=== PATIENT | female | born 1965 | race Caucasian/White ===

== ENCOUNTER 2024-11-07 09:20 | Inpatient (IN) | payer MEDICAID, SELFPAY ==
[2024-11-07] VITALS (16 sets, daily range): BP systolic 135–165; BP diastolic 64–71; PULSE 88–110; RESP 18–93; TEMP 36.6–39; O2SAT 88–99; BMI 17.6
--- NOTE | 2024-11-07 09:41 | XR_ITS ---
Examination: PA lateral chest 2 views Technique: Upright PA lateral chest 2 views Exam time: November 07, 2024 0955 hrs. Comparison February 09, 2024 Indications: Chest pain coughing today Findings: COPD with prominent hyperexpansion Opacity right base consistent with pneumonia Probable pleural scarring right base Impression: COPD Right base pneumonia
--- NOTE | 2024-11-07 09:42 | PD.EDRME ---
Rapid Medical Screening Exam E Arrival date/time: 11/07/24 09:20 59-year-old female with a history of COPD, hyperlipidemia, type 2 diabetes, hypertension presents to the emergency room with a chief complaint of shortness of breath, coughing, fevers x 3 days. I have greeted and performed a focused initial assessment of this patient. A comprehensive ED assessment and evaluation of the patient, analysis of all test results, and completion of the medical decision making process will be conducted by additional ED providers. Chief Complaint: Shortness of Breath/Dyspnea Vital signs: Vital Signs Temperature 102.2 F H 11/07/24 09:39 Pulse Rate 110 H 11/07/24 09:39 Respiratory Rate 22 H 11/07/24 09:39 Blood Pressure 154/71 H 11/07/24 09:39 Pulse Oximetry (%) 90 L 11/07/24 09:39 Oxygen Delivery Method Room Air 11/07/24 09:39 Vital signs reviewed by provider: Yes
[2024-11-07] MEDS: ACETAMINOPHEN 500 MG TABLET 1000 MG PO (09:48)
[2024-11-07] MEDS: ALBUTEROL/IPRATROPIUM (Duoneb) RT SOL 3 ML NEBU INH (10:14)
[2024-11-07 10:42] LABS: Lactate (Lactic Acid) 1.1 mMol/L (0.4-2.0)
[2024-11-07 10:44] LABS: Basophils # (Auto) 0.1 Thou/mm3 (0.0-0.2); Basophils % (Auto) 0 % (0-2.5); Eosinophils # (Auto) 0.1 Thou/mm3 (0.0-0.5); Eosinophils % (Auto) 1 % (0-10); Hematocrit 34.4 % (36.0-46.0); Hemoglobin 11.1 g/dL (12.0-16.0); Immature Granulocytes % (Auto) 0 % (0-0); Immature Granulocytes Auto 0.03 Thou/mm3 (0.00-0.00); Lymphocytes # (Auto) 0.6 Thou/mm3 (1.0-4.8); Lymphocytes % (Auto) 6 % (10-50); Mean Corpuscular HGB Conc 32.3 g/dl (31.0-37.0); Mean Corpuscular Hemoglobin 23.4 pg (25.0-35.0); Mean Corpuscular Volume 73 fL (80-100); Monocytes # (Auto) 0.7 Thou/mm3 (0.0-0.8); Monocytes % (Auto) 6 % (0-12); Neutrophils # (Auto) 9.9 Thou/mm3 (1.8-7.7); Neutrophils % (Auto) 87 % (37-80); Nucleated Red Blood Cell % 0 /100 WBC (0); Platelet Count 552 Thou/mm3 (140-440); RDW Standard Deviation 52.3 fL (36.4-46.3); Red Blood Count 4.74 Miln/mm3 (4.00-5.20); White Blood Count 11.4 Thou/mm3 (3.6-11.0)
[2024-11-07 11:13] LABS: Alanine Aminotransferase 11 U/L (10-49); Albumin, Serum 4.3 gm/dL (3.5-5.0); Alkaline Phosphatase 112 U/L (46-116); Anion Gap 10 (7-16); Aspartate Amino Transferase 15 U/L (0-34); BUN/Creatinine Ratio 12 Ratio (12-20); Bilirubin,Total 0.2 mg/dL (0.3-1.2); Blood Urea Nitrogen 11 mg/dL (9-23); Calcium 9.3 mg/dL (8.3-10.6); Calcium (Corrected) 9.3 mg/dL (8.5-10.1); Carbon Dioxide 23.8 mMol/L (20.0-31.0); Chloride 98 mMol/L (98-107); Creatinine (Component) 0.9 mg/dL (0.6-1.3); Globulin 2.1 gm/dL (2.3-3.5); Glucose 215 mg/dL (74-106); Osmolality,Calculated 269 (275-295); Potassium 4.8 mMol/L (3.4-5.1); Procalcitonin 0.13 ng/ml (0.0-0.49); Sodium 132 mMol/L (136-145); Total Protein 6.4 gm/dL (5.7-8.2); eGFR > 60 See Note
--- NOTE | 2024-11-07 11:39 | PD.EDADULT ---
ED General RME/HPI General Chief complaint: Shortness of Breath/Dyspnea Stated complaint: CAN'T HARDLY BREATH W/COUGH X 4 DAYS Time Seen by Provider: 11/07/24 10:02 Arrival date/time: 11/07/24 09:20 RME / HPI RME / HPI narrative: 11/07/24 09:20 59-year-old female with a history of COPD, hyperlipidemia, type 2 diabetes, hypertension presents to the emergency room with a chief complaint of shortness of breath, coughing, fevers x 3 days. I have greeted and performed a focused initial assessment of this patient. A comprehensive ED assessment and evaluation of the patient, analysis of all test results, and completion of the medical decision making process will be conducted by additional ED providers. Related Data Home Medications ?Medication ?Instructions ?Recorded ?Confirmed amitriptyline 100 mg tablet 100 mg PO QPM 07/28/19 02/10/24 atorvastatin 40 mg tablet 40 mg PO QPM 07/28/19 02/10/24 metformin 1,000 mg tablet 1,000 mg PO BIDWM 09/19/21 02/10/24 gabapentin 100 mg capsule 100 mg PO HS 10/28/23 02/10/24 albuterol sulfate 90 mcg/actuation 2 puff inhalation Q4H PRN Cough 02/10/24 02/10/24 aerosol inhaler cyclobenzaprine 10 mg tablet 10 mg PO TID PRN muscle spasms 02/10/24 02/10/24 erythromycin 500 mg tablet 500 mg PO TID 02/10/24 02/10/24 lamotrigine 25 mg tablet 25 mg PO QHSPRN 02/10/24 02/10/24 lisinopril 20 mg tablet 40 mg PO QDAY 02/10/24 02/10/24 metoclopramide HCl 10 mg tablet 10 mg PO Q6H PRN upset stomach 02/10/24 02/10/24 mirtazapine 15 mg tablet 15 mg PO HS 02/10/24 02/10/24 mupirocin 2 % topical ointment 1 applic topical BID 02/10/24 02/10/24 pantoprazole 40 mg tablet,delayed 40 mg PO QDAY 02/10/24 02/10/24 release Previous Rx's ?Medication ?Instructions ?Recorded blood-glucose sensor (FreeStyle #1 ea 02/11/24 Osmani 3 Sensor device) clopidogrel 75 mg tablet 75 mg PO QDAY 30 days #30 tabs 02/11/24 insulin glargine 100 unit/mL 20 unit (0.2 mL) SCi QDAY 30 days 02/11/24 subcutaneous solution (Lantus #6 mL U-100 Insulin) insulin lispro 100 unit/mL 14 unit (0.14 mL) subcut TID 30 02/11/24 subcutaneous solution (Admelog days #12.6 mL U-100 Insulin lispro) insulin syr/ndl U100 half windy 0.3 #100 ea 02/11/24 mL 29 gauge x 1/2 Allergies Allergy/AdvReac Type Severity Reaction Status Date / Time aspirin Allergy Severe RASH Verified 11/07/24 09:21 cephalexin Allergy Severe Rash Verified 11/07/24 09:21 codeine Allergy Severe RASH Verified 11/07/24 09:21 diphenhydramine Allergy Severe Rash Verified 11/07/24 09:21 Penicillins Allergy Severe RASH Verified 11/07/24 09:21 ED Exam Narrative Physical exam: Physical Exam: General: The vital signs were reviewed. Patient is found to have a fever on presentation with a heart rate of 110 patient coughs frequently otherwise the patient is non-toxic, in no apparent distress and appears healthy with a patent airway, no respiratory distress and has no apparent circulatory problems. Head & Scalp: Normocephalic, atraumatic. Face: Appears normal and is without lesions, deformity. Ears: Left external pinna appears normal. Right external pinna appears normal. Eyes: The sclera is anicteric. No obvious photophobia. The Left and Right Orbit/Lid/Conjunctiva appears normal without swelling, discoloration or injection. Nose: The nose is without deformity, discharge or tenderness; Throat: Appears normal. The mucous membranes are pink and moist without exudates, redness or mass seen. The tongue appears normal. Neck: The neck is supple and no apparent mass or adenopathy. Chest: The chest wall is normal in size and symmetry and has no chest wall tenderness or crepitus. The patient displays normal ventilator effort w has wheezing in all lung abraham and has lots of coughing when she tries to take a deep breath. Cardiovascular: Regular rate and rhythm; No murmurs, rubs, or gallops; Gastrointestinal: The abdomen appears normal. No obvious hernias or mass. The abdomen is soft and benign, non-distended, with no pain, no guarding and no rebound tenderness. Bowel sounds are present and normal sounding. No CVA tenderness. Genitourinary: Back/Spine: Normal [place] and Extremities/Musculoskeletal/lymphatic: The bilateral upper and lower extremities are warm. There is no evidence of arterial insufficiency. There is no evidence of venous insufficiency/edema. The patient spontaneously moves bilateral upper and lower extremities with no pain and no limitation of movement. There is no apparent, injury or trauma. Skin: The skin is warm, dry and intact. No rashes. No petechia. No purpura. No abnormal bruising. The color is appropriate with no cyanosis. Mental status/Psychiatric: Mental status is appropriate for age. The patient has no apparent delusions, visual hallucinations, no apparent audible hallucinations. The patient has no apparent suicidal thoughts/ideation and no apparent homicidal thoughts/ideation. Neurological: The patient is awake, alert, interactive, cordial, cooperative and is oriented to name and situation. The patient follows commands and answers historical question with no impairment. There is no visual disturbance apparent. The pupils are equal and reactive bilaterally with normal eye movements and no diplopia The bilateral upper and lower extremities have normal strength, normal range of motion and normal functioning. The gait, station and balance appear to be baseline with no acute change Course Orders Category Date Time Status Bedside COVID-19 Antigen Test NOW Care 11/07/24 09:41 Active Bedside Influenza A&B Antigen Test NOW Care 11/07/24 09:41 Completed Insert IV NOW Care 11/07/24 09:44 Active Miscellaneous Nursing Order X1 Care 11/07/24 11:41 Active XR chest 2V Stat Exams 11/07/24 09:41 Completed Blood Culture (Lab) Stat Lab 11/07/24 11:00 Received CBC Stat Lab 11/07/24 10:33 Completed CMP [Comprehensive Metabolic Panel] Stat Lab 11/07/24 10:33 Completed Lactate (Lactic Acid) Stat Lab 11/07/24 10:33 Completed Procalcitonin Stat Lab 11/07/24 10:33 Completed UA [Urinalysis] Stat Lab 11/07/24 11:42 Completed Urine Culture Stat Lab 11/07/24 11:42 Received Acetaminophen Tab [Tylenol ES Tab] Med 11/07/24 09:41 Discontinued 1,000 mg PO X1 ONE Albuterol/Ipratr Rt Antonella [Duoneb Rt Antonella] Med 11/07/24 09:41 Discontinued 3 ml INH X1 ONE Azithromycin Inj [Zithromax Inj] 500 mg Med 11/07/24 09:44 Discontinued Sodium Chloride 0.9% 250 ml [Ns] 250 ml IV X1 Dexamethasone Inj [Decadron Inj] Med 11/07/24 09:41 Discontinued 10 mg PO X1 ONE Meropenem Inj [Merrem Inj] 1,000 mg Med 11/07/24 11:41 Discontinued SODIUM CHLORIDE 0.9% (Popper) [NS 0.9% (Popper)] 50 ml IV X1 MethylPREDNISolone.* [SoluMEDROL Inj] Med 11/07/24 09:44 Discontinued 125 mg IVP X1 ONE Sodium Chloride 0.9% 1000 ml [Ns] 1,000 ml Med 11/07/24 09:45 Discontinued IV 999 mls/hr Vital Signs Vital signs: Vital Signs Temperature 102.2 F H 11/07/24 09:39 Pulse Rate 110 H 11/07/24 09:39 Respiratory Rate 22 H 11/07/24 09:39 Blood Pressure 154/71 H 11/07/24 09:39 Pulse Oximetry (%) 90 L 11/07/24 09:39 Oxygen Delivery Method Room Air 11/07/24 09:39 MDM Medications Medication administrations:: Medication Administration History Discontinued Medications Acetaminophen (Acetaminophen 500 Mg Tablet) 1,000 mg PO X1 ONE Stop: 11/07/24 09:42 Last Admin: 11/07/24 09:48 Dose: 1,000 mg Documented By: OA Albuterol/Ipratropium (Albuterol/Ipratropium (Duoneb) Rt Antonella 3 Ml Nebu) 3 ml INH X1 ONE Stop: 11/07/24 09:42 Last Admin: 11/07/24 10:14 Dose: 3 ml Documented By: AA Dexamethasone Sodium Phosphate (Dexamethasone Sod Phos Inj 10 Mg/Ml Vial) 10 mg PO X1 ONE Stop: 11/07/24 09:42 Last Admin: 11/07/24 11:54 Dose: Not Given Documented By: GM Non-Admin Reason: Discontinued Azithromycin 500 mg/ Sodium (Chloride) 250 mls @ 250 mls/hr IV X1 ONE Stop: 11/07/24 10:43 Last Admin: 11/07/24 11:54 Dose: 250 mls/hr Documented By: LINDSEY Sodium Chloride (Ns) 1,000 mls @ 999 mls/hr IV .Q1H1M ONE Stop: 11/07/24 10:45 Last Admin: 11/07/24 11:52 Dose: 999 mls/hr Documented By: LINDSEY Meropenem 1,000 mg/ Sodium (Chloride) 50 mls @ 100 mls/hr IV X1 ONE Stop: 11/07/24 11:42 Methylprednisolone Sodium Succinate (Methylprednisolone Sod Succ 62.5 Mg/Ml 2ml Vial) 125 mg IVP X1 ONE Stop: 11/07/24 09:45 Last Admin: 11/07/24 11:51 Dose: 125 mg Documented By: LINDSEY Medical Decision Making MDM Narrative MDM Narrative: Patient is a 59-year-old who has a known history of tobacco use with COPD and inhaler usage comes in with 5 days of increasing cough some shortness of breath was found to have a fever on arrival to our facility and a strep septic alert was called. Chest x-ray reveals a right pleural effusion and right lower lobe infiltrate with flattened diaphragms and COPD appearing lungs otherwise. Cardiac silhouette appears to be within normal limits Laboratory studies reveal a white count 11.4 hemoglobin 11.1 sodium 132 potassium 4.8 chloride 98 CO2 23.8. BUN 11 creatinine 0.9 lactic acid is 1.1. Glucose 215. Dip urine has 3+ protein 4+ glucose and 1+ ketones and there is 4 white cells and 6 red cells per Because of fever and tachycardia she met SIRS criteria and we went ahead and called a septic alert. She got 1 dose azithromycin previously ordered prior to my evaluation and I added meropenem for broader spectrum. Will reevaluate after breathing treatments. Lab Data 11/07/24 10:33 11/07/24 10:33 Labs: Lab Results 11/07/24 11/07/24 Range/Units 10:33 11:42 WBC 11.4 H (3.6-11.0) Thou/mm3 RBC 4.74 (4.00-5.20) Miln/mm3 Hgb 11.1 L (12.0-16.0) g/dL Hct 34.4 L (36.0-46.0) % MCV 73 L (80-100) fL MCH 23.4 L (25.0-35.0) pg MCHC 32.3 (31.0-37.0) g/dl RDW Std Deviation 52.3 H (36.4-46.3) fL Plt Count 552 H (140-440) Thou/mm3 Neut % (Auto) 87 H (37-80) % Lymph % (Auto) 6 L (10-50) % [place] % (Auto) 6 (0-12) % Eos % (Auto) 1 (0-10) % Baso % (Auto) 0 (0-2.5) % Neut # (Auto) 9.9 H (1.8-7.7) Thou/mm3 Lymph # (Auto) 0.6 L (1.0-4.8) Thou/mm3 [place] # (Auto) 0.7 (0.0-0.8) Thou/mm3 Eos # (Auto) 0.1 (0.0-0.5) Thou/mm3 Baso # (Auto) 0.1 (0.0-0.2) Thou/mm3 Immature Gran # (Auto) 0.03 H (0.00-0.00) Thou/mm3 Absolute Nucleated RBC 0.00 (0.00-0.00) Thou/mm3 Immature Gran % 0 (0-0) % Nucleated RBC % 0 (0) /100 WBC Sodium 132 L (136-145) mMol/L Potassium 4.8 (3.4-5.1) mMol/L Chloride 98 (98-107) mMol/L Carbon Dioxide 23.8 (20.0-31.0) mMol/L Anion Gap 10 (7-16) BUN 11 (9-23) mg/dL Creatinine 0.9 (0.6-1.3) mg/dL Estim Creat Clear Calc Not Performed. eGFR > 60 (60 - ) See Note BUN/Creatinine Ratio 12 (12-20) Ratio Glucose 215 H (74-106) mg/dL Calculated Osmolality 269 L (275-295) Lactic Acid 1.1 (0.4-2.0) mMol/L Calcium 9.3 (8.3-10.6) mg/dL Corrected Calcium 9.3 (8.5-10.1) mg/dL Total Bilirubin 0.2 L (0.3-1.2) mg/dL AST 15 (0-34) U/L ALT 11 (10-49) U/L Alkaline Phosphatase 112 (46-116) U/L Total Protein 6.4 (5.7-8.2) gm/dL Albumin 4.3 (3.5-5.0) gm/dL Globulin 2.1 L (2.3-3.5) gm/dL Albumin/Globulin Ratio 2.0 (1.2-2.2) Procalcitonin 0.13 (0.0-0.49) ng/ml Ur Collection Type Clean Catch Urine Color Lt-Yellow (Lt Yel-Yel) Urine Clarity Clear (Clear/Hazy) Urine pH 6.5 (5.0-7.0) Ur Specific [place] 1.027 (1.001-1.035) Urine Protein 3+ A (Neg - Trace) Urine Glucose (UA) 4+ A (Negative) Urine Ketones 1+ A (Negative) Urine Blood Trace (Negative) Urine Nitrite Negative (Negative) Urine Bilirubin Negative (Negative) Urine Urobilinogen (Auto) Negative (0.0-1.0) mg/dL Ur Leukocyte Esterase Negative (Negative) Urine RBC 6 H (0-3) /hpf Urine WBC 4 (0-5) /hpf Ur Squamous Epith Cells 4 (0-5) /hpf Urine Bacteria None (None) Hyaline Casts < 1 (0-1) /hpf Discharge Plan Prescriptions/Referrals Prescriptions/Med Rec: No Action atorvastatin 40 mg Tablet 40 mg PO QPM amitriptyline 100 mg Tablet 100 mg PO QPM metformin 1,000 mg Tablet 1,000 mg PO BIDWM gabapentin 100 mg capsule 100 mg PO HS cyclobenzaprine 10 mg Tablet 10 mg PO TID PRN (Reason: muscle spasms ) lamotrigine 25 mg tablet 25 mg PO QHSPRN mirtazapine 15 mg tablet 15 mg PO HS metoclopramide HCl 10 mg Tablet 10 mg PO Q6H PRN (Reason: upset stomach) erythromycin 500 mg Tablet 500 mg PO TID lisinopril 20 mg tablet 40 mg PO QDAY Patient Comments: TAKE TWO TABLETS BY MOUTH EVERY DAY HIGH BLOOD PRESSURE pantoprazole 40 mg Tablet,Delayed Release (Dr/Ec) 40 mg PO QDAY mupirocin 2 % Ointment 1 applic TOPICAL BID albuterol sulfate 90 mcg/actuation HFA aerosol inhaler 2 puff INHALATION Q4H PRN (Reason: Cough) clopidogrel 75 mg Tablet 75 mg PO QDAY 30 Days Qty: 30 4RF insulin glargine [Lantus U-100 Insulin] 100 unit/mL Solution 20 unit SCi QDAY 30 Days Qty: 6 2RF insulin lispro [Admelog U-100 Insulin lispro] 100 unit/mL solution 14 unit subcut TID 30 Days Qty: 12.6 6RF (DME) FreeStyle Osmani 3 Sensor Device See Rx Instructions .Route Qty: 1 6RF Rx Instructions: As directed (DME) insulin syr/ndl U100 half windy 0.3 mL 29 gauge x 1/2 syringe See Rx Instructions .Route Qty: 100 0RF Rx Instructions: As directed Referrals: Aaron Mclean MD [Primary Care Provider] - In 1 week Patient/Caregiver Discharge Instructions Print Language: Estonian
[2024-11-07 11:49] LABS: Collection Type, Urine Clean Catch
[2024-11-07] MEDS: MethylPREDNISolone SOD SUCC 62.5 MG/ML 2ML VIAL 125 MG IVP (11:51)
[2024-11-07] MEDS: SODIUM CHLORIDE 0.9% 1000 ML 1,000 ML 999 ML IV (11:52)
[2024-11-07] MEDS: AZITHROMYCIN INJ 500 MG in SODIUM CHLORIDE 0.9% 250 ML 250 ML 250 MG IV (11:54)
[2024-11-07 12:05] LABS: Bilirubin,Urine Negative (Negative); Blood,Urine Trace (Negative); Clarity,Urine Clear (Clear/Hazy); Color,Urine Lt-Yellow (Lt Yel-Yel); Glucose, Urine 4+ (Negative); Hyaline Casts,Urine < 1 /hpf (0-1); Ketones,Urine 1+ (Negative); Leukocyte Esterase,Urine Negative (Negative); Nitrite,Urine Negative (Negative); PH,Urine 6.5 (5.0-7.0); Protein,Urine 3+ (Neg - Trace); RBC,Urine 6 /hpf (0-3); Specific Gravity,Urine 1.027 (1.001-1.035); Squamous Epithelial Cell,Urine 4 /hpf (0-5); Urobilinogen,Urine Negative mg/dL (0.0-1.0); WBC,Urine 4 /hpf (0-5)
--- NOTE | 2024-11-07 12:18 | PD.EDSOB ---
ED SOB =RME/HPI General Chief Complaint: Shortness of Breath/Dyspnea Stated Complaint: CAN'T HARDLY BREATH W/COUGH X 4 DAYS Time Seen by Provider: 11/07/24 10:02 Arrival date/time: 11/07/24 09:20 RME / HPI RME / HPI Narrative: 11/07/24 09:20 59-year-old female with a history of COPD, hyperlipidemia, type 2 diabetes, hypertension presents to the emergency room with a chief complaint of shortness of breath, coughing, fevers x 3 days. I have greeted and performed a focused initial assessment of this patient. A comprehensive ED assessment and evaluation of the patient, analysis of all test results, and completion of the medical decision making process will be conducted by additional ED providers. DR. VELASQUEZ MAIN ED EVALUATION: 59 year old female with history of CAD s/p PCI, hypertension, COPD, hypothyroidism, diabetes, previous admission for DKA, hyperlipidemia presents to the ED BIBA from home for evaluation of cough and shortness of breath today. States at baseline she has a cough and shortness of breath however symptoms are worse in the last 3 days. Accompanied by fevers, chills, body aches. Denies any sick contacts with similar symptoms. Denies abdominal pain, vomiting, diarrhea, or urinary symptoms. No known modifying factors reported. Related Data Home Medications ?Medication ?Instructions ?Recorded ?Confirmed amitriptyline 100 mg tablet 100 mg PO QPM 07/28/19 02/10/24 atorvastatin 40 mg tablet 40 mg PO QPM 07/28/19 02/10/24 metformin 1,000 mg tablet 1,000 mg PO BIDWM 09/19/21 02/10/24 gabapentin 100 mg capsule 100 mg PO HS 10/28/23 02/10/24 albuterol sulfate 90 mcg/actuation 2 puff inhalation Q4H PRN Cough 02/10/24 02/10/24 aerosol inhaler cyclobenzaprine 10 mg tablet 10 mg PO TID PRN muscle spasms 02/10/24 02/10/24 erythromycin 500 mg tablet 500 mg PO TID 02/10/24 02/10/24 lamotrigine 25 mg tablet 25 mg PO QHSPRN 02/10/24 02/10/24 lisinopril 20 mg tablet 40 mg PO QDAY 02/10/24 02/10/24 metoclopramide HCl 10 mg tablet 10 mg PO Q6H PRN upset stomach 02/10/24 02/10/24 mirtazapine 15 mg tablet 15 mg PO HS 02/10/24 02/10/24 mupirocin 2 % topical ointment 1 applic topical BID 02/10/24 02/10/24 pantoprazole 40 mg tablet,delayed 40 mg PO QDAY 02/10/24 02/10/24 release Previous Rx's ?Medication ?Instructions ?Recorded blood-glucose sensor (FreeStyle #1 ea 02/11/24 Osmani 3 Sensor device) clopidogrel 75 mg tablet 75 mg PO QDAY 30 days #30 tabs 02/11/24 insulin glargine 100 unit/mL 20 unit (0.2 mL) SCi QDAY 30 days 02/11/24 subcutaneous solution (Lantus #6 mL U-100 Insulin) insulin lispro 100 unit/mL 14 unit (0.14 mL) subcut TID 30 02/11/24 subcutaneous solution (Admelog days #12.6 mL U-100 Insulin lispro) insulin syr/ndl U100 half windy 0.3 #100 ea 02/11/24 mL 29 gauge x 1/2 Allergies Allergy/AdvReac Type Severity Reaction Status Date / Time aspirin Allergy Severe RASH Verified 11/07/24 09:21 cephalexin Allergy Severe Rash Verified 11/07/24 09:21 codeine Allergy Severe RASH Verified 11/07/24 09:21 diphenhydramine Allergy Severe Rash Verified 11/07/24 09:21 Penicillins Allergy Severe RASH Verified 11/07/24 09:21 Review of Systems Review of Systems Narrative Review of Systems: Constitutional: SEE HPI +fevers Eyes: DENIES; Loss of vision Head/Ear/Nose: DENIES; Loss of hearing Throat: DENIES; Dysphagia Cardiovascular: DENIES; Chest pain, dyspnea or syncope Respiratory: SEE HPI + Shortness of breath and cough Gastrointestinal: DENIES; Rectal bleeding or melena. Genitourinary: DENIES; Dysuria (painful or difficult urination) Musculoskeletal: DENIES; Arthralgia (pain in a joint),; Skin: DENIES; Rash Neurological: DENIES; Loss of function or movement Psychiatric: DENIES; recent major life stressor, emotional problem, illicit drug use or abuse Endocrinology: DENIES; Weight change Hematologic/Lymphatic: DENIES; Abnormal bruising Allergic/Immunologic: DENIES; Urticaria (hives) Past Medical History Past Medical History NEUROLOGIC: Positive Neurological Disorders, Migraine and Head Trauma CARDIAC: Positive Myocardial Infarction, Coronary Artery Disease, Atherosclerotic Heart Disease, Hypercholesterolemia, Edema and Hypertension RESPIRATORY: Positive Chronic Obstructive Pulmonary Disease (COPD), Asthma, Bronchitis, Pneumonia, Cough, Wheezing, Smoking, Smoking Cessation Counseling and Tobacco Use GASTROINTESTINAL: Positive Gastrointestinal Disorders and Gastroesophageal Reflux Disease GENITOURINARY: Positive Genitourinary Disorders REPRODUCTIVE: Positive Previous Pregnancies MUSCULOSKELETAL: Positive Musculoskeletal Disorders, Arthritis and Fractures (wrist and ribs) ENT: Positive Ear Infection and Head Trauma ENDOCRINE: Positive Diabetes Mellitus Type 2 and Hypothyroidism PSYCHO/SOCIAL: Positive Recreational Drug Use, Depression and Anxiety OTHER HISTORY: Positive Hospitalization, Falls, Chicken Pox, Measles and Mumps Family History FAMILY HISTORY: Positive Family Respiratory Disorders, Family Cardiac Disorders, Family Gastrointestinal Problems and Family Surgery Surgical History SURGICAL: Positive Cardiac Surgery, Coronary Stent, Cardiac Catheterization and Tubal Ligation Social History SMOKING STATUS: Light (< 1 pack/day) SECOND HAND EXPOSURE: Yes SUBSTANCE USE: former substance user, marijuana and amphetamines ED Exam Narrative Physical exam: Physical Exam: General: The vital signs were reviewed. Patient is found to have a fever on presentation with a heart rate of 110 patient coughs frequently otherwise the patient is non-toxic, in no apparent distress and appears healthy with a patent airway, no respiratory distress and has no apparent circulatory problems. Head & Scalp: Normocephalic, atraumatic. Face: Appears normal and is without lesions, deformity. Ears: Left external pinna appears normal. Right external pinna appears normal. Eyes: The sclera is anicteric. No obvious photophobia. The Left and Right Orbit/Lid/Conjunctiva appears normal without swelling, discoloration or injection. Nose: The nose is without deformity, discharge or tenderness; Throat: Appears normal. The mucous membranes are pink and moist without exudates, redness or mass seen. The tongue appears normal. Neck: The neck is supple and no apparent mass or adenopathy. Chest: The chest wall is normal in size and symmetry and has no chest wall tenderness or crepitus. The patient displays normal ventilator effort w has wheezing in all lung abraham and has lots of coughing when she tries to take a deep breath. Cardiovascular: Regular rate and rhythm; No murmurs, rubs, or gallops; Gastrointestinal: The abdomen appears normal. No obvious hernias or mass. The abdomen is soft and benign, non-distended, with no pain, no guarding and no rebound tenderness. Bowel sounds are present and normal sounding. No CVA tenderness. Genitourinary: Back/Spine: Normal Spektor and Extremities/Musculoskeletal/lymphatic: The bilateral upper and lower extremities are warm. There is no evidence of arterial insufficiency. There is no evidence of venous insufficiency/edema. The patient spontaneously moves bilateral upper and lower extremities with no pain and no limitation of movement. There is no apparent, injury or trauma. Skin: The skin is warm, dry and intact. No rashes. No petechia. No purpura. No abnormal bruising. The color is appropriate with no cyanosis. Mental status/Psychiatric: Mental status is appropriate for age. The patient has no apparent delusions, visual hallucinations, no apparent audible hallucinations. The patient has no apparent suicidal thoughts/ideation and no apparent homicidal thoughts/ideation. Neurological: The patient is awake, alert, interactive, cordial, cooperative and is oriented to name and situation. The patient follows commands and answers historical question with no impairment. There is no visual disturbance apparent. The pupils are equal and reactive bilaterally with normal eye movements and no diplopia The bilateral upper and lower extremities have normal strength, normal range of motion and normal functioning. The gait, station and balance appear to be baseline with no acute change Course Quality Measures Current suspected stage: sepsis Possible source: pulmonary Blood cultures ordered: completed in ED Antibiotic ordered: Yes Pertinent labs: 11/07/24 10:33 Lactic Acid 1.1 mMol/L (0.4-2.0) Procalcitonin 0.13 ng/ml (0.0-0.49) sepsis Orders Category Date Time Status Patient Condition Routine Admission 11/07/24 17:26 Ordered Activity as Tolerated Routine Care 11/07/24 17:28 Ordered Bedside COVID-19 Antigen Test NOW Care 11/07/24 09:41 Active Bedside Influenza A&B Antigen Test NOW Care 11/07/24 09:41 Completed Insert IV NOW Care 11/07/24 09:44 Active Intake and Output QSHIFT Care 11/07/24 17:30 Ordered Miscellaneous Nursing Order X1 Care 11/07/24 11:41 Active Notify provider NEEDED Care 11/07/24 17:26 Active Obtain weight daily Care 11/07/24 17:27 Active Vital Signs, Non-Routine Q4H Care 11/07/24 17:30 Ordered Vital Signs, Non-Routine Q4H Care 11/07/24 21:30 Ordered XR chest 2V Stat Exams 11/07/24 09:41 Completed Blood Culture (Lab) Stat Lab 11/07/24 11:00 Received CBC AM DRAW Lab 11/08/24 05:00 Ordered CBC AM DRAW Lab 11/09/24 05:00 Ordered CBC AM DRAW Lab 11/10/24 05:00 Ordered CBC Stat Lab 11/07/24 10:33 Completed CMP [Comprehensive Metabolic Panel] Stat Lab 11/07/24 10:33 Completed Comprehensive Metabolic Panel AM DRAW Lab 11/08/24 05:00 Ordered Lactate (Lactic Acid) Stat Lab 11/07/24 10:33 Completed Magnesium AM DRAW Lab 11/08/24 05:00 Ordered Magnesium AM DRAW Lab 11/09/24 05:00 Ordered Magnesium AM DRAW Lab 11/10/24 05:00 Ordered Procalcitonin Stat Lab 11/07/24 10:33 Completed UA [Urinalysis] Stat Lab 11/07/24 11:42 Completed Urine Culture Stat Lab 11/07/24 11:42 Received ALBUTEROL RT 0.5ml [Proventil Rt 0.5ml] Med 11/07/24 12:21 Discontinued 10 mg INH X1 ONE Acetaminophen Tab [Tylenol ES Tab] Med 11/07/24 09:41 Discontinued 1,000 mg PO X1 ONE Acetaminophen Tab [Tylenol Tab] Med 11/07/24 17:26 Active 650 mg PO Q6H PRN Acetaminophen Tab [Tylenol Tab] Med 11/07/24 17:26 Active 650 mg PO Q6H PRN Albuterol* Inhaler [Proventil Inhaler] Med 11/07/24 17:36 Active 2 puff INH Q2HR PRN Albuterol/Ipratr Rt Antonella [Duoneb Rt Antonella] Med 11/07/24 17:26 Active 3 ml INH Q4HRRT PRN Albuterol/Ipratr Rt Antonella [Duoneb Rt Antonella] Med 11/07/24 09:41 Discontinued 3 ml INH X1 ONE Azithromycin Inj [Zithromax Inj] 500 mg Med 11/07/24 17:34 Pending Sodium Chloride 0.9% 250 ml [Ns] 250 ml IV QDAY Azithromycin Inj [Zithromax Inj] 500 mg Med 11/07/24 09:44 Discontinued Sodium Chloride 0.9% 250 ml [Ns] 250 ml IV X1 Dexamethasone Inj [Decadron Inj] Med 11/07/24 09:41 Discontinued 10 mg PO X1 ONE Docusate Sod [Colace] Med 11/08/24 09:00 Active 100 mg PO QDAY Enoxaparin [Lovenox] Med 11/08/24 09:00 Active 40 mg SC QDAY Meropenem Inj [Merrem Inj] 1,000 mg Med 11/07/24 11:41 Discontinued SODIUM CHLORIDE 0.9% (Popper) [NS 0.9% (Popper)] 50 ml IV X1 MethylPREDNISolone.* [SoluMEDROL Inj] Med 11/07/24 09:44 Discontinued 125 mg IVP X1 ONE MethylPREDNISolone.* [SoluMEDROL Inj] Med 11/07/24 12:21 Discontinued 125 mg IVP X1 ONE Ondansetron Inj [Zofran Inj] Med 11/07/24 17:26 Active 4 mg IV Q6H PRN Sodium Chloride 0.9% 1000 ml [Ns] 1,000 ml Med 11/07/24 09:45 Discontinued IV 999 mls/hr Sodium Chloride Rt Antonella 0.9% [NS Rt Antonella 0.9%] Med 11/07/24 12:21 Active 3 ml INH PRN PRN cefTRIAXone [Rocephin] 1,000 mg Med 11/08/24 09:00 Active SODIUM CHLORIDE 0.9% (Popper) [NS 0.9% (Popper)] 50 ml IV QDAY predniSONE Med 11/08/24 09:00 Active 40 mg PO DAILY Code Status Routine Oth 11/07/24 17:26 Ordered Oxygen Delivery PRN RT 11/07/24 17:26 Active Vital Signs Vital signs: Vital Signs Temperature 102.2 F H 11/07/24 09:39 Pulse Rate 110 H 11/07/24 09:39 Respiratory Rate 22 H 11/07/24 09:39 Blood Pressure 154/71 H 11/07/24 09:39 Pulse Oximetry (%) 90 L 11/07/24 09:39 Oxygen Delivery Method Room Air 11/07/24 09:39 Pulse ox is 90% on room air which is hypoxic. Shortness of Breath / Dyspnea MDM Narrative MDM Narrative:: I, Ashley Ross, am scribing for and in the presence of Dr. Velasquez. Patient is a 59-year-old who comes in with increasing cough for 5 days was found to have a fever on arrival. Septic alert was called. Chest x-ray was done which reveals a right basilar pneumonia. O2 sats are averaging 88 to 90% on room air she is tolerating oxygen but she was also wheezing and got a continuous neb and her air movement was much improved the wheezing decreased we observed her for couple hours from that time but her O2 sats are still 9091%. We ambulated in the halls to get a little winded O2 sats dropped to 88%. Note she is not on home oxygen. She does have nebulizer machines. She is a smoker. White count is 11.4 hemoglobin is 11.1 electrolytes 132 sodium potassium 4.8 anion gap is 10 BUN/creatinine are normal limits. Urinalysis came back with 6 red cells and 4 white cells nonclean-catch specimen. Because of the fever tachycardia and shortness of breath a septic alert was called she got meropenem and azithromycin. Because she remains hypoxic we will admit her for pneumonia. There is no other obvious source of infection besides a pneumonia and a COPD exacerbation seems to be much improved after the continuous neb treatment. Hospitalist was called and they will admit. After the hospitalist came down the patient was crying and scared to be admitted to the hospital and went back in the room and talk to the patient along with the resident and the patient did finally agree. Noted O2 sats were 90% on the room air when I was in the room while she stated she wanted to go. She stated she was hungry so we gave her some food and it appears she is going to stay and not leave AMA. Patient data External records reviewed:: [facility] previous records (I review admission from 02/09/2024 through 02/11/2024) Clinical information provided by:: patient Social determinants that could affect healthcare access:: other (specify) (Active tobacco smoker ) Patient has the following chronic illnesses:: CAD s/p PCI, hypertension, COPD, hypothyroidism, diabetes, previous admission for DKA, hyperlipidemia How is presenting disease/condition affected by chronic disease/condition?: exacerbated by Evaluation data The following diagnostics were reviewed and interpreted by me:: lab results and radiology exam(s) Lab and/or radiology exams considered but not ordered:: None Interpretation Summary: Ordering Physician: Juan José Pelletier Date of Service: 11/07/24 Procedure(s): XR chest 2V Accession Number(s): [id number] cc: Juan José Pelletier; Javad Owusu MD~ Examination: PA lateral chest 2 views Technique: Upright PA lateral chest 2 views Exam time: November 07, 2024 0955 hrs. Comparison February 09, 2024 Indications: Chest pain coughing today Findings: COPD with prominent hyperexpansion Opacity right base consistent with pneumonia Probable pleural scarring right base Impression: COPD Right base pneumonia Dictated By: Javad Owusu MD Signed By: <Electronically signed by Javad Owusu MD in OV> 11/07/24 1042 Medications / Prescriptions Medications or Prescriptions considered but not ordered:: None Medication administrations:: Medication Administration History Acetaminophen (Acetaminophen 325 Mg Tablet) 650 mg PO Q6H PRN PRN Reason: Fever >101.5 Stop: 12/07/24 17:25 Acetaminophen (Acetaminophen 325 Mg Tablet) 650 mg PO Q6H PRN PRN Reason: PAIN SCALE 1-3 (mild Stop: 12/07/24 17:25 Albuterol (Albuterol Inh 8 Gm) 2 puff INH Q2HR PRN PRN Reason: SHORTNESS OF BREATH Stop: 12/07/24 17:59 Albuterol/Ipratropium (Albuterol/Ipratropium (Duoneb) Rt Antonella 3 Ml Nebu) 3 ml INH Q4HRRT PRN PRN Reason: sob Stop: 12/07/24 18:59 Dextrose (Dextrose 50%-Water Inj 50 Ml Syringe) 25 ml IV Q15MIN PRN PRN Reason: BG 50-70 responsive npo pt Stop: 12/07/24 18:26 Dextrose (Dextrose 50%-Water Inj 50 Ml Syringe) 50 ml IV Q15MIN PRN PRN Reason: BG <50 OR BG <70 & pt unresponsive Stop: 12/07/24 18:26 Docusate Sodium (Docusate Sod 100 Mg Capsule) 100 mg PO QDAY BIRDIE; Protocol Stop: 12/08/24 08:59 Enoxaparin Sodium (Enoxaparin Sod Inj 40 Mg/0.4 Ml Syringe) 40 mg SC QDAY [facility] Stop: 11/22/24 08:59 Glucagon (Glucagon Inj 1 Mg Vial) 1 mg IM Q15MIN PRN PRN Reason: BG <70, and no IV access Azithromycin 500 mg/ Sodium (Chloride) 250 mls @ 250 mls/hr IV QDAY BIRDIE Stop: 11/14/24 17:33 Last Admin: 11/07/24 17:43 Dose: Not Given Documented By: GM Non-Admin Reason: Contraindicated Comments: VERIFIED WITH PHARMACY Ceftriaxone Sodium 1,000 mg/ (Sodium Chloride) 50 mls @ 100 mls/hr IV QDAY [facility] Stop: 11/15/24 08:59 Insulin Glargine (Insulin Glargine (Lantus) 5 Unit/0.05 Ml (Per 5 Units)) 10 unit SC BID [facility] Stop: 12/07/24 20:59 Insulin Human Lispro (Insulin Lispro (Admelog) 1 Unit/0.01 Ml Unit) 0 unit SC AC [facility]; Protocol Stop: 12/08/24 07:29 Insulin Human Lispro (Insulin Lispro (Admelog) 1 Unit/0.01 Ml Unit) 7 unit SC TIDWM [facility] Stop: 12/08/24 07:59 Labetalol HCl (Labetalol Inj 5 Mg/Ml Vial 20 Ml) 10 mg IVP Q4HR PRN PRN Reason: SBP > 180 Stop: 12/07/24 17:46 Lisinopril (Lisinopril 20 Mg Tablet) 40 mg PO DAILY BIRDIE Stop: 12/08/24 08:59 Ondansetron HCl (Ondansetron Inj 2 Mg/Ml Inj 2 Ml) 4 mg IV Q6H PRN; Protocol PRN Reason: NAUSEA OR VOMITING Stop: 12/07/24 17:25 Prednisone (Prednisone 20 Mg Tablet) 40 mg PO DAILY [facility] Stop: 11/12/24 08:59 Sodium Chloride (Sodium Chloride Rt Antonella 0.9% 3 Ml Nebu) 3 ml INH PRN PRN PRN Reason: SOLN Stop: 12/07/24 12:20 Last Admin: 11/07/24 12:56 Dose: 3 ml Documented By: AA Discontinued Medications Acetaminophen (Acetaminophen 500 Mg Tablet) 1,000 mg PO X1 ONE Stop: 11/07/24 09:42 Last Admin: 11/07/24 09:48 Dose: 1,000 mg Documented By: OA Albuterol (Albuterol Rt 2.5 Mg/0.5 Ml Nebu) 10 mg INH X1 ONE Stop: 11/07/24 12:22 Last Admin: 11/07/24 12:56 Dose: 10 mg Documented By: AA Albuterol/Ipratropium (Albuterol/Ipratropium (Duoneb) Rt Antonella 3 Ml Nebu) 3 ml INH X1 ONE Stop: 11/07/24 09:42 Last Admin: 11/07/24 10:14 Dose: 3 ml Documented By: AA Dexamethasone Sodium Phosphate (Dexamethasone Sod Phos Inj 10 Mg/Ml Vial) 10 mg PO X1 ONE Stop: 11/07/24 09:42 Last Admin: 11/07/24 11:54 Dose: Not Given Documented By: GM Non-Admin Reason: Discontinued Azithromycin 500 mg/ Sodium (Chloride) 250 mls @ 250 mls/hr IV X1 ONE Stop: 11/07/24 10:43 Last Infusion: 11/07/24 13:08 Dose: Infused Documented By: Admin: 11/07/24 11:54 Dose: 250 mls/hr Documented By: GM Sodium Chloride (Ns) 1,000 mls @ 999 mls/hr IV .Q1H1M ONE Stop: 11/07/24 10:45 Last Infusion: 11/07/24 13:05 Dose: Infused Documented By: Admin: 11/07/24 11:52 Dose: 999 mls/hr Documented By: GM Meropenem 1,000 mg/ Sodium (Chloride) 50 mls @ 100 mls/hr IV X1 ONE Stop: 11/07/24 11:42 Last Infusion: 11/07/24 13:52 Dose: Infused Documented By: Admin: 11/07/24 13:08 Dose: 100 mls/hr Documented By: GM Insulin Glargine (Insulin Glargine (Lantus) 5 Unit/0.05 Ml (Per 5 Units)) 15 unit SC HS BIRDIE Stop: 12/07/24 20:59 Insulin Human Lispro (Insulin Lispro (Admelog) 1 Unit/0.01 Ml Unit) 10 unit SC X1 ONE Stop: 11/07/24 18:26 Last Admin: 11/07/24 18:42 Dose: 10 unit Documented By: LINDSEY Co-signed By: DENISSE(2) Insulin Human Lispro (Insulin Lispro (Admelog) 1 Unit/0.01 Ml Unit) 7 unit SC ACHS BIRDIE Stop: 12/07/24 20:59 Methylprednisolone Sodium Succinate (Methylprednisolone Sod Succ 62.5 Mg/Ml 2ml Vial) 125 mg IVP X1 ONE Stop: 11/07/24 09:45 Last Admin: 11/07/24 11:51 Dose: 125 mg Documented By: LINDSEY Methylprednisolone Sodium Succinate (Methylprednisolone Sod Succ 62.5 Mg/Ml 2ml Vial) 125 mg IVP X1 ONE Stop: 11/07/24 12:22 Last Admin: 11/07/24 13:05 Dose: Not Given Documented By: LINDSEY Non-Admin Reason: Cancelled by Provider See above Consultations Consultation(s) initiated? (list below): Yes Consultation #1 (Physician, Specialty, Details): I spoke with resident Dr. Velásquez working with Dr. Waggoner. Discussed patients PMHx, HPI, ED course, exam findings, labs, and radiology results. The hospitalist agree to accept the patient for admission. Diagnosis Shortness of Breath Differential Diagnosis: acute exacerbation of chronic obstructive airways disease, congestive heart failure, community acquired pneumonia and asthma with exacerbation Most likely diagnosis given after review of the tests above:: Pneumonia Hypoxemia COPD exacerbation Admission Indicated Admission indicated?: indicated Admission Request Was there a request for admission?: Yes Admission Attestation Admission request attestation: Discussed case with [] from Hospitalist service regarding admission. Discussed patients ED course, exam findings, labs, and radiology results. The Hospitalist [agrees,declines] to accept the patient for admission. Disposition Plan Disposition Plan: Admit Critical Care Time Critical Care Time Critical Care Time: Yes Total Critical Care Time (min.): 45 Attestation: The high probability of sudden, clinically significant deterioration in the patient's condition required the highest level of my preparedness to intervene urgently. The services I provided to this patient were to treat and/or prevent clinically significant deterioration. Services included the following: chart data review, reviewing nursing notes and/or old charts, documentation time, baby registry sales consultant collaboration regarding findings and treatment options, medication orders and management, direct patient care, vital sign assessments and ordering, interpreting and reviewing diagnostic studies and lab tests. Aggregate critical care time includes only time during which I was engaged in work directly related to the patient's care, as described above, whether at bedside or elsewhere in the Emergency Department. It did not include time spent performing other reported procedures or the services of residents, students, nurses or physician assistants. Discharge Plan Plan Patient Disposition: Admit Acute Care w/in Hospital Disposition Comment: Hospitalist to admit Problem List Clinical Impression: Pneumonia, Hypoxemia, COPD exacerbation
[2024-11-07] MEDS: SODIUM CHLORIDE RT SOL 0.9% 3 ML NEBU INH (12:56)
[2024-11-07] MEDS: ALBUTEROL RT 2.5 MG/0.5 ML NEBU 10 MG INH (12:56)
[2024-11-07] MEDS: MEROPENEM INJ 1,000 MG in SODIUM CHLORIDE 0.9% (Popper) 50 ML 100 MG IV (13:08)
--- NOTE | 2024-11-07 18:19 | PC.NURSE ---
PT COMING BACK FROM CT; PER CT STAFF, PT HAD AN EMESIS EPISODE AT CT. UPON ARRIVAL, PT;S LOWER LIP COVERED WITH BLACK/BROWN COLORED EMESIS. PT GIVEN EMESIS BAG. PT ALSO HAD LOOSE/LIQUID BM MOVEMENT LARGE IN NATURE COLOR BROWN/GREEN. PT GIVEN PERINEAL CARE WITH WARM BATH CLOTHS; PT PLACED IN NEW GOWN AND LINEN CHANGE PERFORMED. OLD WOUND NOTED IN PT'S SACRUM WITH DISCOLORATION. NO DRAINAGE. ALLEVYN FOAM DRESSING PLACED AT THIS TIME FOR PROTECTION.
--- NOTE | 2024-11-07 18:37 | PC.CC ---
Patient is a 59 year-old female who -presents to the hospital for PNA COPD. Char JAVIER made [id number] contact with patient. ASW introduced self, role, and reason for visit. Patient appeared alert and oriented to self, location, and situation. Patient was pleasant and engaged in initial assessment. Patient confirmed information on demographics and reports to living with her daughter, Ruthy Muse. Patient stated that should something happen and she is unable to make her own medical decisions her daughter Ruthy Muse would be her medical decision maker. At home the patient ambulates independently but when needed she does have a walker. Patient is able to complete her own ADLs and does not use any oxygen. Patient receives primary care at [facility] and uses [facility] for prescription medications. Upon discharge the patient plans to return back home. shipping services sales representative to follow up with any discharge needs.
[2024-11-07] MEDS: INSULIN LISPRO (AdmeLOG) 1 UNIT/0.01 ML UNIT 10 UNIT SC (18:42)
--- NOTE | 2024-11-07 19:39 | PC.NURSE ---
pt taken to rm 368 on monitor by URMILA GILMORE. Report was given by Day shift RN
--- NOTE | 2024-11-07 20:42 | ESHP_ITS ---
<Statement entered by Ashutosh Velásquez MD - 11/08/24 10:36> Senior Resident Attestation: I supervised/discussed management plan with accounting intern physician Dr. Mann, and was involved in the care of this patient. I personally saw and examined the patient and discussed the assessment and plan with the entire medicine team, including my attending. I agree with the assessment and plan as documented. 59 years old female with PMH of COPD not on oxygen, HLD, HTN, IDDM, hypothyroidism presented due to SOB and wheezing. CXR showed possible pneumonia and COPD pattern. She met SIRS criteria, sepsis alert was called and she was admitted for further management of pneumonia and COPD exacerbation. Patient's care was discussed with attending physician, Dr. Waggoner. Ashutosh Velásquez MD PGY-2. Documentation for date of: 11/07/24 HPI History of Present Illness History of present illness: Venecia is a 59-year-old female with a past medical history of essential hypertension, hypothyroidism, insulin-dependent type 2 diabetes mellitus (diagnosed in 2007), depression, hyperlipidemia, CAD s/p RICK stent placement (15 years ago), COPD who comes in for an evaluation of dry cough that has been going on for 5 days with associated worsening and persistent shortness of breath and fever. Patient reports that she has been experiencing a dry cough for some time and says that her grandson who she has seen is sick. She denies any nausea, however says that she has been dry heaving. She denies using oxygen at home, however says that she uses her inhalers including Advair and albuterol and a nebulizer. She denies any recent travel. She says she quit smoking yesterday. She denies having a headache, chest pain, numbness tingling. She has no other complaints at this time. ED course: Came to the ED with a blood pressure of 159/71, respiratory 22, heart rate of 110, with a fever of 102, saturating 90% on room air. She was worked up and was found to have a sodium of 132, potassium 4.8, BUN/creatinine of 11 and 0.9 respectively, glucose of 215, white count of 11.4, hemoglobin 11.1, lactate 1.1. She was given Tylenol 1000, DuoNeb x 1, Solu-Medrol 125, normal saline x 1, azithromycin 500, albuterol x 1, meropenem x 1. Medicine was consulted and patient was admitted to floors. Past medical history: As above Surgical history: Stent placement Allergies: Aspirin, Keflex, codeine, Benadryl, penicillins Meds: Robitussin, Reglan 10, Protonix 40, gabapentin 100, Synjardy, Plavix, lisinopril 20, lamotrigine 25, Remeron 15, Flexeril 10, amitriptyline 100 Family history: No family history of medical problems per patient Social history: In [place], lives in [place]. Lives with her daughter, has 16 grandchildren, 3 kids of her own. Is from her . Used to drink 1 in the morning and 1 when she would go to sleep before she had kids. 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 Walks for her exercise, tries to eat her meals at home which she cooks herself. Review of Systems Review of Systems Narrative Review of Systems: Constitutional: + fever, chills, fatigue, weakness, weight loss HEENT: No eye pain, vision loss, ear pain, hearing loss, dysphagia, Cardiovascular: No chest pain, palpitations, edema, pain with walking Respiratory: +cough, + shortness of breath, wheezing GI: No NVD, abdominal pain, constipation, blood in stool, loss of appetite, heartburn Extremities: No presence of pitting edema MSK: No back pain, joint pain, joint swelling Neuro: No dizziness, numbness, weakness, headaches, seizures, tremors Psych: No anxiety, depression Exam Vital Signs Temp Pulse Resp BP Pulse Ox O2 Del Method O2 Flow Rate 98.6 F 98 20 157/69 H 95 Room Air 2 11/07/24 18:16 11/07/24 18:16 11/07/24 18:16 11/07/24 18:16 11/07/24 18:16 11/07/24 18:16 11/07/24 14:27 Narrative Exam General: AAOx3, appears to be in mild distress, emotional, crying, appears to look much older than she is HEENT: Moist mucous membranes, conjunctiva clear, EOMI, PERRLA, no teeth Cardiovascular: Possible murmur heard in PILI , radial pulses +2 bilat, RRR Pulmonary: +wheezing diffusely, no crackles GI: No tenderness to light or deep palpitation, no guarding, rigidity, rebound tenderness or distension Extremities: No presence of trace or pitting edema in lower extremities bilaterally, dorsalis pedis pulses +2 bilaterally Neuro: AAOx3, no focal motor or sensory deficits in the UE or LE bilat Psych: Cooperative Results: Labs 11/08/24 05:29 11/08/24 10:20 Labs: Short CBC 11/07/24 Range/Units 10:33 WBC 11.4 H (3.6-11.0) Thou/mm3 Hgb 11.1 L (12.0-16.0) g/dL Hct 34.4 L (36.0-46.0) % Plt Count 552 H (140-440) Thou/mm3 BMP 11/07/24 10:33 Sodium 132 L Potassium 4.8 Chloride 98 Carbon Dioxide 23.8 BUN 11 Creatinine 0.9 Glucose 215 H Calcium 9.3 Liver Function 11/07/24 Range/Units 10:33 Total Bilirubin 0.2 L (0.3-1.2) mg/dL AST 15 (0-34) U/L ALT 11 (10-49) U/L Alkaline Phosphatase 112 (46-116) U/L Albumin 4.3 (3.5-5.0) gm/dL Urine 11/07/24 Range/Units 11:42 Urine Color Lt-Yellow (Lt Yel-Yel) Urine Clarity Clear (Clear/Hazy) Urine pH 6.5 (5.0-7.0) Ur Specific [place] 1.027 (1.001-1.035) Urine Protein 3+ A (Neg - Trace) Urine Glucose (UA) 4+ A (Negative) Quality Measures Quality Measures sepsis Current suspected stage: sepsis Possible source: pulmonary Blood cultures ordered: completed in ED Antibiotic ordered: Yes Medications Home Medications and Allergies Home Medications ?Medication ?Instructions ?Recorded ?Confirmed ?Type amitriptyline 100 mg tablet 100 mg PO HS 07/28/1910/13 History atorvastatin 40 mg tablet 40 mg PO HS 07/28/19 5 History metformin 1,000 mg tablet 1,000 mg PO BIDWM 09/19/21 0 11/07/24 History gabapentin 100 mg capsule 100 mg PO HS 10/28/23 History albuterol sulfate 90 mcg/actuation 2 puff inhalation T ID PRN Cough 02/10/24 11/07/24 History aerosol inhaler cyclobenzaprine 10 mg tablet 10 mg PO TID PRN muscle s pasms 02/10/24 11/07/24 History lamotrigine 25 mg tablet 25 mg PO HS 02/10/24 5 History lisinopril 20 mg tablet 20 mg PO QDAY 02/10/2411/07 History metoclopramide HCl 10 mg tablet 10 mg PO Q6H PRN upset stomach 02/10/24 11/07/24 History mirtazapine 15 mg tablet 15 mg PO HS 02/10/24 5 History mupirocin 2 % topical ointment 1 applic topical BID 02/10/24 History pantoprazole 40 mg tablet,delayed 40 mg PO QDAY 11/07/24 History release dextromethorphan-guaifenesin 10 5 ml PO Q6H 11/07/24 0 11/07/24 History mg-100 mg/5 mL oral syrup (Chest Congestion Relief DM) empagliflozin 5 mg-metformin 1,000 1 tab PO .Bid with meals 11/07/24 11/07/24 History mg tablet (Synjardy) fluticasone 250 mcg-salmeterol 50 1 inh inhalation BID 11/07/24 11/07/24 History mcg/dose blistr powdr for inhalation (Advair Diskus) insulin glargine 100 unit/mL 15 unit subcut BID 11/07/24 History subcutaneous solution (Lantus U-100 Insulin) triamcinolone acetonide 0.1 % 1 applic topical BID 11/07/24 History topical cream Allergies Allergy/AdvReac Type Severity Reaction Status Date / Time aspirin Allergy Severe RASH Verified 11/07/24 09:21 cephalexin Allergy Severe Rash Verified 11/07/24 09:21 codeine Allergy Severe RASH Verified 11/07/24 09:21 diphenhydramine Allergy Severe Rash Verified 11/07/24 09:21 Penicillins Allergy Severe RASH Verified 11/07/24 09:21 Visit Medications Acetaminophen (Acetaminophen 325 Mg Tablet) 650 mg PO Q6H PRN PRN Reason: Fever >101.5 Stop: 12/07/24 17:25 Acetaminophen (Acetaminophen 325 Mg Tablet) 650 mg PO Q6H PRN PRN Reason: PAIN SCALE 1-3 (mild Stop: 12/07/24 17:25 Albuterol (Albuterol Inh 8 Gm) 2 puff INH Q2HR PRN PRN Reason: SHORTNESS OF BREATH Stop: 12/07/24 17:59 Albuterol/Ipratropium (Albuterol/Ipratropium (Duoneb) Rt Antonella 3 Ml Nebu) 3 ml INH Q4HRRT PRN PRN Reason: sob Stop: 12/07/24 18:59 Dextrose (Dextrose 50%-Water Inj 50 Ml Syringe) 25 ml IV Q15MIN PRN PRN Reason: BG 50-70 responsive npo pt Stop: 12/07/24 18:26 Dextrose (Dextrose 50%-Water Inj 50 Ml Syringe) 50 ml IV Q15MIN PRN PRN Reason: BG <50 OR BG <70 & pt unresponsive Stop: 12/07/24 18:26 Docusate Sodium (Docusate Sod 100 Mg Capsule) 100 mg PO QDAY [facility]; Protocol Stop: 12/08/24 08:59 Enoxaparin Sodium (Enoxaparin Sod Inj 40 Mg/0.4 Ml Syringe) 40 mg SC QDAY [facility] Stop: 11/22/24 08:59 Glucagon (Glucagon Inj 1 Mg Vial) 1 mg IM Q15MIN PRN PRN Reason: BG <70, and no IV access Azithromycin 500 mg/ Sodium (Chloride) 250 mls @ 250 mls/hr IV QDAY [facility] Stop: 11/14/24 17:33 Last Admin: 11/07/24 17:43 Dose: Not Given Ceftriaxone Sodium 1,000 mg/ (Sodium Chloride) 50 mls @ 100 mls/hr IV QDAY [facility] Stop: 11/15/24 08:59 Insulin Glargine (Insulin Glargine (Lantus) 5 Unit/0.05 Ml (Per 5 Units)) 10 unit SC BID [facility]IE Stop: 12/07/24 20:59 Insulin Human Lispro (Insulin Lispro (Admelog) 1 Unit/0.01 Ml Unit) 0 unit SC AC [facility]; Protocol Stop: 12/08/24 07:29 Insulin Human Lispro (Insulin Lispro (Admelog) 1 Unit/0.01 Ml Unit) 7 unit SC TIDWM [facility] Stop: 12/08/24 07:59 Labetalol HCl (Labetalol Inj 5 Mg/Ml Vial 20 Ml) 10 mg IVP Q4HR PRN PRN Reason: SBP > 180 Stop: 12/07/24 17:46 Lisinopril (Lisinopril 20 Mg Tablet) 40 mg PO DAILY [facility] Stop: 12/08/24 08:59 Ondansetron HCl (Ondansetron Inj 2 Mg/Ml Inj 2 Ml) 4 mg IV Q6H PRN; Protocol PRN Reason: NAUSEA OR VOMITING Stop: 12/07/24 17:25 Prednisone (Prednisone 20 Mg Tablet) 40 mg PO DAILY [facility] Stop: 11/12/24 08:59 Sodium Chloride (Sodium Chloride Rt Antonella 0.9% 3 Ml Nebu) 3 ml INH PRN PRN PRN Reason: SOLN Stop: 12/07/24 12:20 Last Admin: 11/07/24 12:56 Dose: 3 ml Discontinued Medications Acetaminophen (Acetaminophen 500 Mg Tablet) 1,000 mg PO X1 ONE Stop: 11/07/24 09:42 Last Admin: 11/07/24 09:48 Dose: 1,000 mg Albuterol (Albuterol Rt 2.5 Mg/0.5 Ml Nebu) 10 mg INH X1 ONE Stop: 11/07/24 12:22 Last Admin: 11/07/24 12:56 Dose: 10 mg Albuterol/Ipratropium (Albuterol/Ipratropium (Duoneb) Rt Antonella 3 Ml Nebu) 3 ml INH X1 ONE Stop: 11/07/24 09:42 Last Admin: 11/07/24 10:14 Dose: 3 ml Dexamethasone Sodium Phosphate (Dexamethasone Sod Phos Inj 10 Mg/Ml Vial) 10 mg PO X1 ONE Stop: 11/07/24 09:42 Last Admin: 11/07/24 11:54 Dose: Not Given Azithromycin 500 mg/ Sodium (Chloride) 250 mls @ 250 mls/hr IV X1 ONE Stop: 11/07/24 10:43 Last Infusion: 11/07/24 13:08 Dose: Infused Sodium Chloride (Ns) 1,000 mls @ 999 mls/hr IV .Q1H1M ONE Stop: 11/07/24 10:45 Last Infusion: 11/07/24 13:05 Dose: Infused Meropenem 1,000 mg/ Sodium (Chloride) 50 mls @ 100 mls/hr IV X1 ONE Stop: 11/07/24 11:42 Last Infusion: 11/07/24 13:52 Dose: Infused Insulin Glargine (Insulin Glargine (Lantus) 5 Unit/0.05 Ml (Per 5 Units)) 15 unit SC HS BIRDIE Stop: 12/07/24 20:59 Insulin Human Lispro (Insulin Lispro (Admelog) 1 Unit/0.01 Ml Unit) 10 unit SC X1 ONE Stop: 11/07/24 18:26 Last Admin: 11/07/24 18:42 Dose: 10 unit Insulin Human Lispro (Insulin Lispro (Admelog) 1 Unit/0.01 Ml Unit) 7 unit SC ACHS BIRDIE Stop: 12/07/24 20:59 Methylprednisolone Sodium Succinate (Methylprednisolone Sod Succ 62.5 Mg/Ml 2ml Vial) 125 mg IVP X1 ONE Stop: 11/07/24 09:45 Last Admin: 11/07/24 11:51 Dose: 125 mg Methylprednisolone Sodium Succinate (Methylprednisolone Sod Succ 62.5 Mg/Ml 2ml Vial) 125 mg IVP X1 ONE Stop: 11/07/24 12:22 Last Admin: 11/07/24 13:05 Dose: Not Given Assessment & Plan Plan Assessment Venecia is a 59-year-old female with a past medical history of essential hypertension, hypothyroidism, insulin-dependent type 2 diabetes mellitus (diagnosed in 2007), depression, hyperlipidemia, CAD s/p RICK stent placement (15 years ago), COPD who was admitted for an evaluation of acute hypoxic respiratory failure and sepsis secondary to community-acquired pneumonia. #Acute hypoxic respiratory failure #Sepsis secondary to #Community-acquired pneumonia #COPD exacerbation Patient met 4 out of 4 SIRS criteria Source: lung qSOFA: 1 point Patient does not use oxygen at home, came in saturating 9% room air Chest x-ray shows right base pneumonia Flu and COVID-negative Patient is allergic to cephalexin, however will still give Rocephin and patient has steroids on board to minimize rash Plan: ? Rocephin 1 g and azithromycin 500 mg (11/07-) ? Prednisone 40 mg daily ? Maintain oxygen saturations 88 to 92%, wean down oxygen as tolerated ? Resumed home Advair ? DuoNebs as needed ? MRSA screen ? Robitussin as needed #History of CAD status post RICK Does not take aspirin as she is allergic Plan: ? Resumed home Plavix 75 mg #History of hypertension #History of hyperlipidemia Plan: ? Resume home lisinopril 20 mg #History of hypothyroidism Seen on previous chart history Patient does not take any Synthroid Plan: ? Follow-up TSH a.m. #History of insulin-dependent type 2 diabetes Uses short acting in addition to basal 15 units twice daily Fingerstick when she came in 361 Plan: ? Give 10 units short acting now ? Lantus 10 units twice daily ? Lispro 7 units AC ? Sliding scale insulin ? Hypoglycemic protocol in place ? Blood sugar checks with meals #History of unspecified psych disorder Patient may have bipolar, depression or anxiety, patient did not comment on any of these Plan: ? Resumed home lamotrigine 25 mg at bedtime ? Resumed Remeron 15 mg at bedtime ? Resumed amitriptyline 100 mg at bedtime ? Resume gabapentin 100 mg at daily #History of smoking #History of substance abuse Patient has been clean of meth 8 years Plan: ? Consider nicotine patch ? Smoking cessation counseling ? business services tech referral #Health Maintenance Disposition: MedSurg DVT prophylaxis: Lovenox GI prophylaxis: Protonix Diet: Carb consistent low CODE STATUS: Full Patient seen and care discussed with my senior resident, Dr. Velásquez, and my attending physician, Dr. Edilson Mann, PGY-1 Attending Provider Attestation/Addendum I have discussed and was present for the essential components of the history, physical examination, diagnosis, and treatment plan with the resident. I agree with the patient's care as documented by the resident and amended herein by me. Raghavendra Waggoner DO. Although this document has been carefully reviewed, there may still be some phonetic and other typographical errors. These errors are purely grammatical due to imperfections in the software program and should not be construed in any way to compromise the substance of the patient's medical care during this visit.
[2024-11-07 21:10] LABS: Respiratory Syncytial Virus Ag Negative (Negative)
[2024-11-07] MEDS: INSULIN GLARGINE (Lantus) 5 UNIT/0.05 ML (PER 5 UNITS) 10 UNIT SC (21:31)
[2024-11-07] MEDS: INSULIN LISPRO (AdmeLOG) 1 UNIT/0.01 ML UNIT SC (21:32)
[2024-11-08] VITALS (13 sets, daily range): BP systolic 140–159; BP diastolic 65–100; PULSE 61–103; RESP 16–93; TEMP 36.1–36.8; O2SAT 92–96; BMI 18.1
[2024-11-08] MEDS: guaiFENesin SYRUP 200 MG/10 ML UDC 100 MG PO (03:25)
[2024-11-08 06:59] LABS: Basophils % (Auto) 0 % (0-2.5); Eosinophils % (Auto) 0 % (0-10); Hematocrit 32.9 % (36.0-46.0); Hemoglobin 10.4 g/dL (12.0-16.0); Immature Granulocytes % (Auto) 1 % (0-0); Immature Granulocytes Auto 0.06 Thou/mm3 (0.00-0.00); Lymphocytes # (Auto) 0.9 Thou/mm3 (1.0-4.8); Lymphocytes % (Auto) 8 % (10-50); Mean Corpuscular HGB Conc 31.6 g/dl (31.0-37.0); Mean Corpuscular Hemoglobin 23.6 pg (25.0-35.0); Mean Corpuscular Volume 75 fL (80-100); Monocytes % (Auto) 9 % (0-12); Neutrophils # (Auto) 9.3 Thou/mm3 (1.8-7.7); Neutrophils % (Auto) 83 % (37-80); Nucleated Red Blood Cell % 0 /100 WBC (0); Platelet Count 625 Thou/mm3 (140-440); RDW Standard Deviation 53.7 fL (36.4-46.3); Red Blood Count 4.41 Miln/mm3 (4.00-5.20); White Blood Count 11.2 Thou/mm3 (3.6-11.0)
[2024-11-08 07:28] LABS: Alanine Aminotransferase 11 U/L (10-49); Albumin, Serum 3.9 gm/dL (3.5-5.0); Alkaline Phosphatase 106 U/L (46-116); Anion Gap 13 (7-16); Aspartate Amino Transferase 15 U/L (0-34); BUN/Creatinine Ratio 28 Ratio (12-20); Bilirubin,Total < 0.2 mg/dL (0.3-1.2); Blood Urea Nitrogen 22 mg/dL (9-23); Calcium 9.3 mg/dL (8.3-10.6); Calcium (Corrected) 9.4 mg/dL (8.5-10.1); Carbon Dioxide 20.7 mMol/L (20.0-31.0); Cardiac Risk Estimate 1.9 RATIO (3.7-5.6); Chloride 101 mMol/L (98-107); Cholesterol 115 mg/dL (132-200); Creatinine (Component) 0.8 mg/dL (0.6-1.3); Estimated Creatinine Clearance 53.4 mL/min (>60); Glucose 309 mg/dL (74-106); HDL Cholesterol 59 mg/dL (40-60); LDL Cholesterol,Calculated 38 mg/dL (0-130); Osmolality,Calculated 285 (275-295); Potassium 5.5 mMol/L (3.4-5.1); Sodium 135 mMol/L (136-145); Thyroid Stimulating Hormone 0.87 uIU/mL (0.55-4.78); Total Protein 5.9 gm/dL (5.7-8.2); Triglycerides 92 mg/dL (30-150); eGFR > 60 See Note
[2024-11-08 07:47] LABS: Glucose Estimated Average 240 mg/dL (80-131)
[2024-11-08] MEDS: METOCLOPRAMIDE 5 MG TABLET 10 MG PO (07:55)
[2024-11-08] MEDS: INSULIN LISPRO (AdmeLOG) 1 UNIT/0.01 ML UNIT 10 UNIT SC (07:55)
[2024-11-08] MEDS: INSULIN LISPRO (AdmeLOG) 1 UNIT/0.01 ML UNIT SC ×3 (07:57→16:58)
[2024-11-08] MEDS: predniSONE 20 MG TABLET 40 MG PO (08:12)
[2024-11-08] MEDS: LOSARTAN POTASSIUM 25 MG TABLET 50 MG PO (08:12)
[2024-11-08] MEDS: MIRTAZAPINE 15 MG TABLET PO (08:12)
[2024-11-08] MEDS: GABAPENTIN 100 MG CAPSULE PO (08:12)
[2024-11-08] MEDS: ENOXAPARIN SOD INJ 40 MG/0.4 ML SYRINGE SC (08:13)
[2024-11-08] MEDS: CLOPIDOGREL BISULFATE 75 MG TABLET PO (08:13)
[2024-11-08] MEDS: PANTOPRAZOLE 40 MG TABLET PO (08:13)
[2024-11-08] MEDS: cefTRIAXone 1,000 MG in SODIUM CHLORIDE 0.9% (Popper) 50 ML 100 MG IV (08:13)
[2024-11-08] MEDS: CYCLObenzaPRINE 5 MG TABLET 10 MG PO (08:13)
[2024-11-08] MEDS: INSULIN GLARGINE (Lantus) 5 UNIT/0.05 ML (PER 5 UNITS) 15 UNIT SC (08:14)
[2024-11-08] MEDS: INSULIN GLARGINE (Lantus) 5 UNIT/0.05 ML (PER 5 UNITS) 3 UNIT SC (08:30)
[2024-11-08] MEDS: NICOTINE PATCH 21 MG/24 HR PATCH.TD24 TOP (08:31)
[2024-11-08] MEDS: AZITHROMYCIN INJ 500 MG in SODIUM CHLORIDE 0.9% 250 ML 250 ML 250 MG IV (08:32)
[2024-11-08] MEDS: guaiFENesin/DM TABLET 1 EACH PO ×2 (08:38→20:16)
--- NOTE | 2024-11-08 09:45 | ESPR_ITS ---
Documentation for date of: 11/08/24 Subjective Subjective Interval history: Patient was seen and examined at bedside. No acute overnight events. Patient is having some wheezing and breathing therapy was ordered. Otherwise she is doing fine has no other complaints. Her glucose remains elevated and her insulins were adjusted. Potassium was 5.5, anticipating improvement with insulin. Will continue current management and monitor patient, pending cultures. Exam Vital Signs Temp Pulse Resp BP Pulse Ox O2 Del Method O2 Flow Rate 96.9 F 92 19 159/78 H 95 Room Air 2 11/08/24 07:41 11/08/24 08:12 11/08/24 07:41 11/08/24 08:12 11/08/24 07:41 11/08/24 07:41 11/08/24 00:00 Narrative Exam Gen: Well-developed and well-nourished, appears older then her age. HEENT: NCAT, PERRLA, EOMI, MMM, anicteric conjunctivae. CVS: normal S1 and S2. RRR. No M/R/G. Resp: mild wheezing B/L. No rhonchi, rales, crackles. Abd: soft, non-tender, non-distended. BS+ in all 4 quadrants. MSK: Good ROM in BUE & BLE. No edema or rash. Neuro: CN II-XII grossly intact. Strength 5/5 in BUE & BLE. Alert and oriented x3. Psych: appropriate mood and affect. Objective Labs 11/08/24 05:29 11/08/24 10:20 Labs: Laboratory Results - last 24 hr 11/07/24 11/07/24 11/07/24 10:33 11:42 19:50 WBC 11.4 H RBC 4.74 Hgb 11.1 L Hct 34.4 L MCV 73 L MCH 23.4 L MCHC 32.3 RDW Std Deviation 52.3 H Plt Count 552 H Neut % (Auto) 87 H Lymph % (Auto) 6 L [place] % (Auto) 6 Eos % (Auto) 1 Baso % (Auto) 0 Neut # (Auto) 9.9 H Lymph # (Auto) 0.6 L [place] # (Auto) 0.7 Eos # (Auto) 0.1 Baso # (Auto) 0.1 Immature Gran # (Auto) 0.03 H Absolute Nucleated RBC 0.00 Immature Gran % 0 Nucleated RBC % 0 Sodium 132 L Potassium 4.8 Chloride 98 Carbon Dioxide 23.8 Anion Gap 10 BUN 11 Creatinine 0.9 Estim Creat Clear Calc Not Performed. eGFR > 60 BUN/Creatinine Ratio [address] Glu mg/dL Hemoglobin A1c Calculated Osmolality 269 L Lactic Acid 1.1 Calcium 9.3 Corrected Calcium 9.3 Magnesium Total Bilirubin 0.2 L AST 15 ALT 11 Alkaline Phosphatase 112 Total Protein 6.4 Albumin 4.3 Globulin 2.1 L Albumin/Globulin Ratio 2.0 Triglycerides Cholesterol LDL Cholesterol, Calc HDL Cholesterol Cholesterol/HDL Ratio Procalcitonin 0.13 TSH Ur Collection Type Clean Catch Urine Color Lt-Yellow Urine Clarity Clear Urine pH 6.5 Ur Specific Ozan 1.027 Urine Protein 3+ A Urine Glucose (UA) 4+ A Urine Ketones 1+ A Urine Blood Trace Urine Nitrite Negative Urine Bilirubin Negative Urine Urobilinogen (Auto) Negative Ur Leukocyte Esterase Negative Urine RBC 6 H Urine WBC 4 Ur Squamous Epith Cells 4 Urine Bacteria None Hyaline Casts < 1 RSV Rapid Negative 11/08/24 05:29 WBC 11.2 H RBC 4.41 Hgb 10.4 L Hct 32.9 L MCV 75 L MCH 23.6 L MCHC 31.6 RDW Std Deviation 53.7 H Plt Count 625 H D Neut % (Auto) 83 H Lymph % (Auto) 8 L [place] % (Auto) 9 Eos % (Auto) 0 Baso % (Auto) 0 Neut # (Auto) 9.3 H Lymph # (Auto) 0.9 L [place] # (Auto) 1.0 H Eos # (Auto) 0.0 Baso # (Auto) 0.0 Immature Gran # (Auto) 0.06 H Absolute Nucleated RBC 0.00 Immature Gran % 1 H Nucleated RBC % 0 Sodium 135 L Potassium 5.5 H D Chloride 101 Carbon Dioxide 20.7 Anion Gap 13 BUN 22 Creatinine 0.8 Estim Creat Clear Calc 53.4 L eGFR > 60 BUN/Creatinine Ratio 28 H Glucose [address] Glu mg/dL 240 H Hemoglobin A1c 10.0 H Calculated Osmolality 285 Lactic Acid Calcium 9.3 Corrected Calcium 9.4 Magnesium 2.0 Total Bilirubin < 0.2 L AST 15 ALT 11 Alkaline Phosphatase 106 Total Protein 5.9 Albumin 3.9 Globulin 2.0 L Albumin/Globulin Ratio 2.0 Triglycerides 92 Cholesterol 115 L LDL Cholesterol, Calc 38 HDL Cholesterol 59 Cholesterol/HDL Ratio 1.9 L Procalcitonin TSH 0.87 Ur Collection Type Urine Color Urine Clarity Urine pH Ur Specific [place] Urine Protein Urine Glucose (UA) Urine Ketones Urine Blood Urine Nitrite Urine Bilirubin Urine Urobilinogen (Auto) Ur Leukocyte Esterase Urine RBC Urine WBC Ur Squamous Epith Cells Urine Bacteria Hyaline Casts RSV Rapid Quality Measures Quality Measures sepsis Current suspected stage: sepsis Possible source: pulmonary Blood cultures ordered: completed in ED Antibiotic ordered: Yes Assessment & Plan Assessment Current Active Medications: Generic Name Dose Route Start Last Admin Trade Name Freq PRN Reason Stop Dose Admin Acetaminophen 650 mg 11/07/24 17:26 Acetaminophen 325 Mg Tablet PO 12/07/24 17:25 Q6H PRN PAIN SCALE 1-3 (mild Acetaminophen 650 mg 11/08/24 07:57 Acetaminophen 325 Mg Tablet PO 12/07/24 17:25 Q6H PRN Fever >100 Albuterol/Ipratropium 3 ml 11/07/24 17:26 Albuterol/Ipratropium (Duoneb) Rt Antonella 3 Ml Nebu INH 12/07/24 18:59 Q4HRRT PRN sob Amitriptyline HCl 100 mg 11/08/24 21:00 Amitriptyline Hcl 25 Mg Tablet PO 12/08/24 20:59 HS BIRDIE Clopidogrel Bisulfate 75 mg 11/08/24 09:00 11/08/24 08:13 Clopidogrel Bisulfate 75 Mg Tablet PO 12/08/24 08:59 75 mg QDAY BIRDIE Administration Cyclobenzaprine HCl 10 mg 11/08/24 09:00 11/08/24 08:13 Cyclobenzaprine 5 Mg Tablet PO 12/08/24 08:59 10 mg QDAY BIRDIE Administration Dextrose 50 ml 11/07/24 18:27 Dextrose 50%-Water Inj 50 Ml Syringe IV 12/07/24 18:26 Q15MIN PRN BG <50 OR BG <70 & pt unresponsive Docusate Sodium 100 mg 11/08/24 09:00 11/08/24 08:22 Docusate Sod 100 Mg Capsule PO 12/08/24 08:59 Not Given QDAY [facility] Protocol Enoxaparin Sodium 40 mg 11/08/24 09:00 11/08/24 08:13 Enoxaparin Sod Inj 40 Mg/0.4 Ml Syringe SC 11/22/24 08:59 40 mg QDAY [facility]IDE Administration Gabapentin 100 mg 11/08/24 09:00 11/08/24 08:12 Gabapentin 100 Mg Capsule PO 12/08/24 08:59 100 mg QDAY BIRDIE Administration Glucagon 1 mg 11/07/24 18:27 Glucagon Inj 1 Mg Vial IM Q15MIN PRN BG <70, and no IV access Guaifenesin/Dextromethorphan 1 each 11/08/24 09:00 11/08/24 08:38 Guaifenesin/Dm Tablet PO 12/08/24 08:59 1 each BID BIRDIE Administration Azithromycin 500 mg/ Sodium 250 mls @ 250 mls/hr 11/07/24 17:34 11/08/24 08:32 Chloride IV 11/14/24 17:33 250 mls/hr QDAY BIRDIE Administration Ceftriaxone Sodium 1,000 mg/ 50 mls @ 100 mls/hr 11/08/24 09:00 11/08/24 08:13 Sodium Chloride IV 11/15/24 08:59 100 mls/hr QDAY BIRDIE Administration Insulin Glargine 18 unit 11/08/24 21:00 Insulin Glargine (Lantus) 5 Unit/0.05 Ml (Per 5 Units) SC 12/08/24 20:59 BID [facility] Insulin Human Lispro 0 unit 11/08/24 07:55 11/08/24 07:57 Insulin Lispro (Admelog) 1 Unit/0.01 Ml Unit SC 12/08/24 07:54 6 unit AC [facility] Administration Protocol Insulin Human Lispro 12 unit 11/08/24 12:00 Insulin Lispro (Admelog) 1 Unit/0.01 Ml Unit SC 12/08/24 11:59 TIDWM [facility] Labetalol HCl 10 mg 11/07/24 17:47 Labetalol Inj 5 Mg/Ml Vial 20 Ml IVP 12/07/24 17:46 Q4HR PRN SBP > 180 Lamotrigine 25 mg 11/08/24 21:00 Lamotrigine 25 Mg Chew PO 12/08/24 20:59 HS [facility] Losartan Potassium 50 mg 11/08/24 09:00 11/08/24 08:12 Losartan Potassium 25 Mg Tablet PO 12/08/24 08:59 50 mg QDAY BIRDIE Administration Mirtazapine 15 mg 11/08/24 09:00 11/08/24 08:12 Mirtazapine 15 Mg Tablet PO 12/08/24 08:59 15 mg QDAY BIRDIE Administration Nicotine 21 mg 11/09/24 09:00 Nicotine Patch 21 Mg/24 Hr Patch.Td24 TOP 12/09/24 08:59 QDAY BIRDIE Ondansetron HCl 4 mg 11/07/24 17:26 Ondansetron Inj 2 Mg/Ml Inj 2 Ml IV 12/07/24 17:25 Q6H PRN NAUSEA OR VOMITING Protocol Pantoprazole Sodium 40 mg 11/08/24 09:00 11/08/24 08:13 Pantoprazole 40 Mg Tablet PO 12/08/24 08:59 40 mg QDAY BIRDIE Administration Prednisone 40 mg 11/08/24 09:00 11/08/24 08:12 Prednisone 20 Mg Tablet PO 11/12/24 08:59 40 mg DAILY BIRDIE Administration Fluticasone/Salmeterol 1 puff 11/07/24 21:00 11/07/24 23:31 Fluticasone/Salmeterol 250/50 14 Dose Inh INH 12/07/24 20:59 Not Given BIDRT BIRDIE Sodium Chloride 3 ml 11/07/24 12:21 11/07/24 12:56 Sodium Chloride Rt Antonella 0.9% 3 Ml Nebu INH 12/07/24 12:20 3 ml PRN PRN Administration SOLN Triamcinolone Acetonide 0 gm 11/07/24 21:03 Triamcinolone Acet Cr 0.025% 80 Gm Tube TOP 12/07/24 21:02 QID PRN Rash on arms Plan Venecia is a 59-year-old female with a past medical history of essential hypertension, hypothyroidism, insulin-dependent type 2 diabetes mellitus (diagnosed in 2007), depression, hyperlipidemia, CAD s/p RICK stent placement (15 years ago), COPD who was admitted for an evaluation of acute hypoxic respiratory failure and sepsis secondary to community-acquired pneumonia. #Acute hypoxic respiratory failure #Sepsis secondary to #Community-acquired pneumonia #COPD exacerbation Patient met 4 out of 4 SIRS criteria Source: lung qSOFA: 1 point Patient does not use oxygen at home, came in saturating 9% room air Chest x-ray shows right base pneumonia Flu and COVID-negative Patient is allergic to cephalexin, however will still give Rocephin and patient has steroids on board to minimize rash Plan: ? Rocephin 1 g and azithromycin 500 mg (11/07-) ? Prednisone 40 mg daily ? Maintain oxygen saturations 88 to 92%, wean down oxygen as tolerated ? Resumed home Advair ? DuoNebs as needed ? MRSA screen ? Robitussin as needed #History of CAD status post RICK Does not take aspirin as she is allergic Plan: ? Resumed home Plavix 75 mg #History of hypertension #History of hyperlipidemia Plan: ? Resume home lisinopril 20 mg #History of hypothyroidism Seen on previous chart history Patient does not take any Synthroid Plan: ? Follow-up TSH a.m. #History of insulin-dependent type 2 diabetes Uses short acting in addition to basal 15 units twice daily Fingerstick when she came in 361 Plan: ? Give 10 units short acting now ? Lantus 10 units twice daily increased to 18 units BID. ? Lispro 7 units AC increased to 12 units TID. ? Sliding scale insulin ? Hypoglycemic protocol in place ? Blood sugar checks with meals #History of unspecified psych disorder Patient may have bipolar, depression or anxiety, patient did not comment on any of these Plan: ? Resumed home lamotrigine 25 mg at bedtime ? Resumed Remeron 15 mg at bedtime ? Resumed amitriptyline 100 mg at bedtime ? Resume gabapentin 100 mg at daily #History of smoking #History of substance abuse Patient has been clean of meth 8 years Plan: ? Consider nicotine patch ? Smoking cessation counseling ? billing services manager referral #Health Maintenance Disposition: MedSurg DVT prophylaxis: Lovenox GI prophylaxis: Protonix Diet: Carb consistent low CODE STATUS: Full Plan of care discussed with attending Dr. Waggoner. Ashutosh Velásquez MD, PGY 2. Disclaimer: This note was dictated by speech recognition. Minor errors in consumer safety officer may be present due to voice recognition software. Attending Provider Attestation/Addendum I have discussed and was present for the essential components of the history, physical examination, diagnosis, and treatment plan with the resident. I agree with the patient's care as documented by the resident and amended herein by me. Raghavendra Waggoner DO. Patient seen and evaluated this AM. No acute events overnight, vital signs stable, patient afebrile, patient presently on 2 L NC, SpO2 98% at time of bedside visit. Blood glucose is elevated 309, will adjust insulin as appropriate, presently on SSI, Lantus 18 units twice daily and lispro 12 units 3 times 3 times daily AC. Will also continue ceftriaxone and azithromycin for now, patient did have a Keflex allergy which is rash however has been doing fine on Rocephin for right lower lobe pneumonia. Patient also on prednisone 40 mg daily for potential COPD exacerbation. I did student counselor the patient extensively about smoking cessation which she stated she quit yesterday however due to probable COPD, it is essential she quit permanently which she states she understands. If patient continues to improve, can likely be discharged tomorrow home. Although this document has been carefully reviewed, there may still be some phonetic and other typographical errors. These errors are purely grammatical due to imperfections in the software program and should not be construed in any way to compromise the substance of the patient's medical care during this visit.
[2024-11-08] MEDS: FLUTICASONE/SALMETEROL 250/50 14 DOSE INH 1 PUFF INH ×2 (10:53→20:10)
[2024-11-08 11:03] LABS: Albumin, Serum 3.8 gm/dL (3.5-5.0); Anion Gap 9 (7-16); BUN/Creatinine Ratio 33 Ratio (12-20); Blood Urea Nitrogen 26 mg/dL (9-23); Calcium 9.2 mg/dL (8.3-10.6); Calcium (Corrected) 9.4 mg/dL (8.5-10.1); Carbon Dioxide 21.6 mMol/L (20.0-31.0); Chloride 104 mMol/L (98-107); Creatinine (Component) 0.8 mg/dL (0.6-1.3); Estimated Creatinine Clearance 53.4 mL/min (>60); Glucose 275 mg/dL (74-106); Osmolality,Calculated 284 (275-295); Phosphorous 3.1 mg/dL (2.4-5.1); Sodium 135 mMol/L (136-145); eGFR > 60 See Note
[2024-11-08] MEDS: ACETAMINOPHEN 325 MG TABLET 650 MG PO (11:43)
[2024-11-08] MEDS: INSULIN LISPRO (AdmeLOG) 1 UNIT/0.01 ML UNIT 12 UNIT SC ×2 (11:49→16:57)
[2024-11-08] MEDS: AMITRIPTYLINE HCL 25 MG TABLET 100 MG PO (20:16)
[2024-11-08] MEDS: INSULIN GLARGINE (Lantus) 5 UNIT/0.05 ML (PER 5 UNITS) 18 UNIT SC (20:16)
[2024-11-08] MEDS: lamoTRIgine 25 MG CHEW PO (20:16)
[2024-11-09] VITALS (8 sets, daily range): BP systolic 150–168; BP diastolic 78–88; PULSE 76–94; RESP 19–96; TEMP 36.2–36.9; O2SAT 94–96
[2024-11-09 06:03] LABS: Basophils # (Auto) 0.1 Thou/mm3 (0.0-0.2); Basophils % (Auto) 0 % (0-2.5); Eosinophils % (Auto) 0 % (0-10); Hematocrit 35.9 % (36.0-46.0); Hemoglobin 11.2 g/dL (12.0-16.0); Immature Granulocytes % (Auto) 0 % (0-0); Immature Granulocytes Auto 0.04 Thou/mm3 (0.00-0.00); Lymphocytes # (Auto) 1.4 Thou/mm3 (1.0-4.8); Lymphocytes % (Auto) 12 % (10-50); Mean Corpuscular HGB Conc 31.2 g/dl (31.0-37.0); Mean Corpuscular Hemoglobin 22.5 pg (25.0-35.0); Mean Corpuscular Volume 72 fL (80-100); Monocytes # (Auto) 0.9 Thou/mm3 (0.0-0.8); Monocytes % (Auto) 7 % (0-12); Neutrophils # (Auto) 9.6 Thou/mm3 (1.8-7.7); Neutrophils % (Auto) 80 % (37-80); Nucleated Red Blood Cell % 0 /100 WBC (0); Platelet Count 627 Thou/mm3 (140-440); Red Blood Count 4.97 Miln/mm3 (4.00-5.20)
[2024-11-09 06:14] LABS: Anion Gap 7 (7-16); BUN/Creatinine Ratio 24 Ratio (12-20); Blood Urea Nitrogen 26 mg/dL (9-23); Calcium 9.4 mg/dL (8.3-10.6); Carbon Dioxide 27.4 mMol/L (20.0-31.0); Chloride 105 mMol/L (98-107); Creatinine (Component) 1.1 mg/dL (0.6-1.3); Estimated Creatinine Clearance 38.8 mL/min (>60); Glucose 336 mg/dL (74-106); Magnesium 1.9 mg/dL (1.6-2.6); Osmolality,Calculated 295 (275-295); Potassium 4.9 mMol/L (3.4-5.1); Sodium 139 mMol/L (136-145); eGFR 58 See Note
[2024-11-09] MEDS: FLUTICASONE/SALMETEROL 250/50 14 DOSE INH 1 PUFF INH (06:32)
[2024-11-09] MEDS: INSULIN LISPRO (AdmeLOG) 1 UNIT/0.01 ML UNIT 12 UNIT SC (07:53)
[2024-11-09] MEDS: INSULIN LISPRO (AdmeLOG) 1 UNIT/0.01 ML UNIT SC (07:55)
[2024-11-09] MEDS: cefTRIAXone 1,000 MG in SODIUM CHLORIDE 0.9% (Popper) 50 ML 100 MG IV (08:23)
[2024-11-09] MEDS: predniSONE 20 MG TABLET 40 MG PO (08:24)
[2024-11-09] MEDS: GABAPENTIN 100 MG CAPSULE PO (08:24)
[2024-11-09] MEDS: guaiFENesin/DM TABLET 1 EACH PO (08:24)
[2024-11-09] MEDS: MIRTAZAPINE 15 MG TABLET PO (08:24)
[2024-11-09] MEDS: CYCLObenzaPRINE 5 MG TABLET 10 MG PO (08:24)
[2024-11-09] MEDS: LOSARTAN POTASSIUM 25 MG TABLET 50 MG PO (08:24)
[2024-11-09] MEDS: PANTOPRAZOLE 40 MG TABLET PO (08:25)
[2024-11-09] MEDS: ENOXAPARIN SOD INJ 40 MG/0.4 ML SYRINGE SC (08:26)
[2024-11-09] MEDS: CLOPIDOGREL BISULFATE 75 MG TABLET PO (08:26)
[2024-11-09] MEDS: INSULIN GLARGINE (Lantus) 5 UNIT/0.05 ML (PER 5 UNITS) 22 UNIT SC (08:26)
[2024-11-09] MEDS: AZITHROMYCIN INJ 500 MG in SODIUM CHLORIDE 0.9% 250 ML 250 ML 250 MG IV (08:27)
[2024-11-09] MEDS: NICOTINE PATCH 21 MG/24 HR PATCH.TD24 TOP (08:28)
--- NOTE | 2024-11-09 10:50 | PC.NURSE ---
Pt. mentioned about her own BG sensor send a notification of 69 BG and feeling weak and shaky. Upon checking the BG the BG is 81. Pt. has a Hx of high BG this morning BG was 363. AT this moment provided pt. with peanut butter and craker along with non fat milk. will continue monitor pt.
--- NOTE | 2024-11-09 13:28 | PD.RESDS ---
Planned Discharge Date 11/09/24 DS: Providers Provider Date of admission: 11/07/24 17:46 Primary care physician: Aaron Mclean MD Admitting Provider: Ant Waggoner DO Attending Provider on Admission: nAt Waggoner DO Consults: 11/07/24 20:13 Referral Smoking Cessation Counseling Routine Comment: Smoking Cessation Education Needed Health [facility]ity Referral - Transportation Routine Comment: Positive screening for transportation needs. 11/08/24 07:55 Referral Registered Dietitian Routine Comment: Attending Provider on DC: Mateo Macedo MD Discharging Provider: Ramón Bergman MD DS: Diagnosis Problem List Completed Was Problem List Reviewed/Reconciled?: Yes Hospital Course Hospital Course Hospital course: 59 years old female with PMH of COPD not on oxygen, HLD, HTN, IDDM, hypothyroidism presented due to SOB and wheezing. CXR showed possible pneumonia and COPD pattern. She met SIRS criteria, sepsis alert was called and she was admitted for further management of pneumonia and COPD exacerbation. Patient was treated appropriately with IV antibiotic, given supportive O2. Patient also treated with prednisone for COPD exacerbation. Patient showed significant clinical improvement the following day. Patient medically clear and stable for discharge. Discharge plan: Patient is safe and stable for discharge all questions were answered recommendation were given to come at the ED at any time if she is not feeling well. Follow-up with PCP in 5 to 7 days after discharge Patient will be discharged with: ? Azithromycin 500 mg p.o. daily for 3 more days ? Prednisone 40 mg p.o. daily for 3 more days ? Continue home medications Diagnoses: #Acute hypoxic respiratory failure, resolved #Sepsis, resolved #Community-acquired pneumonia #COPD exacerbation, resolved #History of CAD status post RICK #History of hypertension #History of hyperlipidemia #History of hypothyroidism #History of insulin-dependent type 2 diabetes #History of unspecified psych disorder #History of smoking #History of substance abuse Time Spent with Patient Time attestation: Total time spent providing and/or coordinating discharge services: Exam Vital Signs Temp Pulse Resp BP Pulse Ox O2 Del Method O2 Flow Rate 97.2 F 94 24 H 168/88 H 95 Room Air 2 11/09/24 12:00 11/09/24 13:01 11/09/24 12:00 11/09/24 12:00 11/09/24 12:00 11/09/24 12:00 11/08/24 00:00 Narrative Exam PE: Gen: Well-developed and well-nourished. HEENT: NCAT, PERRLA, EOMI, MMM, anicteric conjunctivae. CVS: normal S1 and S2. RRR. No M/R/G. Resp: CTA B/L. No rhonchi, rales, crackles or wheezing. Abd: soft, non-tender, non-distended. MSK: Good ROM in BUE & BLE. No edema or rash. Neuro: CN II-XII grossly intact. Strength 5/5 in BUE & BLE. Alert and oriented x3. Psych: appropriate mood and affect. Discharge Plan Plan Patient Disposition: HOME (Self Care) Disposition Comment: Hospitalist to admit Patient condition on transfer: Stable Care Plan Goals: Patient is safe and stable for discharge all questions were answered recommendation were given to come at the ED at any time if she is not feeling well. Follow-up with PCP in 5 to 7 days after discharge Patient will be discharged with: ? Azithromycin 500 mg p.o. daily for 3 more days ? Prednisone 40 mg p.o. daily for 3 more days ? Continue home medications Prescriptions/Referrals Prescriptions/Med Rec: New nicotine 21 mg/24 hr Patch 24 Hour 21 mg top QDAY 30 Days Qty: 7 0RF azithromycin 500 mg tablet 500 mg PO QDAY 3 Days Qty: 3 0RF prednisone 20 mg tablet 40 mg PO QDAY 3 Days Qty: 6 0RF lisinopril 40 mg tablet 40 mg PO QDAY Qty: 30 0RF Continued atorvastatin 40 mg Tablet 40 mg PO HS amitriptyline 100 mg Tablet 100 mg PO HS gabapentin 100 mg capsule 100 mg PO HS cyclobenzaprine 10 mg Tablet 10 mg PO TID PRN (Reason: muscle spasms ) lamotrigine 25 mg tablet 25 mg PO HS mirtazapine 15 mg tablet 15 mg PO HS metoclopramide HCl 10 mg Tablet 10 mg PO Q6H PRN (Reason: upset stomach) pantoprazole 40 mg Tablet,Delayed Release (Dr/Ec) 40 mg PO QDAY mupirocin 2 % Ointment 1 applic TOPICAL BID albuterol sulfate 90 mcg/actuation HFA aerosol inhaler 2 puff INHALATION TID PRN (Reason: Cough) clopidogrel 75 mg Tablet 75 mg PO QDAY 30 Days Qty: 30 4RF (DME) FreeStyle Osmani 3 Sensor Device See Rx Instructions .Route Qty: 1 6RF Rx Instructions: As directed (DME) insulin syr/ndl U100 half windy 0.3 mL 29 gauge x 1/2 syringe See Rx Instructions .Route Qty: 100 0RF Rx Instructions: As directed Synjardy 5-1,000 mg tablet 1 tab PO .Bid with meals triamcinolone acetonide 0.1 % cream 1 applic TOPICAL BID Rx Instructions: Apply to wrist, back of neck, forehead, bilateral thumbs X 7 days fluticasone propion-salmeterol [Advair Diskus] 250-50 mcg/dose blister with device 1 inh INHALATION BID insulin glargine [Lantus U-100 Insulin] 100 unit/mL Solution 15 unit subcut BID Changed insulin lispro [Admelog U-100 Insulin lispro] 100 unit/mL solution 12 unit subcut TID 30 Days Qty: 12.6 6RF Discontinued metformin 1,000 mg Tablet 1,000 mg PO BIDWM lisinopril 20 mg tablet 20 mg PO QDAY Patient Comments: TAKE TWO TABLETS BY MOUTH EVERY DAY HIGH BLOOD PRESSURE dextromethorphan-guaifenesin [Chest Congestion Relief DM] 10-100 mg/5 mL syrup 5 ml PO Q6H Referrals: Aaron Mclean MD [Primary Care Provider] - Patient/Caregiver Discharge Instructions Meds to Beds: No Discharge Activity: activity as tolerated Education Materials: COPD: Chronic Coughing, COPD Diabetes, Type 2 Diabetes Print Language: Malagasy Stand Alone Forms: Lela Award Info., Patient Portal Info Letter Discharge Order Discharge Orders: Discharge (Routine); Ordered 11/09/24 Ordered By: Bhumika Gregg Quality Discharge Quality Measures VTE prophylaxis Attestestation Attestation I discussed with and supervised the resident physician who took care of this patient. I agree with the assessment and discharge plan as above. Patient should contact her PCP or return to the emergency room for recurrent symptoms
--- NOTE | 2024-11-09 14:05 | PC.NURSE ---
ASKED PT. FOR PNEUMONIA VACCINE BUT REFUSED AT THIS MOMENT AND MENTION THAT SHE WILL GET AT HER DOCTORS OFFICE
== END 2024-11-09 14:01 | disposition home or self-care (01) | DRG 720 ==
LOC: SERX 16:39 → SERHOLD 18:04 → S3SX 19:50
PROVIDERS: Nurse Practitioner Family; Student in an Organized Health Care Education/Training Program; Admitting Provider Student in an Organized Health Care Education/Training Program; Emergency Provider Emergency Medicine; PCP Family Medicine; Visit Provider Student in an Organized Health Care Education/Training Program
DX: A41.9 Sepsis, unspecified organism (principal); J96.01 Acute respiratory failure with hypoxia; E78.5 Hyperlipidemia, unspecified; E11.9 Type 2 diabetes mellitus without complications; I10 Essential (primary) hypertension; J18.9 Pneumonia, unspecified organism; J44.0 Chronic obstructive pulmonary disease with (acute) lower respiratory infection; E03.9 Hypothyroidism, unspecified; J44.1 Chronic obstructive pulmonary disease with (acute) exacerbation; I25.10 Atherosclerotic heart disease of native coronary artery without angina pectoris; F17.210 Nicotine dependence, cigarettes, uncomplicated; Z79.4 Long term (current) use of insulin; Z95.5 Presence of coronary angioplasty implant and graft; Z79.84 Long term (current) use of oral hypoglycemic drugs; Z79.899 Other long term (current) drug therapy; Z88.1 Allergy status to other antibiotic agents; Z63.5 Disruption of family by separation and divorce
CPT/HCPCS: 36415; 71046; 80048; 80053; 80061; 80069; 81001; 83036; 83605; 83735; 84145; 84443; 85025; 87040; 87081; 87086; 87400; 87634; 87811; 93225; 94640; 94644; 96365; 96375; 99291; A9270; J0456; J0696; J1650; J1815; J2185; J2919; J7030; J7050; J7512

== ENCOUNTER 2025-04-05 11:07 | Emergency (ER) | payer MEDICAID, SELFPAY ==
[2025-04-05 11:13] VITALS: BP 147/84; RESP 14; TEMP 36.9; O2SAT 96
--- NOTE | 2025-04-05 11:13 | XR_ITS ---
Examination: AP chest single view Technique one AP portable upright chest single view Date and time: April 05, 2025, 1206 hrs., Comparison November 07, 2024 Indications: Onset chest pain today Findings: Normal heart size. Blunting of the right lateral costophrenic angle. Accentuation basilar bronchovascular markings. Prominent osteopenia. Impression: Basilar bronchitis pattern
--- NOTE | 2025-04-05 11:14 | EKG_ITS ---
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
--- NOTE | 2025-04-05 11:14 | PD.EDCHEST ---
ED Chest Pain RME/HPI General Chief Complaint: Chest Pain Stated Complaint: CHEST PAIN Time Seen by Provider: 04/05/25 11:19 Arrival date/time: 04/05/25 11:07 RME / HPI RME / HPI narrative: 59-year-old female patient with significant history of hypertension diabetes mellitus, COPD, chronic smoker, was brought in by EMS for evaluation regarding chest pain. Patient has left sided chest pain, has been ongoing for the last 5 days, getting worse over the last 2 days, described as pleuritic in nature, worse with coughing and deep breathing. Patient denies any fever. But been coughing nonproductive according to her due to smoking for several years. No medications taken prior to arrival. Patient denies any fever. Patient has been smoking since 11 years old. Consuming half pack a day. Denies any trauma to the chest. Patient denies any vomiting denies any other complaints. Related Data Home Medications ?Medication ?Instructions ?Recorded ?Confirmed amitriptyline 100 mg tablet 100 mg PO HS 07/28/19 11/07/24 atorvastatin 40 mg tablet 40 mg PO HS 07/28/19 11/07/24 gabapentin 100 mg capsule 100 mg PO HS 10/28/23 11/07/24 albuterol sulfate 90 mcg/actuation 2 puff inhalation TID PRN Cough 02/10/24 11/07/24 aerosol inhaler cyclobenzaprine 10 mg tablet 10 mg PO TID PRN muscle spasms 02/10/24 11/07/24 lamotrigine 25 mg tablet 25 mg PO HS 02/10/24 11/07/24 metoclopramide HCl 10 mg tablet 10 mg PO Q6H PRN upset stomach 02/10/24 11/07/24 mirtazapine 15 mg tablet 15 mg PO HS 02/10/24 11/07/24 mupirocin 2 % topical ointment 1 applic topical BID 02/10/24 02/10/24 pantoprazole 40 mg tablet,delayed 40 mg PO QDAY 02/10/24 11/07/24 release empagliflozin 5 mg-metformin 1,000 1 tab PO .Bid with meals 11/07/24 11/07/24 mg tablet (Synjardy) fluticasone 250 mcg-salmeterol 50 1 inh inhalation BID 02/27/25 02/27/25 mcg/dose blistr powdr for inhalation (Advair Diskus) insulin glargine 100 unit/mL 15 unit subcut BID 11/07/24 11/07/24 subcutaneous solution (Lantus U-100 Insulin) triamcinolone acetonide 0.1 % 1 applic topical BID 11/07/24 11/07/24 topical cream Previous Rx's ?Medication ?Instructions ?Recorded blood-glucose sensor (FreeStyle #1 ea 02/11/24 Osmani 3 Sensor device) clopidogrel 75 mg tablet 75 mg PO QDAY 30 days #30 tabs 02/11/24 insulin syr/ndl U100 half windy 0.3 #100 ea 02/11/24 mL 29 gauge x 1/2 insulin lispro 100 unit/mL 12 unit (0.12 mL) subcut TID 30 11/09/24 subcutaneous solution (Admelog days #12.6 mL U-100 Insulin lispro) lisinopril 40 mg tablet 40 mg PO QDAY #30 tabs 11/09/24 albuterol sulfate 2.5 mg/3 mL 2.5 mg (3 mL) inhalation QID PRN 04/05/25 (0.083 %) solution for nebulization shortness of breath or wheezing #90 mL albuterol sulfate 90 mcg/actuation 2 inh inhalation Q8H PRN shortness 04/05/25 aerosol inhaler of breath or wheezing #8.5 grams pantoprazole 40 mg tablet,delayed 40 mg PO QDAY #14 tabs 04/05/25 release (Protonix) prednisone 50 mg tablet 50 mg PO QDAY #7 tabs 04/05/25 Allergies Allergy/AdvReac Type Severity Reaction Status Date / Time aspirin Allergy Severe RASH Verified 04/05/25 11:22 cephalexin Allergy Severe Rash Verified 04/05/25 11:22 codeine Allergy Severe RASH Verified 04/05/25 11:22 diphenhydramine Allergy Severe Rash Verified 04/05/25 11:22 Penicillins Allergy Severe RASH Verified 04/05/25 11:22 Review of Systems Review of Systems Narrative Review of Systems: Review of system reviewed and within normal limits except mentioned in HPI ED Exam Narrative Physical exam: VITAL SIGNS: Reviewed. GENERAL APPEARANCE: Alert and interactive, follows commands, no acute distress, HEAD AND FACE: Non-traumatic. ENT: PERRL, pink conjunctivitis, eyelid no trauma, Mucous membrane moist. NECK: Supple, nontender, no nuchal rigidity. CHEST: No tenderness, no crepitus, no paradoxical movement, no retractions. LUNGS: Clear, well ventilated, symmetric, no rales, no wheezing, no ronchi, no stridor, good breath sounds bilaterally. HEART: Regular rate, regular rhythm, no murmur, no gallops. ABDOMEN: Soft, positive bowel sounds, nondistended, no guarding, nontender, no rebound, no masses, RECTAL: Deferred. GENITAL: Deferred. NEUROLOGICAL: Gross motor function intact sensory function intact, Appropriate for age. MUSCULOSKELETAL: low back nontender, full range of motion. EXTREMITIES: Nontender, full range of motion. SKIN: Color pink, dry, no rash, no lacerations, no abrasions, no contusions. LYMPHATICS: Deferred. Course Quality Measures none Orders Category Date Time Status Bedside COVID-19 Antigen Test NOW Care 04/05/25 13:41 Active Bedside Influenza A&B Antigen Test NOW Care 04/05/25 13:42 Completed EKG (ED ONLY) *Do not use* NOW Care 04/05/25 11:14 Completed In and Out Catheter X1 Care 04/05/25 11:35 Completed EKG (ED Only) Stat Exams 04/05/25 11:14 Draft XR chest 1V Stat Exams 04/05/25 11:13 Completed B-Type Natriuretic Peptide Stat Lab 04/05/25 11:52 Completed CBC Stat Lab 04/05/25 11:52 Completed Comprehensive Metabolic Panel Stat Lab 04/05/25 11:52 Completed D-Dimer Stat Lab 04/05/25 11:52 Completed Partial Thromboplastin Time Stat Lab 04/05/25 11:52 Completed Prothrombin Time with INR Stat Lab 04/05/25 11:52 Completed Troponin I Stat Lab 04/05/25 11:52 Completed Troponin I Stat Lab 04/05/25 14:01 Completed Urinalysis, C/S if Indicated Stat Lab 04/05/25 12:03 Completed Dexamethasone Inj [Decadron Inj] Med 04/05/25 12:05 Discontinued 10 mg PO X1 ONE HYDROcodone/APAP 10/325 [[place] 10/325] Med 04/05/25 12:04 Discontinued 1 tab PO X1 ONE Vital Signs Vital signs: Vital Signs Temperature 98.4 F 04/05/25 11:13 Respiratory Rate 14 04/05/25 11:13 Blood Pressure 147/84 H 04/05/25 11:13 Pulse Oximetry (%) 96 04/05/25 11:13 Chest Pain [facility] Narrative [facility] Narrative:: 59-year-old female patient with significant history of hypertension diabetes mellitus, COPD, chronic smoker, was brought in by EMS for evaluation regarding chest pain. Patient has left sided chest pain, has been ongoing for the last 5 days, getting worse over the last 2 days, described as pleuritic in nature, worse with coughing and deep breathing. Patient denies any fever. But been coughing nonproductive according to her due to smoking for several years. No medications taken prior to arrival. Patient denies any fever. Patient has been smoking since 11 years old. Consuming half pack a day. Denies any trauma to the chest. Patient denies any vomiting denies any other complaints. EKG showed normal sinus rhythm, ventricular rate of 59 bpm, no ST segment elevation depression noted. Patient's workup today all came back unremarkable including troponin x 2 they are all normal. CBC unremarkable CMP unremarkable except for slightly elevated AST 65, ALT of 65 alkaline phos of 170. Urinalysis negative for UTI. Chest x-ray showed bronchitis pattern otherwise no pneumonia noted. Results discussed with the patient. Patient was given Decadron and [place] with complete resolution of discomfort. Currently satting 99% on room air see results Patient data External records reviewed:: None Clinical information provided by:: patient and EMS Social determinants that could affect healthcare access:: none Patient has the following chronic illnesses:: Hypertension diabetes mellitus, COPD How is presenting disease/condition affected by chronic disease/condition?: exacerbated by Evaluation data The following diagnostics were reviewed and interpreted by me:: lab results, radiology exam(s) and EKG tracing(s) Lab and/or radiology exams considered but not ordered:: None Interpretation Summary: See results MDM Medications / Prescriptions Medications or Prescriptions considered but not ordered:: None Medication administrations:: Medication Administration History Discontinued Medications Hydrocodone Bitart/Acetaminophen (Hydrocodone/Apap 10/325 Tab) 1 tab PO X1 ONE Stop: 04/05/25 12:05 Last Admin: 04/05/25 12:15 Dose: 1 tab Documented By: GM Dexamethasone Sodium Phosphate (Dexamethasone Sod Phos Inj 10 Mg/Ml Vial) 10 mg PO X1 ONE Stop: 04/05/25 12:06 Last Admin: 04/05/25 12:14 Dose: 10 mg Documented By: LINDSEY Comments: PER LIZETH FILER FINISH, OK TO GIVE PO. Decadron and [place] Consultations Consultation(s) initiated? (list below): No Diagnosis Chest Pain Differential Diagnosis: pneumothorax Most likely diagnosis given after review of the tests above:: COPD exacerbation, current smoker Admission Indicated Admission indicated?: not indicated Admission Request Was there a request for admission?: No Disposition Plan Disposition Plan: Discharge Discharge Attestation Discharge Attestation: The patient was given an opportunity to ask questions and understood the discharge instructions. Discharge instructions specifically effects, indications for sooner follow up or return to the emergency department, and the expected course of current diagnosis. Patient condition: Stable Discharge Plan Plan Patient Disposition: HOME (Self Care) Discharge Disposition comment: Stable Prescriptions/Referrals Prescriptions/Med Rec: New pantoprazole [Protonix] 40 mg tablet,delayed release (DR/EC) 40 mg PO QDAY Qty: 14 0RF prednisone 50 mg tablet 50 mg PO QDAY Qty: 7 0RF albuterol sulfate 90 mcg/actuation HFA aerosol inhaler 2 inh inhalation Q8H PRN (Reason: shortness of breath or wheezing) Qty: 8.5 0RF albuterol sulfate 2.5 mg /3 mL (0.083 %) solution for nebulization 2.5 mg inhalation QID PRN (Reason: shortness of breath or wheezing) Qty: 90 0RF No Action atorvastatin 40 mg Tablet 40 mg PO HS amitriptyline 100 mg Tablet 100 mg PO HS gabapentin 100 mg capsule 100 mg PO HS cyclobenzaprine 10 mg Tablet 10 mg PO TID PRN (Reason: muscle spasms ) lamotrigine 25 mg tablet 25 mg PO HS mirtazapine 15 mg tablet 15 mg PO HS metoclopramide HCl 10 mg Tablet 10 mg PO Q6H PRN (Reason: upset stomach) pantoprazole 40 mg Tablet,Delayed Release (Dr/Ec) 40 mg PO QDAY mupirocin 2 % Ointment 1 applic TOPICAL BID albuterol sulfate 90 mcg/actuation HFA aerosol inhaler 2 puff INHALATION TID PRN (Reason: Cough) clopidogrel 75 mg Tablet 75 mg PO QDAY 30 Days Qty: 30 4RF (DME) Prosetta Osmani 3 Sensor Device See Rx Instructions .Route Qty: 1 6RF Rx Instructions: As directed (DME) insulin syr/ndl U100 half windy 0.3 mL 29 gauge x 1/2 syringe See Rx Instructions .Route Qty: 100 0RF Rx Instructions: As directed Synjardy 5-1,000 mg tablet 1 tab PO .Bid with meals triamcinolone acetonide 0.1 % cream 1 applic TOPICAL BID Rx Instructions: Apply to wrist, back of neck, forehead, bilateral thumbs X 7 days fluticasone propion-salmeterol [Advair Diskus] 250-50 mcg/dose blister with device 1 inh INHALATION BID insulin glargine [Lantus U-100 Insulin] 100 unit/mL Solution 15 unit subcut BID insulin lispro [Admelog U-100 Insulin lispro] 100 unit/mL solution 12 unit subcut TID 30 Days Qty: 12.6 6RF lisinopril 40 mg tablet 40 mg PO QDAY Qty: 30 0RF Referrals: Aaron Mclean MD [Primary Care Provider] - In 1 week Problem List Clinical Impression: Chronic obstructive pulmonary disease, Current smoker Patient/Caregiver Discharge Instructions Discharge Activity: activity as tolerated Education Materials: COPD: Using Inhalers Additional Instructions: Thank you for the opportunity for serving you today. You are stable for discharged . You are advised to: Follow-up with your PCP in 1 to 2 days Return to ED for worsening of symptoms Increase oral fluids Take medication as prescribed Try to stop smoking please Print Language: Amharic Stand Alone Forms: Lela Award Info., Patient Portal Info Letter SAJI/MINESH Supervising Physician SAJI/MINESH Supervising Physician: MD Kylee
[2025-04-05 11:16] VITALS: PULSE 91; RESP 18; O2SAT 97; BMI 17.9
--- NOTE | 2025-04-05 11:35 | PC.NURSE ---
@1135- THIS RN ATTEMPTED TO PLACE AN IV ON PT X4, UNSUCCESSFUL. HEAD COUNSELOR ALEX MADE AWARE. @1200 - ALEX HEAD COUNSELOR ATTEMPTED TO PLACE IV ON PT X3; UNSUCCESSFUL. Geneva STANLEY NP MADE AWARE.
[2025-04-05 12:12] LABS: Collection Type, Urine Clean Catch; Squamous Epithelial Cell,Urine 0 /hpf (0-5)
[2025-04-05 12:14] LABS: Basophils # (Auto) 0.1 Thou/mm3 (0.0-0.2); Basophils % (Auto) 1 % (0-2.5); Eosinophils # (Auto) 0.4 Thou/mm3 (0.0-0.5); Eosinophils % (Auto) 4 % (0-10); Hematocrit 47.4 % (36.0-46.0); Hemoglobin 14.7 g/dL (12.0-16.0); Immature Granulocytes Auto 0.03 Thou/mm3 (0.00-0.00); Lymphocytes # (Auto) 2.9 Thou/mm3 (1.0-4.8); Lymphocytes % (Auto) 33 % (10-50); Mean Corpuscular HGB Conc 31.0 g/dl (31.0-37.0); Mean Corpuscular Hemoglobin 24.6 pg (25.0-35.0); Mean Corpuscular Volume 79 fL (80-100); Monocytes # (Auto) 0.6 Thou/mm3 (0.0-0.8); Monocytes % (Auto) 7 % (0-12); Neutrophils # (Auto) 4.7 Thou/mm3 (1.8-7.7); Neutrophils % (Auto) 55 % (37-80); Nucleated Red Blood Cell # 0.00 Thou/mm3 (0.00-0.00); Nucleated Red Blood Cell % 0 /100 WBC (0); Platelet Count 239 Thou/mm3 (140-440); RDW Standard Deviation 54.0 fL (36.4-46.3); Red Blood Count 5.98 Miln/mm3 (4.00-5.20); White Blood Count 8.7 Thou/mm3 (3.6-11.0)
[2025-04-05] MEDS: DEXAMETHASONE SOD PHOS INJ 10 MG/ML VIAL PO (12:14)
[2025-04-05 12:27] LABS: Alanine Aminotransferase 65 U/L (10-49); Albumin, Serum 4.7 gm/dL (3.5-5.0); Albumin/Globulin Ratio 2.0 (1.2-2.2); Alkaline Phosphatase 170 U/L (46-116); Anion Gap 10 (7-16); Aspartate Amino Transferase 65 U/L (0-34); BUN/Creatinine Ratio 15 Ratio (12-20); Bilirubin,Total 0.3 mg/dL (0.3-1.2); Blood Urea Nitrogen 12 mg/dL (9-23); Calcium 9.9 mg/dL (8.3-10.6); Calcium (Corrected) 9.9 mg/dL (8.5-10.1); Carbon Dioxide 24.4 mMol/L (20.0-31.0); Chloride 107 mMol/L (98-107); Creatinine (Component) 0.8 mg/dL (0.6-1.3); Estimated Creatinine Clearance 51.3 mL/min (>60); Globulin 2.3 gm/dL (2.3-3.5); Glucose 92 mg/dL (74-106); Osmolality,Calculated 280 (275-295); Potassium 4.4 mMol/L (3.4-5.1); Sodium 141 mMol/L (136-145); Total Protein 7.0 gm/dL (5.7-8.2); Troponin I < 0.020 ng/mL (0.0-0.045); eGFR > 60 See Note
[2025-04-05 12:37] LABS: B-Type Natriuretic Peptide 110 pg/mL (0-100)
[2025-04-05 12:41] LABS: Bilirubin,Urine Negative (Negative); Blood,Urine Trace (Negative); Clarity,Urine Clear (Clear/Hazy); Color,Urine Lt-Yellow (Lt Yel-Yel); Culture Indicated,Urine Not Indicated; Glucose, Urine 4+ (Negative); Ketones,Urine Negative (Negative); Leukocyte Esterase,Urine Negative (Negative); Nitrite,Urine Negative (Negative); PH,Urine 6.0 (5.0-7.0); Protein,Urine 2+ (Neg - Trace); RBC,Urine 3 /hpf (0-3); Specific Gravity,Urine 1.013 (1.001-1.035); Urobilinogen,Urine Negative mg/dL (0.0-1.0); WBC,Urine < 1 /hpf (0-5)
[2025-04-05 12:41] LABS: D-Dimer < 250 ng/mL (<600)
[2025-04-05 12:49] LABS: INR 0.9 (0.9-1.3); Partial Thromboplastin Time 20.8 Seconds (22.0-36.0); Prothrombin Time 10.0 Seconds (9.0-12.2)
[2025-04-05 13:49] VITALS: BP 151/69; PULSE 58; RESP 17; TEMP 36.4; O2SAT 97
[2025-04-05 14:23] LABS: Troponin I < 0.020 ng/mL (0.0-0.045)
[2025-04-05 14:26] VITALS: BP 152/76; PULSE 62; RESP 18; TEMP 36.3; O2SAT 99
[2025-04-05 15:30] VITALS: BP 153/81; PULSE 66; RESP 13; TEMP 36.6; O2SAT 98
== END 2025-04-05 15:43 | disposition home or self-care (01) ==
PROVIDERS: Nurse Practitioner Family; Emergency Provider Emergency Medicine; PCP Family Medicine
DX: J44.9 Chronic obstructive pulmonary disease, unspecified (principal); F17.210 Nicotine dependence, cigarettes, uncomplicated; I10 Essential (primary) hypertension
CPT/HCPCS: 51701; 36415; 71045; 80053; 81001; 83880; 84484; 85025; 85379; 85610; 85730; 87400; 87811; 93005; 99283; J1100; A9270

== ENCOUNTER 2025-04-28 16:56 | Inpatient (IN) | payer MEDICAID, SELFPAY ==
[2025-04-28 17:23] VITALS: BP 169/80; PULSE 93; RESP 18; TEMP 36.6; O2SAT 95
--- NOTE | 2025-04-28 17:39 | XR_ITS ---
Examination: Foot, right, 3 views Technique: AP, oblique, lateral views foot, 3 views Date and time of exam: April 28, 2025 1745 hours INDICATIONS: Pain and swelling discharge 10 days involving the foot FINDINGS: 21 mm needle fragment projecting in the soft tissue plantar to the base of the second metatarsal No fracture No [place] cortical bone destruction IMPRESSION: Positive for opaque foreign body
--- NOTE | 2025-04-28 17:39 | PD.EDRME ---
Rapid Medical Screening Exam [facility] Arrival date/time: 04/28/25 16:56 59-year-old female with a history of type 2 diabetes, hyperlipidemia, hypertension, COPD presents to the emergency room with a chief complaint of right foot swelling and tenderness. Patient has a puncture wound to the sole of her foot. Patient states she might of stepped on something a week ago. I have greeted and performed a focused initial assessment of this patient. A comprehensive ED assessment and evaluation of the patient, analysis of all test results, and completion of the medical decision making process will be conducted by additional ED providers. Chief Complaint: Ankle/Foot Injury Vital signs: Vital Signs Temperature 98 F 04/28/25 17:23 Pulse Rate 93 04/28/25 17:23 Respiratory Rate 18 04/28/25 17:23 Blood Pressure 169/80 H 04/28/25 17:23 Pulse Oximetry (%) 95 04/28/25 17:23 Oxygen Delivery Method Room Air 04/28/25 17:23 Vital signs reviewed by provider: Yes
[2025-04-28 18:53] LABS: Basophils # (Auto) 0.1 Thou/mm3 (0.0-0.2); Basophils % (Auto) 1 % (0-2.5); Eosinophils # (Auto) 0.3 Thou/mm3 (0.0-0.5); Eosinophils % (Auto) 2 % (0-10); Hematocrit 38.7 % (36.0-46.0); Hemoglobin 12.5 g/dL (12.0-16.0); Immature Granulocytes Auto 0.04 Thou/mm3 (0.00-0.00); Lymphocytes # (Auto) 1.9 Thou/mm3 (1.0-4.8); Lymphocytes % (Auto) 16 % (10-50); Mean Corpuscular HGB Conc 32.3 g/dl (31.0-37.0); Mean Corpuscular Hemoglobin 26.2 pg (25.0-35.0); Mean Corpuscular Volume 81 fL (80-100); Monocytes # (Auto) 0.8 Thou/mm3 (0.0-0.8); Monocytes % (Auto) 6 % (0-12); Neutrophils # (Auto) 9.1 Thou/mm3 (1.8-7.7); Neutrophils % (Auto) 75 % (37-80); Nucleated Red Blood Cell # 0.00 Thou/mm3 (0.00-0.00); Nucleated Red Blood Cell % 0 /100 WBC (0); Platelet Count 385 Thou/mm3 (140-440); RDW Standard Deviation 58.0 fL (36.4-46.3); Red Blood Count 4.78 Miln/mm3 (4.00-5.20); White Blood Count 12.1 Thou/mm3 (3.6-11.0)
[2025-04-28 19:10] LABS: Alanine Aminotransferase 19 U/L (10-49); Albumin, Serum 4.1 gm/dL (3.5-5.0); Albumin/Globulin Ratio 2.4 (1.2-2.2); Alkaline Phosphatase 130 U/L (46-116); Anion Gap 4 (7-16); Aspartate Amino Transferase 23 U/L (0-34); BUN/Creatinine Ratio 10 Ratio (12-20); Bilirubin,Total 0.3 mg/dL (0.3-1.2); Blood Urea Nitrogen 10 mg/dL (9-23); Calcium 9.1 mg/dL (8.3-10.6); Calcium (Corrected) 9.1 mg/dL (8.5-10.1); Carbon Dioxide 26.1 mMol/L (20.0-31.0); Chloride 104 mMol/L (98-107); Creatinine (Component) 1.0 mg/dL (0.6-1.3); Globulin 1.7 gm/dL (2.3-3.5); Osmolality,Calculated 286 (275-295); Potassium 5.9 mMol/L (3.4-5.1); Sodium 134 mMol/L (136-145); Total Protein 5.8 gm/dL (5.7-8.2); eGFR > 60 See Note
[2025-04-28 19:11] LABS: Glucose 439 mg/dL (74-106)
[2025-04-28 20:19] VITALS: BP 179/76; PULSE 90; RESP 16; O2SAT 98
--- NOTE | 2025-04-28 20:48 | PD.EDANKLE ---
Lower Extremity Injury RME/HPI General Chief Complaint: Ankle/Foot Injury Stated Complaint: R) FOOT INJURY Time Seen by Provider: 04/28/25 18:18 Arrival date/time: 04/28/25 16:56 RME / HPI RME / HPI Narrative: 04/28/25 16:56 59-year-old female with a history of type 2 diabetes, hyperlipidemia, hypertension, COPD presents to the emergency room with a chief complaint of right foot swelling and tenderness. Patient has a puncture wound to the sole of her foot. Patient states she might of stepped on something a week ago. I have greeted and performed a focused initial assessment of this patient. A comprehensive ED assessment and evaluation of the patient, analysis of all test results, and completion of the medical decision making process will be conducted by additional ED providers. See MDM for HPI documentation. Related Data Home Medications ?Medication ?Instructions ?Recorded ?Confirmed amitriptyline 100 mg tablet 100 mg PO HS 07/28/19 11/07/24 atorvastatin 40 mg tablet 40 mg PO HS 07/28/19 11/07/24 gabapentin 100 mg capsule 100 mg PO HS 10/28/23 11/07/24 albuterol sulfate 90 mcg/actuation 2 puff inhalation TID PRN Cough 02/10/24 11/07/24 aerosol inhaler cyclobenzaprine 10 mg tablet 10 mg PO TID PRN muscle spasms 02/10/24 11/07/24 lamotrigine 25 mg tablet 25 mg PO HS 02/10/24 11/07/24 metoclopramide HCl 10 mg tablet 10 mg PO Q6H PRN upset stomach 02/10/24 11/07/24 mirtazapine 15 mg tablet 15 mg PO HS 02/10/24 11/07/24 mupirocin 2 % topical ointment 1 applic topical BID 02/10/24 02/10/24 pantoprazole 40 mg tablet,delayed 40 mg PO QDAY 02/10/24 11/07/24 release empagliflozin 5 mg-metformin 1,000 1 tab PO .Bid with meals 11/07/24 11/07/24 mg tablet (Synjardy) fluticasone 250 mcg-salmeterol 50 1 inh inhalation BID 11/07/24 11/07/24 mcg/dose blistr powdr for inhalation (Advair Diskus) insulin glargine 100 unit/mL 15 unit subcut BID 11/07/24 11/07/24 subcutaneous solution (Lantus U-100 Insulin) triamcinolone acetonide 0.1 % 1 applic topical BID 11/07/24 11/07/24 topical cream Previous Rx's ?Medication ?Instructions ?Recorded blood-glucose sensor (FreeStyle #1 ea 02/11/24 Osmani 3 Sensor device) clopidogrel 75 mg tablet 75 mg PO QDAY 30 days #30 tabs 02/11/24 insulin syr/ndl U100 half windy 0.3 #100 ea 02/11/24 mL 29 gauge x 1/2 insulin lispro 100 unit/mL 12 unit (0.12 mL) subcut TID 30 11/09/24 subcutaneous solution (Admelog days #12.6 mL U-100 Insulin lispro) lisinopril 40 mg tablet 40 mg PO QDAY #30 tabs 11/09/24 albuterol sulfate 2.5 mg/3 mL 2.5 mg (3 mL) inhalation QID PRN 04/05/25 (0.083 %) solution for nebulization shortness of breath or wheezing #90 mL albuterol sulfate 90 mcg/actuation 2 inh inhalation Q8H PRN shortness 04/05/25 aerosol inhaler of breath or wheezing #8.5 grams pantoprazole 40 mg tablet,delayed 40 mg PO QDAY #14 tabs 04/05/25 release (Protonix) prednisone 50 mg tablet 50 mg PO QDAY #7 tabs 04/05/25 Allergies Allergy/AdvReac Type Severity Reaction Status Date / Time aspirin Allergy Severe RASH Verified 04/28/25 17:00 cephalexin Allergy Severe Rash Verified 04/28/25 17:00 codeine Allergy Severe RASH Verified 04/28/25 17:00 diphenhydramine Allergy Severe Rash Verified 04/28/25 17:00 Penicillins Allergy Severe RASH Verified 04/28/25 17:00 Review of Systems Review of Systems Systems Reviewed: All systems reviewed, normal except as documented ED Exam Narrative Physical exam: See MDM for physical exam documentation. Course Quality Measures none Orders Category Date Time Status NPO NOW Care 04/29/25 00:32 Active Saline [Insert IV] NOW Care 04/29/25 00:32 Active Consult to General Surgery Stat Cons 04/29/25 00:44 Ordered Diet NPO (NOW) Diet 04/29/25 00:32 Active XR foot comp RT min 3V Stat Exams 04/28/25 17:39 Completed ABG [Arterial Blood Gas] Stat Lab 04/29/25 01:28 Completed Alcohol, Blood Medical Stat Lab 04/29/25 00:42 Ordered Beta Hydroxybutyrate Stat Lab 04/29/25 00:42 Ordered Blood Culture (Lab) Stat Lab 04/29/25 00:43 Ordered CBC Stat Lab 04/28/25 18:34 Completed CMP [Comprehensive Metabolic Panel] Stat Lab 04/28/25 18:34 Completed CRP [C-Reactive Protein] Stat Lab 04/29/25 00:42 Ordered Drug Screen,Urine Stat Lab 04/29/25 01:03 Completed ESR [Sed Rate (ESR)] Stat Lab 04/29/25 00:43 Ordered Lactate (Lactic Acid) Stat Lab 04/29/25 00:43 Ordered Magnesium Stat Lab 04/29/25 00:42 Ordered PT [Prothrombin Time with INR] Stat Lab 04/29/25 00:43 Ordered PTT [Partial Thromboplastin Time] Stat Lab 04/29/25 00:43 Ordered Potassium Stat Lab 04/28/25 21:52 Completed Procalcitonin Stat Lab 04/29/25 00:42 Ordered UA, C/S IF [Urinalysis, C/S if Indicated] Stat Lab 04/29/25 01:03 Completed ACETAMINOPHEN w/COD 300-30 [Tylenol w/Cod #3] Med 04/28/25 20:55 Discontinued 2 tab PO X1 ONE Amoxicillin/Pot Clav 875 [Augmentin 875] Med 04/28/25 20:55 Discontinued 1 tab PO X1 ONE Clindamycin/Ns 300Mg Ivpb [Cleocin/Ns Ivpb] Med 04/29/25 00:34 Discontinued 300 mg in 50 ml IV X1 Ibuprofen Tab [Motrin Tab] Med 04/28/25 20:55 Discontinued 400 mg PO X1 ONE Insulin Regular Med 04/28/25 20:55 Discontinued 10 unit SC X1 ONE Ketorolac Inj [Toradol Inj] Med 04/29/25 00:33 Discontinued 15 mg IVP X1 ONE Levofloxacin [Levaquin] Med 04/28/25 20:56 Discontinued 500 mg PO X1 ONE Lidocaine 1% 20 ml [Xylocaine 1% 20 ML] Med 04/29/25 00:00 Discontinued 20 ml INFL X1 ONE Morphine Inj Med 04/29/25 00:33 Discontinued 4 mg IVP X1 ONE Ondansetron Inj [Zofran Inj] Med 04/29/25 00:33 Discontinued 4 mg IVP X1 ONE Sodium Chloride 0.9% 1000 ml [Ns] 1,000 ml Med 04/29/25 00:33 Discontinued IV 999 mls/hr Vital Signs Vital signs: Vital Signs Temperature 98 F 04/28/25 17:23 Pulse Rate 93 04/28/25 17:23 Respiratory Rate 18 04/28/25 17:23 Blood Pressure 169/80 H 04/28/25 17:23 Pulse Oximetry (%) 95 04/28/25 17:23 Oxygen Delivery Method Room Air 04/28/25 17:23 Extremity Injury, Lower MDM Narrative MDM Narrative:: This section includes all my notes and documentations, including HPI, PE, and ED course. Zhao Comer MD HPI: 59yo female here with right foot worsening pain and swelling for a couple of weeks. Patient stepped on something when she was walking barefoot outside about 2 weeks ago. Concerned about foreign body. No fever or chills or bodyaches or malaise. No other complaints. ROS: All negative except as documented in HPI. Physical Exam: General: Alert and oriented. Appears to be in pain. Eyes: Conjunctivae and lids clear. ENT: No nasal congestion. Neck: Supple. Heart: RRR. Lungs: No respiratory distress. Good air movement. No rhonchi, wheezing, rales. Skin: Warm and dry. Neuro: Alert and oriented X 3. Right Foot: Remarkable for significant edema/erythema/calor/tenderness. Equivocal FB in plantar surface. I reviewed all diagnostic test results. My interpretation of the right foot x-ray is: 21 mm needle fragment projecting in the soft tissue plantar to the base of the second metatarsal. Blood tests remarkable for WBC 12.1, K 5.9 (repeat 4.6), Glucose 439. At this point, diagnoses include Cellulitis of right foot with foreign body. Treatment here included Levaquin, Augmentin, Insulin, Ibuprofen, Tylenol with Codeine, Morphine, Toradol, Clindamycin, IV fluid. I discussed the case with our general surgeon and hospitalist. About the presentation and exam and diagnostics and treatments here. And need of further care in the hospital. Will accept the patient. Zhao Comer MD Patient data External records reviewed:: [facility] previous records (Per chart review, patient was seen here on 03/26/25 for chronic obstructive pulmonary disease.) Clinical information provided by:: patient Social determinants that could affect healthcare access:: none Patient has the following chronic illnesses:: COPD, HLD, HTN, IDDM, hypothyroidism How is presenting disease/condition affected by chronic disease/condition?: uneffected by Evaluation data The following diagnostics were reviewed and interpreted by me:: lab results and radiology exam(s) Lab and/or radiology exams considered but not ordered:: none Interpretation Summary: I reviewed all diagnostic test results. My interpretation of the right foot x-ray is: 21 mm needle fragment projecting in the soft tissue plantar to the base of the second metatarsal. Blood tests remarkable for WBC 12.1, K 5.9 (repeat 4.6), Glucose 439. Medications / Prescriptions Medications or Prescriptions considered but not ordered:: none Medication administrations:: Medication Administration History Dextrose (Dextrose 50%-Water Inj 50 Ml Syringe) 25 ml IV Q15MIN PRN PRN Reason: BG 50-70 responsive npo pt Stop: 05/29/25 01:28 Dextrose (Dextrose 50%-Water Inj 50 Ml Syringe) 50 ml IV Q15MIN PRN PRN Reason: BG <50 OR BG <70 & pt unresponsive Stop: 05/29/25 01:28 Enoxaparin Sodium (Enoxaparin Sod Inj 40 Mg/0.4 Ml Syringe) 40 mg SC QDAY [facility] Stop: 05/13/25 08:59 Glucagon (Glucagon Inj 1 Mg Vial) 1 mg IM Q15MIN PRN PRN Reason: BG <70, and no IV access Cefepime HCl 2 gm/ Sodium (Chloride) 50 mls @ 100 mls/hr IV Q8HR [facility] Stop: 05/06/25 01:30 Clindamycin/Sodium Chloride (Cleocin/Ns Ivpb) 600 mg in 50 mls @ 100 mls/hr IV Q8HR [facility] Stop: 05/06/25 07:59 Insulin Human Lispro (Insulin Lispro (Admelog) 1 Unit/0.01 Ml Unit) 0 unit SC AC BIRDIE; Protocol Stop: 05/29/25 07:29 Morphine Sulfate (Morphine Sulf Inj 10 Mg/Ml Vial) 2 mg IVP Q1H PRN PRN Reason: PAIN SCALE 4-10(Mod-Sev Ondansetron HCl (Ondansetron Inj 2 Mg/Ml Inj 2 Ml) 4 mg IVP Q6H PRN; Protocol PRN Reason: NAUSEA OR VOMITING Stop: 05/29/25 01:23 Last Admin: 04/29/25 02:36 Dose: 4 mg Documented By: ALEJANDRA Pantoprazole Sodium (Pantoprazole Inj 40 Mg Vial) 40 mg IVP QDAY B[facility] Stop: 05/29/25 08:59 Discontinued Medications Acetaminophen/Codeine Phosphate (Acetaminophen W/Cod 300-30 Tablet) 2 tab PO X1 ONE Stop: 04/28/25 20:56 Last Admin: 04/28/25 21:10 Dose: 2 tab Documented By: JON Amoxicillin/Clavulanate Potassium (Amoxicillin/Pot Clav 875 Tablet) 1 tab PO X1 ONE Stop: 04/28/25 20:56 Last Admin: 04/28/25 21:10 Dose: 1 tab Documented By: JON Diphtheria/Tetanus/Acell Pertussis (Diphth,Pertuss(Acell),Tet Vac 0.5 Ml Syr- Adult) 0.5 ml IMi .ONCE ONE Stop: 04/29/25 01:30 Last Admin: 04/29/25 02:31 Dose: 0.5 ml Documented By: ALEJANDRA Sodium Chloride (Ns) 1,000 mls @ 999 mls/hr IV .Q1H1M ONE Stop: 04/29/25 01:33 Last Infusion: 04/29/25 02:09 Dose: Infused Documented By: Admin: 04/29/25 01:06 Dose: 999 mls/hr Documented By: ALEJANDRA Clindamycin/Sodium Chloride (Cleocin/Ns Ivpb) 300 mg in 50 mls @ 100 mls/hr IV X1 ONE Stop: 04/29/25 01:03 Last Infusion: 04/29/25 01:38 Dose: Infused Documented By: Admin: 04/29/25 01:07 Dose: 100 mls/hr Documented By: ALEJANDRA Clindamycin/Sodium Chloride (Cleocin/Ns Ivpb) 600 mg in 50 mls @ 100 mls/hr IV Q8HR BIRDIE Stop: 05/06/25 01:30 Last Admin: 04/29/25 02:09 Dose: Not Given Documented By: CB Non-Admin Reason: Cancelled by Provider Ibuprofen (Ibuprofen Tab 400 Mg Tablet) 400 mg PO X1 ONE Stop: 04/28/25 20:56 Last Admin: 04/28/25 21:10 Dose: 400 mg Documented By: EF Insulin Human Regular (Insulin Hum Regular 1 Unit/0.01 Ml (Per Unit)) 10 unit SC X1 ONE Stop: 04/28/25 20:56 Last Admin: 04/28/25 21:06 Dose: Not Given Documented By: EF Non-Admin Reason: pt administered 8 units herself Ketorolac Tromethamine (Ketorolac Inj 30 Mg/Ml Vial) 15 mg IVP X1 ONE Stop: 04/29/25 00:34 Last Admin: 04/29/25 02:44 Dose: Not Given Documented By: CB Non-Admin Reason: Cancelled by Provider Labetalol HCl (Labetalol Inj 5 Mg/Ml Vial 20 Ml) 10 mg IVP X1 ONE Stop: 04/29/25 02:45 Levofloxacin (Levofloxacin 250 Mg Tablet) 500 mg PO X1 ONE Stop: 04/28/25 20:57 Last Admin: 04/28/25 21:10 Dose: 500 mg Documented By: EF Lidocaine HCl (Lidocaine Hcl 1% 20 Ml Vial) 20 ml INFL X1 ONE Stop: 04/29/25 00:01 Last Admin: 04/29/25 01:14 Dose: Not Given Documented By: EF Non-Admin Reason: Cancelled by Provider Morphine Sulfate (Morphine Sulf Inj 10 Mg/Ml Vial) 4 mg IVP X1 ONE Stop: 04/29/25 00:34 Last Admin: 04/29/25 01:06 Dose: 4 mg Documented By: CB Ondansetron HCl (Ondansetron Inj 2 Mg/Ml Inj 2 Ml) 4 mg IVP X1 ONE; Protocol Stop: 04/29/25 00:34 Last Admin: 04/29/25 01:07 Dose: 4 mg Documented By: CB Levaquin, Augmentin, Insulin, Ibuprofen, Tylenol with Codeine, Morphine, Toradol, Clindamycin, IV fluid Consultations Consultation(s) initiated? (list below): Yes Consultation #1 (Physician, Specialty, Details): I discussed the case with our general surgeon and hospitalist. About the presentation and exam and diagnostics and treatments here. And need of further care in the hospital. Will accept the patient. Diagnosis Extremity Injury, Lower Differential Diagnosis: puncture wound of foot and other (Cellulitis, foreign body, sepsis) Most likely diagnosis given after review of the tests above:: Cellulitis of right foot, Foreign body in right foot Admission Indicated Admission indicated?: indicated Explain why admission is indicated or not indicated:: Cellulitis of right foot, Foreign body in right foot Admission Request Was there a request for admission?: Yes Admission Attestation Admission request attestation: Discussed case with Hospitalist service regarding admission. Discussed patients ED course, exam findings, labs, and radiology results. The Hospitalist [agrees] to accept the patient for admission. Disposition Plan Disposition Plan: Admit Discharge Plan Plan Patient Disposition: Admit Acute Care w/in Hospital Problem List Clinical Impression: Cellulitis of right foot, Foreign body in right foot
[2025-04-28] MEDS: IBUPROFEN TAB 400 MG TABLET PO (21:10)
[2025-04-28] MEDS: ACETAMINOPHEN w/COD 300-30 TABLET 2 TAB PO (21:10)
[2025-04-28] MEDS: AMOXICILLIN/POT CLAV 875 TABLET 1 TAB PO (21:10)
[2025-04-28] MEDS: LEVOFLOXACIN 250 MG TABLET 500 MG PO (21:10)
[2025-04-28 22:18] VITALS: BP 159/78; PULSE 88; RESP 17; TEMP 36.7; O2SAT 98
[2025-04-28 22:32] LABS: Potassium 4.6 mMol/L (3.4-5.1)
[2025-04-29] VITALS (18 sets, daily range): BP systolic 153–191; BP diastolic 69–104; PULSE 73–97; RESP 15–95; TEMP 36–37.2; O2SAT 91–100; BMI 19.3
[2025-04-29] MEDS: SODIUM CHLORIDE 0.9% 1000 ML 1,000 ML 999 ML IV (01:06)
[2025-04-29] MEDS: MORPHINE SULF INJ 10 MG/ML VIAL 4 MG IVP (01:06)
[2025-04-29] MEDS: CLINDAMYCIN/NS 300MG IVPB 300 MG/50 ML BAG 100 MG IV (01:07)
[2025-04-29] MEDS: ONDANSETRON INJ 2 MG/ML INJ 2 ML 4 MG IVP ×5 (01:07→23:17)
[2025-04-29 01:32] LABS: Collection Type, Urine Clean Catch; WBC,Urine 0 /hpf (0-5)
[2025-04-29 01:35] LABS: Base Excess 1 (-3-3); HCO3 26 mEq/L (20-26); Inspired Oxygen, FIO2 21 %; O2 Saturation 89 % (91-98); PCO2 42 mmHg (32.0-48.0); pH, Arterial 7.40 (7.35-7.45)
[2025-04-29 01:36] LABS: Allen Test Performed/OK; PO2 54 mmHg (83-108); Puncture Site Right Radial
[2025-04-29 01:44] LABS: Bacteria,Urine Rare; Bilirubin,Urine Negative (Negative); Blood,Urine Negative (Negative); Clarity,Urine Clear (Clear/Hazy); Color,Urine Lt-Yellow (Lt Yel-Yel); Culture Indicated,Urine Not Indicated; Glucose, Urine 4+ (Negative); Ketones,Urine 1+ (Negative); Leukocyte Esterase,Urine Negative (Negative); Nitrite,Urine Negative (Negative); PH,Urine 6.5 (5.0-7.0); Protein,Urine 2+ (Neg - Trace); RBC,Urine 4 /hpf (0-3); Specific Gravity,Urine 1.018 (1.001-1.035); Squamous Epithelial Cell,Urine 2 /hpf (0-5); Urobilinogen,Urine Negative mg/dL (0.0-1.0)
[2025-04-29 02:14] LABS: Amphetamine/Methamp Scrn,U Negative (Negative); Barbiturate Screen,Urine Negative (Negative); Benzodiazepines Screen,Urine Negative (Negative); Benzoylecgonine Screen, Ur Negative (Negative); Fentanyl Screen,Urine Negative (Negative); Opiate Screen,Urine Negative (Negative); THC Screen,Urine Positive (Negative)
[2025-04-29] MEDS: DIPHTH,PERTUSS(ACELL),TET VAC 0.5 ML SYR- ADULT IMi (02:31)
--- NOTE | 2025-04-29 02:57 | ESHP_ITS ---
Documentation for date of: 04/29/25 [facility] History of Present Illness Chief complaint: Right foot pain, swelling and pus drainage History of present illness: 59-year-old female with a history of type 2 diabetes, hypertension, hyperlipidemia, COPD, and prior cardiac stent placement 10 years ago presents with 2 weeks of progressively worsening right foot pain and swelling after stepping on something while walking outdoors. She describes a burning/stinging sensation at the time of injury but did not see any object. Pain and swelling have worsened, and she reports difficulty moving her foot due to pain. No fever, chills, night sweats, or pus drainage prior to today. She reports her blood sugars are poorly controlled, often reading ?HI? on her glucometer until after she gives herself insulin, at which point they drop into the 400s. She denies chest pain, shortness of breath, or recent COPD exacerbation. She was evaluated in the ED, where X-ray revealed a radiopaque foreign body (needle) at the base of the 2nd?3rd metatarsals, away from the plantar puncture site. ED started antibiotics (Augmentin, Clindamycin, Levaquin) and insulin. General surgery (Dr. Hair) consulted and plans operative removal tomorrow. ROS: * Constitutional: No fevers, chills, weight loss. * HEENT: No congestion, sore throat. * CV: No chest pain, palpitations. * Pulm: No SOB, no cough. * GI: No abdominal pain, N/V. * : No dysuria. * MSK: Right foot pain/swelling. No other joint issues. * Skin: Redness and swelling of right foot, no drainage. * Neuro: No focal deficits, weakness, or paresthesias. * All other systems negative. PMH: * Type 2 diabetes mellitus * Hypertension * Hyperlipidemia * COPD * CAD s/p stent (10 years ago) PSH: * PCI with stent ~10 years ago * No major surgeries otherwise Meds (pending med rec's): * Insulin * Metformin * Plavix * Amitriptyline * Gabapentin * Lamotrigine * Lisinopril * metoprolol * Inhalers/nebulizers for COPD Allergies: * Penicillin, rash reaction, denies anaphylaxis/airway compromise. * and other, refer to allergies section in emr Social: * Smokes ~? pack/day * Rare alcohol (special occasions) * No illicit drug use (remote use >10 yrs ago) * Lives with family Family Hx: * Noncontributory per patient Exam Vital Signs Temp Pulse Resp BP Pulse Ox O2 Del Method 98.2 F 83 20 191/91 H 96 Room Air 04/29/25 02:39 04/29/25 02:39 04/29/25 02:39 04/29/25 02:39 04/29/25 02:39 04/29/25 02:39 Narrative Exam General: Alert, oriented, in mild distress due to foot pain. HEENT: PERRL, EOMI, MMM. Neck: Supple, no JVD. CV: RRR, no murmurs. Lungs: CTAB, no wheezes, no distress. Abdomen: Soft, NT/ND, normal BS. Extremities: Right foot: * Erythematous, swollen, tender. * Puncture site on plantar surface, no active drainage; patient reports pus drainage earlier today. * Sensation: Diminished to absent over right heel, but extreme tenderness to light touch over plantar region and toes. * Motor: No dorsiflexion/plantarflexion appreciated; minimal toe movement noted but could be pain-limited. Neuro: A&Ox3, CN II?XII intact. No gross motor deficits outside of right foot limitations described above. Skin: Warm, dry elsewhere. Results: Labs 04/28/25 18:34 04/28/25 21:52 Labs: Short CBC 04/28/25 Range/Units 18:34 WBC 12.1 H (3.6-11.0) Thou/mm3 Hgb 12.5 (12.0-16.0) g/dL Hct 38.7 (36.0-46.0) % Plt Count 385 D (140-440) Thou/mm3 BMP 04/28/25 04/28/25 18:34 21:52 Sodium 134 L Potassium 5.9 H 4.6 D Chloride 104 Carbon Dioxide 26.1 BUN 10 Creatinine 1.0 Glucose 439 H* Calcium 9.1 Liver Function 04/28/25 Range/Units 18:34 Total Bilirubin 0.3 (0.3-1.2) mg/dL AST 23 (0-34) U/L ALT 19 (10-49) U/L Alkaline Phosphatase 130 H (46-116) U/L Albumin 4.1 (3.5-5.0) gm/dL Urine 04/29/25 Range/Units 01:03 Urine Color Lt-Yellow (Lt Yel-Yel) Urine Clarity Clear (Clear/Hazy) Urine pH 6.5 (5.0-7.0) Ur Specific [place] 1.018 (1.001-1.035) Urine Protein 2+ A (Neg - Trace) Urine Glucose (UA) 4+ A (Negative) ABG Interpretation ABG results: 04/29/25 01:28 ABG pH 7.40 ABG pCO2 42 ABG pO2 54 L* ABG HCO3 26 ABG O2 Saturation 89 L ABG Base Excess 1 Quality Measures Quality Measures VTE prophylaxis Medications Home Medications and Allergies Home Medications ?Medication ?Instructions ?Recorded ?Confirmed ?Type amitriptyline 100 mg tablet 100 mg PO HS 07/28/1904/11 History atorvastatin 40 mg tablet 40 mg PO HS 07/28/19 5 History gabapentin 100 mg capsule 100 mg PO HS 10/28/23 History albuterol sulfate 90 mcg/actuation 2 puff inhalation T ID PRN Cough 02/10/24 11/07/24 History aerosol inhaler cyclobenzaprine 10 mg tablet 10 mg PO TID PRN muscle s pasms 02/10/24 11/07/24 History lamotrigine 25 mg tablet 25 mg PO HS 02/10/24 5 History metoclopramide HCl 10 mg tablet 10 mg PO Q6H PRN upset stomach 02/10/24 04/29/25 History mirtazapine 15 mg tablet 15 mg PO HS 02/10/24 5 History mupirocin 2 % topical ointment 1 applic topical BID 02/10/24 History pantoprazole 40 mg tablet,delayed 40 mg PO QDAY 04/29/25 History release empagliflozin 5 mg-metformin 1,000 1 tab PO .Bid with meals 11/07/24 04/29/25 History mg tablet (Synjardy) fluticasone 250 mcg-salmeterol 50 1 inh inhalation BID 11/07/24 11/07/24 History mcg/dose blistr powdr for inhalation (Advair Diskus) insulin glargine 100 unit/mL 15 unit subcut BID 11/07/24 History subcutaneous solution (Lantus U-100 Insulin) triamcinolone acetonide 0.1 % 1 applic topical BID 11/07/24 History topical cream cetirizine 10 mg tablet 10 mg PO QDAY 04/29/2504/29 History lisinopril 40 mg tablet 20 mg PO QDAY 04/29/2504/29 History metoprolol tartrate 50 mg tablet 50 mg PO BID 04/29/25 04/29/25 History Allergies Allergy/AdvReac Type Severity Reaction Status Date / Time aspirin Allergy Severe RASH Verified 04/28/25 17:00 cephalexin Allergy Severe Rash Verified 04/28/25 17:00 codeine Allergy Severe RASH Verified 04/28/25 17:00 diphenhydramine Allergy Severe Rash Verified 04/28/25 17:00 Penicillins Allergy Severe RASH Verified 04/28/25 17:00 Visit Medications Dextrose (Dextrose 50%-Water Inj 50 Ml Syringe) 25 ml IV Q15MIN PRN PRN Reason: BG 50-70 responsive npo pt Stop: 05/29/25 01:28 Dextrose (Dextrose 50%-Water Inj 50 Ml Syringe) 50 ml IV Q15MIN PRN PRN Reason: BG <50 OR BG <70 & pt unresponsive Stop: 05/29/25 01:28 Enoxaparin Sodium (Enoxaparin Sod Inj 40 Mg/0.4 Ml Syringe) 40 mg SC QDAY [facility] Stop: 05/13/25 08:59 Glucagon (Glucagon Inj 1 Mg Vial) 1 mg IM Q15MIN PRN PRN Reason: BG <70, and no IV access Cefepime HCl 2 gm/ Sodium (Chloride) 50 mls @ 100 mls/hr IV Q8HR BIRDIE Stop: 05/06/25 01:30 Clindamycin/Sodium Chloride (Cleocin/Ns Ivpb) 600 mg in 50 mls @ 100 mls/hr IV Q8HR BIRDIE Stop: 05/06/25 07:59 Insulin Human Lispro (Insulin Lispro (Admelog) 1 Unit/0.01 Ml Unit) 0 unit SC AC [facility]; Protocol Stop: 05/29/25 07:29 Morphine Sulfate (Morphine Sulf Inj 10 Mg/Ml Vial) 2 mg IVP Q1H PRN PRN Reason: PAIN SCALE 4-10(Mod-Sev Ondansetron HCl (Ondansetron Inj 2 Mg/Ml Inj 2 Ml) 4 mg IVP Q6H PRN; Protocol PRN Reason: NAUSEA OR VOMITING Stop: 05/29/25 01:23 Last Admin: 04/29/25 02:36 Dose: 4 mg Pantoprazole Sodium (Pantoprazole Inj 40 Mg Vial) 40 mg IVP QDAY BIRDIE Stop: 05/29/25 08:59 Discontinued Medications Acetaminophen/Codeine Phosphate (Acetaminophen W/Cod 300-30 Tablet) 2 tab PO X1 ONE Stop: 04/28/25 20:56 Last Admin: 04/28/25 21:10 Dose: 2 tab Amoxicillin/Clavulanate Potassium (Amoxicillin/Pot Clav 875 Tablet) 1 tab PO X1 ONE Stop: 04/28/25 20:56 Last Admin: 04/28/25 21:10 Dose: 1 tab Diphtheria/Tetanus/Acell Pertussis (Diphth,Pertuss(Acell),Tet Vac 0.5 Ml Syr- Adult) 0.5 ml IMi .ONCE ONE Stop: 04/29/25 01:30 Last Admin: 04/29/25 02:31 Dose: 0.5 ml Sodium Chloride (Ns) 1,000 mls @ 999 mls/hr IV .Q1H1M ONE Stop: 04/29/25 01:33 Last Infusion: 04/29/25 02:09 Dose: Infused Clindamycin/Sodium Chloride (Cleocin/Ns Ivpb) 300 mg in 50 mls @ 100 mls/hr IV X1 ONE Stop: 04/29/25 01:03 Last Infusion: 04/29/25 01:38 Dose: Infused Clindamycin/Sodium Chloride (Cleocin/Ns Ivpb) 600 mg in 50 mls @ 100 mls/hr IV Q8HR [facility] Stop: 05/06/25 01:30 Last Admin: 04/29/25 02:09 Dose: Not Given Ibuprofen (Ibuprofen Tab 400 Mg Tablet) 400 mg PO X1 ONE Stop: 04/28/25 20:56 Last Admin: 04/28/25 21:10 Dose: 400 mg Insulin Human Regular (Insulin Hum Regular 1 Unit/0.01 Ml (Per Unit)) 10 unit SC X1 ONE Stop: 04/28/25 20:56 Last Admin: 04/28/25 21:06 Dose: Not Given Ketorolac Tromethamine (Ketorolac Inj 30 Mg/Ml Vial) 15 mg IVP X1 ONE Stop: 04/29/25 00:34 Last Admin: 04/29/25 02:44 Dose: Not Given Labetalol HCl (Labetalol Inj 5 Mg/Ml Vial 20 Ml) 10 mg IVP X1 ONE Stop: 04/29/25 02:45 Levofloxacin (Levofloxacin 250 Mg Tablet) 500 mg PO X1 ONE Stop: 04/28/25 20:57 Last Admin: 04/28/25 21:10 Dose: 500 mg Lidocaine HCl (Lidocaine Hcl 1% 20 Ml Vial) 20 ml INFL X1 ONE Stop: 04/29/25 00:01 Last Admin: 04/29/25 01:14 Dose: Not Given Morphine Sulfate (Morphine Sulf Inj 10 Mg/Ml Vial) 4 mg IVP X1 ONE Stop: 04/29/25 00:34 Last Admin: 04/29/25 01:06 Dose: 4 mg Ondansetron HCl (Ondansetron Inj 2 Mg/Ml Inj 2 Ml) 4 mg IVP X1 ONE; Protocol Stop: 04/29/25 00:34 Last Admin: 04/29/25 01:07 Dose: 4 mg Assessment & Plan Plan 59F with PMH of DM2, HTN, HLD, COPD, CAD s/p stent presenting with right foot pain/swelling after puncture wound 2 weeks ago. X-ray shows retained foreign body (needle). Exam concerning for cellulitis. ED initiated antibiotics and insulin. General surgery planning operative removal. Admitted for IV antibiotics, glucose/electrolyte management, and perioperative care. #Foreign body in right foot with cellulitis #Leukocytosis with neutrophilia Radiopaque foreign body (needle) at base of 2nd?3rd metatarsals. Exam shows erythema, swelling, puncture site without active pus but prior drainage reported. Neurovascular exam with loss of sensation in heel, severe tenderness in plantar/toes, and minimal toe movement possibly pain-limited Raises concern for evolving neuropathy vs infection-related inflammation. No obvious abscess on exam. Plan: * Admit to medicine; surgery to remove FB tomorrow. * Continue Cefepime 2 g IV q8h + Clindamycin 600 mg IV q8h. * NPO after midnight. * Pain control with acetaminophen scheduled and morphine PRN. * Daily wound/skin checks, monitor for new drainage/abscess. * Consider MRI foot if concern for deep space infection/osteomyelitis post-op. * Tdap booster since last Tdap shot has been over 5 years. # Hyperglycemia due to Type 2 DM Glucose 439 on arrival, poorly controlled at home. Plan: * Hold oral DM meds. * SSI * Fingersticks Q6HR * Start basal insulin if persistent elevation >300. * Monitor closely bayron-op. * Check HbA1c. #Hyperkalemia, resolved K 5.9 --> 4.6 after insulin. Plan: * Recheck CMP in AM. * Telemetry monitoring. #COPD Stable, no acute exacerbation. Plan: * Continue home inhalers/nebs. * O2 sat goal 88?92%. #CAD s/p stent Stable, no angina. Plan: * Continue home meds once med rec's are back * Hold anticoagulation until surgery clears. #HTN #HLD Stable. Plan: * Continue home meds after med rec. Health Maintenance: Disposition: Admit to medicine, surgical removal in the morning Diet: Regular diet tonight, NPO after midnight Thromboprophylaxis: Lovenox SC (hold if surgeon requests) GI prophylaxis: Protonix Code Status: Full ----- Plan discussed with attending physician Dr. Laverne Kyle MD PGY-1 Internal Medicine Attending Provider Attestation/Addendum After examination of the patient and review of the clinical data I feel that this patient needs admission to the hospital for further treatment/evaluation. I Fly Galloway MD, attest that I was physically present for peralta portions of evaluation, and examined patient, labs and imagings and plan of care were discussed with IM residents team, and I agree with the findings and plans documented above.
[2025-04-29] MEDS: LABETALOL INJ 5 MG/ML VIAL 20 ML 10 MG IVP (03:14)
[2025-04-29 03:45] LABS: Lactate (Lactic Acid) 0.7 mMol/L (0.4-2.0)
[2025-04-29 03:53] LABS: Beta Hydroxybutyrate 1.7 mmol/L (<0.6)
[2025-04-29 03:55] LABS: Sed Rate (ESR) 33 mm/hr (0-30)
[2025-04-29 04:03] LABS: INR 1.0 (0.9-1.3); Partial Thromboplastin Time 26.9 Seconds (22.0-36.0); Prothrombin Time 10.5 Seconds (9.0-12.2)
[2025-04-29 04:11] LABS: Glucose Estimated Average 292 mg/dL (80-131); Hemoglobin A1C 11.8 % Hgb (4.8-6.0)
[2025-04-29 04:20] LABS: Alcohol, Blood Medical < 3.0 mg/dL (0-10.0); C-Reactive Protein 0.6 mg/dL (0.0-0.9); Magnesium 1.2 mg/dL (1.6-2.6); Procalcitonin 0.04 ng/ml (0.0-0.49)
[2025-04-29] MEDS: Magnesium Sulfate 2 GM Ivpb 2 GM/50 ML BAG IV (05:58)
[2025-04-29] MEDS: INSULIN LISPRO (AdmeLOG) 1 UNIT/0.01 ML UNIT 5 UNIT SC (06:30)
[2025-04-29 06:38] LABS: Basophils # (Auto) 0.1 Thou/mm3 (0.0-0.2); Basophils % (Auto) 1 % (0-2.5); Eosinophils # (Auto) 0.3 Thou/mm3 (0.0-0.5); Eosinophils % (Auto) 4 % (0-10); Hematocrit 35.9 % (36.0-46.0); Hemoglobin 11.3 g/dL (12.0-16.0); Immature Granulocytes Auto 0.02 Thou/mm3 (0.00-0.00); Lymphocytes # (Auto) 1.9 Thou/mm3 (1.0-4.8); Lymphocytes % (Auto) 24 % (10-50); Mean Corpuscular HGB Conc 31.5 g/dl (31.0-37.0); Mean Corpuscular Hemoglobin 25.5 pg (25.0-35.0); Mean Corpuscular Volume 81 fL (80-100); Monocytes # (Auto) 0.6 Thou/mm3 (0.0-0.8); Monocytes % (Auto) 8 % (0-12); Neutrophils # (Auto) 5.1 Thou/mm3 (1.8-7.7); Neutrophils % (Auto) 64 % (37-80); Nucleated Red Blood Cell # 0.00 Thou/mm3 (0.00-0.00); Nucleated Red Blood Cell % 0 /100 WBC (0); Platelet Count 369 Thou/mm3 (140-440); RDW Standard Deviation 57.4 fL (36.4-46.3); Red Blood Count 4.43 Miln/mm3 (4.00-5.20); White Blood Count 8.0 Thou/mm3 (3.6-11.0)
[2025-04-29 07:11] LABS: Alanine Aminotransferase 14 U/L (10-49); Albumin, Serum 3.4 gm/dL (3.5-5.0); Albumin/Globulin Ratio 2.3 (1.2-2.2); Alkaline Phosphatase 113 U/L (46-116); Anion Gap 11 (7-16); Aspartate Amino Transferase 13 U/L (0-34); BUN/Creatinine Ratio 14 Ratio (12-20); Bilirubin,Total 0.3 mg/dL (0.3-1.2); Blood Urea Nitrogen 11 mg/dL (9-23); Calcium 8.8 mg/dL (8.3-10.6); Calcium (Corrected) 9.3 mg/dL (8.5-10.1); Carbon Dioxide 21.0 mMol/L (20.0-31.0); Chloride 106 mMol/L (98-107); Creatinine (Component) 0.8 mg/dL (0.6-1.3); Estimated Creatinine Clearance 53.8 mL/min (>60); Globulin 1.5 gm/dL (2.3-3.5); Magnesium 1.1 mg/dL (1.6-2.6); Osmolality,Calculated 293 (275-295); Potassium 4.9 mMol/L (3.4-5.1); Sodium 138 mMol/L (136-145); Total Protein 4.9 gm/dL (5.7-8.2); eGFR > 60 See Note
[2025-04-29 07:31] LABS: Glucose 431 mg/dL (74-106)
[2025-04-29] MEDS: CLINDAMYCIN/NS 600 MG IVPB 600 MG/50 ML BAG 100 MG IV ×3 (08:07→23:17)
[2025-04-29] MEDS: MORPHINE SULF INJ 10 MG/ML VIAL 2 MG IVP ×3 (08:08→19:33)
--- NOTE | 2025-04-29 08:11 | PD.SURCONS ---
HPI Consult details History of present illness: 59F with HTN, HLD, COPD, DMII, CAD s/p stenting 10 years ago on plavix presenting with right foot pain and drainage. Patient states she was walking outside, was unaware that she had stepped on any object but had increasing pain and swelling prompting her to seek care in ER. X-ray showed what looks like a needle at the base of the second metatarsal. Patient also notes she has had purulent drainage from the puncture site as well as malaise. Her A1c was 11 PMH: HTN, HLD, COPD (not on O2), DMII, CAD PSHx: Cardiac stent 10 years ago Meds: includes plavix, metoprolol, insulin Allergies: PCN Social hx: smokes 1/2 PPD Review of Systems Review of Systems ROS Unobtainable: All systems reviewed & no additional complaints except as documented Meds Home Medications and Allergies Home Medications ?Medication ?Instructions ?Recorded ?Confirmed ?Type amitriptyline 100 mg tablet 100 mg PO HS 07/28/19 04/29/25 History atorvastatin 40 mg tablet 40 mg PO HS 07/28/19 04/29/25 History gabapentin 100 mg capsule 100 mg PO HS 10/28/23 04/29/25 History lamotrigine 25 mg tablet 25 mg PO HS 02/10/24 04/29/25 History metoclopramide HCl 10 mg tablet 10 mg PO Q6H PRN upset stomach 02/10/24 04/29/25 History mirtazapine 15 mg tablet 15 mg PO HS 02/10/24 04/29/25 History pantoprazole 40 mg tablet,delayed 40 mg PO QDAY 02/10/24 04/29/25 History release empagliflozin 5 mg-metformin 1,000 1 tab PO .Bid with meals 11/07/24 04/29/25 History mg tablet (Synjardy) cetirizine 10 mg tablet 10 mg PO QDAY 04/29/25 04/29/25 History lisinopril 40 mg tablet 20 mg PO QDAY 04/29/25 04/29/25 History metoprolol tartrate 50 mg tablet 50 mg PO BID 04/29/25 04/29/25 History Allergies Allergy/AdvReac Type Severity Reaction Status Date / Time aspirin Allergy Severe RASH Verified 04/28/25 17:00 cephalexin Allergy Severe Rash Verified 04/28/25 17:00 codeine Allergy Severe RASH Verified 04/28/25 17:00 diphenhydramine Allergy Severe Rash Verified 04/28/25 17:00 Penicillins Allergy Severe RASH Verified 04/28/25 17:00 Exam Vital Signs Temp Pulse Resp BP Pulse Ox O2 Del Method 98.6 F 79 19 153/79 H 96 Room Air 04/29/25 05:02 04/29/25 05:02 04/29/25 05:02 04/29/25 05:02 04/29/25 05:02 04/29/25 05:02 Constitutional Constitutional: no acute distress Routine Respiratory Exam Respiratory: Present no resp distress Routine Extremities Exam Comments: right foot plantar surface with puncture site proximal to the 2nd-3rd toes, which is exquisitely tender with mild erythema. Needle is not palpable Results Results: Laboratory Laboratory results: results reviewed Results: Imaging Imaging narrative: Foot xray report and images reviewed Assessment & Plan Plan 59F with HTN, HLD, COPD, DMII, CAD s/p stenting 10 years ago on plavix presenting with right foot pain and drainage, with clinical signs of abscess as well as a retained needle. I explained that she will need to have the area opened to drain pus and to extract the foreign body, and it will need to remain open to heal by secondary intention which could take weeks to months. Pt expressed understanding and agrees to proceed
[2025-04-29] MEDS: INSULIN LISPRO (AdmeLOG) 1 UNIT/0.01 ML UNIT 3 UNIT SC (09:14)
[2025-04-29] MEDS: INSULIN DEGLUDEC 5 UNIT/0.05 ML (PER 5 UNITS) 15 UNIT SC (09:18)
--- NOTE | 2025-04-29 10:29 | ESPR_ITS ---
<Statement entered by Vida Richard MD - 05/04/25 18:08> I Vida Richard MD reviewed the note and agree with the resident's assessment & plan with modifications/additions/exceptions as below. I have personally reviewed labs, imaging, home meds/prior records, examined the patient, formulated and discussed management plan with the IM team. <Statement entered by Hubert Pacheco MD - 04/29/25 16:33> Patient was seen and examined at bedside. I agree on the assessment and plan on this note as documented by resident Ana Laura Malloy DO PGY1. 59-year-old female with past medical history as below, admitted for right foot abscess with retained foreign body and cellulitis, patient significantly anxious does take multiple anxiety medications, is n.p.o. this morning was scheduled for I&D with general surgery today, foreign body was not removed during surgery as it was not located. Orthopedics consulted patient will likely undergo fluoroscopic retrieval of foreign body in a.m., will keep n.p.o. after midnight. Patient started on insulin degludec, lispro 3 units every 6 hours along with step 3 sliding scale. Resumed home blood pressure medication, will continue to hold Plavix and DVT prophylaxis. Resumed home pain medication as well. Case discussed with attending Dr. Jose Manuel Pacheco MD PGY-2 Documentation for date of: 04/29/25 Subjective Subjective Interval history: Patient was admitted overnight. Patient seen and examined at bedside. Patient reports that about 2 weeks ago she stepped on something while cleaning the sidewalk, reporting that it felt like a bee sting, which is why she did not seek medical attention at the time. However for the past 2 days it has been increasingly painful to the point where she cannot stand on it. Surgery consulted and patient was taken for surgery this afternoon. Per operative report, unable to remove foreign body due to not being visualized. Orthopedic surgery consulted. Agreeable to further surgery tomorrow however will communicate to patient that she is at very high risk due to comorbidities. Admission glucose 439, started insulin degludec 25 units and lispro 3 units every 6 hours due to NPO status. Insulin sliding scale step [address] for blood pressure restarted home lisinopril 20 mg daily and metoprolol tartrate 50 mg twice daily. Exam Vital Signs Temp Pulse Resp BP Pulse Ox O2 Del Method 98.6 F 79 19 153/79 H 96 Room Air 04/29/25 05:02 04/29/25 05:02 04/29/25 05:02 04/29/25 05:02 04/29/25 05:02 04/29/25 05:02 Narrative Exam GENERAL: AOx3, no acute distress HEENT: NC/AT, mucous membranes moist, bilateral sclera anicteric CARDIOVASCULAR: regular rate and rhythm, S1/S2 present, no murmurs appreciated PULMONARY: clear to auscultation bilaterally, no rales/rhonchi/wheezes ABDOMINAL: soft, non-tender, non-distended, no rebound/guarding, bowel sounds present EXTREMITIES: no peripheral edema RT FOOT: swollen, non erythematous, extremely tender to light touch most at sole, diminished sensation over R heel, small puncture sight seen on arch, extreme pain on passive dorsiflexion/plantarflexion and toe flexion SKIN: warm and dry, intact, no rashes NEURO: CN II-XII grossly intact, alert, following commands Objective Labs 04/29/25 06:04 04/29/25 06:04 Labs: Laboratory Results - last 24 hr 04/28/25 04/28/25 04/29/25 18:34 21:52 01:03 WBC 12.1 H RBC 4.78 Hgb 12.5 Hct 38.7 MCV 81 MCH 26.2 MCHC 32.3 RDW Std Deviation 58.0 H Plt Count 385 D Neut % (Auto) 75 Lymph % (Auto) 16 Alexander % (Auto) 6 Eos % (Auto) 2 Baso % (Auto) 1 Neut # (Auto) 9.1 H Lymph # (Auto) 1.9 Alexander # (Auto) 0.8 Eos # (Auto) 0.3 Baso # (Auto) 0.1 Immature Gran # (Auto) 0.04 H Absolute Nucleated RBC 0.00 Immature Gran % 0 Nucleated RBC % 0 ESR PT INR APTT Puncture Site ABG pH ABG pCO2 ABG pO2 ABG HCO3 ABG O2 Saturation ABG Base Excess FiO2 Sodium 134 L Potassium 5.9 H 4.6 D Chloride 104 Carbon Dioxide 26.1 Anion Gap 4 L BUN 10 Creatinine 1.0 Estim Creat Clear Calc Not Performed. eGFR > 60 BUN/Creatinine Ratio 10 L Glucose 439 H* Estimated Ave Glu mg/dL Hemoglobin A1c Calculated Osmolality 286 Lactic Acid Calcium 9.1 Corrected Calcium 9.1 Magnesium Total Bilirubin 0.3 AST 23 ALT 19 Alkaline Phosphatase 130 H C-Reactive Prot, Quant Total Protein 5.8 Albumin 4.1 Globulin 1.7 L Albumin/Globulin Ratio 2.4 H Beta-Hydroxybutyrate/Acetoacetate Procalcitonin Ur Collection Type Clean Catch Urine Color Lt-Yellow Urine Clarity Clear Urine pH 6.5 Ur Specific [place] 1.018 Urine Protein 2+ A Urine Glucose (UA) 4+ A Urine Ketones 1+ A Urine Blood Negative Urine Nitrite Negative Urine Bilirubin Negative Urine Urobilinogen (Auto) Negative Ur Leukocyte Esterase Negative Urine RBC 4 H Urine WBC 0 Ur Squamous Epith Cells 2 Urine Bacteria Rare Ur Culture Indicated? Not Indicated Urine Opiates Screen Negative Urine Fentanyl Screen Negative Ur Barbiturates Screen Negative U Amphetamin/Meth Scrn Negative U Benzodiazepines Scrn Negative U Cocaine Metab Screen Negative U Marijuana (THC) Screen Positive A Ethyl Alcohol 04/29/25 04/29/25 04/29/25 01:28 03:15 06:04 WBC 8.0 RBC 4.43 Hgb 11.3 L Hct 35.9 L MCV 81 MCH 25.5 MCHC 31.5 RDW Std Deviation 57.4 H Plt Count 369 Neut % (Auto) 64 Lymph % (Auto) 24 Alexander % (Auto) 8 Eos % (Auto) 4 Baso % (Auto) 1 Neut # (Auto) 5.1 Lymph # (Auto) 1.9 Alexander # (Auto) 0.6 Eos # (Auto) 0.3 Baso # (Auto) 0.1 Immature Gran # (Auto) 0.02 H Absolute Nucleated RBC 0.00 Immature Gran % 0 Nucleated RBC % 0 ESR 33 H PT 10.5 INR 1.0 APTT 26.9 Puncture Site Right Radial ABG pH 7.40 ABG pCO2 42 ABG pO2 54 L* ABG HCO3 26 ABG O2 Saturation 89 L ABG Base Excess 1 FiO2 21 Sodium 138 Potassium 4.9 Chloride 106 Carbon Dioxide 21.0 Anion Gap 11 BUN 11 Creatinine 0.8 Estim Creat Clear Calc 53.8 L eGFR > 60 BUN/Creatinine Ratio 14 Glucose 431 H* Estimated Ave Glu mg/dL 292 H Hemoglobin A1c 11.8 H Calculated Osmolality 293 Lactic Acid 0.7 Calcium 8.8 Corrected Calcium 9.3 Magnesium 1.2 L 1.1 L Total Bilirubin 0.3 AST 13 ALT 14 Alkaline Phosphatase 113 C-Reactive Prot, Quant 0.6 Total Protein 4.9 L Albumin 3.4 L D Globulin 1.5 L Albumin/Globulin Ratio 2.3 H Beta-Hydroxybutyrate/Acetoacetate 1.7 H Procalcitonin 0.04 Ur Collection Type Urine Color Urine Clarity Urine pH Ur Specific [place] Urine Protein Urine Glucose (UA) Urine Ketones Urine Blood Urine Nitrite Urine Bilirubin Urine Urobilinogen (Auto) Ur Leukocyte Esterase Urine RBC Urine WBC Ur Squamous Epith Cells Urine Bacteria Ur Culture Indicated? Urine Opiates Screen Urine Fentanyl Screen Ur Barbiturates Screen U Amphetamin/Meth Scrn U Benzodiazepines Scrn U Cocaine Metab Screen U Marijuana (THC) Screen Ethyl Alcohol < 3.0 ABG Interpretation ABG results: 04/29/25 01:28 ABG pH 7.40 ABG pCO2 42 ABG pO2 54 L* ABG HCO3 26 ABG O2 Saturation 89 L ABG Base Excess 1 Quality Measures Quality Measures VTE prophylaxis Assessment & Plan Assessment Current Active Medications: Generic Name Dose Route Start Last Admin Trade Name Freq PRN Reason Stop Dose Admin Albuterol/Ipratropium 3 ml 04/29/25 09:59 Albuterol/Ipratropium (Duoneb) Rt Antonella 3 Ml Nebu INH 05/29/25 09:58 Q3HR PRN SHORTNESS OF BREATH OR WHEEZE Dextrose 25 ml 04/29/25 01:29 Dextrose 50%-Water Inj 50 Ml Syringe IV 05/29/25 01:28 Q15MIN PRN BG 50-70 responsive npo pt Dextrose 50 ml 04/29/25 01:29 Dextrose 50%-Water Inj 50 Ml Syringe IV 05/29/25 01:28 Q15MIN PRN BG <50 OR BG <70 & pt unresponsive Glucagon 1 mg 04/29/25 01:29 Glucagon Inj 1 Mg Vial IM Q15MIN PRN BG <70, and no IV access Heparin Sodium (Porcine) 5,000 unit 04/29/25 09:00 04/29/25 09:18 Heparin Sod Inj 5000 Unit/Ml Vial SC 05/13/25 08:59 Not Given Q12HR BIRDIE Hydralazine HCl 10 mg 04/29/25 08:31 Hydralazine Inj 20 Mg/Ml Vial IVP 05/29/25 08:30 Q6HR PRN Blood Pressure - High Cefepime HCl 2 gm/ Sodium 50 mls @ 100 mls/hr 04/29/25 10:30 Chloride IV 05/06/25 10:29 Q8HR BIRDIE Clindamycin/Sodium Chloride 600 mg in 50 mls @ 100 mls/hr 04/29/25 08:00 04/29/25 08:07 Cleocin/Ns Ivpb IV 05/06/25 07:59 100 mls/hr Q8HR BIRDIE Administration Insulin Degludec 25 unit 04/30/25 09:00 Insulin Degludec 5 Unit/0.05 Ml (Per 5 Units) SC 05/30/25 08:59 QDAY BIRDIE Insulin Human Lispro 0 unit 04/29/25 08:23 Insulin Lispro (Admelog) 1 Unit/0.01 Ml Unit SC 05/29/25 06:13 Q6HR [facility] Protocol Insulin Human Lispro 3 unit 04/29/25 08:30 04/29/25 09:14 Insulin Lispro (Admelog) 1 Unit/0.01 Ml Unit [place] 05/29/25 08:29 3 unit Q6HR [facility] Administration Lisinopril 20 mg 04/29/25 10:30 Lisinopril 20 Mg Tablet PO 05/29/25 10:29 QDAY [facility] Metoprolol Tartrate 50 mg 04/29/25 10:30 Metoprolol Tartrate 25 Mg Tablet PO 05/29/25 10:29 BID [facility] Morphine Sulfate 2 mg 04/29/25 01:29 04/29/25 08:08 Morphine Sulf Inj 10 Mg/Ml Vial IVP 2 mg Q1H PRN Administration PAIN SCALE 4-10(Mod-Sev Ondansetron HCl 4 mg 04/29/25 01:24 04/29/25 08:08 Ondansetron Inj 2 Mg/Ml Inj 2 Ml IVP 05/29/25 01:23 4 mg Q6H PRN Administration NAUSEA OR VOMITING Protocol Pantoprazole Sodium 40 mg 04/29/25 09:00 04/29/25 08:07 Pantoprazole Inj 40 Mg Vial IVP 05/29/25 08:59 40 mg QDAY BIRDIE Administration Plan Venecia Cristobal is a 59F with PMH significant for IDDM2, HTN, HLD, COPD, CAD s/p stent on Plavix, bipolar disorder presenting with right foot pain/swelling with foreign body retained, admitted for cellulitis, glucose management and surgery for removal of foreign body. #R foot abscess, retained foreign body with cellulitis Patient states that 2 weeks ago she stepped on a foreign body on the sidewalk, did not seek immediate medical attention due to only slight pain. However over the past few days it has been progressively worse with associated swelling and increased pain even on light touch. Foot x-ray shows 21 mm needle fragment projecting in the soft tissue plantar to the base of the second metatarsal s/p TDAP vaccine, Augmentin x 1, levofloxacin 500 mg x 1 and pain medications in ED s/p surgery: Foreign body was not able to be removed by surgery due to feeling unable to find it despite ultrasound and x-rays in the OR Plan: - Surgery consulted, recs appreciated - Ortho consulted, recs appreciated: surgery tomorrow - F/u hep panel, HIV, BCx - IV Clindamycin 600mg q8h (04/29- - Start IV cefepime 2g q8h (04/29- ) although patient has a rash with cephalexin, CTM for rash #IDDM2 #Hyperglycemia Patient reports taking Lantus 15 units twice daily and Humalog 30 minutes before meals. Does not remember how many units of Humalog she takes. Has a CGM which usually reads high. Reports being adherent with all medications and insulin as well as Synjardy. On admission glucose 439. Patient states she took 8 units of insulin in the ED. HbA1c 11.8. Hyperglycemia likely secondary to uncontrolled diabetes due to higher insulin requirement. s/p regular insulin 10u x1, lispro 5u x1 in ED Plan: - Start insulin degludec 25u qam - Start insulin lispro 3u q6h iso NPO status - Plan to transition to lispro 5u AC when restart diet - SSI step [address] - CTM glucose #HTN Patient has a history of hypertension and is on metoprolol to tartrate 50 mg twice daily and lisinopril 20 mg daily, states that she is adherent. Patient reports that she does not take her blood pressure at home. Plan: - Start metoprolol titrate 50 mg BID and lisinopril 20 mg QD, with parameters to hold SBP <100 - CTM BP #CAD s/p stent Patient reports history of stent placement about 10 years ago. Reports being adherent to Plavix. Plan: -Hold Plavix iso surgery #Bipolar disorder Reports taking lamotrigine 25 mg nightly, mirtazapine 15 mg nightly and amitriptyline 40 mg nightly Plan: - Start home lamotrigine 25 mg nightly, mirtazapine 15 mg nightly and amitriptyline 40 mg nightly #COPD Patient reports using 2 different inhalers at home, along with a nebulizer Plan: - DuoNebs q4h prn in place #Electrolyte imbalances #Hyperkalemia, resolved On admissions patient's potassium 5.9. Improved with with insulin administration. Plan: - CTM CMP - Recheck and replete as needed Hospital management: Lines: peripheral IV Diet: Carb consistent Bowel: None GI prophylaxis: IV pantoprazole 40 mg QD DVT prophylaxis: hold heparin q12 iso possible second surgery Disposition: med surg for foot surgery CODE STATUS: Full code Plan of care discussed with attending Dr. Richard, and PGY-2 Dr. Pacheco. Ana Laura Malloy, DO PGY-1 Internal Medicine
--- NOTE | 2025-04-29 12:01 | XR_ITS ---
Examination: Right foot 2 views TECHNIQUE: AP lateral right foot 2 views INDICATIONS: Preop removal foreign body today. FINDINGS: 23 mm linear foreign body in the soft tissue which projects plantar foot between the bases of the first and second metatarsals IMPRESSION: Positive for opaque foreign body as above
[2025-04-29 12:10] LABS: HIV (1&2) Antibody Rapid Non-Reactive
[2025-04-29 12:32] LABS: Hepatitis A Antibody IgM Non Reactive (Non React); Hepatitis B Core Antibody IgM Non Reactive (Non React); Hepatitis B Surface Antigen Non Reactive (Non React); Hepatitis C Antibody Non Reactive (Non React)
--- NOTE | 2025-04-29 13:14 | ESOP_ITS ---
Date of Procedure 04/29/25 Pre Op Diagnosis Right foot abscess, retained foreign object Post Op Diagnosis Same Procedure Incision and drainage, attempted removal of retained foreign object which was ultimately aborted Findings Small amount of pus was expressed from the puncture site, the foreign body was not located after more than an hour of exploration, use of ultrasound and x-ray Procedure Description After discussion of risks and benefits, patient was brought to the operating room and a nerve block was performed by anesthesia. Patient was given sedation and had already received antibiotics. She was prepped and draped in the usual sterile fashion. After timeout the puncture site on the plantar surface of the foot just proximal to the 3rd toe was incised with immediate return of pus. A culture was taken. Approximately 5 cc of pus was expressed altogether. Based on the x-rays, I expected to find the foreign object between the 2nd and 3rd metatarsals approximately 9 to 10 cm distal to the tips of the 2nd and 3rd toes. The incision was extended in this direction, towards the heel and the wound was probed. There was absolutely no sign of the foreign object either upon palpation or upon visual inspection and probing with a hemostat. I attempted to use ultrasound but the object was not visible on this modality. I then had x- rays performed in the operating room which showed that the object was deeper compared to previous xrays, approximately 2 cm from the skin surface and was more medial, between the metatarsals of the 1st and 2nd toes. The incision was then extended medially and the tissues were retracted. The area was thoroughly probed and again there was absolutely no sign of the foreign object upon visual inspection or deep palpation. There was minimal bleeding which was controlled with direct pressure. Ultimately I determined that to probe the wound more was putting the patient at risk for secondary infection and injury to vital structures so I opted not to probe any further. The medial aspect of the incision was reapproximated with 2-0 nylon sutures in a vertical mattress fashion and the remaining wound was left open and packed with a moistened gauze. It was then covered with fluffs and wrapped with Kerlix. Patient was awoken and brought to PACU in stable condition Pathology / specimen Other (Wound culture) Estimated Blood Loss 25 Surgeon Jemma Hair MD Surgical Staff Operation Date: 04/29/25 15:15 Case Staff SONAR WATCHSTANDER: Anum Gilbert
[2025-04-29] MEDS: fentaNYL CIT INJ 50 mCg/ML AMP 2ML IVP (13:27)
--- NOTE | 2025-04-29 13:34 | SUR.PHASEI ---
1315: Pt received in Pacu via gurney. Report from Silas KEARNS and Edwin HARRIS. Pt groggy and awake. Resp even, unlabored. VS stable. Dressing to right foot dry, clean, intac
--- NOTE | 2025-04-29 13:36 | SUR.PHASEI ---
1315 Cont) intact. No c/o pain. 1327: Pt has c/o pain to right foot. Rates pain level 8/10. Resp even, unlabored. VS stable. Pain medication given per order.
[2025-04-29] MEDS: hydrALAZINE INJ 20 MG/ML VIAL 10 MG IVP (14:57)
--- NOTE | 2025-04-29 15:08 | SUR.PHASEI ---
1410: VS stable. Dressing remains dry, clean, intact. States pain level down and very tolerable. Report to 3rd floor, Liberty KEARNS. 1420: Pt transferred to Rm 377 in stable condition.
[2025-04-29] MEDS: DEXTROSE 50%-WATER INJ 50 ML SYRINGE 25 ML IV ×2 (17:04→21:44)
--- NOTE | 2025-04-29 17:15 | PC.NURSE ---
called patients daughter Ruthy and asked her if she could come and sit at bed side for a bit with mother. Daughter is sending patients grandkids to calm patients anxiety and fears .Patient has not stopped crying since this morning. I have given her pain medication,nausea medication, anxiety and blood pressure medications. I am checking her blood sugars and had to give her an amp for a blood sugar of 62.
--- NOTE | 2025-04-29 18:44 | PC.NURSE ---
Patient has grandkids at bedside she is still crying.
[2025-04-29] MEDS: ATORVASTATIN CALCIUM 20 MG TABLET 40 MG PO (20:13)
[2025-04-29] MEDS: AMITRIPTYLINE HCL 25 MG TABLET 100 MG PO (20:13)
[2025-04-29] MEDS: GABAPENTIN 100 MG CAPSULE PO (20:14)
[2025-04-29] MEDS: lamoTRIgine 25 MG CHEW PO (20:14)
[2025-04-29] MEDS: MIRTAZAPINE 15 MG TABLET PO (20:14)
[2025-04-29] MEDS: METOPROLOL TARTRATE 25 MG TABLET 50 MG PO (20:17)
[2025-04-29] MEDS: HEPARIN SOD INJ 5000 UNIT/ML VIAL SC (20:19)
[2025-04-29] MEDS: LIDOCAINE 5% 1 PATCH TOP (20:43)
[2025-04-29] MEDS: CEFEPIME INJ 2 GM in SODIUM CHLORIDE 0.9% (Popper) 50 ML IV (22:57)
[2025-04-29] MEDS: HYDROmorphone INJ 2 MG/ML VIAL 0.5 MG IVP (23:46)
[2025-04-30] VITALS (20 sets, daily range): BP systolic 148–170; BP diastolic 68–90; PULSE 69–97; RESP 13–93; TEMP 36.2–37.3; O2SAT 92–98; BMI 19.4
[2025-04-30] MEDS: HYDROmorphone INJ 2 MG/ML VIAL 0.5 MG IVP ×3 (03:37→19:39)
[2025-04-30] MEDS: CLINDAMYCIN/NS 600 MG IVPB 600 MG/50 ML BAG 100 MG IV ×3 (05:53→21:28)
--- NOTE | 2025-04-30 06:00 | PC.NURSE ---
drsg to right foot with small amount of sanguinous drainage- Reinforced with 1 pack 4x4 fluff, and wrap with 1/2 length kerlix roll.
[2025-04-30] MEDS: CEFEPIME INJ 2 GM in SODIUM CHLORIDE 0.9% (Popper) 50 ML IV ×3 (06:39→22:43)
[2025-04-30 06:47] LABS: Basophils # (Auto) 0.1 Thou/mm3 (0.0-0.2); Basophils % (Auto) 1 % (0-2.5); Eosinophils # (Auto) 0.1 Thou/mm3 (0.0-0.5); Eosinophils % (Auto) 1 % (0-10); Hematocrit 38.1 % (36.0-46.0); Hemoglobin 11.9 g/dL (12.0-16.0); Immature Granulocytes Auto 0.04 Thou/mm3 (0.00-0.00); Lymphocytes # (Auto) 1.8 Thou/mm3 (1.0-4.8); Lymphocytes % (Auto) 13 % (10-50); Mean Corpuscular HGB Conc 31.2 g/dl (31.0-37.0); Mean Corpuscular Hemoglobin 25.3 pg (25.0-35.0); Mean Corpuscular Volume 81 fL (80-100); Monocytes # (Auto) 1.1 Thou/mm3 (0.0-0.8); Monocytes % (Auto) 8 % (0-12); Neutrophils # (Auto) 10.6 Thou/mm3 (1.8-7.7); Neutrophils % (Auto) 77 % (37-80); Nucleated Red Blood Cell # 0.00 Thou/mm3 (0.00-0.00); Nucleated Red Blood Cell % 0 /100 WBC (0); Platelet Count 432 Thou/mm3 (140-440); RDW Standard Deviation 56.7 fL (36.4-46.3); Red Blood Count 4.70 Miln/mm3 (4.00-5.20); White Blood Count 13.7 Thou/mm3 (3.6-11.0)
[2025-04-30 07:04] LABS: INR 0.9 (0.9-1.3); Partial Thromboplastin Time 25.0 Seconds (22.0-36.0); Prothrombin Time 10.3 Seconds (9.0-12.2)
[2025-04-30 07:08] LABS: Alanine Aminotransferase 14 U/L (10-49); Albumin, Serum 3.9 gm/dL (3.5-5.0); Albumin/Globulin Ratio 2.2 (1.2-2.2); Alkaline Phosphatase 114 U/L (46-116); Anion Gap 11 (7-16); Aspartate Amino Transferase 26 U/L (0-34); BUN/Creatinine Ratio 11 Ratio (12-20); Bilirubin,Total 0.3 mg/dL (0.3-1.2); Blood Urea Nitrogen 8 mg/dL (9-23); Calcium 9.5 mg/dL (8.3-10.6); Calcium (Corrected) 9.6 mg/dL (8.5-10.1); Carbon Dioxide 25.7 mMol/L (20.0-31.0); Chloride 101 mMol/L (98-107); Creatinine (Component) 0.7 mg/dL (0.6-1.3); Estimated Creatinine Clearance 61.4 mL/min (>60); Globulin 1.8 gm/dL (2.3-3.5); Glucose 135 mg/dL (74-106); Magnesium 1.6 mg/dL (1.6-2.6); Osmolality,Calculated 275 (275-295); Phosphorous 4.1 mg/dL (2.4-5.1); Potassium 4.5 mMol/L (3.4-5.1); Sodium 138 mMol/L (136-145); Total Protein 5.7 gm/dL (5.7-8.2); eGFR > 60 See Note
[2025-04-30] MEDS: METOPROLOL TARTRATE 25 MG TABLET 50 MG PO ×2 (08:16→21:29)
--- NOTE | 2025-04-30 09:32 | PD.SUROPNT ---
Date of Procedure 04/30/25 Pre Op Diagnosis right knee foreign body removal Post Op Diagnosis right knee foreign body removal Procedure Incision and drainage, and foreign body removal Findings needle in foot, black Procedure Description Indications: Patient is a pleasant 59-year-old female with a retained foreign body in the foot. Appear to be a needle. Removal was attempted by another surgeon yesterday which cannot be extracted. I was asked to help out as I have a fluoroscopy license Procedure detail: The patient was prepped and draped in usual sterile fashion. The existing incision was used and the patient was prepped and draped in usual sterile fashion. We open the original incision which was already partially open. We placed a tonsil and used fluoroscopy guidance in both AP and lateral views to clamp the needle. This was then removed. We then irrigated the wound with surgery for and saline extensively. We loosely approximated the skin with nylon's. A sterile dressing was applied The patient will be nonweightbearing Follow-up with clinic in 2 weeks Antibiotics Anesthesia GETA Implants none Pathology / specimen None Pathology comment: none Estimated Blood Loss 10 Condition Stable Disposition floor Surgeon Alfredo Burton MD Surgical Staff Operation Date: 04/30/25 13:30 <No data on this case meets the specified criteria>
--- NOTE | 2025-04-30 09:32 | PD.ORTHCON ---
HPI Consult details Reason for consultation narrative: right foot irrigation and debridement History of present illness: 59F with HTN, HLD, COPD, DMII, CAD s/p stenting 10 years ago on plavix presenting with right foot pain and drainage. Patient states she was walking outside, was unaware that she had stepped on any object but had increasing pain and swelling prompting her to seek care in ER. X-ray showed what looks like a needle at the base of the second metatarsal. She had an irrigation and debridement yesterday and the needle could not be found. I was consulted as I have a fluoroscopy license. Meds Home Medications and Allergies Home Medications ?Medication ?Instructions ?Recorded ?Confirmed ?Type amitriptyline 100 mg tablet 100 mg PO HS 07/28/19 04/29/25 History atorvastatin 40 mg tablet 40 mg PO HS 07/28/19 04/29/25 History gabapentin 100 mg capsule 100 mg PO HS 10/28/23 04/29/25 History lamotrigine 25 mg tablet 25 mg PO HS 02/10/24 04/29/25 History metoclopramide HCl 10 mg tablet 10 mg PO Q6H PRN upset stomach 02/10/24 04/29/25 History mirtazapine 15 mg tablet 15 mg PO HS 02/10/24 04/29/25 History pantoprazole 40 mg tablet,delayed 40 mg PO QDAY 02/10/24 04/29/25 History release empagliflozin 5 mg-metformin 1,000 1 tab PO .Bid with meals 11/07/24 04/29/25 History mg tablet (Synjardy) cetirizine 10 mg tablet 10 mg PO QDAY 04/29/25 04/29/25 History lisinopril 40 mg tablet 20 mg PO QDAY 04/29/25 04/29/25 History metoprolol tartrate 50 mg tablet 50 mg PO BID 04/29/25 04/29/25 History Allergies Allergy/AdvReac Type Severity Reaction Status Date / Time aspirin Allergy Severe RASH Verified 04/29/25 13:21 cephalexin Allergy Severe Rash Verified 04/29/25 13:21 codeine Allergy Severe RASH Verified 04/29/25 13:21 diphenhydramine Allergy Severe Rash Verified 04/29/25 13:21 Penicillins Allergy Severe RASH Verified 04/29/25 13:21 Exam Vital Signs Temp Pulse Resp BP Pulse Ox O2 Del Method O2 Flow Rate 97.1 F 95 17 155/86 H 95 Room Air 2 04/30/25 08:00 04/30/25 08:17 04/30/25 08:00 04/30/25 08:17 04/30/25 08:00 04/30/25 08:00 04/29/25 13:55 Additional findings Additional findings: Patient is in no acute distress and is cooperative with the examination today. Patient has a normal mood and affect. Breathing is nonlabored. In no respiratory distress. Bilateral extremities were evaluated and demonstrates sensation intact to light touch. Palpable pedal pulses are present. No significant edema is present. Dressing is C/D/I She is able to dorsiflex and plantarflex her ankle Incision is still open, erythema present Results - Ortho Labs 04/30/25 05:41 04/30/25 05:41 Labs: Short CBC 04/30/25 Range/Units 05:41 WBC 13.7 H D (3.6-11.0) Thou/mm3 Hgb 11.9 L (12.0-16.0) g/dL Hct 38.1 (36.0-46.0) % Plt Count 432 D (140-440) Thou/mm3 BMP 04/30/25 05:41 Sodium 138 Potassium 4.5 Chloride 101 Carbon Dioxide 25.7 BUN 8 L Creatinine 0.7 Glucose 135 H D Calcium 9.5 Liver Function 04/30/25 Range/Units 05:41 Total Bilirubin 0.3 (0.3-1.2) mg/dL AST 26 (0-34) U/L ALT 14 (10-49) U/L Alkaline Phosphatase 114 (46-116) U/L Albumin 3.9 D (3.5-5.0) gm/dL ABG Interpretation ABG results: 04/29/25 01:28 ABG pH 7.40 ABG pCO2 42 ABG pO2 54 L* ABG HCO3 26 ABG O2 Saturation 89 L ABG Base Excess 1 Imaging Xray: Additional comments: needle visualized on potoperative films Assessment & Plan Problem List (1) Foreign body in right foot: Status: Acute Assessment and plan: Patient is a 58yo female with diabetes, cellulitis, and purulence of the right foot with foreign body found. The needle could not be removed yesterday in the OR so I was consulted. I discussed the risks and benefits of repeat I*D and foreign body removal today. We discussed the risk of peristent infection, amputation, and failure to remove the needle today with her. SHe agrees to proceed with surgery, - npo - plan for OR for I&D with fluoro
--- NOTE | 2025-04-30 09:32 | PC.NURSE ---
Patient getting verbally aggressive. Yelling at me and calling me inappropriate words.
--- NOTE | 2025-04-30 09:36 | PC.SS ---
Follow up note; Pending surgery with Dr. Burton. SS attempted to meet with pt 2X yesterday but she was not in room (was in surgery).
[2025-04-30] MEDS: Magnesium Sulfate 4 GM Ivpb 4 GM/50 ML BAG IV (10:48)
--- NOTE | 2025-04-30 13:30 | XR_ITS ---
Examination: Fluoroscopy up to one hour AP right foot single view Date and time of exam: April 30, 2025 1428 hours INDICATIONS: Removal foreign body right foot Findings: Total fluoroscopy time is 18 seconds, radiation dose 0.126 milligray . Radiologist was not present for this fluoroscopy. Impression: Opaque foreign body is not identified on the foot film
--- NOTE | 2025-04-30 13:42 | SUR.PHASEI ---
pt received from OR in recovery bay 8. pt asleep but responds to voice, breathing unlabored on room air. v/s stable. pt dressing to right foot cdi. report received from Dr. Burciaga and Silas KEARNS.
[2025-04-30] MEDS: fentaNYL CIT INJ 50 mCg/ML AMP 2ML IVP ×2 (14:42→15:09)
--- NOTE | 2025-04-30 14:44 | ESPR_ITS ---
<Statement entered by Hubert Pacheco MD - 04/30/25 19:58> Patient was seen and examined at bedside. I agree on the assessment and plan on this note as documented by resident Ana Laura Malloy DO PGY1. 59 year old female with PMH as below admitted for abscess and foreign body removal, general surgeon unable to remove foreign body yesterday, was taken for fluroscopy today, foreign body successfully removed today via orthopedic surgeon underwent Incision and drainage, and foreign body removal. Started on IV Pain regimen will optimize management post-op. Continue Cefepime and Clindamycin, started on hydroxyzine prn for anxiety, will consider BZDs if acute anxiety. Resumed home psych medication. Case discussed with attending Dr. Ely Pacheco MD PGY-2 Documentation for date of: 04/30/25 Subjective Subjective Interval history: Overnight, patient was in extreme pain, was given IV Dilaudid 0.5 x 3. Patient was seen and examined at bedside. Patient is very tearful, anxious and in a lot of right foot pain. Since admission, patient has been tearful given situation. Patient denies any chest pain, abdominal pain, shortness of breath or fever/chills. Patient is due for orthopedic surgery with fluoroscopic removal of the foreign body today, which successfully was removed. Per Ortho, no weightbearing, follow-up in clinic in 2 weeks and continue antibiotics. Started Tylenol, [place] 5 and Dilaudid 0.5 pain scale. Started hydroxyzine 10 mg as needed for anxiety. Exam Vital Signs Temp Pulse Resp BP Pulse Ox O2 Del Method O2 Flow Rate 98.7 F 78 16 158/77 H 95 Room Air 2 04/30/25 14:15 04/30/25 14:15 04/30/25 14:15 04/30/25 14:15 04/30/25 14:15 04/30/25 12:00 04/29/25 13:55 Narrative Exam GENERAL: AOx3, very anxious, tearful, in acute distress HEENT: NC/AT, mucous membranes dry, bilateral sclera anicteric CARDIOVASCULAR: regular rate and rhythm, S1/S2 present, no murmurs appreciated PULMONARY: +mild wheezes b/l ABDOMINAL: soft, non-tender, non-distended, no rebound/guarding, bowel sounds present EXTREMITIES: no peripheral edema, except as below RT FOOT: wrapped in sterile gauze, extremely tender to light touch SKIN: warm and dry, intact, no rash NEURO: CN II-XII grossly intact, alert, following commands Objective Labs 04/30/25 05:41 04/30/25 05:41 Labs: Laboratory Results - last 24 hr 04/30/25 05:41 WBC 13.7 H D RBC 4.70 Hgb 11.9 L Hct 38.1 MCV 81 MCH 25.3 MCHC 31.2 RDW Std Deviation 56.7 H Plt Count 432 D Neut % (Auto) 77 Lymph % (Auto) 13 [place] % (Auto) 8 Eos % (Auto) 1 Baso % (Auto) 1 Neut # (Auto) 10.6 H Lymph # (Auto) 1.8 [place] # (Auto) 1.1 H Eos # (Auto) 0.1 Baso # (Auto) 0.1 Immature Gran # (Auto) 0.04 H Absolute Nucleated RBC 0.00 Immature Gran % 0 Nucleated RBC % 0 PT 10.3 INR 0.9 APTT 25.0 Sodium 138 Potassium 4.5 Chloride 101 Carbon Dioxide 25.7 Anion Gap 11 BUN 8 L Creatinine 0.7 Estim Creat Clear Calc 61.4 eGFR > 60 BUN/Creatinine Ratio 11 L Glucose 135 H D Calculated Osmolality 275 Calcium 9.5 Corrected Calcium 9.6 Phosphorus 4.1 Magnesium 1.6 Total Bilirubin 0.3 AST 26 ALT 14 Alkaline Phosphatase 114 Total Protein 5.7 Albumin 3.9 D Globulin 1.8 L Albumin/Globulin Ratio 2.2 ABG Interpretation ABG results: 04/29/25 01:28 ABG pH 7.40 ABG pCO2 42 ABG pO2 54 L* ABG HCO3 26 ABG O2 Saturation 89 L ABG Base Excess 1 Quality Measures Quality Measures VTE prophylaxis Assessment & Plan Assessment Current Active Medications: Generic Name Dose Route Start Last Admin Trade Name Freq PRN Reason Stop Dose Admin Acetaminophen 650 mg 04/30/25 12:57 Acetaminophen 325 Mg Tablet PO 05/30/25 12:56 Q6HR PRN Fever or pain 1-3 Hydrocodone Bitart/Acetaminophen 1 tab 04/30/25 12:56 Hydrocodone/Apap 5/325 Tablet PO 05/05/25 09:36 Q6HR PRN Pain moderate 4-6 Albuterol/Ipratropium 3 ml 04/29/25 09:59 Albuterol/Ipratropium (Duoneb) Rt Antonella 3 Ml Nebu INH 05/29/25 09:58 Q3HR PRN SHORTNESS OF BREATH OR WHEEZE Amitriptyline HCl 100 mg 04/29/25 21:00 04/29/25 20:13 Amitriptyline Hcl 25 Mg Tablet PO 05/29/25 20:59 100 mg HS BIRDIE Administration Atorvastatin Calcium 40 mg 04/29/25 21:00 04/29/25 20:13 Atorvastatin Calcium 20 Mg Tablet PO 05/29/25 20:59 40 mg HS BIRDIE Administration Dextrose 25 ml 04/29/25 01:29 04/29/25 21:44 Dextrose 50%-Water Inj 50 Ml Syringe IV 05/29/25 01:28 25 ml Q15MIN PRN Administration BG 50-70 responsive npo pt Dextrose 50 ml 04/29/25 01:29 Dextrose 50%-Water Inj 50 Ml Syringe IV 05/29/25 01:28 Q15MIN PRN BG <50 OR BG <70 & pt unresponsive Fentanyl Citrate 50 mcg 04/30/25 14:02 04/30/25 14:42 Fentanyl Cit Inj 50 Mcg/Ml Amp 2ml IVP 04/30/25 16:02 50 mcg Q5MIN PRN Administration PAIN SCALE 4-10(Mod-Sev Gabapentin 100 mg 04/29/25 21:00 04/29/25 20:14 Gabapentin 100 Mg Capsule PO 05/29/25 20:59 100 mg HS BIRDIE Administration Glucagon 1 mg 04/29/25 01:29 Glucagon Inj 1 Mg Vial IM Q15MIN PRN BG <70, and no IV access Heparin Sodium (Porcine) 5,000 unit 04/29/25 09:00 04/30/25 08:22 Heparin Sod Inj 5000 Unit/Ml Vial SC 05/13/25 08:59 Not Given Q12HR BIRDIE Hydralazine HCl 10 mg 04/30/25 12:56 Hydralazine Inj 20 Mg/Ml Vial IVP 05/29/25 08:30 Q6HR PRN SBP > 180 Hydromorphone HCl 0.5 mg 04/30/25 12:56 Hydromorphone Inj 2 Mg/Ml Vial IVP 05/05/25 12:55 Q4HR PRN Pain severe 7-10 Hydroxyzine HCl 10 mg 04/30/25 12:56 Hydroxyzine Hcl 10 Mg Tablet PO 05/30/25 09:35 Q6HR PRN Aniety Cefepime HCl 2 gm/ Sodium 50 mls @ 100 mls/hr 04/29/25 10:30 04/30/25 06:39 Chloride IV 05/06/25 10:29 100 mls/hr Q8HR BIRDIE Administration Clindamycin/Sodium Chloride 600 mg in 50 mls @ 100 mls/hr 04/29/25 08:00 04/30/25 05:53 Cleocin/Ns Ivpb IV 05/06/25 07:59 100 mls/hr Q8HR BIRDIE Administration Insulin Degludec 25 unit 04/30/25 09:00 04/30/25 08:22 Insulin Degludec 5 Unit/0.05 Ml (Per 5 Units) SC 05/30/25 08:59 Not Given QDAY [facility] Insulin Human Lispro 0 unit 04/29/25 08:23 04/30/25 11:21 Insulin Lispro (Admelog) 1 Unit/0.01 Ml Unit SC 05/29/25 06:13 Not Given Q6HR [facility] Protocol Insulin Human Lispro 3 unit 04/29/25 08:30 04/30/25 11:21 Insulin Lispro (Admelog) 1 Unit/0.01 Ml Unit SC 05/29/25 08:29 Not Given Q6HR [facility] Lamotrigine 25 mg 04/29/25 21:00 04/29/25 20:14 Lamotrigine 25 Mg Chew PO 05/29/25 20:59 25 mg HS BIRDIE Administration Lisinopril 20 mg 04/29/25 13:32 04/30/25 08:17 Lisinopril 20 Mg Tablet PO 05/29/25 10:29 20 mg QDAY BIRDIE Administration Metoprolol Tartrate 50 mg 04/29/25 13:32 04/30/25 08:16 Metoprolol Tartrate 25 Mg Tablet PO 05/29/25 10:29 50 mg BID BIRDIE Administration Metoprolol Tartrate 1 mg 04/30/25 14:03 Metoprolol Tartrate Inj 1 Mg/Ml Amp 5 Ml IVP Q5MIN PRN TACHYCARDIA Midazolam HCl 1 mg 04/30/25 14:02 Midazolam Inj 1 Mg/Ml Vial 2 Ml IVP 05/01/25 14:01 Q5MIN PRN ANXIETY Mirtazapine 15 mg 04/29/25 21:00 04/29/25 20:14 Mirtazapine 15 Mg Tablet PO 05/29/25 20:59 15 mg HS BIRDIE Administration Nicotine 14 mg 04/30/25 14:45 Nicotine Patch 14 Mg/24 Hr Patch.Td24 TOP 05/30/25 14:44 QDAY BIRDIE Ondansetron HCl 4 mg 04/29/25 01:24 04/29/25 23:17 Ondansetron Inj 2 Mg/Ml Inj 2 Ml IVP 05/29/25 01:23 4 mg Q6H PRN Administration NAUSEA OR VOMITING Protocol Pantoprazole Sodium 40 mg 04/29/25 09:00 04/30/25 08:17 Pantoprazole Inj 40 Mg Vial IVP 05/29/25 08:59 40 mg QDAY BIRDIE Administration Plan Venecia Cristobal is a 59F with PMH significant for IDDM2, HTN, HLD, COPD, CAD s/p stent on Plavix, bipolar disorder presenting with right foot pain/swelling with foreign body retained, admitted for cellulitis, glucose management and surgery for removal of foreign body. #R foot abscess, retained foreign body with cellulitis s/p removal 04/30 Patient states that 2 weeks ago she stepped on a foreign body on the sidewalk, did not seek immediate medical attention due to only slight pain. However over the past few days it has been progressively worse with associated swelling and increased pain even on light touch. Foot x-ray shows 21 mm needle fragment projecting in the soft tissue plantar to the base of the second metatarsal s/p TDAP vaccine, Augmentin x 1, levofloxacin 500 mg x 1 and pain medications in ED s/p surgery: Foreign body was not able to be removed by surgery due to feeling unable to find it despite ultrasound and x-rays in the OR Hep panel, HIV neg. BCx NG24h Wound culture +GPC Plan: - Surgery consulted, recs appreciated - Ortho consulted, recs appreciated: foreign body removed today with fluoroscopy, patient will be nonweight bearing, f/u in clinic in 2 weeks, continue abx - F/u Wound Cx anaerobic culture - IV Clindamycin 600mg q8h (04/29- - IV cefepime 2g q8h (04/29- ) although patient has a rash with cephalexin, CTM for rash #IDDM2 #Hyperglycemia Patient reports taking Lantus 15 units twice daily and Humalog 30 minutes before meals. Does not remember how many units of Humalog she takes. Has a CGM which usually reads high. Reports being adherent with all medications and insulin as well as Synjardy. On admission glucose 439. Patient states she took 8 units of insulin in the ED. HbA1c 11.8. Hyperglycemia likely secondary to uncontrolled diabetes due to higher insulin requirement. s/p regular insulin 10u x1, lispro 5u x1 in ED Plan: - Insulin degludec 25u qam once patient eats - Insulin lispro 3u q6h and plan to transition to lispro 5u AC when restart diet - SSI step [address] - CTM glucose - Pain regimen: tylenol, [place] 5, IV dilaudid 0.5 mg q4h prn #HTN Patient has a history of hypertension and is on metoprolol to tartrate 50 mg twice daily and lisinopril 20 mg daily, states that she is adherent. Patient reports that she does not take her blood pressure at home. Plan: - Start metoprolol titrate 50 mg BID and lisinopril 20 mg QD, with parameters to hold SBP <100 - CTM BP - IV hydralazine 10 mg q6h prn for SBP >180 #CAD s/p stent Patient reports history of stent placement about 10 years ago. Reports being adherent to Plavix. Plan: -Hold Plavix iso surgery #Bipolar disorder #Anxiety Reports taking lamotrigine 25 mg nightly, mirtazapine 15 mg nightly and amitriptyline 40 mg nightly Plan: - Continue home lamotrigine 25 mg nightly, mirtazapine 15 mg nightly and amitriptyline 40 mg nightly - Start hydroxyzine 10 mg q6h prn #COPD Patient reports using 2 different inhalers at home, along with a nebulizer Plan: - DuoNebs q4h prn in place #Electrolyte imbalances #Hyperkalemia, resolved On admissions patient's potassium 5.9. Improved with with insulin administration. Plan: - CTM CMP - Recheck and replete as needed Hospital management: Lines: peripheral IV Diet: Carb consistent Bowel: None GI prophylaxis: IV pantoprazole 40 mg QD DVT prophylaxis: hold heparin q12 iso possible second surgery Disposition: med surg for foot surgery CODE STATUS: Full code Plan of care discussed with attending Dr. Stauffer, and PGY-2 Dr. Pacheco. Ana Laura Malloy, DO PGY-1 Internal Medicine Attending Provider Attestation/Addendum I attest that I was physically present for the evaluation, physical examination, lab and imaging review of the patient with the residents. I discussed the case with the residents and agree with the findings and plans of care as documented above. Overnight, patient received multiple IV pain medication for pain. We will adjust her pain regimen. Underwent fluoroscopic removal of foreign body with orthopedics. Also started on hydroxyzine for anxiety. We will continue with IV cefepime and clindamycin awaiting culture results. We will continue with wound care. Continues to be on insulin regimen for diabetes. Antihypertensives for hypertension. We will also continue with her home medication for bipolar disorder and anxiety. Ely Stauffer MD
--- NOTE | 2025-04-30 15:20 | SUR.PHASEI ---
pt asleep but responds to voice, breathing unlabored on room air. v/s stable. pt dressing to right foot cdi. report called to [facility]. pt will be transferred to room at this time.
[2025-04-30] MEDS: INSULIN LISPRO (AdmeLOG) 1 UNIT/0.01 ML UNIT SC (17:17)
[2025-04-30] MEDS: MIRTAZAPINE 15 MG TABLET PO (21:31)
[2025-04-30] MEDS: ATORVASTATIN CALCIUM 20 MG TABLET 40 MG PO (21:31)
[2025-04-30] MEDS: GABAPENTIN 100 MG CAPSULE PO (21:31)
[2025-04-30] MEDS: AMITRIPTYLINE HCL 25 MG TABLET 100 MG PO (21:31)
[2025-04-30] MEDS: lamoTRIgine 25 MG CHEW PO (21:37)
[2025-04-30] MEDS: HYDROcodone/APAP 5/325 TABLET 1 TAB PO (21:39)
[2025-04-30] MEDS: INSULIN LISPRO (AdmeLOG) 1 UNIT/0.01 ML UNIT 6 UNIT SC (22:42)
[2025-05-01] VITALS (10 sets, daily range): BP systolic 122–159; BP diastolic 59–72; PULSE 71–85; RESP 16–97; TEMP 36.4–36.9; O2SAT 94–97; BMI 13.0
[2025-05-01] MEDS: INSULIN LISPRO (AdmeLOG) 1 UNIT/0.01 ML UNIT 3 UNIT SC ×2 (00:39→06:05)
[2025-05-01] MEDS: INSULIN LISPRO (AdmeLOG) 1 UNIT/0.01 ML UNIT SC ×4 (00:40→18:10)
[2025-05-01 05:53] LABS: Basophils # (Auto) 0.1 Thou/mm3 (0.0-0.2); Basophils % (Auto) 1 % (0-2.5); Eosinophils # (Auto) 0.4 Thou/mm3 (0.0-0.5); Eosinophils % (Auto) 4 % (0-10); Hematocrit 33.9 % (36.0-46.0); Hemoglobin 10.9 g/dL (12.0-16.0); Immature Granulocytes Auto 0.03 Thou/mm3 (0.00-0.00); Lymphocytes # (Auto) 1.9 Thou/mm3 (1.0-4.8); Lymphocytes % (Auto) 19 % (10-50); Mean Corpuscular HGB Conc 32.2 g/dl (31.0-37.0); Mean Corpuscular Hemoglobin 25.7 pg (25.0-35.0); Mean Corpuscular Volume 80 fL (80-100); Monocytes # (Auto) 1.1 Thou/mm3 (0.0-0.8); Monocytes % (Auto) 11 % (0-12); Neutrophils # (Auto) 6.5 Thou/mm3 (1.8-7.7); Neutrophils % (Auto) 65 % (37-80); Nucleated Red Blood Cell # 0.00 Thou/mm3 (0.00-0.00); Nucleated Red Blood Cell % 0 /100 WBC (0); Platelet Count 391 Thou/mm3 (140-440); RDW Standard Deviation 54.9 fL (36.4-46.3); Red Blood Count 4.24 Miln/mm3 (4.00-5.20); White Blood Count 10.0 Thou/mm3 (3.6-11.0)
[2025-05-01] MEDS: CEFEPIME INJ 2 GM in SODIUM CHLORIDE 0.9% (Popper) 50 ML IV ×3 (05:54→21:23)
[2025-05-01 06:09] LABS: Alanine Aminotransferase 12 U/L (10-49); Albumin, Serum 3.3 gm/dL (3.4-4.8); Albumin/Globulin Ratio 1.9 (1.2-2.2); Alkaline Phosphatase 98 U/L (46-116); Anion Gap 9 (7-16); Aspartate Amino Transferase 17 U/L (0-34); BUN/Creatinine Ratio 14 Ratio (12-20); Bilirubin,Total 0.4 mg/dL (0.3-1.2); Blood Urea Nitrogen 13 mg/dL (9-23); Calcium 9.4 mg/dL (8.3-10.6); Calcium (Corrected) 10.0 mg/dL (8.5-10.1); Carbon Dioxide 24.6 mMol/L (20.0-31.0); Chloride 105 mMol/L (98-107); Creatinine (Component) 0.9 mg/dL (0.6-1.3); Estimated Creatinine Clearance 45.3 mL/min (>60); Globulin 1.7 gm/dL (2.3-3.5); Glucose 116 mg/dL (74-106); Magnesium 1.9 mg/dL (1.6-2.6); Osmolality,Calculated 278 (275-295); Phosphorous 3.5 mg/dL (2.4-5.1); Potassium 4.2 mMol/L (3.4-5.1); Sodium 139 mMol/L (136-145); Total Protein 5.0 gm/dL (5.7-8.2); eGFR > 60 See Note
[2025-05-01] MEDS: CLINDAMYCIN/NS 600 MG IVPB 600 MG/50 ML BAG 100 MG IV (06:26)
[2025-05-01] MEDS: INSULIN DEGLUDEC 5 UNIT/0.05 ML (PER 5 UNITS) 25 UNIT SC (08:48)
[2025-05-01] MEDS: HYDROmorphone INJ 2 MG/ML VIAL 0.5 MG IVP ×2 (08:49→21:30)
[2025-05-01] MEDS: METOPROLOL TARTRATE 25 MG TABLET 50 MG PO ×2 (08:54→20:26)
--- NOTE | 2025-05-01 09:23 | ESPR_ITS ---
<Statement entered by Hubert Pacheco MD - 05/02/25 09:39> Patient was seen and examined at bedside. I agree on the assessment and plan on this note as documented by resident Ana Laura Malloy DO PGY1. 59-year-old female with past medical history as below status post foreign body retrieval by fluoroscopy by orthopedic surgeon, continues to complain of pain, we will uptitrate pain management regimen. Patient does have underlying baseline anxiety was started on hydroxyzine 25 mg daily, can uptitrate as needed. Patient continues to have elevated blood glucose levels currently on 25 units of insulin degludec, 4 units lispro AC along with step 3 sliding scale, will calculate optimal insulin requirement and titrate long-acting and short acting regimen in a.m. patient refusing to participate with physical therapy disposition will likely be home on antibiotics to complete treatment once pain and blood glucose is well-controlled. Case discussed with attending Dr. Ely Pacheco MD PGY-2 Documentation for date of: 05/01/25 Subjective Subjective Interval history: Chronic, patient glucose 403, insulin lispro 6 units given. Patient was seen and examined at bedside. Patient still very tearful and anxious. Reports that right foot is still very painful however medications improvement. States that she tried to use the restroom which caused severe right foot pain. Denies fever, shortness of breath or urinary symptoms. Decrease Dilaudid from every 4 to every 6. Follow-up repeat ESR and CRP. Wound cultures grew Staph aureus resistant to clindamycin. Antibiotics de-escalated and clindamycin discontinued, continue cefepime. Resume Plavix and heparin. Start hydroxyzine 25 mg daily for anxiety. Increase insulin degludec to 30 units qam. Start insulin lispro 4 units AC with SSI step [address] Exam Vital Signs Temp Pulse Resp BP Pulse Ox O2 Del Method O2 Flow Rate 98.3 F 78 18 123/69 95 Room Air 2 05/01/25 04:00 05/01/25 08:54 05/01/25 04:00 05/01/25 08:54 05/01/25 04:00 05/01/25 04:00 04/29/25 13:55 Narrative Exam GENERAL: AOx3, anxious, tearful, in mild distress HEENT: NC/AT, mucous membranes moist, bilateral sclera anicteric CARDIOVASCULAR: regular rate and rhythm, S1/S2 present, no murmurs appreciated PULMONARY: +mild wheezes b/l ABDOMINAL: soft, non-tender, non-distended, no rebound/guarding, bowel sounds present EXTREMITIES: no peripheral edema, except as below RT FOOT: wrapped in sterile gauze, tender to touch SKIN: warm and dry, intact, no rash NEURO: CN II-XII grossly intact, alert, following commands Objective Labs 05/01/25 05:05 05/01/25 05:05 Labs: Laboratory Results - last 24 hr 05/01/25 05:05 WBC 10.0 RBC 4.24 Hgb 10.9 L Hct 33.9 L MCV 80 MCH 25.7 MCHC 32.2 RDW Std Deviation 54.9 H Plt Count 391 D Neut % (Auto) 65 Lymph % (Auto) 19 [place] % (Auto) 11 Eos % (Auto) 4 Baso % (Auto) 1 Neut # (Auto) 6.5 Lymph # (Auto) 1.9 [place] # (Auto) 1.1 H Eos # (Auto) 0.4 Baso # (Auto) 0.1 Immature Gran # (Auto) 0.03 H Absolute Nucleated RBC 0.00 Immature Gran % 0 Nucleated RBC % 0 Sodium 139 Potassium 4.2 Chloride 105 Carbon Dioxide 24.6 Anion Gap 9 BUN 13 Creatinine 0.9 Estim Creat Clear Calc 45.3 L eGFR > 60 BUN/Creatinine Ratio 14 Glucose 116 H Calculated Osmolality 278 Calcium 9.4 Corrected Calcium 10.0 Phosphorus 3.5 Magnesium 1.9 Total Bilirubin 0.4 AST 17 ALT 12 Alkaline Phosphatase 98 Total Protein 5.0 L Albumin 3.3 L D Globulin 1.7 L Albumin/Globulin Ratio 1.9 ABG Interpretation ABG results: 04/29/25 01:28 ABG pH 7.40 ABG pCO2 42 ABG pO2 54 L* ABG HCO3 26 ABG O2 Saturation 89 L ABG Base Excess 1 Quality Measures Quality Measures VTE prophylaxis Assessment & Plan Assessment Current Active Medications: Generic Name Dose Route Start Last Admin Trade Name Freq PRN Reason Stop Dose Admin Acetaminophen 650 mg 04/30/25 12:57 Acetaminophen 325 Mg Tablet PO 05/30/25 12:56 Q6HR PRN Fever or pain 1-3 Hydrocodone Bitart/Acetaminophen 1 tab 04/30/25 12:56 04/30/25 21:39 Hydrocodone/Apap 5/325 Tablet PO 05/05/25 09:36 1 tab Q6HR PRN Administration Pain moderate 4-6 Albuterol/Ipratropium 3 ml 04/29/25 09:59 Albuterol/Ipratropium (Duoneb) Rt [place] 3 Ml Nebu INH 05/29/25 09:58 Q3HR PRN SHORTNESS OF BREATH OR WHEEZE Amitriptyline HCl 100 mg 04/29/25 21:00 04/30/25 21:31 Amitriptyline Hcl 25 Mg Tablet PO 05/29/25 20:59 100 mg HS BIRDIE Administration Atorvastatin Calcium 40 mg 04/29/25 21:00 04/30/25 21:31 Atorvastatin Calcium 20 Mg Tablet PO 05/29/25 20:59 40 mg HS BIRDIE Administration Dextrose 25 ml 04/29/25 01:29 04/29/25 21:44 Dextrose 50%-Water Inj 50 Ml Syringe IV 05/29/25 01:28 25 ml Q15MIN PRN Administration BG 50-70 responsive npo pt Dextrose 50 ml 04/29/25 01:29 Dextrose 50%-Water Inj 50 Ml Syringe IV 05/29/25 01:28 Q15MIN PRN BG <50 OR BG <70 & pt unresponsive Gabapentin 100 mg 04/29/25 21:00 04/30/25 21:31 Gabapentin 100 Mg Capsule PO 05/29/25 20:59 100 mg HS BIRDIE Administration Glucagon 1 mg 04/29/25 01:29 Glucagon Inj 1 Mg Vial IM Q15MIN PRN BG <70, and no IV access Heparin Sodium (Porcine) 5,000 unit 04/29/25 09:00 04/30/25 08:22 Heparin Sod Inj 5000 Unit/Ml Vial SC 05/13/25 08:59 Not Given Q12HR BIRDIE Hydralazine HCl 10 mg 04/30/25 12:56 Hydralazine Inj 20 Mg/Ml Vial IVP 05/29/25 08:30 Q6HR PRN SBP > 180 Hydromorphone HCl 0.5 mg 04/30/25 12:56 05/01/25 08:49 Hydromorphone Inj 2 Mg/Ml Vial IVP 05/05/25 12:55 0.5 mg Q4HR PRN Administration Pain severe 7-10 Hydroxyzine HCl 10 mg 04/30/25 12:56 Hydroxyzine Hcl 10 Mg Tablet PO 05/30/25 09:35 Q6HR PRN Aniety Cefepime HCl 2 gm/ Sodium 50 mls @ 100 mls/hr 04/29/25 10:30 05/01/25 05:54 Chloride IV 05/06/25 10:29 100 mls/hr Q8HR BIRDIE Administration Clindamycin/Sodium Chloride 600 mg in 50 mls @ 100 mls/hr 04/29/25 08:00 05/01/25 06:26 Cleocin/Ns Ivpb IV 05/06/25 07:59 100 mls/hr Q8HR BIRDIE Administration Insulin Degludec 20 unit 05/01/25 09:00 05/01/25 08:58 Insulin Degludec 5 Unit/0.05 Ml (Per 5 Units) SC 05/31/25 08:59 Not Given QDAY BIRDIE Insulin Human Lispro 0 unit 04/29/25 08:23 05/01/25 06:05 Insulin Lispro (Admelog) 1 Unit/0.01 Ml Unit [place] 05/29/25 06:13 3 unit Q6HR BIRDIE Administration Protocol Insulin Human Lispro 3 unit 04/29/25 08:30 05/01/25 06:05 Insulin Lispro (Admelog) 1 Unit/0.01 Ml Unit SC 05/29/25 08:29 3 unit Q6HR BIRDIE Administration Lamotrigine 25 mg 04/29/25 21:00 04/30/25 21:37 Lamotrigine 25 Mg Chew PO 05/29/25 20:59 25 mg HS BIRDIE Administration Lisinopril 20 mg 04/29/25 13:32 05/01/25 08:54 Lisinopril 20 Mg Tablet PO 05/29/25 10:29 20 mg QDAY BIRDIE Administration Metoprolol Tartrate 50 mg 04/29/25 13:32 05/01/25 08:54 Metoprolol Tartrate 25 Mg Tablet PO 05/29/25 10:29 50 mg BID BIRDIE Administration Mirtazapine 15 mg 04/29/25 21:00 04/30/25 21:31 Mirtazapine 15 Mg Tablet PO 05/29/25 20:59 15 mg HS BIRDIE Administration Nicotine 14 mg 04/30/25 14:45 05/01/25 08:57 Nicotine Patch 14 Mg/24 Hr Patch.Td24 TOP 05/30/25 14:44 14 mg QDAY BIRDIE Administration Ondansetron HCl 4 mg 04/29/25 01:24 04/29/25 23:17 Ondansetron Inj 2 Mg/Ml Inj 2 Ml IVP 05/29/25 01:23 4 mg Q6H PRN Administration NAUSEA OR VOMITING Protocol Pantoprazole Sodium 40 mg 04/29/25 09:00 05/01/25 08:50 Pantoprazole Inj 40 Mg Vial IVP 05/29/25 08:59 40 mg QDAY BIRDIE Administration Plan Venecia Cristobal is a 59F with PMH significant for IDDM2, HTN, HLD, COPD, CAD s/p stent on Plavix, bipolar disorder presenting with right foot pain/swelling with foreign body retained, admitted for cellulitis, glucose management and surgery for removal of foreign body. #R foot abscess, retained foreign body with cellulitis s/p removal 04/30 Patient states that 2 weeks ago she stepped on a foreign body on the sidewalk, did not seek immediate medical attention due to only slight pain. However over the past few days it has been progressively worse with associated swelling and increased pain even on light touch. Foot x-ray shows 21 mm needle fragment projecting in the soft tissue plantar to the base of the second metatarsal s/p TDAP vaccine, Augmentin x 1, levofloxacin 500 mg x 1 and pain medications in ED s/p surgery: Foreign body was not able to be removed by surgery due to feeling unable to find it despite ultrasound and x-rays in the OR Hep panel, HIV neg. BCx NG24h Wound culture Staph aureus resistant to Clindamycin IV Clindamycin (04/29-05/01) Plan: - Ortho consulted, recs appreciated: foreign body removed today with fluoroscopy, patient will be nonweight bearing, f/u in clinic in 2 weeks, continue abx - IV cefepime 2g q8h (04/29- ) although patient has a rash with cephalexin, CTM for rash - PT ordered - Pain regimen: tylenol, [place] 5, IV dilaudid 0.5 mg q6h prn #IDDM2 #Hyperglycemia Patient reports taking Lantus 15 units twice daily and Humalog 30 minutes before meals. Does not remember how many units of Humalog she takes. Has a CGM which usually reads high. Reports being adherent with all medications and insulin as well as Synjardy. On admission glucose 439. Patient states she took 8 units of insulin in the ED. HbA1c 11.8. Hyperglycemia likely secondary to uncontrolled diabetes due to higher insulin requirement. s/p regular insulin 10u x1, lispro 5u x1 in ED Plan: - Insulin degludec 30u qam - Start insulin lispro 4u AC - SSI step [address] - CTM glucose #HTN Patient has a history of hypertension and is on metoprolol to tartrate 50 mg twice daily and lisinopril 20 mg daily, states that she is adherent. Patient reports that she does not take her blood pressure at home. Plan: - Metoprolol titrate 50 mg BID and lisinopril 20 mg QD, with parameters to hold SBP <100 - CTM BP - IV hydralazine 10 mg q6h prn for SBP >180 #CAD s/p stent Patient reports history of stent placement about 10 years ago. Reports being adherent to Plavix. Plan: -Restart Plavix #Bipolar disorder #Anxiety Reports taking lamotrigine 25 mg nightly, mirtazapine 15 mg nightly and amitriptyline 40 mg nightly Plan: - Continue home lamotrigine 25 mg nightly, mirtazapine 15 mg nightly and amitriptyline 40 mg nightly - STart Hydroxyzine 25 mg QD #COPD Patient reports using 2 different inhalers at home, along with a nebulizer Plan: - DuoNebs q4h prn in place #Electrolyte imbalances #Hyperkalemia, resolved On admissions patient's potassium 5.9. Improved with with insulin administration. Plan: - CTM CMP - Recheck and replete as needed Hospital management: Lines: peripheral IV Diet: Carb consistent Bowel: None GI prophylaxis: IV pantoprazole 40 mg QD DVT prophylaxis: hold heparin q12 iso possible second surgery Disposition: med surg for foot surgery CODE STATUS: Full code Plan of care discussed with attending Dr. Stauffer, and PGY-2 Dr. Pacheco. Ana Laura Malloy, DO PGY-1 Internal Medicine Attending Provider Attestation/Addendum I attest that I was physically present for the evaluation, physical examination, lab and imaging review of the patient with the residents. I discussed the case with the residents and agree with the findings and plans of care as documented above. At bedside today, patient states she is feeling better and appears more comfortable compared to yesterday. Her pain has been controlled with analgesics. Overnight, patient was noted to have elevated glucose in 400s. Adjusted insulin regimen, we will continue to monitor closely and adjust accordingly. Underwent physical therapy who recommended home health patient refused. Started on hydroxyzine for anxiety. Foot culture grew MSSA blood culture continues to be negative. Patient is still needing IV analgesics, we will try to wean her off. Anticipate discharge in next 24 to 48 hours once patient's pain is controlled with oral analgesics and glucoses better controlled. Ely Stauffer MD
[2025-05-01 11:25] LABS: Sed Rate (ESR) 59 mm/hr (0-30)
[2025-05-01 11:42] LABS: C-Reactive Protein 14.2 mg/dL (0.0-0.9)
[2025-05-01] MEDS: CLOPIDOGREL BISULFATE 75 MG TABLET PO (11:55)
[2025-05-01] MEDS: HYDROcodone/APAP 5/325 TABLET 1 TAB PO ×2 (11:55→18:13)
[2025-05-01] MEDS: INSULIN LISPRO (AdmeLOG) 1 UNIT/0.01 ML UNIT 4 UNIT SC ×2 (11:57→18:11)
--- NOTE | 2025-05-01 13:44 | PC.SS ---
Late note 04-30-25: SS met with patient regarding d/c plan. Pt is alert/oriented. Pt was admitted for Right Foot Cellulitis. Pt confirmed demographic and contact information is correct on facesheet. Pt resides with dtr. Pt has 4 wheel with seat, rollator walker. Pt is ok with all ADLs. Patient?s pharmacy of choice is [facility] on [address]. Pt named her dtr, Ruthy Micha medical decision maker if she is unable. Patient?s choice is to return home upon d/c. Pt states she followed up with PCP 2 weeks ago. Pt requested to remove her son Mike Muse from her facesheet and add Meeta Meng, phone# [phone]. Patient's grandson, Bailey Richards, phone# [phone] will provide transportation. D/C plan: Return home Next of Kin: Ruthy Muse, daughter, phone# [phone] PCP: [facility] on [facility] Address: Correct on facesheet
[2025-05-01] MEDS: ATORVASTATIN CALCIUM 20 MG TABLET 40 MG PO (20:25)
[2025-05-01] MEDS: lamoTRIgine 25 MG CHEW PO (20:25)
[2025-05-01] MEDS: AMITRIPTYLINE HCL 25 MG TABLET 100 MG PO (20:25)
[2025-05-01] MEDS: GABAPENTIN 100 MG CAPSULE PO (20:26)
[2025-05-01] MEDS: MIRTAZAPINE 15 MG TABLET PO (20:26)
[2025-05-01] MEDS: HEPARIN SOD INJ 5000 UNIT/ML VIAL SC (20:29)
[2025-05-02] VITALS (9 sets, daily range): BP systolic 140–161; BP diastolic 71–84; PULSE 70–88; RESP 16–96; TEMP 36.1–36.6; O2SAT 94–97
[2025-05-02] MEDS: HYDROmorphone INJ 2 MG/ML VIAL 0.5 MG IVP (03:56)
[2025-05-02] MEDS: CEFEPIME INJ 2 GM in SODIUM CHLORIDE 0.9% (Popper) 50 ML IV (05:18)
[2025-05-02] MEDS: INSULIN LISPRO (AdmeLOG) 1 UNIT/0.01 ML UNIT SC ×2 (05:24→12:30)
[2025-05-02 07:08] LABS: Alanine Aminotransferase 15 U/L (10-49); Albumin, Serum 3.8 gm/dL (3.4-4.8); Albumin/Globulin Ratio 1.8 (1.2-2.2); Alkaline Phosphatase 111 U/L (46-116); Anion Gap 13 (7-16); Aspartate Amino Transferase 25 U/L (0-34); BUN/Creatinine Ratio 10 Ratio (12-20); Bilirubin,Total 0.2 mg/dL (0.3-1.2); Blood Urea Nitrogen 10 mg/dL (9-23); Calcium 9.7 mg/dL (8.3-10.6); Calcium (Corrected) 9.9 mg/dL (8.5-10.1); Carbon Dioxide 23.7 mMol/L (20.0-31.0); Chloride 104 mMol/L (98-107); Creatinine (Component) 1.0 mg/dL (0.6-1.3); Estimated Creatinine Clearance 40.8 mL/min (>60); Globulin 2.1 gm/dL (2.3-3.5); Glucose 192 mg/dL (74-106); Magnesium 1.8 mg/dL (1.6-2.6); Osmolality,Calculated 285 (275-295); Phosphorous 3.5 mg/dL (2.4-5.1); Potassium 4.8 mMol/L (3.4-5.1); Sodium 141 mMol/L (136-145); Total Protein 5.9 gm/dL (5.7-8.2); eGFR > 60 See Note
[2025-05-02] MEDS: HYDROcodone/APAP 5/325 TABLET 1 TAB PO ×2 (07:53→14:41)
[2025-05-02] MEDS: INSULIN LISPRO (AdmeLOG) 1 UNIT/0.01 ML UNIT 4 UNIT SC ×2 (07:53→12:28)
[2025-05-02 08:04] LABS: Basophils # (Auto) 0.1 Thou/mm3 (0.0-0.2); Basophils % (Auto) 1 % (0-2.5); Eosinophils # (Auto) 0.5 Thou/mm3 (0.0-0.5); Eosinophils % (Auto) 6 % (0-10); Hematocrit 33.2 % (36.0-46.0); Hemoglobin 10.9 g/dL (12.0-16.0); Immature Granulocytes Auto 0.03 Thou/mm3 (0.00-0.00); Lymphocytes # (Auto) 1.8 Thou/mm3 (1.0-4.8); Lymphocytes % (Auto) 20 % (10-50); Mean Corpuscular HGB Conc 32.8 g/dl (31.0-37.0); Mean Corpuscular Hemoglobin 26.5 pg (25.0-35.0); Mean Corpuscular Volume 81 fL (80-100); Monocytes # (Auto) 0.9 Thou/mm3 (0.0-0.8); Monocytes % (Auto) 10 % (0-12); Neutrophils # (Auto) 5.4 Thou/mm3 (1.8-7.7); Neutrophils % (Auto) 63 % (37-80); Nucleated Red Blood Cell # 0.00 Thou/mm3 (0.00-0.00); Nucleated Red Blood Cell % 0 /100 WBC (0); Platelet Count 399 Thou/mm3 (140-440); RDW Standard Deviation 54.0 fL (36.4-46.3); Red Blood Count 4.12 Miln/mm3 (4.00-5.20); White Blood Count 8.6 Thou/mm3 (3.6-11.0)
[2025-05-02] MEDS: CLOPIDOGREL BISULFATE 75 MG TABLET PO (08:58)
[2025-05-02] MEDS: METOPROLOL TARTRATE 25 MG TABLET 50 MG PO (09:00)
[2025-05-02] MEDS: HEPARIN SOD INJ 5000 UNIT/ML VIAL SC (09:02)
[2025-05-02] MEDS: INSULIN DEGLUDEC 5 UNIT/0.05 ML (PER 5 UNITS) 25 UNIT SC (09:02)
--- NOTE | 2025-05-02 10:30 | PC.SS ---
SS update: Doctors notified REGISTERED PHYSICAL THERAPIST that patient will need crutches. REGISTERED PHYSICAL THERAPIST spoke to PT Radha who stated crutches are not safe for patient to use and stated that patient will use her walker to d/c as it is a safer d/c. Patient does not need DME she has walker she will be using.
--- NOTE | 2025-05-02 10:52 | PC.SS ---
ACCOUNTING FILE CLERK spoke to doctor who stated patient will need HH for wound care and PT. ACCOUNTING FILE CLERK met with patient at bedside to discuss HH. Patient spoke to her daughter who lives in the home with her and both were agreeable to HH, no preferred agency. Her primary doctor is at [facility] on [address] last appointment was 2 weeks.ACCOUNTING FILE CLERK informed patient that she is unable to provide her with crutches due to PT Radha saying crutches are unsafe for her. ACCOUNTING FILE CLERK informed patient that she will need to use her walker for safe d/c and ambulation. Patient stated that she did not have any other SS needs.
--- NOTE | 2025-05-02 11:10 | PC.NURSE ---
Discharge orders in, pending wound rn consult with DC planning/recs
--- NOTE | 2025-05-02 11:27 | CHAP ---
Patient was visited by the Spiritual Care Volunteer who prayed for them. (Volunteer was in the hospital from 09:00-11:27)
--- NOTE | 2025-05-02 15:14 | ESDS_ITS ---
Planned Discharge Date 05/02/25 DS: Providers Provider Date of admission: 04/29/25 01:24 Primary care physician: Physician No Primary/Family Admitting Provider: Fly Galloway MD Attending Provider on Admission: Ely Stauffer MD Consults: 04/29/25 00:44 Consult to General Surgery Stat Comment: Foot FB Consulting Provider: Jemma Hair 04/29/25 08:25 Referral Wound Care Stat Comment: 04/30/25 08:03 Consult to Orthopedic Routine Comment: Consulting Provider: Alfredo Burton 04/30/25 15:35 Referral Physical Therapy Stat Comment: Physician Instructions: 05/01/25 22:37 Referral Jeanne Routine Comment: 05/02/25 12:43 Referral OP Wound Healing Dept Routine Comment: Instructions: Right plantar foot I&D x 2 with sewing needle removed, DM. Attending Provider on DC: Ely Stauffer MD Discharging Provider: Ely Stauffer MD DS: Diagnosis Problem List Completed Was Problem List Reviewed/Reconciled?: Yes Hospital Course Hospital Course Hospital course: Summary: Venecia Cristobal is a 59F with PMH significant for IDDM2, HTN, HLD, COPD, CAD s/p stent on Plavix, bipolar disorder presenting to [facility] on 04/29 with right foot pain/swelling with foreign body retained, admitted for cellulitis, glucose management and surgery for removal of foreign body. Patient presented with extreme pain in the right foot and x-rays on admission showed retained needle fragment. Patient was treated with pain medication, IV antibiotics as well as Tdap vaccine. General surgery was consulted and foreign body was unable to be removed due to poor localization. Orthopedic surgery was then consulted with successful removal of retained needle. Of note, patient's hemoglobin A1c is 11.8 and patient's glucose regimen was managed with long-acting and short acting insulin. Patient's blood pressure was also noted to be very elevated on home regimen. Furthermore, patient was very anxious during hospital stay and will be started on outpatient medication. On discharge, patient is hemodynamically stable, labs and vitals reviewed, and patient is feeling ready to go home with home health. Imaging: Foot x-ray shows 21 mm needle fragment projecting in the soft tissue plantar to the base of the second metatarsal Discharge Recommendations: - Please take all medications as prescribed - START antibiotic Cephalexin for 4 more days -Continue physical therapy with home health and AVOID bearing weight on your right foot for 2 weeks until the foot is completely healed. - START LANTUS 10 units in the morning in addition to LANTUS 15 units in the evening. Take LISPRO 5 units with MEALS. please monitor your glucose with continuos glucometer (FREE STYLE OSMANI) - START hydroxyzine 25 mg daily for anxiety - START nicotine patch 14 mg daily for 1 week, then 7 mg daily for two weeks -Continue rest of medications as previously prescribed - Avoid weight bearing on right foot until wound heals and follow up with PCP and orthopedic - Please follow up with Dr. Ana Laura Malloy next week afternoon on 05/08/25 by calling for an appointment - Follow up with Dr. Burton, [facility], in 2 weeks. Call [phone] for appointment. - Please follow up with wound care and obtain a referral to administrator of home health - If your symptoms worsen, please seek immediate medical attention and return to your nearest emergency room. - If you do not have a PCP, you may follow up at the [facility] at [address] [place] [address] [address] [address], Wound Care: Right bottom of foot. Goal is to change dressing once daily and keep clean and dry to avoid further infection. May shower with dressing covered with plastic bag, using chair in the shower. Do NOT use foot to stand. Change dressing once a day and as needed for falling off or saturating Remove old gauze wrap and Vaseline gauze Cleanse with wound cleanser spray and pat dry. Cover sutures with Vaseline gauze, layer with dry gauze and secure with gauze roll once a day. Hospital Diagnoses: #R foot abscess, retained foreign body with cellulitis s/p removal 04/30 #IDDM2 #Hyperglycemia #HTN #CAD s/p stent #Bipolar disorder #Anxiety #COPD #Electrolyte imbalances #Hyperkalemia, resolved #Nicotine dependence Ana Laura Malloy, DO Internal Medicine, PGY-1 Status at Discharge Cognitive/behavioral status at discharge: Stable Overall status at discharge: patient is progressing back to baseline Time Spent with Patient Time attestation: Total time spent providing and/or coordinating discharge services: 36 min Time spent: Greater than 30 minutes Home Health Home Health Referral Orders: 05/02/25 10:54 Home Health Referral Routine Reason For Exam: Right foot cellulitis with retained foreign body Home-Bound The patient must either because of illness or injury, need the aid of supportive devices such as crutches, canes, wheelchairs, and walkers; the use of special transportation; or the assistance of another person in order to leave their place of residence; OR have a condition such that leaving his or her home is medically contraindicated. In addition, the patient also meets the following criteria: patient is normally unable to leave the home and leaving home requires considerable taxing effort. Addendum to Home Health Certification Practitioner's Certification: I certify that the patient has been under my care in the hospital and the care of attending physician (see below). We had a dxzy-ss-ieqa encounter on (see date below). My clinical findings indicate that the patient is home bound per the above criteria and the Home Health Services noted in these orders are medically necessary. The primary reason for the [id number]-pg-[id number] encounter is related to the fact that the patient requires home health services. Date Certifying Hskp-nu-Szid Physician Encounter: 04/29/25 Physician's Name who will Assume Oversight for HH Services: Physician No Primary/Family XM1 TANK DRIVER - Community Resources: No PT to Evaluate: Yes PT to evaluate and provide a treatmnet plan to increase patient's mobility and strength. Wound Care: Yes Home Health RN - Wound Care Order: Right foot IV Therapy: No RN Safety Evaluation: Yes RN to evaluate and create a plan of care that will produce positive outcomes. Palliative Treatment: No Palliative treatment and evaluate the need for hospice. Home Health Aide - Personal Care: No Home Health Aide to assist with any ADL's. Exam Vital Signs Temp Pulse Resp BP Pulse Ox O2 Del Method O2 Flow Rate 97.2 F 88 18 152/79 H 96 Room Air 2 05/02/25 12:00 05/02/25 12:30 05/02/25 12:00 05/02/25 12:30 05/02/25 12:00 05/02/25 12:00 04/29/25 13:55 Narrative Exam GENERAL: AOx3, anxious HEENT: NC/AT, mucous membranes moist, bilateral sclera anicteric CARDIOVASCULAR: regular rate and rhythm, S1/S2 present, no murmurs appreciated PULMONARY: +trace wheezes b/l ABDOMINAL: soft, non-tender, non-distended, no rebound/guarding, bowel sounds present EXTREMITIES: no peripheral edema, except as below RT FOOT: wrapped in sterile gauze, tender to touch SKIN: warm and dry, intact, no rash NEURO: CN II-XII grossly intact, alert, following commands Discharge Plan Plan Patient Disposition: Home w/HOME HEALTH Patient condition on transfer: Stable Care Plan Goals: -Follow up with us at the [facility] by calling [phone], please make an appointment for afternoon with Dr. Ana Laura Malloy next week on 05/08/25 -You have been prescribed antibiotics for 4 more days please complete the course -Please follow up with orthopedic surgeon Dr. Burton within 1 week outpatient -Please follow up with wound care and obtain a referral to administrator of home health -Continue physical therapy with home health and AVOID bearing weight on your right foot for 2 weeks until the foot is completely healed. -You need a close follow up with us to control your blood sugars, you have been prescribed LANTUS 10 units in the morning in addition to LANTUS 15 units in the evening, As well as you will take LISPRO 5 units with MEALS. please monitor your glucose with continuos glucometer (FREE STYLE OSMANI) -Continue rest of medications as previously prescribed -Return to the Emergency Department or call Emergency Medical Services ([phone]) if symptoms return and/or worsen - [facility]. Call [phone] for appointment. - Follow up at [facility], [address] [place] [address]. Call [phone] for an appointment Wound care to right bottom of foot. Goal is to change dressing once daily and keep clean and dry to avoid further infection. May shower with dressing covered with plastic bag, using chair in the shower. Do NOT use foot to stand. Change dressing once a day and as needed for falling off or saturating -remove old gauze wrap and vasoline gauze -Cleanse with wound cleanser spray and pat dry. -Cover sutures with vasoline gauze, layer with dry gauze and secure with gauze roll once a day. If active bleeding occurs, apply tight dressing and return to MD or ER. ? Notify primary doctor or return to Emergency Room if any of the following: ? Fever above 100.6? F. ? Increased pain ? Increase swelling ? Red streaks around your wound ? Drainage becomes foul smelling or changes color ? The wound is larger or deeper ? The wound looks dried out or dark ? Bleeding that does not stop with holding pressure Prescriptions/Referrals Prescriptions/Med Rec: New hydrocodone-acetaminophen 5-325 mg Tablet 1 tab PO Q6HR MDD 4 PRN (Reason: Pain moderate 4-6) 10 Days Qty: 20 0RF hydroxyzine HCl 25 mg Tablet 25 mg PO HS 30 Days Qty: 30 0RF nicotine 14 mg/24 hr Patch 24 Hour 14 mg top QDAY 7 Days Qty: 7 0RF insulin glargine [Lantus Solostar U-100 Insulin] 100 unit/mL (3 mL) insulin pen 10 unit subcut QAM Qty: 15 0RF Rx Instructions: 10 units subcutaneously; insulin glargine [Lantus U-100 Insulin] 100 unit/mL solution 15 unit subcut QPM Qty: 10 0RF insulin lispro 100 unit/mL insulin pen 5 unit subcut TID Qty: 15 0RF Rx Instructions: 5 units with meals please cephalexin 500 mg capsule 500 mg PO BID 4 Days Qty: 8 0RF Continued atorvastatin 40 mg Tablet 40 mg PO HS amitriptyline 100 mg Tablet 100 mg PO HS gabapentin 100 mg capsule 100 mg PO HS albuterol sulfate 90 mcg/actuation HFA aerosol inhaler 2 inh inhalation Q8H PRN (Reason: shortness of breath or wheezing) Qty: 8.5 0RF albuterol sulfate 2.5 mg /3 mL (0.083 %) solution for nebulization 2.5 mg inhalation QID PRN (Reason: shortness of breath or wheezing) Qty: 90 0RF cetirizine 10 mg tablet 10 mg PO QDAY metoprolol tartrate 50 mg tablet 50 mg PO BID lisinopril 40 mg tablet 40 mg PO QDAY 30 Days Qty: 30 0RF lamotrigine 25 mg tablet 25 mg PO HS mirtazapine 15 mg tablet 15 mg PO HS metoclopramide HCl 10 mg Tablet 10 mg PO Q6H PRN (Reason: upset stomach) pantoprazole 40 mg Tablet,Delayed Release (Dr/Ec) 40 mg PO QDAY clopidogrel 75 mg Tablet 75 mg PO QDAY 30 Days Qty: 30 4RF (DME) FreeStyle Osmani 3 Sensor Device See Rx Instructions .Route Qty: 1 6RF Rx Instructions: As directed Held (DME) insulin syr/ndl U100 half windy 0.3 mL 29 gauge x 1/2 syringe See Rx Instructions .Route Qty: 100 0RF Hold Instructions: Resume on 05/14/25. please hold until you see your primary care. Rx Instructions: As directed Synjardy 5-1,000 mg tablet 1 tab PO .Bid with meals Hold Instructions: Resume on 05/14/25. please see your primary care before resuming this medication Discontinued pantoprazole [Protonix] 40 mg tablet,delayed release (DR/EC) 40 mg PO QDAY Qty: 14 0RF Referrals: [facility] [Other] - 05/08/25 (Call for appointment afternoon with Dr. Ana Laura Malloy) No Primary/Family,Physician [Primary Care Provider] - Alfredo Burton MD [Physician] - Patient/Caregiver Discharge Instructions Education Materials: Nutrition for Wound Healing, Diabetes: Keeping Feet Healthy, Diabetes: Inspecting Your Feet, Suture Care, Incision Care Dc, Foot Care Diabetes Steps Print Language: Polish Stand Alone Forms: Lela Award Info., Patient Portal Info Letter Discharge Order Discharge Orders: Discharge (Routine); Ordered 05/02/25 Ordered By: Yaneli Richard Quality Discharge Quality Measures VTE prophylaxis MD Attestestation MD Attestation I attest that I was physically present for the evaluation, physical examination, lab and imaging review of the patient with the residents. I discussed the case with the residents and agree with the findings and plans of care as documented above. Ely Stauffer MD
--- NOTE | 2025-05-02 19:12 | PC.CM ---
Patient accepted by [facility]. Start of care date 05/05.
== END 2025-05-02 15:00 | disposition home health service (06) | DRG 314 ==
LOC: SERX 04-29 00:44 → SERHOLD 04-29 02:41 → S3SX 04-29 05:00
PROVIDERS: Nurse Practitioner Family; Orthopaedic Surgery Adult Reconstructive Orthopaedic Surgery; Surgery; Admitting Provider Student in an Organized Health Care Education/Training Program; Emergency Provider Emergency Medicine; Visit Provider Student in an Organized Health Care Education/Training Program
PROC: 0H9MXZX Drainage of Right Foot Skin, External Approach, Diagnostic (ICD-10-PCS; principal; 2025-04-29 15:00)
DX: S91.349A Puncture wound with foreign body, unspecified foot, initial encounter (principal); L02.611 Cutaneous abscess of right foot; W45.8XXA Other foreign body or object entering through skin, initial encounter; E11.65 Type 2 diabetes mellitus with hyperglycemia; I10 Essential (primary) hypertension; L03.115 Cellulitis of right lower limb; E78.5 Hyperlipidemia, unspecified; J44.9 Chronic obstructive pulmonary disease, unspecified; I25.10 Atherosclerotic heart disease of native coronary artery without angina pectoris; Z95.5 Presence of coronary angioplasty implant and graft; F17.210 Nicotine dependence, cigarettes, uncomplicated; W27.3XXA Contact with needle (sewing), initial encounter; Z88.6 Allergy status to analgesic agent; Z88.0 Allergy status to penicillin; Z88.5 Allergy status to narcotic agent; Z88.1 Allergy status to other antibiotic agents; Z79.02 Long term (current) use of antithrombotics/antiplatelets; F41.9 Anxiety disorder, unspecified; E87.5 Hyperkalemia; E03.9 Hypothyroidism, unspecified; Z79.4 Long term (current) use of insulin; F31.9 Bipolar disorder, unspecified; Z16.29 Resistance to other single specified antibiotic; Z79.84 Long term (current) use of oral hypoglycemic drugs; Z79.899 Other long term (current) drug therapy; W22.8XXA Striking against or struck by other objects, initial encounter
CPT/HCPCS: 36415; 36600; 73630; 76000; 80053; 80074; 80307; 80320; 81001; 82010; 82803; 83036; 83605; 83735; 84100; 84132; 84145; 85025; 85610; 85652; 85730; 86140; 86703; 87040; 87070; 87075; 87077; 87186; 87205; 90715; 96361; 96365; 96375; 96376; 97162; 99284; A4217; A4649; J0360; J0692; J1171; J1644; J1815; J2250; J2270; J2405; J2470; J2704; J2795; J3010; J3475; J3490; J7030; J7050; S0077; A9270; G0480; J0737; J1920

== ENCOUNTER 2025-05-10 11:39 | Emergency (ER) | payer MEDICAID, SELFPAY ==
[2025-05-10 11:40] VITALS: BMI 18.5
[2025-05-10 12:13] VITALS: BP 173/83; PULSE 96; RESP 18; TEMP 36.7; O2SAT 99
--- NOTE | 2025-05-10 12:29 | EDNOTE_ITS ---
ED General RME/HPI General Chief complaint: General Adult/Misc Complain Stated complaint: NEED RT FOOT WRAPPED S/P SURGERY Time Seen by Provider: 05/10/25 12:12 Arrival date/time: 05/10/25 11:39 Limitations: no limitations RME / HPI RME / HPI narrative: 60-year-old diabetic female comes in tearful. States had surgery 2 weeks ago. [facility] had 6 sutures placed and went in for follow-up with specialty 2 days ago but was told she does not have referral. She is in tears stating that she does not have wound care supplies and does not want to lose her leg. No fever at this time patient rewrapped the wound today. Asking for supplies and evaluation. Related Data Home Medications ?Medication ?Instructions ?Recorded ?Confirmed amitriptyline 100 mg tablet 100 mg PO HS 07/28/1904/11 atorvastatin 40 mg tablet 40 mg PO HS 07/28/19 5 gabapentin 100 mg capsule 100 mg PO HS 10/28/23 lamotrigine 25 mg tablet 25 mg PO HS 02/10/24 5 metoclopramide HCl 10 mg tablet 10 mg PO Q6H PRN upset stomach 02/10/24 04/29/25 mirtazapine 15 mg tablet 15 mg PO HS 02/10/24 5 pantoprazole 40 mg tablet,delayed 40 mg PO QDAY 04/29/25 release empagliflozin 5 mg-metformin 1,000 1 tab PO .Bid with meals 11/07/24 04/29/25 mg tablet (Synjardy) Held on 05/02/25. Instructions: Resume on 05/14/25. please see your primary care before resuming this medication cetirizine 10 mg tablet 10 mg PO QDAY 04/29/2504/29 metoprolol tartrate 50 mg tablet 50 mg PO BID 04/29/25 04/29/25 Previous Rx's ?Medication ?Instructions ?Recorded blood-glucose sensor (FreeStyle #1 ea 02/11/24 Osmani 3 Sensor device) clopidogrel 75 mg tablet 75 mg PO QDAY 30 days #30 ta bs 02/11/24 insulin syr/ndl U100 half windy 0.3 #100 ea 02/11/24 mL 29 gauge x 1/2 Held on 05/02/25. Instructions: Resume on 05/14/25. please hold until you see your primary care. albuterol sulfate 2.5 mg/3 mL 2.5 mg (3 mL) inhalation QID PRN 04/05/25 (0.083 %) solution for nebulization shortness of breat h or wheezing #90 mL albuterol sulfate 90 mcg/actuation 2 inh inhalation Q8 H PRN shortness 04/05/25 aerosol inhaler of breath or wheezing #8.5 g velia hydrocodone 5 mg-acetaminophen 325 1 tab PO Q6HR PRN P ain moderate 05/02/25 mg tablet 4-6 10 days #20 tabs hydroxyzine HCl 25 mg tablet 25 mg PO HS 30 days #30 t abs 05/02/25 insulin glargine 100 unit/mL (3 10 unit (0.1 mL) subcu t QAM #15 mL 05/02/25 mL) subcutaneous pen (Lantus Solostar U-100 Insulin) insulin glargine 100 unit/mL 15 unit (0.15 mL) subcut QPM #10 mL 05/02/25 subcutaneous solution (Lantus U-100 Insulin) insulin lispro 100 unit/mL 5 unit (0.05 mL) subcut TID #15 mL 05/02/25 subcutaneous pen lisinopril 40 mg tablet 40 mg PO QDAY 30 days #30 ta bs 05/02/25 Allergies Allergy/AdvReac Type Severity Reaction Status Date / Time aspirin Allergy Severe RASH Verified 04/29/25 13:21 cephalexin Allergy Severe Rash Verified 04/29/25 13:21 codeine Allergy Severe RASH Verified 04/29/25 13:21 diphenhydramine Allergy Severe Rash Verified 04/29/25 13:21 Penicillins Allergy Severe RASH Verified 04/29/25 13:21 Review of Systems Review of Systems Systems Reviewed: All systems reviewed, normal except as documented Constitutional Constitutional: Denies fever(s) Musculoskeletal Musculoskeletal: Reports as per HPI ED Exam General Limitations: Present no limitations General appearance: Present alert and in no apparent distress Eye Eye exam: Present normal appearance, PERRL and EOMI Respiratory Respiratory exam: Present normal lung sounds bilaterally Cardiovascular Cardiovascular exam: Present regular rate, normal rhythm and normal heart sounds Abdominal Exam Abdominal exam: Present soft and normal bowel sounds Extremities Exam Extremities exam: Present other (right foot with sutures in place, well healing no signs of infection to plantar foot ) Back Exam Back exam: Present normal inspection and full ROM Psychiatric Psychiatric exam: Present normal affect and normal mood Skin Skin exam: Present warm, dry, intact and normal color Course Quality Measures none Vital Signs Vital signs: Vital Signs Temperature 98.1 F 05/10/25 12:13 Pulse Rate 96 05/10/25 12:13 Respiratory Rate 18 05/10/25 12:13 Blood Pressure 173/83 H 05/10/25 12:13 Pulse Oximetry (%) 99 05/10/25 12:13 Oxygen Delivery Method Room Air 05/10/25 12:13 Discharge Plan Plan Patient Disposition: HOME (Self Care) Discharge Disposition comment: Follow-up with PCP in 2 to 3 days Prescriptions/Referrals Prescriptions/Med Rec: No Action atorvastatin 40 mg Tablet 40 mg PO HS amitriptyline 100 mg Tablet 100 mg PO HS gabapentin 100 mg capsule 100 mg PO HS albuterol sulfate 90 mcg/actuation HFA aerosol inhaler 2 inh inhalation Q8H PRN (Reason: shortness of breath or wheezing) Qty: 8.5 0RF albuterol sulfate 2.5 mg /3 mL (0.083 %) solution for nebulization 2.5 mg inhalation QID PRN (Reason: shortness of breath or wheezing) Qty: 90 0RF cetirizine 10 mg tablet 10 mg PO QDAY metoprolol tartrate 50 mg tablet 50 mg PO BID hydrocodone-acetaminophen 5-325 mg Tablet 1 tab PO Q6HR MDD 4 PRN (Reason: Pain moderate 4-6) 10 Days Qty: 20 0RF hydroxyzine HCl 25 mg Tablet 25 mg PO HS 30 Days Qty: 30 0RF insulin glargine [Lantus Solostar U-100 Insulin] 100 unit/mL (3 mL) insulin pen 10 unit subcut QAM Qty: 15 0RF Rx Instructions: 10 units subcutaneously; lisinopril 40 mg tablet 40 mg PO QDAY 30 Days Qty: 30 0RF insulin glargine [Lantus U-100 Insulin] 100 unit/mL solution 15 unit subcut QPM Qty: 10 0RF insulin lispro 100 unit/mL insulin pen 5 unit subcut TID Qty: 15 0RF Rx Instructions: 5 units with meals please lamotrigine 25 mg tablet 25 mg PO HS mirtazapine 15 mg tablet 15 mg PO HS metoclopramide HCl 10 mg Tablet 10 mg PO Q6H PRN (Reason: upset stomach) pantoprazole 40 mg Tablet,Delayed Release (Dr/Ec) 40 mg PO QDAY clopidogrel 75 mg Tablet 75 mg PO QDAY 30 Days Qty: 30 4RF (DME) FreeStyle Osmani 3 Sensor Device See Rx Instructions .Route Qty: 1 6RF Rx Instructions: As directed (DME) insulin syr/ndl U100 half windy 0.3 mL 29 gauge x 1/2 syringe See Rx Instructions .Route Qty: 100 0RF Rx Instructions: As directed Synjardy 5-1,000 mg tablet 1 tab PO .Bid with meals Problem List Clinical Impression: Post-op pain, Encounter for wound care Patient/Caregiver Discharge Instructions Education Materials: ED Wound Care Print Language: Luxembourgish Stand Alone Forms: Lela Award Info., Patient Portal Info Letter PA/MANAGER ORGANIZATIONAL Supervising Physician PA/MANAGER ORGANIZATIONAL Supervising Physician: Dr. Baca [facility] Clinical Information Provided by patient and family Medical Records Reviewed [facility] Meds/Rx Considered, not Ordered Describe details: Narcotics were considered however not indicated given patient is well-controlled Labs/Rad/Tests considered, not Ordered Describe details: No imaging or workup warranted at this time given appearance of foot
== END 2025-05-10 13:05 | disposition home or self-care (01) ==
LOC: SERX 12:39
PROVIDERS: Emergency Provider Family Medicine; PCP Family Medicine
DX: G89.18 Other acute postprocedural pain (principal)
CPT/HCPCS: 99281

== ENCOUNTER 2025-05-19 08:43 | Inpatient (IN) | payer MEDICAID, SELFPAY ==
[2025-05-19] VITALS (47 sets, daily range): BP systolic 116–208; BP diastolic 57–106; PULSE 81–106; RESP 14–96; TEMP 36.6–36.9; O2SAT 92–99; BMI 19.9
--- NOTE | 2025-05-19 08:50 | EKG_ITS ---
[facility] Test Date: 2025-05-19 Pat Name: SANTA BATES Department: Room: - Gender: Female Soil Technologist: : 1965 Requested By: Hubert Pacheco Order Number: [id number] Reading MD: Hubert Pacheco Measurements Intervals [place] Rate: 93 P: 83 [place]: 154 QRS: 80 QRSD: 90 T: 74 QT: 355 QTc: 442 Interpretive Statements SINUS RHYTHM POSSIBLE RIGHT ATRIAL ENLARGEMENT [0.25mV P-WAVE] POSSIBLE LEFT ATRIAL ENLARGEMENT [-0.1mV P-WAVE IN V1/V2] Compared to ECG 04/05/2025 11:31:59 No significant changes /store/S0/[id number].pdf
--- NOTE | 2025-05-19 08:58 | EDNOTE_ITS ---
ED Abdominal Pain RME/HPI General Chief Complaint: Abdominal Pain Stated complaint: VOMITING Time seen by provider: 05/19/25 08:49 Arrival date/time: 05/19/25 08:43 Source: patient and EMS Mode of arrival: EMS RME / HPI RME / HPI narrative: Ms. Cristobal is a 60-year-old female with past medical history of insulin- dependent type 2 diabetes mellitus, hypertension, hyperlipidemia, COPD, CAD s tatus post stent on Plavix, bipolar disorder and significant anxiety disorder who presented to [facility] emergency department on May 19, 2025 with a chief complaint of severe abdominal pain. Patient reported that her pain started last night, it has significantly worsened over the last 24 hours, she reports the pain is unbearable 10 out of 10 on evaluation patient has significant voluntary guarding. Patient also complains of significant nausea and vomiting, report received from EMS, per EMS patient's blood glucose in high 300s, patient was given Zofran p.o. en route to the ED. Patient has poorly controlled diabetes mellitus as evidenced by last A1c in April, high suspicion of DKA will order further workup. Patient reports adherence to her medication regimen, denies taking any medications this morning. Related Data Home Medications ?Medication ?Instructions ?Recorded ?Confirmed amitriptyline 100 mg tablet 100 mg PO HS 07/28/1904/11 atorvastatin 40 mg tablet 40 mg PO HS 07/28/19 5 gabapentin 100 mg capsule 100 mg PO HS 10/28/23 lamotrigine 25 mg tablet 25 mg PO HS 02/10/24 5 metoclopramide HCl 10 mg tablet 10 mg PO Q6H PRN upset stomach 02/10/24 04/29/25 mirtazapine 15 mg tablet 15 mg PO HS 02/10/24 5 pantoprazole 40 mg tablet,delayed 40 mg PO QDAY 04/29/25 release empagliflozin 5 mg-metformin 1,000 1 tab PO .Bid with meals 11/07/24 04/29/25 mg tablet (Synjardy) Held on 05/02/25. Instructions: Resume on 05/14/25. please see your primary care before resuming this medication cetirizine 10 mg tablet 10 mg PO QDAY 04/29/2504/29 metoprolol tartrate 50 mg tablet 50 mg PO BID 04/29/25 04/29/25 Previous Rx's ?Medication ?Instructions ?Recorded blood-glucose sensor (FreeStyle #1 ea 02/11/24 Osmani 3 Sensor device) clopidogrel 75 mg tablet 75 mg PO QDAY 30 days #30 ta bs 02/11/24 insulin syr/ndl U100 half windy 0.3 #100 ea 02/11/24 mL 29 gauge x 1/2 Held on 05/02/25. Instructions: Resume on 05/14/25. please hold until you see your primary care. albuterol sulfate 2.5 mg/3 mL 2.5 mg (3 mL) inhalation QID PRN 04/05/25 (0.083 %) solution for nebulization shortness of breat h or wheezing #90 mL albuterol sulfate 90 mcg/actuation 2 inh inhalation Q8 H PRN shortness 04/05/25 aerosol inhaler of breath or wheezing #8.5 g velia hydroxyzine HCl 25 mg tablet 25 mg PO HS 30 days #30 t abs 05/02/25 insulin glargine 100 unit/mL (3 10 unit (0.1 mL) subcu t QAM #15 mL 05/02/25 mL) subcutaneous pen (Lantus Solostar U-100 Insulin) insulin glargine 100 unit/mL 15 unit (0.15 mL) subcut QPM #10 mL 05/02/25 subcutaneous solution (Lantus U-100 Insulin) insulin lispro 100 unit/mL 5 unit (0.05 mL) subcut TID #15 mL 05/02/25 subcutaneous pen lisinopril 40 mg tablet 40 mg PO QDAY 30 days #30 ta bs 05/02/25 Allergies Allergy/AdvReac Type Severity Reaction Status Date / Time aspirin Allergy Severe RASH Verified 05/19/25 08:47 cephalexin Allergy Severe Rash Verified 05/19/25 08:47 codeine Allergy Severe RASH Verified 05/19/25 08:47 diphenhydramine Allergy Severe Rash Verified 05/19/25 08:47 Penicillins Allergy Severe RASH Verified 05/19/25 08:47 Review of Systems Review of Systems Narrative Review of Systems: ROS: -CONSTITUTIONAL: Denies weight loss, fever and chills. -HEENT: Denies changes in vision and hearing. -RESPIRATORY: Denies SOB and cough. -CV: Denies palpitations and Chest Pain. -GI: Positive for abdominal pain, nausea, vomiting, denies constipation and diarrhea. -: Denies dysuria and urinary frequency. -MSK: Denies myalgia and joint pain. -SKIN: Denies rash and pruritus. -NEUROLOGICAL: Denies headache and syncope. -PSYCHIATRIC: Denies recent changes in mood. Denies anxiety and depression. Past Medical History Past Medical History Comments PMH COMMENT: PMH: * Type 2 diabetes mellitus * Hypertension * Hyperlipidemia * COPD * CAD s/p stent (10 years ago) PSH: * PCI with stent ~10 years ago * No major surgeries otherwise Meds (pending med rec's): * Insulin * Metformin * Plavix * Amitriptyline * Gabapentin * Lamotrigine * Lisinopril * metoprolol * Inhalers/nebulizers for COPD Allergies: * Penicillin, rash reaction, denies anaphylaxis/airway compromise. * and other, refer to allergies section in emr Social: * Smokes ~? pack/day * Rare alcohol (special occasions) * No illicit drug use (remote use >10 yrs ago) * Lives with family Family Hx: * Noncontributory per patient ED Exam Narrative Physical exam: Physical Exam General: Awake and in significant pain, crying, frail, elderly Conversational and non-toxic appearing. HEENT: Normocephalic, atraumatic, mucous membranes moist. Heart: Regular rate and rhythm, no murmurs. Lungs: Clear to auscultation with no wheezing or crackles. Abdomen: Voluntary guarding, complains of severe tenderness Neurologic: Alert and oriented x3, no gross neurological deficit, and patient able to move all 4 extremities. Extremities: No edema. Skin: No rash or ecchymoses. Course Course Course Narrative: Patient was given morphine for pain control, post morphine patient's pain improved, CT abdomen pelvis obtained showed no appendicitis or diverticulitis, suspicion of perinephric stranding. EKG showed sinus rhythm, no acute ST-T changes. Labs obtained, show anion gap 22, beta hydroxybutyrate significantly elevated at 5.6, VBG pH 7.3. Urine ketones 4+ positive. Consulted intensive care unit for admission. Patient had poor IV access, right IJ central line placed, confirmed on x-ray no pneumothorax in good position Quality Measures none Orders Category Date Time Status Admit to Inpatient Status Routine Admission 05/19/25 10:30 Active Patient Condition Routine Admission 05/19/25 10:30 Ordered Bedside Blood Glucose Q6HR Care 05/19/25 10:29 Active Bedside Blood Glucose STAT Care 05/19/25 09:49 Active Population Health Coach STAT Care 05/19/25 09:49 Active Continuous Pulse Oximetry NOW Care 05/19/25 10:29 Completed DKA Protocol QSHIFT Care 05/19/25 09:49 Active EKG (ED ONLY) *Do not use* NOW Care 05/19/25 08:50 Completed Insert IV STAT Care 05/19/25 09:49 Active Intake and Output Routine Care 05/19/25 09:49 Ordered NPO NOW Care 05/19/25 09:49 Active NPO NOW Care 05/19/25 10:30 Active Notify provider NEEDED Care 05/19/25 09:49 Active Notify provider NEEDED Care 05/19/25 10:30 Active Strict Intake and Output Routine Care 05/19/25 10:[address] Maintenance Crew Worker Stat Cons 05/19/25 09:52 Ordered Referral Registered Dietitian Routine Cons 05/19/25 09:49 Active Diet NPO (NOW) Diet 05/19/25 10:[address] abdomen pelvis wo con Stat Exams 05/19/25 08:59 Completed EKG (ED Only) Stat Exams 05/19/25 08:50 Draft Amylase Stat Lab 05/19/25 08:53 Completed Beta Hydroxybutyrate Stat Lab 05/19/25 08:53 Completed Blood Culture (Lab) Stat Lab 05/19/25 10:17 Ordered CBC AM DRAW Lab 05/20/25 05:00 Ordered CBC AM DRAW Lab 05/21/25 05:00 Ordered CBC AM DRAW Lab 05/22/25 05:00 Ordered CBC Stat Lab 05/19/25 08:53 Completed CMP [Comprehensive Metabolic Panel] Stat Lab 05/19/25 08:53 Completed Drug Screen,Urine Stat Lab 05/19/25 11:06 Completed Lactate (Lactic Acid) Stat Lab 05/19/25 08:53 Completed Lipase Stat Lab 05/19/25 08:53 Completed Mag [Magnesium] Stat Lab 05/19/25 08:53 Completed Magnesium AM DRAW Lab 05/20/25 05:00 Ordered Magnesium AM DRAW Lab 05/21/25 05:00 Ordered Magnesium AM DRAW Lab 05/22/25 05:00 Ordered Magnesium Q4H Lab 05/19/25 13:00 Ordered Magnesium Q4H Lab 05/19/25 17:00 Ordered Magnesium Q4H Lab 05/19/25 21:00 Ordered Magnesium Q4H Lab 05/20/25 01:00 Ordered Magnesium Q4H Lab 05/20/25 05:00 Ordered Magnesium Q4H Lab 05/20/25 09:00 Ordered Magnesium Q4H Lab 05/20/25 13:00 Ordered Magnesium Q4H Lab 05/20/25 17:00 Ordered Magnesium Q4H Lab 05/20/25 21:00 Ordered Magnesium Q4H Lab 05/21/25 01:00 Ordered Magnesium Q4H Lab 05/21/25 05:00 Ordered Magnesium Q4H Lab 05/21/25 09:00 Ordered Partial Thromboplastin Time AM DRAW Lab 05/20/25 05:00 Ordered Phosphorous AM DRAW Lab 05/20/25 05:00 Ordered Phosphorous AM DRAW Lab 05/21/25 05:00 Ordered Phosphorous AM DRAW Lab 05/22/25 05:00 Ordered Phosphorous Q4H Lab 05/20/25 01:00 Ordered Phosphorous Q4H Lab 05/20/25 05:00 Ordered Phosphorous Q4H Lab 05/20/25 09:00 Ordered Phosphorous Q4H Lab 05/20/25 13:00 Ordered Phosphorous Q4H Lab 05/20/25 17:00 Ordered Phosphorous Q4H Lab 05/20/25 21:00 Ordered Phosphorous Q4H Lab 05/21/25 01:00 Ordered Phosphorous Q4H Lab 05/21/25 05:00 Ordered Phosphorous Q4H Lab 05/21/25 09:00 Ordered Phosphorous Stat Lab 05/19/25 08:53 Completed Prothrombin Time with INR AM DRAW Lab 05/20/25 05:00 Ordered Renal Function Panel Q4H Lab 05/19/25 13:00 Ordered Renal Function Panel Q4H Lab 05/19/25 14:45 Ordered Renal Function Panel Q4H Lab 05/19/25 17:00 Ordered Renal Function Panel Q4H Lab 05/19/25 18:45 Ordered Renal Function Panel Q4H Lab 05/19/25 21:00 Ordered Renal Function Panel Q Lab 05/19/25 22:45 Ordered Renal Function Panel Q Lab 05/20/25 01:00 Ordered Renal Function Panel Q Lab 05/20/25 02:45 Ordered Renal Function Panel Q Lab 05/20/25 05:00 Ordered Renal Function Panel Q Lab 05/20/25 06:45 Ordered Renal Function Panel Q Lab 05/20/25 09:00 Ordered Renal Function Panel Q Lab 05/20/25 10:45 Ordered Renal Function Panel Q Lab 05/20/25 13:00 Ordered Renal Function Panel Q Lab 05/20/25 14:45 Ordered Renal Function Panel Q Lab 05/20/25 17:00 Ordered Renal Function Panel Q Lab 05/20/25 18:45 Ordered Renal Function Panel Q Lab 05/20/25 21:00 Ordered Renal Function Panel Q Lab 05/20/25 22:45 Ordered Renal Function Panel [facility] Lab 05/21/25 01:00 Ordered Renal Function Panel [facility] Lab 05/21/25 02:45 Ordered Renal Function Panel Q Lab 05/21/25 05:00 Ordered Renal Function Panel Q Lab 05/21/25 06:45 Ordered Renal Function Panel [facility] Lab 05/21/25 09:00 Ordered Renal Function Panel [facility] Lab 05/21/25 10:45 Ordered Thyroid Stimulating Hormone AM DRAW Lab 05/20/25 05:00 Ordered Troponin I Stat Lab 05/19/25 08:53 Completed Urinalysis, C/S if Indicated Stat Lab 05/19/25 11:06 Completed VBG [Venous Blood Gas] Stat Lab 05/19/25 08:53 Completed Dextrose 5%-Lactated Ringers [D5-Lr] 1,000 ml Med 05/19/25 09:49 Active Pot Chl Additive [KCl Additive] 20 meq IV 250 mls/hr Dextrose 5%-Lactated Ringers [D5-Lr] 1,000 ml Med 05/19/25 09:49 Active Pot Chl Additive [KCl Additive] 40 meq IV 250 mls/hr Dextrose 5%-Lactated Ringers [D5-Lr] 1,000 ml Med 05/19/25 09:49 Active IV 250 mls/hr Dextrose 50% Syr [D50w Syringe Abboject] Med 05/19/25 09:49 Active 25 ml IV PRNMRX1 PRN Enoxaparin [Lovenox] Med 05/20/25 09:00 Active 40 mg SC QDAY Insulin Regular Med 05/19/25 09:49 Discontinued 4.8 unit IV X1 ONE Magnesium Sulfate 2 GM Ivpb [Magnesium Sulfate Ivpb] Med 05/19/25 09:49 Active 2 gm in 50 ml IV 25 mls/hr Morphine* Inj Med 05/19/25 08:59 Discontinued 1 mg IVP X1 ONE Ondansetron Inj [Zofran Inj] Med 05/19/25 08:50 Active 4 mg IVP Q6HR PRN POT PHOS 15 mMol in NS 250 ML [Pot Phos 15 mMol in NS Med 05/19/25 09:49 Active 250 ml] 15 mmol in 250 ml IV PRN POTASSIUM CHL 10 mEq IVPB [Kcl Ivpb] Med 05/19/25 09:49 Active 10 meq in 100 ml IV 100 mls/hr POTASSIUM CHL 10 mEq IVPB [Kcl Ivpb] Med 05/19/25 09:49 Active 10 meq in 100 ml IV PRN Pre-Mixed [Pre-mixed Bag] 1 bag Med 05/19/25 09:49 Active Insulin Reg 100 Units/100 ml [Myxredlin] 100 unit IV 0.1 unit/kg/hr Ringers Lactated 1000 ml [Lactated Ringers] 1,000 ml Med 05/19/25 09:49 Active Pot Chl Additive [KCl Additive] 20 meq IV 250 mls/hr Ringers Lactated 1000 ml [Lactated Ringers] 1,000 ml Med 05/19/25 09:49 Active Pot Chl Additive [KCl Additive] 40 meq IV 250 mls/hr Ringers Lactated 1000 ml [Lactated Ringers] 1,000 ml Med 05/19/25 09:49 Active IV 250 mls/hr Ringers Lactated 1000 ml [Lactated Ringers] 1,000 ml Med 05/19/25 09:02 Discontinued IV 999 mls/hr Ringers Lactated 1000 ml [Lactated Ringers] 1,000 ml Med 05/19/25 10:00 Active IV Q2H Sodium Bicarb 8.4% SYR Med 05/19/25 09:49 Active 50 ml IV Q4HR PRN Sodium Chloride 0.9% 250 ml [Ns] 250 ml Med 05/19/25 09:49 Active Sod Phos Additive [NaPhos Additive] 15 mmol IV 62.5 mls/hr cefTRIAXone [Rocephin] 2 gm Med 05/19/25 09:57 Discontinued SODIUM CHLORIDE 0.9% (Popper) [Ns 0.9% (P)] 50 ml IV X1 Code Status Routine Oth 05/19/25 10:29 Ordered Vital Signs Vital signs: Vital Signs Temperature 98.0 F 05/19/25 08:47 Pulse Rate 92 05/19/25 08:47 Respiratory Rate 18 05/19/25 08:47 Blood Pressure 193/88 H 05/19/25 08:47 Pulse Oximetry (%) 97 05/19/25 08:47 Oxygen Delivery Method Room Air 05/19/25 08:47 PROCEDURES: Central Line Placement Right IJ: Time Out Performed: Yes Patient Placed on Monitor/Pulse Ox: Yes Hand Hygiene: scrub, soap & water and alcohol-based hand rub Max Sterile Barrier Techniques used: cap, mask, sterile gown, sterile gloves and sterile full body drape Central Line Prep: Chlorhexidine scrub and sterile drapes applied Local Anesthetic: lidocaine 1% Amount of anesthesia used (mL): 3 Ultrasound Used for Placement: Yes Sterile Technique if Ultrasound used, including sterile gel: yes Central Line Lumen Inserted: triple Post Procedure: sutured in place, good blood return, all ports aspirated, flushed, capped and sterile dressing applied Post Procedure X-Ray: tip of catheter in good position and no pneumothorax seen Patient Tolerated Procedure: well Complications: none Additional Comments: The [facility] Central Line Insertion Practices form was completed by an independent observer starting with the first handwash prior to starting sterile technique. A time out was performed. My hands were washed immediately prior to the procedure. I wore a surgical cap, mask, sterile gown and sterile gloves throughout the procedure. The patient was placed in Trendelenburg position. The right neck region was prepped using chlorhexidine scrub and draped in sterile fashion using a full drape and sterile probe cover and sterile gel employed. Anesthesia was achieved with 1% lidocaine. The introducer needle was inserted. Venous blood was withdrawn. The syringe was removed and a guidewire was advanced into the introducer needle. A small incision was made at the skin surface with a scalpel and the introducer needle was exchanged for a dilator over the guidewire. After appropriate dilation was obtained, the dilator was exchanged over the wire for a central venous catheter. The wire was removed and the catheter was sutured in place. A sterile sorbaview shield and biopatch was placed over the catheter at the insertion site. The patient tolerated the procedure without any hemodynamic compromise. At time of procedure completion, all ports aspirated and flushed properly. Estimated blood loss is 10ml. Post procedure CXR shows catheter tip in good position. Procedure performed under supervision of ED Physician Dr Semaj Pacheco MD Internal Medicine PGY-2 Abdominal Pain MDM MDM Narrative MDM Narrative:: #Moderate DKA #Type 2 diabetes mellitus insulin-dependent Patient's beta hydroxybutyrate 5.6 on presentation, blood glucose significantly elevated, started on DKA protocol and insulin drip CT abdomen pelvis showed possible perinephric stranding, blood cultures ordered, patient will be given ceftriaxone 2 g x 1 Central line placed for poor peripheral access. Consulted asp net developer team for admission, patient will be [facility] to [facility] Case discussed with Attending Physician Dr. Semaj Pacheco MD Internal Medicine PGY-2 Disclaimer: This note was dictated by speech recognition. Minor errors in director internal communications may be present due to voice recognition software. Patient data External records reviewed:: [facility] previous records Clinical information provided by:: patient and EMS Social determinants that could affect healthcare access:: none Patient has the following chronic illnesses:: Type 2 insulin-dependent diabetes mellitus and others as above How is presenting disease/condition affected by chronic disease/condition?: exacerbated by Evaluation data The following diagnostics were reviewed and interpreted by me:: lab results, radiology exam(s) and EKG tracing(s) Lab and/or radiology exams considered but not ordered:: None Interpretation Summary: CT abdomen pelvis obtained showed no appendicitis or diverticulitis, suspicion of perinephric stranding. EKG showed sinus rhythm, no acute ST-T changes. Labs obtained, show anion gap 22, beta hydroxybutyrate significantly elevated at 5.6, VBG pH 7.3. Consulted intensive care unit for admission. Medications / Prescriptions Medications or Prescriptions considered but not ordered:: None Medication administrations:: Medication Administration History Albuterol/Ipratropium (Albuterol/Ipratropium (Duoneb) Rt Antonella 3 Ml Nebu) 3 ml INH Q2HR PRN PRN Reason: SHORTNESS OF BREATH OR WHEEZE Stop: 06/18/25 11:14 Albuterol/Ipratropium (Albuterol/Ipratropium (Duoneb) Rt Antonella 3 Ml Nebu) 3 ml INH Q8HRRT BIRDIE Stop: 06/18/25 14:59 Amitriptyline HCl (Amitriptyline Hcl 25 Mg Tablet) 100 mg PO HS BIRDIE Stop: 06/18/25 20:59 Atorvastatin Calcium (Atorvastatin Calcium 20 Mg Tablet) 40 mg PO HS BIRDIE Stop: 06/18/25 20:59 Clopidogrel Bisulfate (Clopidogrel Bisulfate 75 Mg Tablet) 75 mg PO QDAY BIRDIE Stop: 06/19/25 08:59 Dextrose (Dextrose 50%-Water Inj 50 Ml Syringe) 25 ml IV PRNMRX1 PRN PRN Reason: Blood Sugar - Low Enoxaparin Sodium (Enoxaparin Sod Inj 40 Mg/0.4 Ml Syringe) 40 mg SC QDAY BIRDIE Stop: 06/03/25 08:59 Gabapentin (Gabapentin 100 Mg Capsule) 100 mg PO HS [facility] Stop: 06/18/25 20:59 Potassium Chloride (Kcl Ivpb) 10 meq in 100 mls @ 100 mls/hr IV .Q1H PRN PRN Reason: IF POTASSIUM LESS THAN 3.3 Stop: 06/18/25 09:48 Magnesium Sulfate (Magnesium Sulfate Ivpb) 2 gm in 50 mls @ 25 mls/hr IV .Q2H PRN PRN Reason: PER DKA PROTOCOL Stop: 06/18/25 09:48 Insulin Human Regular 100 unit (/ IV Miscellaneous Supplies) 100 mls @ 4.79 mls/hr IV .[id number] PRN; Protocol PRN Reason: PER PROTOCOL Stop: 06/18/25 09:48 Last Titration: 05/19/25 12:46 Dose: 0.1 unit/kg/hr, 4.79 mls/hr Documented By: LINDSEY Co-signed By: ARF Titration: 05/19/25 11:41 Dose: 0.1 unit/kg/hr, 4.79 mls/hr Documented By: LINDSEY Co-signed By: DB Admin: 05/19/25 10:50 Dose: 0.1 unit/kg/hr, 4.79 mls/hr Documented By: LINDSEY Co-signed By: CLAIRE Dextrose/Lactated Ringer's (D5-Lr) 1,000 mls @ 250 mls/hr IV .Q4H PRN PRN Reason: PER PROTOCOL Stop: 06/18/25 09:48 Lactated Ringer's (Lactated Ringers) 1,000 mls @ 250 mls/hr IV .Q4H PRN PRN Reason: PER PROTOCOL Stop: 05/20/25 09:48 Potassium Chloride 20 meq/ (Lactated Ringer's) 1,010 mls @ 250 mls/hr IV .Q4H3M PRN PRN Reason: K LEVEL 3.3 TO 5.3mM/L Stop: 06/18/25 09:48 Potassium Chloride 40 meq/ (Lactated Ringer's) 1,020 mls @ 250 mls/hr IV .Q4H5M PRN PRN Reason: K LEVEL < 3.3 mM/L Stop: 06/18/25 09:48 Potassium Chloride 40 meq/ (Dextrose/Lactated Ringer's) 1,020 mls @ 250 mls/hr IV .Q4H5M PRN PRN Reason: K LEVEL < 3.3mM/L Stop: 06/18/25 09:48 Potassium Chloride 20 meq/ (Dextrose/Lactated Ringer's) 1,010 mls @ 250 mls/hr IV .Q4H3M PRN PRN Reason: K LEVEL 3.3 TO 5.3 mM/L Potassium Chloride (Kcl Ivpb) 10 meq in 100 mls @ 50 mls/hr IV PRN PRN PRN Reason: K LEVEL 3.3 to 5.3 & BG > 200 Stop: 06/18/25 09:48 Sodium Phosphate 15 mmol/ (Sodium Chloride) 255 mls @ 62.5 mls/hr IV .Q4H5M PRN PRN Reason: Phosphate <= 1mg/dL and K> than 5.3 Stop: 06/18/25 09:48 Potassium Phosphate (Pot Phos 15 Mmol In Ns 250 Ml) 15 mmol in 250 mls @ 62.5 mls/hr IV PRN PRN PRN Reason: Phosphate <= 1mg/dL Stop: 06/18/25 09:48 Lactated Ringer's (Lactated Ringers) 1,000 mls @ 500 mls/hr IV Q2H BIRDIE Stop: 05/19/25 13:59 Last Admin: 05/19/25 12:05 Dose: Not Given Documented By: GM Non-Admin Reason: Duplicate Medication on eMAR Admin: 05/19/25 11:51 Dose: 500 mls/hr Documented By: GM Ceftriaxone Sodium/Dextrose (Rocephin/D5w 1gm Iv Premix) 1 gm in 50 mls @ 100 mls/hr IV QDAY [facility] Stop: 05/27/25 08:59 Labetalol HCl (Labetalol Inj 5 Mg/Ml Vial 20 Ml) 10 mg IVP Q8H PRN PRN Reason: SBP > 180 DBP > 100 Stop: 06/18/25 11:26 Last Admin: 05/19/25 12:10 Dose: 10 mg Documented By: GM Lamotrigine (Lamotrigine 25 Mg Chew) 25 mg PO [facility] Stop: 06/18/25 20:59 Lisinopril (Lisinopril 20 Mg Tablet) 40 mg PO QDAY [facility] Stop: 06/18/25 11:29 Last Admin: 05/19/25 12:04 Dose: Not Given Documented By: GM Non-Admin Reason: Nausea Metoprolol Tartrate (Metoprolol Tartrate 25 Mg Tablet) 50 mg PO BID [facility] Stop: 06/18/25 11:29 Last Admin: 05/19/25 12:05 Dose: Not Given Documented By: GM Non-Admin Reason: Nausea Mirtazapine (Mirtazapine 15 Mg Tablet) 15 mg PO [facility] Stop: 06/18/25 20:59 Ondansetron HCl (Ondansetron Inj 2 Mg/Ml Inj 2 Ml) 4 mg IVP Q6HR PRN; Protocol PRN Reason: NAUSEA OR VOMITING Stop: 06/18/25 08:49 Last Admin: 05/19/25 09:37 Dose: 4 mg Documented By: GM Sodium Bicarbonate (Sodium Bicarb Inj 8.4% Syr 50 Ml Syringe) 50 ml IV Q4HR PRN PRN Reason: For ph <= to 7.0 Stop: 06/18/25 09:48 Discontinued Medications Lactated Ringer's (Lactated Ringers) 1,000 mls @ 999 mls/hr IV .Q1H1M ONE Stop: 05/19/25 10:02 Last Infusion: 05/19/25 11:26 Dose: Infused Documented By: Admin: 05/19/25 09:30 Dose: 999 mls/hr Documented By: EF Ceftriaxone Sodium 2 gm/ (Sodium Chloride) 50 mls @ 100 mls/hr IV X1 ONE Stop: 05/19/25 10:26 Last Infusion: 05/19/25 12:25 Dose: Infused Documented By: Admin: 05/19/25 11:54 Dose: 100 mls/hr Documented By: GM Insulin Human Regular (Insulin Hum Regular 1 Unit/0.01 Ml (Per Unit)) 4.8 unit 0.1 unit/kg (4.8 unit) IV X1 ONE Stop: 05/19/25 09:50 Last Admin: 05/19/25 10:32 Dose: 4.8 unit Documented By: LINDSEY Co-signed By: MADHU Metoclopramide HCl (Metoclopramide Inj 5 Mg/Ml Vial 2 Ml) 10 mg IVP X1 ONE; Protocol Stop: 05/19/25 10:50 Last Admin: 05/19/25 11:43 Dose: 10 mg Documented By: LINDSEY Morphine Sulfate (Morphine Sulf Inj 4 Mg/Ml Vial) 1 mg IVP X1 ONE Stop: 05/19/25 09:00 Last Admin: 05/19/25 09:39 Dose: 1 mg Documented By: LINDSEY as above Consultations Consultation(s) initiated? (list below): Yes Consultation #1 (Physician, Specialty, Details): Dr. Capellan, Highway Maintenance Crew Worker, admission to ICU for DKA Diagnosis Differential diagnosis abdominal pain: other (Pyelonephritis) Most likely diagnosis given after review of the tests above:: Patient has DKA, can have exacerbation of nausea and vomiting, pending urinalysis. Admission Indicated Admission indicated?: indicated Admission Request Was there a request for admission?: Yes Admission Attestation Admission request attestation: Discussed case with Dr Velásquez from Hospitalist service regarding admission. Discussed patients ED course, exam findings, labs, and radiology results. The Highway Maintenance Crew Worker agrees to accept the patient for admission. Disposition Plan Disposition Plan: Admit Discharge Plan Plan Patient Disposition: Admit Acute Care w/in Hospital Patient condition on transfer: Stable Problem List Clinical Impression: DKA (diabetic ketoacidosis)
--- NOTE | 2025-05-19 08:59 | XR_ITS ---
Examination: CT abdomen and pelvis without contrast. Coronal 3-D reconstructions. Sagittal 2-D reconstructions. Date and time of exam:May 19 2025, 0908 hours, comparison January 25, 2024. INDICATIONS: Generalized abdominal pain with severe nausea and vomiting today CTDI: vol (mGy): 4.22 DLP: (mGycm): 204 Technique: Axial images of the abdomen have been obtained, 3 mm slice thickness Intravenous contrast material has not been administered. Low dose protocols were performed. One or more of the following dose reduction techniques were used; automated exposure control, adjustment of the mA and/or KV according to patient size, use of iterative reconstruction technique. Findings: No focal liver or splenic lesion No gallstones No pancreatic mass Suspicious for renal edema, bilateral perinephric stranding No renal or ureteral calculi, no hydronephrosis Heavy abdominal aortic calcification no aneurysmal dilatation No pericecal inflammatory change No bowel obstruction No diverticulitis Anteverted uterus Urinary bladder is intact Moderate osteopenia IMPRESSION: Suspicious for bilateral urinary tract infection No CT findings of appendicitis or diverticulitis
[2025-05-19 09:00] LABS: Base Excess, Venous -2 (-3-3); Basophils # (Auto) 0.1 Thou/mm3 (0.0-0.2); Basophils % (Auto) 1 % (0-2.5); Eosinophils # (Auto) 0.0 Thou/mm3 (0.0-0.5); Eosinophils % (Auto) 0 % (0-10); Hematocrit 42.9 % (36.0-46.0); Hemoglobin 13.6 g/dL (12.0-16.0); Immature Granulocytes Auto 0.05 Thou/mm3 (0.00-0.00); Lymphocytes # (Auto) 0.9 Thou/mm3 (1.0-4.8); Lymphocytes % (Auto) 6 % (10-50); Mean Corpuscular HGB Conc 31.7 g/dl (31.0-37.0); Mean Corpuscular Hemoglobin 26.1 pg (25.0-35.0); Mean Corpuscular Volume 82 fL (80-100); Monocytes # (Auto) 0.2 Thou/mm3 (0.0-0.8); Monocytes % (Auto) 2 % (0-12); Neutrophils # (Auto) 13.7 Thou/mm3 (1.8-7.7); Neutrophils % (Auto) 92 % (37-80); Nucleated Red Blood Cell # 0.00 Thou/mm3 (0.00-0.00); Nucleated Red Blood Cell % 0 /100 WBC (0); O2 Saturation, Venous 45 % (96-97); PCO2, Venous 45 mmHg (36-56); PO2, Venous 28 mmHg (15-58); Platelet Count 546 Thou/mm3 (140-440); RDW Standard Deviation 53.1 fL (36.4-46.3); Red Blood Count 5.22 Miln/mm3 (4.00-5.20); White Blood Count 14.9 Thou/mm3 (3.6-11.0); pH, Venous 7.33 (7.33-7.66)
[2025-05-19 09:02] LABS: Lactate (Lactic Acid) 1.6 mMol/L (0.4-2.0)
[2025-05-19 09:13] LABS: Beta Hydroxybutyrate 5.6 mmol/L (<0.6)
[2025-05-19] MEDS: RINGERS LACTATED 1000 ML 1,000 ML 999 ML IV (09:30)
[2025-05-19] MEDS: ONDANSETRON INJ 2 MG/ML INJ 2 ML 4 MG IVP ×3 (09:37→19:36)
[2025-05-19 09:39] LABS: Alanine Aminotransferase 63 U/L (10-49); Albumin, Serum 4.5 gm/dL (3.4-4.8); Albumin/Globulin Ratio 2.0 (1.2-2.2); Alkaline Phosphatase 173 U/L (46-116); Amylase 48 U/L (30-118); Anion Gap 20 (7-16); Aspartate Amino Transferase 31 U/L (0-34); BUN/Creatinine Ratio 21 Ratio (12-20); Bilirubin,Total 0.4 mg/dL (0.3-1.2); Blood Urea Nitrogen 21 mg/dL (9-23); Calcium 10.7 mg/dL (8.3-10.6); Calcium (Corrected) 10.7 mg/dL (8.5-10.1); Carbon Dioxide 22.2 mMol/L (20.0-31.0); Chloride 98 mMol/L (98-107); Creatinine (Component) 1.0 mg/dL (0.6-1.3); Estimated Creatinine Clearance 45.1 mL/min (>60); Globulin 2.2 gm/dL (2.3-3.5); Glucose 316 mg/dL (74-106); Lipase 21 U/L (12-53); Magnesium 1.9 mg/dL (1.6-2.6); Osmolality,Calculated 294 (275-295); Phosphorous 4.1 mg/dL (2.4-5.1); Potassium 4.3 mMol/L (3.4-5.1); Sodium 140 mMol/L (136-145); Total Protein 6.7 gm/dL (5.7-8.2); Troponin I < 0.020 ng/mL (0.0-0.045); eGFR > 60 See Note
[2025-05-19] MEDS: MORPHINE SULF INJ 4 MG/ML VIAL 1 MG IVP ×4 (09:39→20:59)
[2025-05-19] MEDS: INSULIN HUM REGULAR 1 UNIT/0.01 ML (PER UNIT) 4.8 UNIT IV (10:32)
--- NOTE | 2025-05-19 10:32 | XR_ITS ---
Examination: AP chest single view Technique one AP portable upright chest single view Date and time: May 19, 2025 1136 hours, comparison April 05, 2025 INDICATIONS: Post central line placement today. FINDINGS: Right internal jugular central line tip SVC satisfactory position, no pneumothorax. Normal heart size Stable blunting of the right lateral costophrenic angle Severe osteopenia IMPRESSION: Right internal jugular central line tip SVC satisfactory position, no pneumothorax
--- NOTE | 2025-05-19 10:38 | PD.RESHP ---
Documentation for date of: 05/19/25 [facility] History of Present Illness Chief complaint: abdominal pain History of present illness: Patient is a 60 years old female with PMH of IDDM2, HTN, HLD, COPD, CAD s/p stent on Plavix, bipolar disorder, recent admission due to cellulitis s/p I&D and foreign body removal 04/30/2025 presented to the ED due to vomiting and abdominal pain. Her symptoms started yesterday, she vomited several times, denies seeing any blood. She denies any fever, chills, URI symptoms, diarrhea or chest pain. She reports she is compliant with her insulin regimen which was changed 2 weeks ago when she was admitted to [facility] due to Rt foot cellulitis, however she is unable to tell how much of insulin she was getting at home. She was previously admitted due to DKA in 2023 and 2022. She denies drinking alcohol, smoking tobacco or using illicit drugs. She completed course of antibiotics with cephalexin for cellulitis recently. On admission her vitals are stable, she is hypertensive with BP of 193/88. Labs showed WBCs 14.9, PLT 546, HCO3 22.2, anion gap 20, glucose 316, LA 1.6, ALT 63, ALP 173, troponin negative, BHB 5.6. EKG showed sinus tachycardia. CTAP was suspicious for bilateral urinary tract infection. Urinalysis pending. She was given 1L of LR and 2g of ceftriaxone IV, was started on DKA protocol and admitted to ICU for further management. PMH: IDDM2, HTN, HLD, COPD, CAD s/p stent on Plavix, bipolar disorder. PSH: PCI 10 years ago, I&D and foreign body removal 04/30/2025. SH: denies drinking alcohol, smoking tobacco or using illicit drugs. Ex-smoker. FH: none. Allergies: aspirin, cephalexin, codeine, diphenhydramine, penicillin. Medications: insulin lispro and glargine, albuterol, clopidogrel, gabapentin, hydroxisine, lisinopril, metoprolol tartrate, mirtazapine, lamotrigine. Med rec is pending. Review of Systems Review of Systems Systems Reviewed: All systems reviewed, normal except as documented Exam Vital Signs Temp Pulse Resp BP Pulse Ox O2 Del Method 98.0 F 92 18 193/88 H 97 Room Air 05/19/25 08:47 05/19/25 08:47 05/19/25 08:47 05/19/25 08:47 05/19/25 08:47 05/19/25 08:47 Narrative Exam Gen: Well-developed and well-nourished elderly female. HEENT: NCAT, PERRLA, EOMI, MMM, anicteric conjunctivae. CVS: normal S1 and S2. RRR. No M/R/G. Resp: CTA B/L. No rhonchi, rales, crackles or wheezing. Abd: soft, minimally tender, non-distended. BS+ in all 4 quadrants. MSK: Good ROM in BUE & BLE. No edema or rash. Rt foot has 3 cm surgical scar on plantar aspect with some yellow drainage. Neuro: CN II-XII grossly intact. Strength 5/5 in BUE & BLE. Alert and oriented x3. Appears weak. Results: Labs 05/19/25 08:53 05/19/25 17:42 Labs: Short CBC 05/19/25 Range/Units 08:53 WBC 14.9 H (3.6-11.0) Thou/mm3 Hgb 13.6 (12.0-16.0) g/dL Hct 42.9 (36.0-46.0) % Plt Count 546 H D (140-440) Thou/mm3 BMP 05/19/25 08:53 Sodium 140 Potassium 4.3 Chloride 98 Carbon Dioxide 22.2 BUN 21 Creatinine 1.0 Glucose 316 H Calcium 10.7 H Cardiac Enzymes 05/19/25 Range/Units 08:53 Troponin I < 0.020 (0.0-0.045) ng/mL Liver Function 05/19/25 Range/Units 08:53 Total Bilirubin 0.4 (0.3-1.2) mg/dL AST 31 (0-34) U/L ALT 63 H (10-49) U/L Alkaline Phosphatase 173 H (46-116) U/L Albumin 4.5 (3.4-4.8) gm/dL ABG Interpretation ABG results: 05/19/25 08:53 VBG pH 7.33 VBG pCO2 45 VBG pO2 28 VBG Base Excess -2 Quality Measures Quality Measures VTE prophylaxis Medications Home Medications and Allergies Home Medications ?Medication ?Instructions ?Recorded ?Confirmed ?Type amitriptyline 100 mg tablet 100 mg PO HS 07/28/19 05/19/25 History atorvastatin 40 mg tablet 40 mg PO HS 07/28/19 05/19/25 History gabapentin 100 mg capsule 100 mg PO HS 10/28/23 05/19/25 History lamotrigine 25 mg tablet 25 mg PO HS 02/10/24 05/19/25 History metoclopramide HCl 10 mg tablet 10 mg PO Q6H PRN upset stomach 02/10/24 05/19/25 History mirtazapine 15 mg tablet 15 mg PO HS 02/10/24 05/19/25 History pantoprazole 40 mg tablet,delayed 40 mg PO QDAY 02/10/24 05/19/25 History release cetirizine 10 mg tablet 10 mg PO QDAY 04/29/25 05/19/25 History Allergies Allergy/AdvReac Type Severity Reaction Status Date / Time aspirin Allergy Severe RASH Verified 05/19/25 08:47 cephalexin Allergy Severe Rash Verified 05/19/25 08:47 codeine Allergy Severe RASH Verified 05/19/25 08:47 diphenhydramine Allergy Severe Rash Verified 05/19/25 08:47 Penicillins Allergy Severe RASH Verified 05/19/25 08:47 Visit Medications Dextrose (Dextrose 50%-Water Inj 50 Ml Syringe) 25 ml IV [id number] PRN PRN Reason: Blood Sugar - Low Enoxaparin Sodium (Enoxaparin Sod Inj 40 Mg/0.4 Ml Syringe) 40 mg SC QDAY [facility] Stop: 06/03/25 08:59 Potassium Chloride (Kcl Ivpb) 10 meq in 100 mls @ 100 mls/hr IV .Q1H PRN PRN Reason: IF POTASSIUM LESS THAN 3.3 Stop: 06/18/25 09:48 Magnesium Sulfate (Magnesium Sulfate Ivpb) 2 gm in 50 mls @ 25 mls/hr IV .Q2H PRN PRN Reason: PER DKA PROTOCOL Stop: 06/18/25 09:48 Insulin Human Regular 100 unit (/ IV Miscellaneous Supplies) 100 mls @ 4.79 mls/hr IV .[id number] PRN; Protocol PRN Reason: PER PROTOCOL Stop: 06/18/25 09:48 Dextrose/Lactated Ringer's (D5-Lr) 1,000 mls @ 250 mls/hr IV .Q4H PRN PRN Reason: PER PROTOCOL Stop: 06/18/25 09:48 Lactated Ringer's (Lactated Ringers) 1,000 mls @ 250 mls/hr IV .Q4H PRN PRN Reason: PER PROTOCOL Stop: 05/20/25 09:48 Potassium Chloride 20 meq/ (Lactated Ringer's) 1,010 mls @ 250 mls/hr IV .Q4H3M PRN PRN Reason: K LEVEL 3.3 TO 5.3mM/L Stop: 06/18/25 09:48 Potassium Chloride 40 meq/ (Lactated Ringer's) 1,020 mls @ 250 mls/hr IV .Q4H5M PRN PRN Reason: K LEVEL < 3.3 mM/L Stop: 06/18/25 09:48 Potassium Chloride 40 meq/ (Dextrose/Lactated Ringer's) 1,020 mls @ 250 mls/hr IV .Q4H5M PRN PRN Reason: K LEVEL < 3.3mM/L Stop: 06/18/25 09:48 Potassium Chloride 20 meq/ (Dextrose/Lactated Ringer's) 1,010 mls @ 250 mls/hr IV .Q4H3M PRN PRN Reason: K LEVEL 3.3 TO 5.3 mM/L Potassium Chloride (Kcl Ivpb) 10 meq in 100 mls @ 50 mls/hr IV PRN PRN PRN Reason: K LEVEL 3.3 to 5.3 & BG > 200 Stop: 06/18/25 09:48 Sodium Phosphate 15 mmol/ (Sodium Chloride) 255 mls @ 62.5 mls/hr IV .Q4H5M PRN PRN Reason: Phosphate <= 1mg/dL and K> than 5.3 Stop: 06/18/25 09:48 Potassium Phosphate (Pot Phos 15 Mmol In Ns 250 Ml) 15 mmol in 250 mls @ 62.5 mls/hr IV PRN PRN PRN Reason: Phosphate <= 1mg/dL Stop: 06/18/25 09:48 Lactated Ringer's (Lactated Ringers) 1,000 mls @ 500 mls/hr IV Q2H BIRDIE Stop: 05/19/25 13:59 Ondansetron HCl (Ondansetron Inj 2 Mg/Ml Inj 2 Ml) 4 mg IVP Q6HR PRN; Protocol PRN Reason: NAUSEA OR VOMITING Stop: 06/18/25 08:49 Last Admin: 05/19/25 09:37 Dose: 4 mg Sodium Bicarbonate (Sodium Bicarb Inj 8.4% Syr 50 Ml Syringe) 50 ml IV Q4HR PRN PRN Reason: For ph <= to 7.0 Stop: 06/18/25 09:48 Discontinued Medications Lactated Ringer's (Lactated Ringers) 1,000 mls @ 999 mls/hr IV .Q1H1M ONE Stop: 05/19/25 10:02 Last Admin: 05/19/25 09:30 Dose: 999 mls/hr Ceftriaxone Sodium 2 gm/ (Sodium Chloride) 50 mls @ 100 mls/hr IV X1 ONE Stop: 05/19/25 10:26 Insulin Human Regular (Insulin Hum Regular 1 Unit/0.01 Ml (Per Unit)) 4.8 unit 0.1 unit/kg (4.8 unit) IV X1 ONE Stop: 05/19/25 09:50 Morphine Sulfate (Morphine Sulf Inj 4 Mg/Ml Vial) 1 mg IVP X1 ONE Stop: 05/19/25 09:00 Last Admin: 05/19/25 09:39 Dose: 1 mg Assessment & Plan Plan Patient is a 60 years old female with PMH of IDDM2, HTN, HLD, COPD, CAD s/p stent on Plavix, bipolar disorder, recent admission due to cellulitis s/p I&D and foreign body removal 04/30/2025 presented to the ED due to vomiting and abdominal pain, was started on DKA protocol and admitted to ICU for further management. Neuro: #Hx of bipolar disorder. - Continue home lamotrigine 25 mg nightly, mirtazapine 15 mg nightly and amitriptyline 100 mg nightly. Cardiovascular: #Hx of CAD s/p PCI on Plavix. #Hx of hyperlipidemia. No CP reported, negative EKG and troponin I. Plan: - resume home clopidogrel and atorvastatin. #Hx of hypertension. Presented with significant hypertension BP 193/88. At home on lisinopril and metoprolol. Plan: - resume home lisinopril and metoprolol now, monitor BP closely. - labetalol IV PRN with parameters ordered. Respiratory: #Hx of COPD. Not in acute exacerbation. Plan: - supplemental oxygen to maintain sats above 88% if needed. - DuoNebs PRN and scheduled Q8H ordered. Gastrointestinal: #Abdominal pain. Likely due to DKA. CTAP showed possible UTI. Will continue to monitor. Renal: #HAGMA. VBG showed pH 7.33, pCO2 45. Labs showed HCO3 22.2, anion gap 20. Plan: - continue DKA protocol and monitor labs Q4H. Endocrine: #IDDM type 2. #DKA. Patient presented with abdominal pain and vomiting for 1 day, her labs showed elevated glucose and BHB, HAGMA. Likely due to insulin misuse in light of recent adjustments after hospitalization. Given 1L of LR and started on DKA protocol in the ED. Plan: - started on DKA protocol. - resumed home gabapentin. Infectious Disease: #Recent cellulitis due to foreign body s/p I&D and foreign body removal 04/30/2025. Patient underwent I&D and foreign body removal 04/30/2025 after stepping on the needle while walking barefoot. Completed abx course with cephalexin. Wound appears to be draining yellow fluid, not obviously inflamed. Plan: - started on ceftriaxone empirically. - daily wound care. #?UTI. CTAP was suspicious for UTI. Patient reports abdominal pain which is widespread, no specific dysuria symptoms. Plan: - UA and cultures ordered. - will start on ceftriaxone empirically. Hematology/Oncology: #Leukocytosis. On admission WBCs 14.9, etiology is unknown. 2/2 DKA vs active infection: recent surgery due to cellulitis vs suspected UTI on CTAP. Given 1 dose of ceftriaxone in the ED. Plan: - ordered CXR and UA. Diet: NPO. DVT prophylaxis: Lovenox. GI prophylaxis: none. Code status: FULL CODE. Disposition: ICU. Plan of care discussed with ICU attending Dr. Capellan. Ashutosh Velásquez MD, PGY 3. Disclaimer: This note was dictated by speech recognition. Minor errors in mailroom messenger may be present due to voice recognition software. Attending Provider Attestation/Addendum Patient seen and examined with the above resident, Ashutosh Velásquez MD. I agree with the findings, assessment, and plan of care as document except for any differences below. Patient seen in emergency department at time of admission. Patient with diabetic ketoacidosis likely due to difficulty with compliance. Patient was recently discharged after foreign body found and removed from right foot with healing wound. Ceftriaxone empirically started with adequate coverage for pulmonary/urinary and skin sources. Monitor closely in the ICU over the next 24 hours with aggressive fluid resuscitation and IV insulin. Electrolyte replacement as needed and will assess for ability to transition to subcutaneous regimen in the coming day. Total critical care time: I personally spent 35 minutes for review of physiologic parameters, directing plan of care throughout the day, coordination of care with other specialties, and counseling patient at bedside. This is exclusive of time spent teaching on staff or performing any separate billable procedures. Patient remains at significant risk for further morbidity and mortality warranting close monitoring and care only available in the ICU. Critical care services required for diabetic ketoacidosis and sepsis with urinary tract infection.
[2025-05-19] MEDS: INSULIN REG 100 UNITS/100 ML 100 UNIT in PRE-MIXED 1 BAG IV (10:50)
[2025-05-19 11:40] LABS: Collection Type, Urine Clean Catch; Squamous Epithelial Cell,Urine 0 /hpf (0-5); WBC,Urine 0 /hpf (0-5)
[2025-05-19] MEDS: METOCLOPRAMIDE INJ 5 MG/ML VIAL 2 ML 10 MG IVP ×2 (11:43→17:25)
[2025-05-19] MEDS: RINGERS LACTATED 1000 ML 1,000 ML 500 ML IV (11:51)
[2025-05-19] MEDS: cefTRIAXone 2 GM in SODIUM CHLORIDE 0.9% (Popper) 50 ML IV (11:54)
[2025-05-19 12:07] LABS: Bilirubin,Urine Negative (Negative); Blood,Urine 1+ (Negative); Clarity,Urine Clear (Clear/Hazy); Color,Urine Lt-Yellow (Lt Yel-Yel); Culture Indicated,Urine Not Indicated; Glucose, Urine 4+ (Negative); Ketones,Urine 4+ (Negative); Leukocyte Esterase,Urine Negative (Negative); Nitrite,Urine Negative (Negative); PH,Urine 6.0 (5.0-7.0); Protein,Urine 3+ (Neg - Trace); RBC,Urine 4 /hpf (0-3); Specific Gravity,Urine 1.024 (1.001-1.035); Urobilinogen,Urine Negative mg/dL (0.0-1.0)
[2025-05-19 12:08] LABS: Amphetamine/Methamp Scrn,U Negative (Negative); Barbiturate Screen,Urine Negative (Negative); Benzodiazepines Screen,Urine Negative (Negative); Benzoylecgonine Screen, Ur Negative (Negative); Fentanyl Screen,Urine Negative (Negative); Opiate Screen,Urine Positive (Negative); THC Screen,Urine Positive (Negative)
[2025-05-19] MEDS: LABETALOL INJ 5 MG/ML VIAL 20 ML 10 MG IVP ×3 (12:10→18:31)
--- NOTE | 2025-05-19 12:34 | PD.RESPROC ---
PROCEDURES: Procedure Date / Time 05/19/25 1123 Central Line Placement Right IJ: Indication(s): poor, or inadequate peripheral venous access Informed consent obtained: from patient Time out done, and the following verified: correct patient, side and site, procedure, patient position and implants and/or equipment Patient placed on monitor/pulse ox: Yes Hand Hygiene: scrub, soap & water and alcohol-based hand rub Max Sterile Barrier Techniques used: cap, mask, sterile gown, sterile gloves and sterile full body drape Central line prep: Chlorhexidine scrub and sterile drapes applied Local anesthesia used: lidocaine 1% Amount of anesthesia used (mL): 3 Ultrasound used for placement: Yes Sterile Technique if Ultrasound used, including sterile gel: yes Central line lumen inserted: triple Post procedure: sutured in place, good blood return, all ports aspirated, flushed, capped and sterile dressing applied Post procedure x-ray: tip of catheter in good position and no pneumothorax seen Patient tolerated procedure: well and no complications EBL(ml): 10 Complications: none Procedure comment: [facility] Central Line Insertion Practices form was completed by an independent observer starting with the first handwash prior to starting sterile technique. A time out was performed. My hands were washed immediately prior to the procedure. I wore a surgical cap, mask, sterile gown and sterile gloves throughout the procedure. The patient was placed in Trendelenburg position. The right neck region was prepped using chlorhexidine scrub and draped in sterile fashion using a full drape and sterile probe cover and sterile gel employed. Anesthesia was achieved with 1% lidocaine. The introducer needle was inserted. Venous blood was withdrawn. The syringe was removed and a guidewire was advanced into the introducer needle. A small incision was made at the skin surface with a scalpel and the introducer needle was exchanged for a dilator over the guidewire. After appropriate dilation was obtained, the dilator was exchanged over the wire for a central venous catheter. The wire was removed and the catheter was sutured in place. A sterile sorbaview shield and biopatch was placed over the catheter at the insertion site. The patient tolerated the procedure without any hemodynamic compromise. At time of procedure completion, all ports aspirated and flushed properly. Estimated blood loss is 10ml. Post procedure CXR shows catheter tip in good position. Procedure performed under supervision of ED Physician Dr Semaj Pacheco MD Internal Medicine PGY-2
[2025-05-19 13:42] LABS: Base Excess, Venous 0 (-3-3); O2 Saturation, Venous 90 % (96-97); PCO2, Venous 34 mmHg (36-56); PO2, Venous 51 mmHg (15-58); pH, Venous 7.45 (7.33-7.66)
[2025-05-19 14:19] LABS: Albumin, Serum 3.2 gm/dL (3.4-4.8); Anion Gap 14 (7-16); BUN/Creatinine Ratio 23 Ratio (12-20); Blood Urea Nitrogen 16 mg/dL (9-23); Calcium 8.7 mg/dL (8.3-10.6); Calcium (Corrected) 9.3 mg/dL (8.5-10.1); Carbon Dioxide 24.5 mMol/L (20.0-31.0); Chloride 104 mMol/L (98-107); Creatinine (Component) 0.7 mg/dL (0.6-1.3); Estimated Creatinine Clearance 64.5 mL/min (>60); Glucose 198 mg/dL (74-106); Osmolality,Calculated 290 (275-295); Phosphorous 3.5 mg/dL (2.4-5.1); Potassium 3.9 mMol/L (3.4-5.1); Sodium 142 mMol/L (136-145); eGFR > 60 See Note
[2025-05-19] MEDS: POT CHL ADDITIVE 20 MEQ in DEXTROSE 5%-LACTATED RINGERS 1,000 ML 250 MEQ IV ×2 (14:20→19:45)
[2025-05-19] MEDS: ALBUTEROL/IPRATROPIUM (Duoneb) RT SOL 3 ML NEBU INH ×2 (15:35→23:14)
[2025-05-19] MEDS: hydrALAZINE INJ 20 MG/ML VIAL 10 MG IVP (16:10)
[2025-05-19] MEDS: POT CHL ADDITIVE 20 MEQ in RINGERS LACTATED 1000 ML 1,000 ML 250 MEQ IV (16:58)
[2025-05-19] MEDS: SCOPOLAMINE 1 MG TDSY TOP (17:08)
[2025-05-19 18:05] LABS: Base Excess, Venous 3 (-3-3); O2 Saturation, Venous 83 % (96-97); PCO2, Venous 41 mmHg (36-56); PO2, Venous 46 mmHg (15-58); pH, Venous 7.43 (7.33-7.66)
[2025-05-19 18:40] LABS: Albumin, Serum 3.5 gm/dL (3.4-4.8); Anion Gap 12 (7-16); BUN/Creatinine Ratio 21 Ratio (12-20); Blood Urea Nitrogen 15 mg/dL (9-23); Calcium 9.1 mg/dL (8.3-10.6); Calcium (Corrected) 9.5 mg/dL (8.5-10.1); Carbon Dioxide 26.3 mMol/L (20.0-31.0); Chloride 104 mMol/L (98-107); Creatinine (Component) 0.7 mg/dL (0.6-1.3); Estimated Creatinine Clearance 64.5 mL/min (>60); Glucose 181 mg/dL (74-106); Magnesium 1.2 mg/dL (1.6-2.6); Osmolality,Calculated 288 (275-295); Phosphorous 2.8 mg/dL (2.4-5.1); Potassium 3.8 mMol/L (3.4-5.1); Sodium 142 mMol/L (136-145); eGFR > 60 See Note
[2025-05-19] MEDS: INSULIN DEGLUDEC 5 UNIT/0.05 ML (PER 5 UNITS) 30 UNIT SC (19:35)
[2025-05-19] MEDS: ENALAPRILAT INJ 1.25 MG/ML VIAL IVP (19:36)
[2025-05-19] MEDS: Magnesium Sulfate 2 GM Ivpb 2 GM/50 ML BAG IV (19:47)
--- NOTE | 2025-05-19 19:48 | PC.NURSE ---
1330, made aware of pt having pain to right neck, morphine given per order, at 1500, pt having abdominal pain and increased vomiting and nausea, SBP >200, MD garcia and stephanie at bedside, orders received
[2025-05-19] MEDS: AMITRIPTYLINE HCL 25 MG TABLET 100 MG PO (21:03)
[2025-05-19] MEDS: lamoTRIgine 25 MG CHEW PO (21:03)
[2025-05-19] MEDS: ATORVASTATIN CALCIUM 20 MG TABLET 40 MG PO (21:03)
[2025-05-19] MEDS: MIRTAZAPINE 15 MG TABLET PO (21:03)
[2025-05-19] MEDS: METOPROLOL TARTRATE 25 MG TABLET 50 MG PO (21:03)
[2025-05-19] MEDS: GABAPENTIN 100 MG CAPSULE PO (21:03)
[2025-05-20] VITALS (16 sets, daily range): BP systolic 113–164; BP diastolic 62–88; PULSE 68–92; RESP 16–97; TEMP 36.4–36.9; O2SAT 92–100; BMI 18.3
--- NOTE | 2025-05-20 01:08 | EVENTNT_ITS ---
Documentation for date of: 05/20/25 Event Note Event Note: This is a 60-year-old female with a history of IDDM2, HTN, HLD, COPD, CAD s/p PCI on PLAVIX, and bipolar disorder who presented to the ED with vomiting and abdominal pain. Symptoms began one day prior with multiple episodes of non- bloody emesis. She denied fever, chills, diarrhea, or chest pain. She reports compliance with insulin, but is unsure of the dosing following recent changes during a hospitalization for right foot cellulitis s/p I and D on 04 30 25. She has prior admissions for DKA in 2022 and 2023. In the ED, she was hypertensive with BP 193 over 88. Initial labs were significant for glucose 316, anion gap 20, bicarbonate 22, beta hydroxybutyrate 5 point 6, and venous pH 7 point 33. Lactate was 1 point 6. She received 1 liter of LACTATED RINGERS and 2 grams of CEFTRIAXONE, was started on DKA protocol with IV INSULIN, and admitted to the ICU. The anion gap has since closed x2 and DKA is now resolved. She is being transitioned off the insulin drip and monitored on subcutaneous insulin. UA and cultures are pending given CT findings concerning for bilateral UTI. Her right foot wound is healing but has yellow drainage; wound care is ongoing. Problem List: DKA (resolved) Anion gap now closed x2; transitioned off insulin drip. IDDM2 History of recurrent DKA; recent INSULIN regimen change; unclear home dosing. Vomiting/Abdominal Pain Likely secondary to DKA; possible contribution from UTI. Bilateral suspected UTI Based on CT findings; empiric CEFTRIAXONE started; UA negative for UTI, afebrile. Right foot wound with drainage Post I&D and foreign body removal on 04/30/25; mild yellow drainage present; daily wound care ongoing. Hypertension BP 164/70, HR 90 Home lisinopril and metoprolol resumed; PRN labetalol available. Leukocytosis WBC about 13, DKA versus infection, UA negative, CXR no pneumonia. Hyperlipidemia Continue ATORVASTATIN Coronary artery disease s/p PCI No acute symptoms; EKG and troponin negative; resume PLAVIX. COPD No signs of exacerbation; on inhalers PRN. Bipolar disorder Stable; on MIRTAZAPINE, AMITRIPTYLINE, and LAMOTRIGINE; continued. Recent cellulitis S/P treatment; wound healing with some drainage; under observation. Polypharmacy with multiple allergies Allergic to penicillins, cephalexin, codeine, aspirin, and diphenhydramine ? avoid these Health maintenance Diet: Carb consistent GI prophylaxis: PROTONIX DVT prophylaxis: LOVENOX Antibiotics: CEFTRIAXONE CODE STATUS: Full code Disposition: ICU downgrade for DKA. Case was discussed with attending physician, Dr. Galloway. Zain Ambrocio, PGY II This document was transcribed using voice recognition technology. Minor inaccuracies may be present.
--- NOTE | 2025-05-20 01:19 | PC.NURSE ---
Patient and belongings transferred to [facility] via wheelchair
[2025-05-20] MEDS: ALBUTEROL/IPRATROPIUM (Duoneb) RT SOL 3 ML NEBU INH ×3 (06:57→23:04)
[2025-05-20 08:01] LABS: Basophils # (Auto) 0.1 Thou/mm3 (0.0-0.2); Basophils % (Auto) 1 % (0-2.5); Eosinophils # (Auto) 0.2 Thou/mm3 (0.0-0.5); Eosinophils % (Auto) 1 % (0-10); Hematocrit 31.6 % (36.0-46.0); Hemoglobin 10.4 g/dL (12.0-16.0); Immature Granulocytes Auto 0.06 Thou/mm3 (0.00-0.00); Lymphocytes # (Auto) 2.8 Thou/mm3 (1.0-4.8); Lymphocytes % (Auto) 19 % (10-50); Mean Corpuscular HGB Conc 32.9 g/dl (31.0-37.0); Mean Corpuscular Hemoglobin 26.9 pg (25.0-35.0); Mean Corpuscular Volume 82 fL (80-100); Monocytes # (Auto) 1.3 Thou/mm3 (0.0-0.8); Monocytes % (Auto) 9 % (0-12); Neutrophils # (Auto) 10.4 Thou/mm3 (1.8-7.7); Neutrophils % (Auto) 70 % (37-80); Nucleated Red Blood Cell # 0.00 Thou/mm3 (0.00-0.00); Nucleated Red Blood Cell % 0 /100 WBC (0); Platelet Count 362 Thou/mm3 (140-440); RDW Standard Deviation 53.1 fL (36.4-46.3); Red Blood Count 3.87 Miln/mm3 (4.00-5.20); White Blood Count 14.8 Thou/mm3 (3.6-11.0)
[2025-05-20 08:27] LABS: Magnesium 1.8 mg/dL (1.6-2.6); Phosphorous 4.0 mg/dL (2.4-5.1); Thyroid Stimulating Hormone 4.86 uIU/mL (0.55-4.78)
[2025-05-20 08:48] LABS: INR 0.9 (0.9-1.3); Partial Thromboplastin Time 21.0 Seconds (22.0-36.0); Prothrombin Time 10.6 Seconds (9.0-12.2)
[2025-05-20] MEDS: MORPHINE SULF INJ 4 MG/ML VIAL 1 MG IVP ×3 (09:18→20:27)
[2025-05-20 09:29] LABS: Alanine Aminotransferase 31 U/L (10-49); Albumin, Serum 3.1 gm/dL (3.4-4.8); Albumin/Globulin Ratio 2.1 (1.2-2.2); Alkaline Phosphatase 113 U/L (46-116); Anion Gap 11 (7-16); Aspartate Amino Transferase 21 U/L (0-34); BUN/Creatinine Ratio 16 Ratio (12-20); Bilirubin,Total 0.2 mg/dL (0.3-1.2); Blood Urea Nitrogen 11 mg/dL (9-23); Calcium 8.8 mg/dL (8.3-10.6); Calcium (Corrected) 9.5 mg/dL (8.5-10.1); Carbon Dioxide 26.7 mMol/L (20.0-31.0); Chloride 105 mMol/L (98-107); Creatinine (Component) 0.7 mg/dL (0.6-1.3); Estimated Creatinine Clearance 63.5 mL/min (>60); Free T4 (Free Thyroxine) 0.91 ng/dL (0.89-1.76); Globulin 1.5 gm/dL (2.3-3.5); Glucose 54 mg/dL (74-106); Osmolality,Calculated 282 (275-295); Potassium 3.7 mMol/L (3.4-5.1); Sodium 143 mMol/L (136-145); Total Protein 4.6 gm/dL (5.7-8.2); eGFR > 60 See Note
[2025-05-20] MEDS: CLOPIDOGREL BISULFATE 75 MG TABLET PO (09:29)
[2025-05-20] MEDS: cefTRIAXone/D5w 1gm IV premix 1 GM/50 ML BAG IV (09:29)
[2025-05-20] MEDS: METOPROLOL TARTRATE 25 MG TABLET 50 MG PO ×2 (09:30→20:21)
[2025-05-20] MEDS: INSULIN LISPRO (AdmeLOG) 1 UNIT/0.01 ML UNIT 5 UNIT SC ×2 (09:32→20:27)
[2025-05-20] MEDS: INSULIN DEGLUDEC 5 UNIT/0.05 ML (PER 5 UNITS) 15 UNIT SC (09:33)
[2025-05-20] MEDS: ENOXAPARIN SOD INJ 40 MG/0.4 ML SYRINGE SC (09:34)
[2025-05-20] MEDS: Magnesium Sulfate 4 GM Ivpb 4 GM/50 ML BAG IV (09:39)
--- NOTE | 2025-05-20 09:46 | ESPR_ITS ---
<Statement entered by Hugh Bowens MD - 05/20/25 17:14> No acute overnight events. Patient is downgraded from ICU overnight. Denies any other complaints. Had foreign body removal from the right foot on 04/30/2025 but did not undergo suture removal which was attempted today successfully removed 6 sutures but 2 sutures are left inside and it is very difficult to take it out. Will follow-up with Dr. Burton about the suture removal later. Will continue insulin degludec 15 units at night and will continue to monitor blood sugar I have personally seen and examined the patient, agree with residents assessment and plan Patient plan of care was discussed with the attending physician, Dr. Xiomy Bowens, PGY2 Documentation for date of: 05/20/25 Subjective Subjective Interval history: Overnight events: No acute events overnight. Patient was downgraded overnight. Patient was seen and examined at bedside. AM vitals and labs reviewed. Patient does not appear to be in any acute distress at this time. Patient is feeling well and hopes to go home soon. Right foot wound does have surgical scar on plantar aspect with some yellow drainage. WBC 14.8 In summary: This patient is a 60-year-old female with a past medical history of T2DM, HTN, HLD, COPD, CAD status post stents on Plavix, bipolar disorder, and recent admission due to cellulitis of her right foot due to foreign body, s/p foreign body removal 04/30 who presented to [facility] ED on 05/19 for vomiting and abdominal pain. The patient was admitted to the ICU for DKA, and subsequently downgraded to the medical floors overnight. According to the patient, the patient could not tell how much insulin she was getting at home says she was previously discharged on 05/02. In the ED, the patient was hypertensive with BP of 193/88 and initial labs showed WBC 14.9, anion gap 20, glucose 316, lactic acid 1.8, and beta hydroxybutyrate 5.6. Central line was placed due to poor peripheral venous access. Prior to being admitted to the ICU, she also received 1 L lactated Ringer's and 2 g ceftriaxone. In the ICU, the patient received IV insulin and was then downgraded to medical floors after anion gap was closed x 2. Continue insulin degludec 15 nightly and lispro 5 with meals. Oswald removed per patient's request. Consulted orthopedic surgery, Dr. Burton, regarding management of recent right foot wound. Review of systems otherwise negative except for what is mentioned above. Exam Vital Signs Temp Pulse Resp BP Pulse Ox O2 Del Method 98.1 F 88 18 135/88 H 99 Room Air 05/20/25 04:00 05/20/25 09:31 05/20/25 07:00 05/20/25 09:31 05/20/25 07:00 05/20/25 04:00 Narrative Exam Physical Exam: General: Alert, no acute distress. Skin: Warm, dry, intact. Head: Normocephalic, atraumatic. Eye: Normal conjunctiva, PERRL. Cardiovascular: Regular rate and rhythm, no murmur, +S1/S2. Respiratory: Lungs are clear to auscultation, respirations unlabored, no crackles, no wheezing. Gastrointestinal: Soft, nontender, non-distended. No guarding or rebound tenderness. Extremities: No edema, no cyanosis, no clubbing. 2+ radial pulse bilaterally. R ight foot surgical scar on plantar aspect with yellow drainage. Neuro: No focal deficits observed. Conversant, moving all extremities. No overt cerebellar signs/incoordination. Psychiatric: Cooperative, appropriate affect. Objective Labs 05/20/25 07:34 05/20/25 07:34 Labs: Laboratory Results - last 24 hr 05/19/25 05/19/25 05/19/25 11:06 13:35 17:42 WBC RBC Hgb Hct MCV MCH MCHC RDW Std Deviation Plt Count Neut % (Auto) Lymph % (Auto) Nelson % (Auto) Eos % (Auto) Baso % (Auto) Neut # (Auto) Lymph # (Auto) Nelson # (Auto) Eos # (Auto) Baso # (Auto) Immature Gran # (Auto) Absolute Nucleated RBC Immature Gran % Nucleated RBC % PT INR APTT VBG pH 7.45 7.43 VBG pCO2 34 L D 41 VBG pO2 51 D 46 VBG O2 Sat (Scotty) 90 L 83 L VBG Base Excess 0 3 Sodium 142 142 Potassium 3.9 3.8 Chloride 104 104 Carbon Dioxide 24.5 26.3 Anion Gap 14 12 BUN 16 15 Creatinine 0.7 0.7 Estim Creat Clear Calc 64.5 64.5 eGFR > 60 > 60 BUN/Creatinine Ratio 23 H 21 H Glucose 198 H D 181 H Calculated Osmolality 290 288 Calcium 8.7 D 9.1 Corrected Calcium 9.3 9.5 Phosphorus 3.5 2.8 Magnesium 1.2 L Total Bilirubin AST ALT Alkaline Phosphatase Total Protein Albumin 3.2 L D 3.5 Globulin Albumin/Globulin Ratio TSH Free T4 Ur Collection Type Clean Catch Urine Color Lt-Yellow Urine Clarity Clear Urine pH 6.0 Ur Specific [place] 1.024 Urine Protein 3+ A Urine Glucose (UA) 4+ A Urine Ketones 4+ A Urine Blood 1+ A Urine Nitrite Negative Urine Bilirubin Negative Urine Urobilinogen (Auto) Negative Ur Leukocyte Esterase Negative Urine RBC 4 H Urine WBC 0 Ur Squamous Epith Cells 0 Urine Bacteria None Ur Culture Indicated? Not Indicated Urine Opiates Screen Positive A Urine Fentanyl Screen Negative Ur Barbiturates Screen Negative U Amphetamin/Meth Scrn Negative U Benzodiazepines Scrn Negative U Cocaine Metab Screen Negative U Marijuana (THC) Screen Positive A 05/20/25 07:34 WBC 14.8 H RBC 3.87 L Hgb 10.4 L D Hct 31.6 L D MCV 82 MCH 26.9 MCHC 32.9 RDW Std Deviation 53.1 H Plt Count 362 D Neut % (Auto) 70 Lymph % (Auto) 19 Nelson % (Auto) 9 Eos % (Auto) 1 Baso % (Auto) 1 Neut # (Auto) 10.4 H Lymph # (Auto) 2.8 Nelson # (Auto) 1.3 H Eos # (Auto) 0.2 Baso # (Auto) 0.1 Immature Gran # (Auto) 0.06 H Absolute Nucleated RBC 0.00 Immature Gran % 0 Nucleated RBC % 0 PT 10.6 INR 0.9 APTT 21.0 L VBG pH VBG pCO2 VBG pO2 VBG O2 Sat (Scotty) VBG Base Excess Sodium 143 Potassium 3.7 Chloride 105 Carbon Dioxide 26.7 Anion Gap 11 BUN 11 Creatinine 0.7 Estim Creat Clear Calc 63.5 eGFR > 60 BUN/Creatinine Ratio 16 Glucose 54 L D Calculated Osmolality 282 Calcium 8.8 Corrected Calcium 9.5 Phosphorus 4.0 Magnesium 1.8 Total Bilirubin 0.2 L AST 21 ALT 31 Alkaline Phosphatase 113 D Total Protein 4.6 L Albumin 3.1 L Globulin 1.5 L Albumin/Globulin Ratio 2.1 TSH 4.86 H Free T4 0.91 Ur Collection Type Urine Color Urine Clarity Urine pH Ur Specific [place] Urine Protein Urine Glucose (UA) Urine Ketones Urine Blood Urine Nitrite Urine Bilirubin Urine Urobilinogen (Auto) Ur Leukocyte Esterase Urine RBC Urine WBC Ur Squamous Epith Cells Urine Bacteria Ur Culture Indicated? Urine Opiates Screen Urine Fentanyl Screen Ur Barbiturates Screen U Amphetamin/Meth Scrn U Benzodiazepines Scrn U Cocaine Metab Screen U Marijuana (THC) Screen ABG Interpretation ABG results: 05/19/25 05/19/25 05/19/25 08:53 13:35 17:42 VBG pH 7.33 7.45 7.43 VBG pCO2 45 34 L D 41 VBG pO2 28 51 D 46 VBG Base Excess -2 0 3 Quality Measures Quality Measures VTE prophylaxis Assessment & Plan Assessment Current Active Medications: Generic Name Dose Route Start Last Admin Trade Name Freq PRN Reason Stop Dose Admin Albuterol/Ipratropium 3 ml 05/19/25 11:15 Albuterol/Ipratropium (Duoneb) Rt Antonella 3 Ml Nebu INH 06/18/25 11:14 Q2HR PRN SHORTNESS OF BREATH OR WHEEZE Albuterol/Ipratropium 3 ml 05/19/25 15:00 05/20/25 06:57 Albuterol/Ipratropium (Duoneb) Rt Antonella 3 Ml Nebu INH 06/18/25 14:59 3 ml Q8HRRT BIRDIE Administration Amitriptyline HCl 100 mg 05/19/25 21:00 05/19/25 21:03 Amitriptyline Hcl 25 Mg Tablet PO 06/18/25 20:59 100 mg HS BIRDIE Administration Atorvastatin Calcium 40 mg 05/19/25 21:00 05/19/25 21:03 Atorvastatin Calcium 20 Mg Tablet PO 06/18/25 20:59 40 mg HS BIRDIE Administration Clopidogrel Bisulfate 75 mg 05/20/25 09:00 05/20/25 09:29 Clopidogrel Bisulfate 75 Mg Tablet PO 06/19/25 08:59 75 mg QDAY BIRDIE Administration Dextrose 25 ml 05/19/25 09:49 Dextrose 50%-Water Inj 50 Ml Syringe IV [id number] PRN Blood Sugar - Low Enoxaparin Sodium 40 mg 05/20/25 09:00 05/20/25 09:34 Enoxaparin Sod Inj 40 Mg/0.4 Ml Syringe SC 06/03/25 08:59 40 mg QDAY BIRDIE Administration Gabapentin 100 mg 05/19/25 21:00 05/19/25 21:03 Gabapentin 100 Mg Capsule PO 06/18/25 20:59 100 mg HS BIRDIE Administration Glucagon 1 mg 05/19/25 21:35 Glucagon Inj 1 Mg Vial IM Q15MIN PRN BG <70, and no IV access Hydromorphone HCl 0.5 mg 05/19/25 18:36 Hydromorphone Inj 2 Mg/Ml Vial IVP 05/24/25 18:35 Q4HR PRN BREAKTHROUGH PAIN 7-10 Ceftriaxone Sodium/Dextrose 1 gm in 50 mls @ 100 mls/hr 05/20/25 09:00 05/20/25 09:29 Rocephin/D5w 1gm Iv Premix IV 05/27/25 08:59 100 mls/hr QDAY BIRDIE Administration Magnesium Sulfate 4 gm in 50 mls @ 12.5 mls/hr 05/20/25 08:40 05/20/25 09:39 Magnesium Sulfate Ivpb IV 05/20/25 12:39 12.5 mls/hr X1 ONE Administration Insulin Degludec 15 unit 05/20/25 09:00 05/20/25 09:33 Insulin Degludec 5 Unit/0.05 Ml (Per 5 Units) SC 06/19/25 08:59 15 unit QDAY BIRDIE Administration Insulin Human Lispro 5 unit 05/20/25 08:00 05/20/25 09:32 Insulin Lispro (Admelog) 1 Unit/0.01 Ml Unit SC 06/19/25 07:59 5 unit TIDWMEAL BIRDIE Administration Labetalol HCl 10 mg 05/19/25 19:05 Labetalol Inj 5 Mg/Ml Vial 20 Ml IVP Q10MIN PRN SBP >180 Lamotrigine 25 mg 05/19/25 21:00 05/19/25 21:03 Lamotrigine 25 Mg Chew PO 06/18/25 20:59 25 mg HS BIRDIE Administration Lisinopril 40 mg 05/19/25 11:30 05/20/25 09:31 Lisinopril 20 Mg Tablet PO 06/18/25 11:29 40 mg QDAY BIRDIE Administration Metoclopramide HCl 10 mg 05/19/25 17:20 05/19/25 17:25 Metoclopramide Inj 5 Mg/Ml Vial 2 Ml IVP 06/18/25 17:19 10 mg Q6HR PRN Administration NAUSEA OR VOMITING Protocol Metoprolol Tartrate 50 mg 05/19/25 11:30 05/20/25 09:30 Metoprolol Tartrate 25 Mg Tablet PO 06/18/25 11:29 50 mg BID BIRDIE Administration Mirtazapine 15 mg 05/19/25 21:00 05/19/25 21:03 Mirtazapine 15 Mg Tablet PO 06/18/25 20:59 15 mg HS BIRDIE Administration Morphine Sulfate 1 mg 05/19/25 17:27 05/20/25 09:18 Morphine Sulf Inj 4 Mg/Ml Vial IVP 05/24/25 17:26 1 mg Q4HR PRN Administration pain 7-10 Ondansetron HCl 4 mg 05/19/25 15:15 05/19/25 19:36 Ondansetron Inj 2 Mg/Ml Inj 2 Ml IVP 06/18/25 08:49 4 mg Q4HR PRN Administration NAUSEA OR VOMITING Protocol Pantoprazole Sodium 40 mg 05/19/25 16:00 05/20/25 09:27 Pantoprazole Inj 40 Mg Vial IVP 06/18/25 15:59 40 mg QDAY BIRDIE Administration Plan 60-year-old female with a past medical history of T2DM, HTN, HLD, COPD, CAD status post stents on Plavix, bipolar disorder, and recent admission due to cellulitis of her right foot due to foreign body, s/p foreign body removal 04/30 who presented to [facility] ED on 05/19 for vomiting and abdominal pain. The patient was admitted to the ICU for DKA, and subsequently downgraded to the medical floors overnight. #Diabetic ketoacidosis, resolved #Insulin dependent type 2 diabetes mellitus #High anion gap metabolic acidosis, resolved Patient presented to [facility] ED with abdominal pain and vomiting for 1 day. The patient does have a history of T2DM and takes insulin at home, however the patient has not been compliant with recent changes to insulin regimen. In the ED, the patient was noted to have glucose of 316 and beta hydroxybutyrate of 5.6 with an anion gap of 20. Patient was initially admitted to ICU for insulin drip. Patient was downgraded to medical floors after anion gap closed twice and patient tolerated subcutaneous insulin. Plan: Insulin degludec 15 nightly Insulin lispro 5 with meals Continue to monitor, will adjust insulin regimen as necessary Carbohydrate consistent diet #Right foot wound s/p foreign body removal 04/30 Patient was recently hospitalized due to a needle that was stuck in her right foot, resulting in cellulitis of that foot. The needle required removal by orthopedic surgery. The stitches have been in place since then. Plan: Consulted orthopedic surgery, appreciate recommendations on wound status and removal of stitches Ceftriaxone 1 g daily (05/19--) Blood cultures collected 05/19, preliminary no growth after 24 hours x2 #CAD s/p stents Patient does have a history of CAD status post stents and takes Plavix at home for management. Plan: Plavix 75 mg daily Atorvastatin 40 mg nightly #Primary hypertension Patient is noted to have a history of hypertension. Patient did have a blood pressure of 193/88 in the ED on arrival. Plan: Lisinopril 40 mg daily Metoprolol 50 mg twice daily Labetalol 10 mg IVP every 10 minutes as needed for SBP over 180 #Bipolar disorder #Anxiety Patient does have a history of bipolar disorder and anxiety. Patient takes mirtazapine, lamotrigine, and amitriptyline nightly for management. Patient also takes hydroxyzine for her anxiety. Plan: Lamotrigine 25 mg nightly Mirtazapine 15 mg nightly Amitriptyline 100 mg nightly #COPD Patient does have a history of COPD and takes albuterol inhalers at home for management. Plan: DuoNeb 3 mL every 8 hours DuoNeb 3 mm every 2 hours as needed DVT Prophylaxis: Lovenox GI Prophylaxis: Protonix Bowel: N/A Diet: Carbohydrate consistent Oswald: N/A Lines: Peripheral IV Antibiotics: Ceftriaxone (05/19--) Code Status: FULL Reason for Hospitalization: DKA Other Barriers to Discharge: N/A Patient plan of care was discussed with the senior resident Dr. Bowens (PGY-2) and attending physician Dr. Xiomy rCoft, PGY1 Attending Provider Attestation/Addendum I attest that I was physically present for the evaluation, physical examination, lab and imaging review of the patient with the residents. I discussed the case with the residents and agree with the findings and plans of care as documented above. At bedside today, patient states she is feeling well and denies any new complaints. Vital signs are stable. Patient noted to have glucose dropped down to 71 this morning, improved after juice intake. Discussed with orthopedics regarding foot wound, recommended to remove the states and continue with wound care. We will also discontinue her Oswald catheter. We will monitor closely for her glucose level, if remains stable, likely plan for discharge in next 24 to 48 hours. Ely Stauffer MD
--- NOTE | 2025-05-20 12:14 | PC.NURSE ---
at bedside to see pt and assess right foot and states sutures are ok to be removed
--- NOTE | 2025-05-20 14:45 | PC.NURSE ---
at bedside to remove right foot sutures ok by pt tolerated well
[2025-05-20] MEDS: LIDOCAINE HCL 1% 20 ML VIAL 10 ML INFL (15:38)
--- NOTE | 2025-05-20 15:38 | PD.ORTHCON ---
HPI Consult details Reason for consultation narrative: Right foot History of present illness: Patient is a 60-year-old female admitted for diabetic ketoacidosis. Her stitches have been in for 3 months. The wound is healed completely. We have consulted due to her management of her foot incisions. The foot has healed completely and we recommend stitch removal Meds Home Medications and Allergies Home Medications ?Medication ?Instructions ?Recorded ?Confirmed ?Type amitriptyline 100 mg tablet 100 mg PO HS 07/28/19 05/19/25 History atorvastatin 40 mg tablet 40 mg PO HS 07/28/19 05/19/25 History gabapentin 100 mg capsule 100 mg PO HS 10/28/23 05/19/25 History lamotrigine 25 mg tablet 25 mg PO HS 02/10/24 05/19/25 History metoclopramide HCl 10 mg tablet 10 mg PO Q6H PRN upset stomach 02/10/24 05/19/25 History mirtazapine 15 mg tablet 15 mg PO HS 02/10/24 05/19/25 History pantoprazole 40 mg tablet,delayed 40 mg PO QDAY 02/10/24 05/19/25 History release cetirizine 10 mg tablet 10 mg PO QDAY 04/29/25 05/19/25 History Allergies Allergy/AdvReac Type Severity Reaction Status Date / Time aspirin Allergy Severe RASH Verified 05/19/25 08:47 cephalexin Allergy Severe Rash Verified 05/19/25 08:47 codeine Allergy Severe RASH Verified 05/19/25 08:47 diphenhydramine Allergy Severe Rash Verified 05/19/25 08:47 Penicillins Allergy Severe RASH Verified 05/19/25 08:47 Exam Vital Signs Temp Pulse Resp BP Pulse Ox O2 Del Method 98.0 F 83 16 154/73 H 96 Room Air 05/20/25 12:06 05/20/25 12:06 05/20/25 12:06 05/20/25 12:06 05/20/25 12:06 05/20/25 12:06 Additional findings Additional findings: Patient is in no acute distress and is cooperative with the examination today. Patient has a normal mood and affect. Breathing is nonlabored. In no respiratory distress. Bilateral extremities were evaluated and demonstrates sensation intact to light touch. Palpable pedal pulses are present. No significant edema is present. Right foot incision is clean dry intact. There is no wound drainage. The plantar aspect is dry Results - Ortho Labs 05/20/25 07:34 05/20/25 07:34 Labs: Short CBC 05/20/25 Range/Units 07:34 WBC 14.8 H (3.6-11.0) Thou/mm3 Hgb 10.4 L D (12.0-16.0) g/dL Hct 31.6 L D (36.0-46.0) % Plt Count 362 D (140-440) Thou/mm3 BMP 05/19/25 05/20/25 17:42 07:34 Sodium 142 143 Potassium 3.8 3.7 Chloride 104 105 Carbon Dioxide 26.3 26.7 BUN 15 11 Creatinine 0.7 0.7 Glucose 181 H 54 L D Calcium 9.1 8.8 Liver Function 05/19/25 05/20/25 Range/Units 17:42 07:34 Total Bilirubin 0.2 L (0.3-1.2) mg/dL AST 21 (0-34) U/L ALT 31 (10-49) U/L Alkaline Phosphatase 113 D (46-116) U/L Albumin 3.5 3.1 L (3.4-4.8) gm/dL ABG Interpretation ABG results: 05/19/25 05/19/25 05/19/25 08:53 13:35 17:42 VBG pH 7.33 7.45 7.43 VBG pCO2 45 34 L D 41 VBG pO2 28 51 D 46 VBG Base Excess -2 0 3 Assessment & Plan Problem List (1) Foreign body in right foot: Status: Acute Assessment and plan: Patient is a 58yo female with diabetes, cellulitis, and purulence of the right foot with foreign body found.we removed the foreign body 3 weeks ago the incision is clean dry and intact - Stitch removal - Follow-up with wound care for the diabetic foot
--- NOTE | 2025-05-20 15:46 | PC.SS ---
SS met with patient regarding her d/c plan. Pt is alert/oriented. Pt was admitted for DKA. Pt confirmed demographic and contact information is correct on facesheet. Pt states she will be staying with her dtr, Ruthy. Pt ambulates using a 4 wheel with seat, rollator walker. Pt is ok with all ADLs. Patient?s pharmacy of choice is [facility] on [address]. Pt named her dtr, Ruthy Muse medical decision maker if she is unable. Patient?s choice is to return home upon d/c. Pt states she is diabtic and uses a Glistenyle santosh 3. Pt also utilizes insulin injections and oral medication for her diabetes. Pt states her grandson, Higinio Richards or dtr will provide transportation home. Pt followed up with PCP last week. Pt does not have an advance directive, SS offered, and pt was receptive. D/C plan: Return home Next of Kin: Ruthy Muse dtr, phone# [phone] PCP: [facility] on [facility] in [place] Address: Correct on facesheet
[2025-05-20] MEDS: lamoTRIgine 25 MG CHEW PO (20:20)
[2025-05-20] MEDS: ATORVASTATIN CALCIUM 20 MG TABLET 40 MG PO (20:20)
[2025-05-20] MEDS: AMITRIPTYLINE HCL 25 MG TABLET 100 MG PO (20:20)
[2025-05-20] MEDS: GABAPENTIN 100 MG CAPSULE PO (20:21)
[2025-05-20] MEDS: MIRTAZAPINE 15 MG TABLET PO (20:21)
[2025-05-21] VITALS (12 sets, daily range): BP systolic 152–160; BP diastolic 73–75; PULSE 69–92; RESP 16–96; TEMP 36.3; O2SAT 92–99; BMI 18.1
[2025-05-21 05:46] LABS: Basophils # (Auto) 0.1 Thou/mm3 (0.0-0.2); Basophils % (Auto) 2 % (0-2.5); Eosinophils # (Auto) 0.4 Thou/mm3 (0.0-0.5); Eosinophils % (Auto) 5 % (0-10); Hematocrit 29.4 % (36.0-46.0); Hemoglobin 9.3 g/dL (12.0-16.0); Immature Granulocytes Auto 0.02 Thou/mm3 (0.00-0.00); Lymphocytes # (Auto) 1.8 Thou/mm3 (1.0-4.8); Lymphocytes % (Auto) 24 % (10-50); Mean Corpuscular HGB Conc 31.6 g/dl (31.0-37.0); Mean Corpuscular Hemoglobin 25.8 pg (25.0-35.0); Mean Corpuscular Volume 82 fL (80-100); Monocytes # (Auto) 0.7 Thou/mm3 (0.0-0.8); Monocytes % (Auto) 10 % (0-12); Neutrophils # (Auto) 4.5 Thou/mm3 (1.8-7.7); Neutrophils % (Auto) 59 % (37-80); Nucleated Red Blood Cell # 0.00 Thou/mm3 (0.00-0.00); Nucleated Red Blood Cell % 0 /100 WBC (0); Platelet Count 356 Thou/mm3 (140-440); RDW Standard Deviation 52.5 fL (36.4-46.3); Red Blood Count 3.60 Miln/mm3 (4.00-5.20); White Blood Count 7.6 Thou/mm3 (3.6-11.0)
[2025-05-21 06:03] LABS: Alanine Aminotransferase 32 U/L (10-49); Albumin, Serum 2.7 gm/dL (3.4-4.8); Albumin/Globulin Ratio 2.1 (1.2-2.2); Alkaline Phosphatase 118 U/L (46-116); Anion Gap 7 (7-16); Aspartate Amino Transferase 26 U/L (0-34); BUN/Creatinine Ratio 13 Ratio (12-20); Bilirubin,Total 0.3 mg/dL (0.3-1.2); Blood Urea Nitrogen 12 mg/dL (9-23); Calcium 8.2 mg/dL (8.3-10.6); Calcium (Corrected) 9.2 mg/dL (8.5-10.1); Carbon Dioxide 29.7 mMol/L (20.0-31.0); Chloride 102 mMol/L (98-107); Creatinine (Component) 0.9 mg/dL (0.6-1.3); Estimated Creatinine Clearance 49.4 mL/min (>60); Globulin 1.3 gm/dL (2.3-3.5); Glucose 370 mg/dL (74-106); Magnesium 2.0 mg/dL (1.6-2.6); Osmolality,Calculated 292 (275-295); Phosphorous 5.0 mg/dL (2.4-5.1); Potassium 4.8 mMol/L (3.4-5.1); Sodium 139 mMol/L (136-145); Total Protein 4.0 gm/dL (5.7-8.2); eGFR > 60 See Note
[2025-05-21] MEDS: ALBUTEROL/IPRATROPIUM (Duoneb) RT SOL 3 ML NEBU INH ×3 (06:44→23:09)
[2025-05-21] MEDS: INSULIN LISPRO (AdmeLOG) 1 UNIT/0.01 ML UNIT 5 UNIT SC ×2 (07:44→11:19)
[2025-05-21] MEDS: cefTRIAXone/D5w 1gm IV premix 1 GM/50 ML BAG IV (08:02)
[2025-05-21] MEDS: ENOXAPARIN SOD INJ 40 MG/0.4 ML SYRINGE SC (08:02)
[2025-05-21] MEDS: METOPROLOL TARTRATE 25 MG TABLET 50 MG PO ×2 (08:03→20:07)
[2025-05-21] MEDS: CLOPIDOGREL BISULFATE 75 MG TABLET PO (08:03)
[2025-05-21] MEDS: INSULIN DEGLUDEC 5 UNIT/0.05 ML (PER 5 UNITS) 15 UNIT SC (08:05)
[2025-05-21] MEDS: MORPHINE SULF INJ 4 MG/ML VIAL 1 MG IVP ×2 (08:29→20:29)
[2025-05-21 09:07] LABS: Glucose 496 mg/dL (74-106)
--- NOTE | 2025-05-21 09:08 | PC.NURSE ---
Received a call didier Eduardo in the lab, pt. has a critical lab value, gluclose of 496, I informed Chiquis Buchanan.
[2025-05-21] MEDS: INSULIN HUM REGULAR 1 UNIT/0.01 ML (PER UNIT) 10 UNIT SC (09:47)
[2025-05-21] MEDS: INSULIN DEGLUDEC 5 UNIT/0.05 ML (PER 5 UNITS) SC (11:19)
[2025-05-21] MEDS: INSULIN LISPRO (AdmeLOG) 1 UNIT/0.01 ML UNIT SC (11:21)
--- NOTE | 2025-05-21 12:36 | PC.SS ---
Rounding: sugars elevated, DC plan home
--- NOTE | 2025-05-21 13:37 | ESPR_ITS ---
<Statement entered by Hugh Bowens MD - 05/24/25 16:24> No acute overnight events. Patient denies any other complaints except mild pain at the site of the wound at the right foot. Still noted to have high blood sugars. Increase the insulin degludec from 15 units to 20 units. Will monitor blood sugars and once the blood sugars are well-controlled we will discharge the patient I have personally seen and examined the patient, agree with residents assessment and plan Patient plan of care was discussed with the attending physician, Dr. iXomy Bowens, PGY2 Documentation for date of: 05/21/25 Subjective Subjective Interval history: Overnight events: No acute events overnight. Patient was seen and examined at bedside. AM vitals and labs reviewed. Patient appears to be doing well this morning, no complaints at this time. WBC 7.6, blood glucose 370. Nursing staff notified medicine team of morning glucose of 469 on fingerstick, gave patient 10 units of regular insulin. Patient received 30 units of insulin total over 24 hours. Increased insulin degludec to 20 units daily and insulin lispro to 6 units with meals. Changed diet to carbohydrate consistent low. Review of systems otherwise negative except for what is mentioned above. Exam Vital Signs Temp Pulse Resp BP Pulse Ox O2 Del Method 97.4 F 92 16 160/73 H 92 L Room Air 05/21/25 07:50 05/21/25 08:03 05/21/25 07:50 05/21/25 08:03 05/21/25 07:50 05/21/25 07:50 Narrative Exam Physical Exam: General: Alert, no acute distress. Skin: Warm, dry, intact. Head: Normocephalic, atraumatic. Eye: Normal conjunctiva, PERRL. Cardiovascular: Regular rate and rhythm, no murmur, +S1/S2. Respiratory: Lungs are clear to auscultation, respirations unlabored, no crackles, no wheezing. Gastrointestinal: Soft, nontender, non-distended. No guarding or rebound tenderness. Extremities: No edema, no cyanosis, no clubbing. 2+ radial pulse bilaterally. R ight foot surgical scar on plantar aspect with yellow drainage. Neuro: No focal deficits observed. Conversant, moving all extremities. No overt cerebellar signs/incoordination. Psychiatric: Cooperative, appropriate affect. Objective Labs 05/21/25 04:35 05/21/25 08:34 Labs: Laboratory Results - last 24 hr 05/21/25 05/21/25 04:35 08:34 WBC 7.6 D RBC 3.60 L Hgb 9.3 L Hct 29.4 L MCV 82 MCH 25.8 MCHC 31.6 RDW Std Deviation 52.5 H Plt Count 356 Neut % (Auto) 59 Lymph % (Auto) 24 [place] % (Auto) 10 Eos % (Auto) 5 Baso % (Auto) 2 Neut # (Auto) 4.5 Lymph # (Auto) 1.8 [place] # (Auto) 0.7 Eos # (Auto) 0.4 Baso # (Auto) 0.1 Immature Gran # (Auto) 0.02 H Absolute Nucleated RBC 0.00 Immature Gran % 0 Nucleated RBC % 0 Sodium 139 Potassium 4.8 D Chloride 102 Carbon Dioxide 29.7 Anion Gap 7 BUN 12 Creatinine 0.9 Estim Creat Clear Calc 49.4 L eGFR > 60 BUN/Creatinine Ratio 13 Glucose 370 H D 496 H* D Calculated Osmolality 292 Calcium 8.2 L Corrected Calcium 9.2 Phosphorus 5.0 Magnesium 2.0 Total Bilirubin 0.3 AST 26 ALT 32 Alkaline Phosphatase 118 H Total Protein 4.0 L Albumin 2.7 L Globulin 1.3 L Albumin/Globulin Ratio 2.1 ABG Interpretation ABG results: 05/19/25 05/19/25 05/19/25 08:53 13:35 17:42 VBG pH 7.33 7.45 7.43 VBG pCO2 45 34 L D 41 VBG pO2 28 51 D 46 VBG Base Excess -2 0 3 Quality Measures Quality Measures VTE prophylaxis Assessment & Plan Assessment Current Active Medications: Generic Name Dose Route Start Last Admin Trade Name Freq PRN Reason Stop Dose Admin Albuterol/Ipratropium 3 ml 05/19/25 11:15 Albuterol/Ipratropium (Duoneb) Rt Antonella 3 Ml Nebu INH 06/18/25 11:14 Q2HR PRN SHORTNESS OF BREATH OR WHEEZE Albuterol/Ipratropium 3 ml 05/19/25 15:00 05/21/25 06:44 Albuterol/Ipratropium (Duoneb) Rt Antonella 3 Ml Nebu INH 06/18/25 14:59 3 ml Q8HRRT BIRDIE Administration Amitriptyline HCl 100 mg 05/19/25 21:00 05/20/25 20:20 Amitriptyline Hcl 25 Mg Tablet PO 06/18/25 20:59 100 mg HS BIRDIE Administration Atorvastatin Calcium 40 mg 05/19/25 21:00 05/20/25 20:20 Atorvastatin Calcium 20 Mg Tablet PO 06/18/25 20:59 40 mg HS BIRDIE Administration Clopidogrel Bisulfate 75 mg 05/20/25 09:00 05/21/25 08:03 Clopidogrel Bisulfate 75 Mg Tablet PO 06/19/25 08:59 75 mg QDAY BIRDIE Administration Dextrose 25 ml 05/21/25 07:36 Dextrose 50%-Water Inj 50 Ml Syringe IV 06/20/25 07:35 Q15MIN PRN BG 50-70 responsive npo pt Dextrose 50 ml 05/21/25 07:36 Dextrose 50%-Water Inj 50 Ml Syringe IV 06/20/25 07:35 Q15MIN PRN BG <50 OR BG <70 & pt unresponsive Enoxaparin Sodium 40 mg 05/20/25 09:00 05/21/25 08:02 Enoxaparin Sod Inj 40 Mg/0.4 Ml Syringe SC 06/03/25 08:59 40 mg QDAY BIRDIE Administration Gabapentin 100 mg 05/19/25 21:00 05/20/25 20:21 Gabapentin 100 Mg Capsule PO 06/18/25 20:59 100 mg HS BIRDIE Administration Glucagon 1 mg 05/21/25 07:36 Glucagon Inj 1 Mg Vial IM Q15MIN PRN BG <70, and no IV access Hydromorphone HCl 0.5 mg 05/19/25 18:36 Hydromorphone Inj 2 Mg/Ml Vial IVP 05/24/25 18:35 Q4HR PRN BREAKTHROUGH PAIN 7-10 Ceftriaxone Sodium/Dextrose 1 gm in 50 mls @ 100 mls/hr 05/20/25 09:00 05/21/25 08:02 Rocephin/D5w 1gm Iv Premix IV 05/27/25 08:59 100 mls/hr QDAY BIRDIE Administration Insulin Degludec 15 unit 05/21/25 09:00 05/21/25 08:05 Insulin Degludec 5 Unit/0.05 Ml (Per 5 Units) SC 06/20/25 08:59 15 unit QDAY BIRDIE Administration Insulin Human Lispro 5 unit 05/20/25 08:00 05/21/25 11:19 Insulin Lispro (Admelog) 1 Unit/0.01 Ml Unit SC 06/19/25 07:59 5 unit TIDWMEAL BIRDIE Administration Insulin Human Lispro 0 unit 05/21/25 11:30 05/21/25 11:21 Insulin Lispro (Admelog) 1 Unit/0.01 Ml Unit SC 06/20/25 11:29 3 unit AC BIRDIE Administration Protocol Labetalol HCl 10 mg 05/19/25 19:05 Labetalol Inj 5 Mg/Ml Vial 20 Ml IVP Q10MIN PRN SBP >180 Lamotrigine 25 mg 05/19/25 21:00 05/20/25 20:20 Lamotrigine 25 Mg Chew PO 06/18/25 20:59 25 mg HS BIRDIE Administration Lisinopril 40 mg 05/21/25 09:00 05/21/25 09:27 Lisinopril 20 Mg Tablet PO 06/20/25 08:59 Not Given QDAY BIRDIE Metoclopramide HCl 10 mg 05/19/25 17:20 05/19/25 17:25 Metoclopramide Inj 5 Mg/Ml Vial 2 Ml IVP 06/18/25 17:19 10 mg Q6HR PRN Administration NAUSEA OR VOMITING Protocol Metoprolol Tartrate 50 mg 05/19/25 11:30 05/21/25 08:03 Metoprolol Tartrate 25 Mg Tablet PO 06/18/25 11:29 50 mg BID BIRDIE Administration Mirtazapine 15 mg 05/19/25 21:00 05/20/25 20:21 Mirtazapine 15 Mg Tablet PO 06/18/25 20:59 15 mg HS BIRDIE Administration Morphine Sulfate 1 mg 05/19/25 17:27 05/21/25 08:29 Morphine Sulf Inj 4 Mg/Ml Vial IVP 05/24/25 17:26 1 mg Q4HR PRN Administration pain 7-10 Ondansetron HCl 4 mg 05/19/25 15:15 05/19/25 19:36 Ondansetron Inj 2 Mg/Ml Inj 2 Ml IVP 06/18/25 08:49 4 mg Q4HR PRN Administration NAUSEA OR VOMITING Protocol Pantoprazole Sodium 40 mg 05/19/25 16:00 05/21/25 08:02 Pantoprazole Inj 40 Mg Vial IVP 06/18/25 15:59 40 mg QDAY BIRDIE Administration Plan 60-year-old female with a past medical history of T2DM, HTN, HLD, COPD, CAD status post stents on Plavix, bipolar disorder, and recent admission due to cellulitis of her right foot due to foreign body, s/p foreign body removal 04/30 who presented to [facility] ED on 05/19 for vomiting and abdominal pain. The patient was admitted to the ICU for DKA, and subsequently downgraded to the medical floors overnight. #Diabetic ketoacidosis, resolved #Insulin dependent type 2 diabetes mellitus #High anion gap metabolic acidosis, resolved Patient presented to [facility] ED with abdominal pain and vomiting for 1 day. The patient does have a history of T2DM and takes insulin at home, however the patient has not been compliant with recent changes to insulin regimen. In the ED, the patient was noted to have glucose of 316 and beta hydroxybutyrate of 5.6 with an anion gap of 20. Patient was initially admitted to ICU for insulin drip. Patient was downgraded to medical floors after anion gap closed twice and patient tolerated subcutaneous insulin. Plan: Insulin degludec 20 daily Insulin lispro 6 with meals Continue to monitor, will adjust insulin regimen as necessary Carbohydrate consistent low diet #Right foot wound s/p foreign body removal 04/30 Patient was recently hospitalized due to a needle that was stuck in her right foot, resulting in cellulitis of that foot. The needle required removal by orthopedic surgery. The stitches have been in place since then. Attempted to remove stitches on 05/20, was able to remove most but 2 stitches remain embedded in foot. Plan: Consulted orthopedic surgery, appreciate recommendations Patient to follow up outpatient for further removal of remaining stitches Ceftriaxone 1 g daily (05/19--) Blood cultures collected 05/19, no growth after 48 hours x2 #CAD s/p stents Patient does have a history of CAD status post stents and takes Plavix at home for management. Plan: Plavix 75 mg daily Atorvastatin 40 mg nightly #Primary hypertension Patient is noted to have a history of hypertension. Patient did have a blood pressure of 193/88 in the ED on arrival. Plan: Lisinopril 40 mg daily Metoprolol 50 mg twice daily Labetalol 10 mg IVP every 10 minutes as needed for SBP over 180 #Bipolar disorder #Anxiety Patient does have a history of bipolar disorder and anxiety. Patient takes mirtazapine, lamotrigine, and amitriptyline nightly for management. Patient also takes hydroxyzine for her anxiety. Plan: Lamotrigine 25 mg nightly Mirtazapine 15 mg nightly Amitriptyline 100 mg nightly #COPD Patient does have a history of COPD and takes albuterol inhalers at home for management. Plan: DuoNeb 3 mL every 8 hours DuoNeb 3 mm every 2 hours as needed DVT Prophylaxis: Lovenox GI Prophylaxis: Protonix Bowel: N/A Diet: Carbohydrate consistent low Oswald: N/A Lines: Peripheral IV Antibiotics: Ceftriaxone (05/19--) Code Status: FULL Reason for Hospitalization: DKA Other Barriers to Discharge: Insulin regimen Patient plan of care was discussed with the senior resident Dr. Bowens (PGY-2) and attending physician Dr. Xiomy Croft, PGY1 Attending Provider Attestation/Addendum I attest that I was physically present for the evaluation, physical examination, lab and imaging review of the patient with the residents. I discussed the case with the residents and agree with the findings and plans of care as documented above. Ely Stauffer MD
[2025-05-21] MEDS: MIRTAZAPINE 15 MG TABLET PO (20:07)
[2025-05-21] MEDS: GABAPENTIN 100 MG CAPSULE PO (20:07)
[2025-05-21] MEDS: AMITRIPTYLINE HCL 25 MG TABLET 100 MG PO (20:07)
[2025-05-21] MEDS: ATORVASTATIN CALCIUM 20 MG TABLET 40 MG PO (20:07)
[2025-05-21] MEDS: lamoTRIgine 25 MG CHEW PO (20:07)
[2025-05-21] MEDS: INSULIN LISPRO (AdmeLOG) 1 UNIT/0.01 ML UNIT 6 UNIT SC (20:32)
[2025-05-22] VITALS (13 sets, daily range): BP systolic 143–167; BP diastolic 70–89; PULSE 68–90; RESP 16–98; TEMP 36.1–37; O2SAT 93–99; BMI 18.1
[2025-05-22] MEDS: MORPHINE SULF INJ 4 MG/ML VIAL 1 MG IVP ×3 (04:38→19:50)
[2025-05-22 05:58] LABS: Basophils # (Auto) 0.1 Thou/mm3 (0.0-0.2); Basophils % (Auto) 2 % (0-2.5); Eosinophils # (Auto) 0.5 Thou/mm3 (0.0-0.5); Eosinophils % (Auto) 8 % (0-10); Hematocrit 33.7 % (36.0-46.0); Hemoglobin 10.5 g/dL (12.0-16.0); Immature Granulocytes Auto 0.01 Thou/mm3 (0.00-0.00); Lymphocytes # (Auto) 1.7 Thou/mm3 (1.0-4.8); Lymphocytes % (Auto) 26 % (10-50); Mean Corpuscular HGB Conc 31.2 g/dl (31.0-37.0); Mean Corpuscular Hemoglobin 25.5 pg (25.0-35.0); Mean Corpuscular Volume 82 fL (80-100); Monocytes # (Auto) 0.6 Thou/mm3 (0.0-0.8); Monocytes % (Auto) 9 % (0-12); Neutrophils # (Auto) 3.5 Thou/mm3 (1.8-7.7); Neutrophils % (Auto) 55 % (37-80); Nucleated Red Blood Cell # 0.00 Thou/mm3 (0.00-0.00); Nucleated Red Blood Cell % 0 /100 WBC (0); Platelet Count 314 Thou/mm3 (140-440); RDW Standard Deviation 52.1 fL (36.4-46.3); Red Blood Count 4.11 Miln/mm3 (4.00-5.20); White Blood Count 6.3 Thou/mm3 (3.6-11.0)
[2025-05-22] MEDS: ALBUTEROL/IPRATROPIUM (Duoneb) RT SOL 3 ML NEBU INH ×3 (06:25→22:33)
[2025-05-22 06:26] LABS: Alanine Aminotransferase 27 U/L (10-49); Albumin, Serum 2.8 gm/dL (3.4-4.8); Albumin/Globulin Ratio 2.3 (1.2-2.2); Alkaline Phosphatase 124 U/L (46-116); Anion Gap 9 (7-16); Aspartate Amino Transferase 23 U/L (0-34); BUN/Creatinine Ratio 28 Ratio (12-20); Bilirubin,Total 0.2 mg/dL (0.3-1.2); Blood Urea Nitrogen 22 mg/dL (9-23); Calcium 8.6 mg/dL (8.3-10.6); Calcium (Corrected) 9.6 mg/dL (8.5-10.1); Carbon Dioxide 29.0 mMol/L (20.0-31.0); Chloride 103 mMol/L (98-107); Creatinine (Component) 0.8 mg/dL (0.6-1.3); Estimated Creatinine Clearance 54.6 mL/min (>60); Globulin 1.2 gm/dL (2.3-3.5); Glucose 286 mg/dL (74-106); Magnesium 1.8 mg/dL (1.6-2.6); Osmolality,Calculated 294 (275-295); Phosphorous 5.5 mg/dL (2.4-5.1); Potassium 4.4 mMol/L (3.4-5.1); Sodium 141 mMol/L (136-145); Total Protein 4.0 gm/dL (5.7-8.2); eGFR > 60 See Note
[2025-05-22] MEDS: INSULIN LISPRO (AdmeLOG) 1 UNIT/0.01 ML UNIT SC ×3 (07:37→17:53)
[2025-05-22] MEDS: INSULIN LISPRO (AdmeLOG) 1 UNIT/0.01 ML UNIT 6 UNIT SC ×2 (07:38→17:52)
[2025-05-22] MEDS: INSULIN DEGLUDEC 5 UNIT/0.05 ML (PER 5 UNITS) 20 UNIT SC (07:59)
[2025-05-22] MEDS: ENOXAPARIN SOD INJ 40 MG/0.4 ML SYRINGE SC (08:00)
[2025-05-22] MEDS: METOPROLOL TARTRATE 25 MG TABLET 50 MG PO ×2 (08:00→21:13)
[2025-05-22] MEDS: CLOPIDOGREL BISULFATE 75 MG TABLET PO (08:04)
[2025-05-22] MEDS: cefTRIAXone/D5w 1gm IV premix 1 GM/50 ML BAG IV (08:05)
[2025-05-22] MEDS: INSULIN LISPRO (AdmeLOG) 1 UNIT/0.01 ML UNIT 10 UNIT SC (12:09)
--- NOTE | 2025-05-22 14:05 | PD.RESPRO ---
Documentation for date of: 05/22/25 Subjective Subjective Interval history: Overnight events: No acute events overnight. Night team was called for blood glucose of 300 overnight. Patient was seen and examined at bedside. AM vitals and labs reviewed. Patient was tearful today as she was concerned that her right foot was infected and that she would need an amputation. Right foot wound shows healing tissue without any expression of pus or signs of inflammation. Reassured the patient. Discussed case with wound care nurse, who did not observe signs concerning for infection at this time. Right foot is noted to be painful. Blood glucose 286, which increased to 428 on fingerstick a few hours later. Total insulin use over the past 24 hours is 79 units. Initially increased insulin lispro from 6 units to 10 units, however after lunch, patient was noted to have blood glucose of 45. Decreased insulin lispro back to 6. Continue insulin degludec 20. Stopped ceftriaxone after 4th dose as it was being mixed with D5W. Antibiotics does not appear to be appropriate at this time as patient remains afebrile, white count remains within normal limits, and patient does not have any suspected source of infection. Additionally, patient had already completed course of cephalexin prior to admission. Review of systems otherwise negative except for what is mentioned above. Exam Vital Signs Temp Pulse Resp BP Pulse Ox O2 Del Method 97.1 F 68 16 157/85 H 99 Room Air 05/22/25 12:00 05/22/25 13:22 05/22/25 13:22 05/22/25 12:00 05/22/25 13:05/22/25 12:00 Narrative Exam Physical Exam: General: Alert, no acute distress. Skin: Warm, dry, intact. Head: Normocephalic, atraumatic. Eye: Normal conjunctiva, PERRL. Cardiovascular: Regular rate and rhythm, no murmur, +S1/S2. Respiratory: Lungs are clear to auscultation, respirations unlabored, no crackles, no wheezing. Gastrointestinal: Soft, nontender, non-distended. No guarding or rebound tenderness. Extremities: No edema, no cyanosis, no clubbing. 2+ radial pulse bilaterally. Right foot surgical scar on plantar aspect with yellow scar tissue, no drainage. Neuro: No focal deficits observed. Conversant, moving all extremities. No overt cerebellar signs/incoordination. Psychiatric: Cooperative, appropriate affect. Objective Labs 05/22/25 04:34 05/22/25 04:34 Labs: Laboratory Results - last 24 hr 05/22/25 04:34 WBC 6.3 RBC 4.11 Hgb 10.5 L Hct 33.7 L MCV 82 MCH 25.5 MCHC 31.2 RDW Std Deviation 52.1 H Plt Count 314 D Neut % (Auto) 55 Lymph % (Auto) 26 [place] % (Auto) 9 Eos % (Auto) 8 Baso % (Auto) 2 Neut # (Auto) 3.5 Lymph # (Auto) 1.7 [place] # (Auto) 0.6 Eos # (Auto) 0.5 Baso # (Auto) 0.1 Immature Gran # (Auto) 0.01 H Absolute Nucleated RBC 0.00 Immature Gran % 0 Nucleated RBC % 0 Sodium 141 Potassium 4.4 Chloride 103 Carbon Dioxide 29.0 Anion Gap 9 BUN 22 Creatinine 0.8 Estim Creat Clear Calc 54.6 L eGFR > 60 BUN/Creatinine Ratio 28 H Glucose 286 H D Calculated Osmolality 294 Calcium 8.6 Corrected Calcium 9.6 Phosphorus 5.5 H Magnesium 1.8 Total Bilirubin 0.2 L AST 23 ALT 27 Alkaline Phosphatase 124 H Total Protein 4.0 L Albumin 2.8 L Globulin 1.2 L Albumin/Globulin Ratio 2.3 H ABG Interpretation ABG results: 05/19/25 05/19/25 05/19/25 08:53 13:35 17:42 VBG pH 7.33 7.45 7.43 VBG pCO2 45 34 L D 41 VBG pO2 28 51 D 46 VBG Base Excess -2 0 3 Quality Measures Quality Measures VTE prophylaxis Assessment & Plan Assessment Current Active Medications: Generic Name Dose Route Start Last Admin Trade Name Freq PRN Reason Stop Dose Admin Albuterol/Ipratropium 3 ml 05/19/25 11:15 Albuterol/Ipratropium (Duoneb) Rt Antonella 3 Ml Nebu INH 06/18/25 11:14 Q2HR PRN SHORTNESS OF BREATH OR WHEEZE Albuterol/Ipratropium 3 ml 05/19/25 15:00 05/22/25 13:21 Albuterol/Ipratropium (Duoneb) Rt Antonella 3 Ml Nebu INH 06/18/25 14:59 3 ml Q8HRRT BIRDIE Administration Amitriptyline HCl 100 mg 05/19/25 21:00 05/21/25 20:07 Amitriptyline Hcl 25 Mg Tablet PO 06/18/25 20:59 100 mg HS BIRDIE Administration Atorvastatin Calcium 40 mg 05/19/25 21:00 05/21/25 20:07 Atorvastatin Calcium 20 Mg Tablet PO 06/18/25 20:59 40 mg HS BIRDIE Administration Clopidogrel Bisulfate 75 mg 05/20/25 09:00 05/22/25 08:04 Clopidogrel Bisulfate 75 Mg Tablet PO 06/19/25 08:59 75 mg QDAY BIRDIE Administration Dextrose 25 ml 05/21/25 07:36 Dextrose 50%-Water Inj 50 Ml Syringe IV 06/20/25 07:35 Q15MIN PRN BG 50-70 responsive npo pt Dextrose 50 ml 05/21/25 07:36 Dextrose 50%-Water Inj 50 Ml Syringe IV 06/20/25 07:35 Q15MIN PRN BG <50 OR BG <70 & pt unresponsive Enoxaparin Sodium 40 mg 05/20/25 09:00 05/22/25 08:00 Enoxaparin Sod Inj 40 Mg/0.4 Ml Syringe SC 06/03/25 08:59 40 mg QDAY BIRDIE Administration Gabapentin 100 mg 05/19/25 21:00 05/21/25 20:07 Gabapentin 100 Mg Capsule PO 06/18/25 20:59 100 mg HS BIRDIE Administration Glucagon 1 mg 05/21/25 07:36 Glucagon Inj 1 Mg Vial IM Q15MIN PRN BG <70, and no IV access Hydromorphone HCl 0.5 mg 05/19/25 18:36 Hydromorphone Inj 2 Mg/Ml Vial IVP 05/24/25 18:35 Q4HR PRN BREAKTHROUGH PAIN 7-10 Insulin Degludec 20 unit 05/22/25 09:00 05/22/25 07:59 Insulin Degludec 5 Unit/0.05 Ml (Per 5 Units) SC 06/21/25 08:59 20 unit QDAY BIRDIE Administration Insulin Human Lispro 0 unit 05/21/25 11:30 05/22/25 12:09 Insulin Lispro (Admelog) 1 Unit/0.01 Ml Unit SC 06/20/25 11:29 1 unit AC BIDRIE Administration Protocol Insulin Human Lispro 10 unit 05/22/25 12:00 05/22/25 12:09 Insulin Lispro (Admelog) 1 Unit/0.01 Ml Unit SC 06/21/25 11:59 10 unit TIDWMEAL BIRDIE Administration Labetalol HCl 10 mg 05/19/25 19:05 Labetalol Inj 5 Mg/Ml Vial 20 Ml IVP Q10MIN PRN SBP >180 Lamotrigine 25 mg 05/19/25 21:00 05/21/25 20:07 Lamotrigine 25 Mg Chew PO 06/18/25 20:59 25 mg HS BIRDIE Administration Lisinopril 40 mg 05/21/25 09:00 05/22/25 08:04 Lisinopril 20 Mg Tablet PO 06/20/25 08:59 40 mg QDAY BIRDIE Administration Metoclopramide HCl 10 mg 05/19/25 17:20 05/19/25 17:25 Metoclopramide Inj 5 Mg/Ml Vial 2 Ml IVP 06/18/25 17:19 10 mg Q6HR PRN Administration NAUSEA OR VOMITING Protocol Metoprolol Tartrate 50 mg 05/19/25 11:30 05/22/25 08:00 Metoprolol Tartrate 25 Mg Tablet PO 06/18/25 11:29 50 mg BID BIRDIE Administration Mirtazapine 15 mg 05/19/25 21:00 05/21/25 20:07 Mirtazapine 15 Mg Tablet PO 06/18/25 20:59 15 mg HS BIRDIE Administration Morphine Sulfate 1 mg 05/19/25 17:27 05/22/25 12:24 Morphine Sulf Inj 4 Mg/Ml Vial IVP 05/24/25 17:26 1 mg Q4HR PRN Administration pain 7-10 Ondansetron HCl 4 mg 05/19/25 15:15 05/19/25 19:36 Ondansetron Inj 2 Mg/Ml Inj 2 Ml IVP 06/18/25 08:49 4 mg Q4HR PRN Administration NAUSEA OR VOMITING Protocol Pantoprazole Sodium 40 mg 05/19/25 16:00 05/22/25 08:00 Pantoprazole Inj 40 Mg Vial IVP 06/18/25 15:59 40 mg QDAY BIRDIE Administration Plan 60-year-old female with a past medical history of T2DM, HTN, HLD, COPD, CAD status post stents on Plavix, bipolar disorder, and recent admission due to cellulitis of her right foot due to foreign body, s/p foreign body removal 04/30 who presented to [facility] ED on 05/19 for vomiting and abdominal pain. The patient was admitted to the ICU for DKA, and subsequently downgraded to the medical floors overnight. #Diabetic ketoacidosis, resolved #Insulin dependent type 2 diabetes mellitus #High anion gap metabolic acidosis, resolved Patient presented to [facility] ED with abdominal pain and vomiting for 1 day. The patient does have a history of T2DM and takes insulin at home, however the patient has not been compliant with recent changes to insulin regimen. In the ED, the patient was noted to have glucose of 316 and beta hydroxybutyrate of 5.6 with an anion gap of 20. Patient was initially admitted to ICU for insulin drip. Patient was downgraded to medical floors after anion gap closed twice and patient tolerated subcutaneous insulin. Plan: Insulin degludec 20 daily Insulin lispro 6 with meals Continue to monitor, will adjust insulin regimen as necessary Carbohydrate consistent low diet #Right foot wound s/p foreign body removal 04/30 Patient was recently hospitalized due to a needle that was stuck in her right foot, resulting in cellulitis of that foot. The needle required removal by orthopedic surgery. The stitches have been in place since then. Attempted to remove stitches on 05/20, was able to remove most but 2 stitches remain embedded in foot. Plan: Consulted orthopedic surgery, appreciate recommendations Patient to follow up outpatient for further removal of remaining stitches Ceftriaxone 1 g daily (05/19-05/22), stopped given presence of D5W in mix and overall low suspicion for recurrent cellulitis of right foot Blood cultures collected 05/19, no growth after 48 hours x2 #CAD s/p stents Patient does have a history of CAD status post stents and takes Plavix at home for management. Plan: Plavix 75 mg daily Atorvastatin 40 mg nightly #Primary hypertension Patient is noted to have a history of hypertension. Patient did have a blood pressure of 193/88 in the ED on arrival. Plan: Lisinopril 40 mg daily Metoprolol 50 mg twice daily Labetalol 10 mg IVP every 10 minutes as needed for SBP over 180 #Bipolar disorder #Anxiety Patient does have a history of bipolar disorder and anxiety. Patient takes mirtazapine, lamotrigine, and amitriptyline nightly for management. Patient also takes hydroxyzine for her anxiety. Plan: Lamotrigine 25 mg nightly Mirtazapine 15 mg nightly Amitriptyline 100 mg nightly #COPD Patient does have a history of COPD and takes albuterol inhalers at home for management. Plan: DuoNeb 3 mL every 8 hours DuoNeb 3 mm every 2 hours as needed DVT Prophylaxis: Lovenox GI Prophylaxis: Protonix Bowel: N/A Diet: Carbohydrate consistent low Oswald: N/A Lines: Peripheral IV Antibiotics: N/A Code Status: FULL Reason for Hospitalization: DKA Other Barriers to Discharge: Insulin regimen Patient plan of care was discussed with the senior resident Dr. Bowens (PGY-2) and attending physician Dr. Xiomy Croft, PGY1 Attending Provider Attestation/Addendum I attest that I was physically present for the evaluation, physical examination, lab and imaging review of the patient with the residents. I discussed the case with the residents and agree with the findings and plans of care as documented above. At bedside today, patient was concerned about her leg wound, stating that she might have some discharge coming out, evaluated the wound, patient currently has creams that were applied by railroad wheels and axle inspector but no discharge or redness, appears dry and clean, explained to patient. Vital signs are stable except for mild hypertension. Lab results are also mostly stable but patient's glucose has been fluctuating, with blood glucose going up to 428 this morning. Patient had episode of hypoglycemia this afternoon, blood glucose dropping down up to 45. We will readjust the insulin with insulin degludec 20 units daily along with 6 units 3 times daily with meals. Asked patient about outside food, patient denies. We will continue to monitor closely for her blood glucose and adjust insulin regimen, if stable, we will plan for discharge tomorrow. Ely Stauffer MD
--- NOTE | 2025-05-22 14:45 | PC.NURSE ---
Patient called at 1425 stated she feels her blood sugar is low, checked and blood sugar was 45, orange juice and crackers with peanut butter given, rechecked glucose at 1437, glucose now up to 128. patient reports relief of symptoms. Bernadette bed side RN notified provider.
--- NOTE | 2025-05-22 14:59 | PC.SS ---
Rounding: Blood sugars elevated, monitor overnight poss DC home today
[2025-05-22] MEDS: GABAPENTIN 100 MG CAPSULE PO (21:13)
[2025-05-22] MEDS: ATORVASTATIN CALCIUM 20 MG TABLET 40 MG PO (21:14)
[2025-05-22] MEDS: MIRTAZAPINE 15 MG TABLET PO (21:14)
[2025-05-22] MEDS: lamoTRIgine 25 MG CHEW PO (21:14)
[2025-05-22] MEDS: AMITRIPTYLINE HCL 25 MG TABLET 100 MG PO (21:14)
[2025-05-23] VITALS (15 sets, daily range): BP systolic 126–167; BP diastolic 64–94; PULSE 68–84; RESP 16–95; TEMP 36.2–37.1; O2SAT 93–99; BMI 18.1
[2025-05-23] MEDS: MORPHINE SULF INJ 4 MG/ML VIAL 1 MG IVP ×3 (05:40→19:35)
[2025-05-23 06:19] LABS: Basophils # (Auto) 0.1 Thou/mm3 (0.0-0.2); Basophils % (Auto) 2 % (0-2.5); Eosinophils # (Auto) 0.6 Thou/mm3 (0.0-0.5); Eosinophils % (Auto) 9 % (0-10); Hematocrit 32.5 % (36.0-46.0); Hemoglobin 10.5 g/dL (12.0-16.0); Immature Granulocytes Auto 0.01 Thou/mm3 (0.00-0.00); Lymphocytes # (Auto) 1.9 Thou/mm3 (1.0-4.8); Lymphocytes % (Auto) 28 % (10-50); Mean Corpuscular HGB Conc 32.3 g/dl (31.0-37.0); Mean Corpuscular Hemoglobin 26.6 pg (25.0-35.0); Mean Corpuscular Volume 83 fL (80-100); Monocytes # (Auto) 0.6 Thou/mm3 (0.0-0.8); Monocytes % (Auto) 9 % (0-12); Neutrophils # (Auto) 3.6 Thou/mm3 (1.8-7.7); Neutrophils % (Auto) 53 % (37-80); Nucleated Red Blood Cell # 0.00 Thou/mm3 (0.00-0.00); Nucleated Red Blood Cell % 0 /100 WBC (0); Platelet Count 320 Thou/mm3 (140-440); RDW Standard Deviation 50.9 fL (36.4-46.3); Red Blood Count 3.94 Miln/mm3 (4.00-5.20); White Blood Count 6.7 Thou/mm3 (3.6-11.0)
[2025-05-23] MEDS: ALBUTEROL/IPRATROPIUM (Duoneb) RT SOL 3 ML NEBU INH ×3 (06:48→22:33)
[2025-05-23 06:49] LABS: Alanine Aminotransferase 36 U/L (10-49); Albumin, Serum 3.0 gm/dL (3.4-4.8); Albumin/Globulin Ratio 2.0 (1.2-2.2); Alkaline Phosphatase 134 U/L (46-116); Anion Gap 8 (7-16); Aspartate Amino Transferase 44 U/L (0-34); BUN/Creatinine Ratio 20 Ratio (12-20); Bilirubin,Total 0.2 mg/dL (0.3-1.2); Blood Urea Nitrogen 18 mg/dL (9-23); Calcium 8.8 mg/dL (8.3-10.6); Calcium (Corrected) 9.6 mg/dL (8.5-10.1); Carbon Dioxide 29.0 mMol/L (20.0-31.0); Chloride 100 mMol/L (98-107); Creatinine (Component) 0.9 mg/dL (0.6-1.3); Estimated Creatinine Clearance 48.6 mL/min (>60); Globulin 1.5 gm/dL (2.3-3.5); Glucose 378 mg/dL (74-106); Osmolality,Calculated 291 (275-295); Potassium 4.8 mMol/L (3.4-5.1); Sodium 137 mMol/L (136-145); Total Protein 4.5 gm/dL (5.7-8.2); eGFR > 60 See Note
[2025-05-23] MEDS: INSULIN LISPRO (AdmeLOG) 1 UNIT/0.01 ML UNIT 6 UNIT SC ×3 (07:41→17:05)
[2025-05-23] MEDS: INSULIN LISPRO (AdmeLOG) 1 UNIT/0.01 ML UNIT SC ×3 (07:41→17:05)
[2025-05-23] MEDS: ENOXAPARIN SOD INJ 40 MG/0.4 ML SYRINGE SC (09:00)
[2025-05-23] MEDS: CLOPIDOGREL BISULFATE 75 MG TABLET PO (09:01)
[2025-05-23] MEDS: METOPROLOL TARTRATE 25 MG TABLET 50 MG PO ×2 (09:01→21:41)
--- NOTE | 2025-05-23 11:12 | ESPR_ITS ---
Documentation for date of: 05/23/25 Subjective Subjective Interval history: Patient seen and assessed in hospital bed continues to state that she has pain in her foot with the sutures, otherwise denies having any concerning symptoms. Wound site assessed and it does not look infected at this time without any purulent drainage. Will effectively manage the patient's pain and change regimen. At this time, patient's blood sugars remain elevated, as result spoke with medical research tech who advised on changing insulin regimen. Will monitor patient's blood sugars and expect discharge within the next 24 hours. Exam Vital Signs Temp Pulse Resp BP Pulse Ox O2 Del Method 97.2 F 76 17 167/76 H 95 Room Air 05/23/25 07:31 05/23/25 10:59 05/23/25 07:31 05/23/25 10:59 05/23/25 07:31 05/23/25 07:31 Narrative Exam Physical Exam: General: Alert, no acute distress. Skin: Warm, dry, intact. Head: Normocephalic, atraumatic. Eye: Normal conjunctiva, PERRL. Cardiovascular: Regular rate and rhythm, no murmur, +S1/S2. Respiratory: Lungs are clear to auscultation, respirations unlabored, no crackles, no wheezing. Gastrointestinal: Soft, nontender, non-distended. No guarding or rebound tenderness. Extremities: No edema, no cyanosis, no clubbing. 2+ radial pulse bilaterally. R ight foot surgical scar on plantar aspect with yellow scar tissue, no drainage. Neuro: No focal deficits observed. Conversant, moving all extremities. No overt cerebellar signs/incoordination. Psychiatric: Cooperative, appropriate affect. Objective Labs 05/24/25 05:54 05/24/25 05:54 Labs: Laboratory Results - last 24 hr 05/23/25 04:53 WBC 6.7 RBC 3.94 L Hgb 10.5 L Hct 32.5 L MCV 83 MCH 26.6 MCHC 32.3 RDW Std Deviation 50.9 H Plt Count 320 Neut % (Auto) 53 Lymph % (Auto) 28 [place] % (Auto) 9 Eos % (Auto) 9 Baso % (Auto) 2 Neut # (Auto) 3.6 Lymph # (Auto) 1.9 [place] # (Auto) 0.6 Eos # (Auto) 0.6 H Baso # (Auto) 0.1 Immature Gran # (Auto) 0.01 H Absolute Nucleated RBC 0.00 Immature Gran % 0 Nucleated RBC % 0 Sodium 137 Potassium 4.8 Chloride 100 Carbon Dioxide 29.0 Anion Gap 8 BUN 18 Creatinine 0.9 Estim Creat Clear Calc 48.6 L eGFR > 60 BUN/Creatinine Ratio 20 Glucose 378 H D Calculated Osmolality 291 Calcium 8.8 Corrected Calcium 9.6 Total Bilirubin 0.2 L AST 44 H ALT 36 Alkaline Phosphatase 134 H Total Protein 4.5 L Albumin 3.0 L Globulin 1.5 L Albumin/Globulin Ratio 2.0 ABG Interpretation ABG results: 05/19/25 05/19/25 05/19/25 08:53 13:35 17:42 VBG pH 7.33 7.45 7.43 VBG pCO2 45 34 L D 41 VBG pO2 28 51 D 46 VBG Base Excess -2 0 3 Quality Measures Quality Measures VTE prophylaxis Assessment & Plan Assessment Current Active Medications: Generic Name Dose Route Start Last Admin Trade Name Freq PRN Reason Stop Dose Admin Hydrocodone Bitart/Acetaminophen 1 tab 05/23/25 10:15 Hydrocodone/Apap 5/325 Tablet PO 05/28/25 10:14 Q4HR PRN Pain 4-6 Hydrocodone Bitart/Acetaminophen 1 tab 05/23/25 10:15 Hydrocodone/Apap 10/325 Tab PO 05/28/25 10:14 Q4HR PRN Pain 7-10 Albuterol/Ipratropium 3 ml 05/19/25 11:15 Albuterol/Ipratropium (Duoneb) Rt Antonella 3 Ml Nebu INH 06/18/25 11:14 Q2HR PRN SHORTNESS OF BREATH OR WHEEZE Albuterol/Ipratropium 3 ml 05/19/25 15:00 05/23/25 06:48 Albuterol/Ipratropium (Duoneb) Rt Antonella 3 Ml Nebu INH 06/18/25 14:59 3 ml Q8HRRT BIRDIE Administration Amitriptyline HCl 100 mg 05/19/25 21:00 05/22/25 21:14 Amitriptyline Hcl 25 Mg Tablet PO 06/18/25 20:59 100 mg HS BIRDIE Administration Amlodipine Besylate 5 mg 05/23/25 10:15 05/23/25 10:59 Amlodipine Besylate 5 Mg Tablet PO 06/22/25 10:14 5 mg QDAY BIRDIE Administration Atorvastatin Calcium 40 mg 05/19/25 21:00 05/22/25 21:14 Atorvastatin Calcium 20 Mg Tablet PO 06/18/25 20:59 40 mg HS BIRDIE Administration Clopidogrel Bisulfate 75 mg 05/20/25 09:00 05/23/25 09:01 Clopidogrel Bisulfate 75 Mg Tablet PO 06/19/25 08:59 75 mg QDAY BIRDIE Administration Dextrose 25 ml 05/21/25 07:36 Dextrose 50%-Water Inj 50 Ml Syringe IV 06/20/25 07:35 Q15MIN PRN BG 50-70 responsive npo pt Dextrose 50 ml 05/21/25 07:36 Dextrose 50%-Water Inj 50 Ml Syringe IV 06/20/25 07:35 Q15MIN PRN BG <50 OR BG <70 & pt unresponsive Enoxaparin Sodium 40 mg 05/20/25 09:00 05/23/25 09:00 Enoxaparin Sod Inj 40 Mg/0.4 Ml Syringe SC 06/03/25 08:59 40 mg QDAY BIRDIE Administration Gabapentin 100 mg 05/19/25 21:00 05/22/25 21:13 Gabapentin 100 Mg Capsule PO 06/18/25 20:59 100 mg HS BIRDIE Administration Glucagon 1 mg 05/21/25 07:36 Glucagon Inj 1 Mg Vial IM Q15MIN PRN BG <70, and no IV access Insulin Degludec 20 unit 05/23/25 21:00 Insulin Degludec 5 Unit/0.05 Ml (Per 5 Units) [place] 06/22/25 20:59 HS [facility] Insulin Human Lispro 0 unit 05/21/25 11:30 05/23/25 07:41 Insulin Lispro (Admelog) 1 Unit/0.01 Ml Unit [place] 06/20/25 11:29 4 unit AC [facility] Administration Protocol Insulin Human Lispro 6 unit 05/22/25 17:30 05/23/25 07:41 Insulin Lispro (Admelog) 1 Unit/0.01 Ml Unit [place] 06/21/25 17:29 6 unit TIDWMEAL BIRDIE Administration Labetalol HCl 10 mg 05/19/25 19:05 Labetalol Inj 5 Mg/Ml Vial 20 Ml IVP Q10MIN PRN SBP >180 Lamotrigine 25 mg 05/19/25 21:00 05/22/25 21:14 Lamotrigine 25 Mg Chew PO 06/18/25 20:59 25 mg HS BIRDIE Administration Lisinopril 40 mg 05/21/25 09:00 05/23/25 09:01 Lisinopril 20 Mg Tablet PO 06/20/25 08:59 40 mg QDAY BIRDIE Administration Metoclopramide HCl 10 mg 05/19/25 17:20 05/19/25 17:25 Metoclopramide Inj 5 Mg/Ml Vial 2 Ml IVP 06/18/25 17:19 10 mg Q6HR PRN Administration NAUSEA OR VOMITING Protocol Metoprolol Tartrate 50 mg 05/19/25 11:30 05/23/25 09:01 Metoprolol Tartrate 25 Mg Tablet PO 06/18/25 11:29 50 mg BID BIRDIE Administration Mirtazapine 15 mg 05/19/25 21:00 05/22/25 21:14 Mirtazapine 15 Mg Tablet PO 06/18/25 20:59 15 mg HS BIRDIE Administration Morphine Sulfate 1 mg 05/23/25 10:18 05/23/25 10:59 Morphine Sulf Inj 4 Mg/Ml Vial IVP 05/24/25 17:26 1 mg Q4HR PRN Administration SEVERE BREAKTHRU PAIN Ondansetron HCl 4 mg 05/19/25 15:15 05/19/25 19:36 Ondansetron Inj 2 Mg/Ml Inj 2 Ml IVP 06/18/25 08:49 4 mg Q4HR PRN Administration NAUSEA OR VOMITING Protocol Pantoprazole Sodium 40 mg 05/19/25 16:00 05/23/25 09:00 Pantoprazole Inj 40 Mg Vial IVP 06/18/25 15:59 40 mg QDAY BIRDIE Administration Plan 60-year-old female with a past medical history of T2DM, HTN, HLD, COPD, CAD status post stents on Plavix, bipolar disorder, and recent admission due to cellulitis of her right foot due to foreign body, s/p foreign body removal 04/30 who presented to [facility] ED on 05/19 for vomiting and abdominal pain. The patient was admitted to the ICU for DKA, and subsequently downgraded to the medical floors overnight. #Diabetic ketoacidosis, resolved #Insulin dependent type 2 diabetes mellitus #High anion gap metabolic acidosis, resolved Patient presented to [facility] ED with abdominal pain and vomiting for 1 day. The patient does have a history of T2DM and takes insulin at home, however the patient has not been compliant with recent changes to insulin regimen. In the ED, the patient was noted to have glucose of 316 and beta hydroxybutyrate of 5.6 with an anion gap of 20. Patient was initially admitted to ICU for insulin drip. Patient was downgraded to medical floors after anion gap closed twice and patient tolerated subcutaneous insulin. Plan: Increased insulin degludec to 26 daily Insulin lispro 6 with meals Sliding scale, moderate scale Continue to monitor, will adjust insulin regimen as necessary Carbohydrate consistent low diet #Right foot wound s/p foreign body removal 04/30 Patient was recently hospitalized due to a needle that was stuck in her right foot, resulting in cellulitis of that foot. The needle required removal by orthopedic surgery. The stitches have been in place since then. Attempted to remove stitches on 05/20, was able to remove most but 2 stitches remain embedded in foot. Blood cultures collected 05/19, no growth after 48 hours x2 Off antibiotics as there is a low suspicion for infection at this time Plan: Consulted orthopedic surgery, appreciate recommendations Patient to follow up outpatient for further removal of remaining stitches #CAD s/p stents Patient does have a history of CAD status post stents and takes Plavix at home for management. Plan: Plavix 75 mg daily Atorvastatin 40 mg nightly #Primary hypertension Patient is noted to have a history of hypertension. Patient did have a blood pressure of 193/88 in the ED on arrival. Plan: Lisinopril 40 mg daily Metoprolol 50 mg twice daily #Bipolar disorder #Anxiety Patient does have a history of bipolar disorder and anxiety. Patient takes mirtazapine, lamotrigine, and amitriptyline nightly for management. Patient also takes hydroxyzine for her anxiety. Plan: Lamotrigine 25 mg nightly Mirtazapine 15 mg nightly Amitriptyline 100 mg nightly #COPD Patient does have a history of COPD and takes albuterol inhalers at home for management. Plan: DuoNeb 3 mL every 8 hours DuoNeb 3 mm every 2 hours as needed Health Maintenance: DVT Prophylaxis: Lovenox GI Prophylaxis: Protonix Bowel: N/A Diet: Carbohydrate consistent low [place]: N/A Lines: Peripheral IV Dispo: Pending blood sugar management Code Status: FULL Patient seen and assessed with attending Dr. Xiomy Gutierrez, PGY-2 Internal Medicine - GME Attending Provider Attestation/Addendum I attest that I was physically present for the evaluation, physical examination, lab and imaging review of the patient with the residents. I discussed the case with the residents and agree with the findings and plans of care as documented above. At bedside today, patient continues to complain of pain around the foot and is concerned about discharge, reassured that she only has creams that were applied by wound care earlier but no discharge, does not have any increased warmth, no new redness. Blood glucose continues to fluctuate, had glucose of 415 this morning but also had episodes of hypoglycemia. Case discussed with endocrinology, recommended increasing long-acting insulin and changing the sliding scale, we will make the changes and continue to monitor closely. If blood glucoses are better controlled, we will plan for discharge tomorrow. Ely Stauffer MD
--- NOTE | 2025-05-23 11:36 | PC.SS ---
rounding note: Patient pending d/c home. No needs.
[2025-05-23] MEDS: ATORVASTATIN CALCIUM 20 MG TABLET 40 MG PO (21:40)
[2025-05-23] MEDS: lamoTRIgine 25 MG CHEW PO (21:41)
[2025-05-23] MEDS: AMITRIPTYLINE HCL 25 MG TABLET 100 MG PO (21:42)
[2025-05-23] MEDS: GABAPENTIN 100 MG CAPSULE PO (21:42)
[2025-05-23] MEDS: MIRTAZAPINE 15 MG TABLET PO (21:42)
[2025-05-23] MEDS: INSULIN DEGLUDEC 5 UNIT/0.05 ML (PER 5 UNITS) 26 UNIT SC (21:44)
[2025-05-23] MEDS: ONDANSETRON INJ 2 MG/ML INJ 2 ML 4 MG IVP (21:52)
[2025-05-24] VITALS (15 sets, daily range): BP systolic 102–146; BP diastolic 55–70; PULSE 63–79; RESP 16–97; TEMP 36.1–36.6; O2SAT 92–99
[2025-05-24] MEDS: ALBUTEROL/IPRATROPIUM (Duoneb) RT SOL 3 ML NEBU INH ×3 (06:02→22:02)
[2025-05-24 06:05] LABS: Basophils # (Auto) 0.1 Thou/mm3 (0.0-0.2); Basophils % (Auto) 1 % (0-2.5); Eosinophils # (Auto) 0.5 Thou/mm3 (0.0-0.5); Eosinophils % (Auto) 7 % (0-10); Hematocrit 33.6 % (36.0-46.0); Hemoglobin 10.7 g/dL (12.0-16.0); Immature Granulocytes Auto 0.02 Thou/mm3 (0.00-0.00); Lymphocytes # (Auto) 2.3 Thou/mm3 (1.0-4.8); Lymphocytes % (Auto) 29 % (10-50); Mean Corpuscular HGB Conc 31.8 g/dl (31.0-37.0); Mean Corpuscular Hemoglobin 26.4 pg (25.0-35.0); Mean Corpuscular Volume 83 fL (80-100); Monocytes # (Auto) 0.6 Thou/mm3 (0.0-0.8); Monocytes % (Auto) 8 % (0-12); Neutrophils # (Auto) 4.3 Thou/mm3 (1.8-7.7); Neutrophils % (Auto) 55 % (37-80); Nucleated Red Blood Cell # 0.00 Thou/mm3 (0.00-0.00); Nucleated Red Blood Cell % 0 /100 WBC (0); Platelet Count 331 Thou/mm3 (140-440); RDW Standard Deviation 49.9 fL (36.4-46.3); Red Blood Count 4.06 Miln/mm3 (4.00-5.20); White Blood Count 7.8 Thou/mm3 (3.6-11.0)
[2025-05-24 06:31] LABS: Alanine Aminotransferase 37 U/L (10-49); Albumin, Serum 3.2 gm/dL (3.4-4.8); Albumin/Globulin Ratio 2.0 (1.2-2.2); Alkaline Phosphatase 145 U/L (46-116); Anion Gap 8 (7-16); Aspartate Amino Transferase 30 U/L (0-34); BUN/Creatinine Ratio 26 Ratio (12-20); Bilirubin,Total 0.2 mg/dL (0.3-1.2); Blood Urea Nitrogen 23 mg/dL (9-23); Calcium 8.8 mg/dL (8.3-10.6); Calcium (Corrected) 9.4 mg/dL (8.5-10.1); Carbon Dioxide 28.5 mMol/L (20.0-31.0); Chloride 101 mMol/L (98-107); Creatinine (Component) 0.9 mg/dL (0.6-1.3); Estimated Creatinine Clearance 48.2 mL/min (>60); Globulin 1.6 gm/dL (2.3-3.5); Glucose 287 mg/dL (74-106); Osmolality,Calculated 287 (275-295); Potassium 4.7 mMol/L (3.4-5.1); Sodium 137 mMol/L (136-145); Total Protein 4.8 gm/dL (5.7-8.2); eGFR > 60 See Note
[2025-05-24] MEDS: INSULIN LISPRO (AdmeLOG) 1 UNIT/0.01 ML UNIT 6 UNIT SC (07:38)
[2025-05-24] MEDS: INSULIN LISPRO (AdmeLOG) 1 UNIT/0.01 ML UNIT SC ×2 (07:39→17:06)
[2025-05-24] MEDS: ENOXAPARIN SOD INJ 40 MG/0.4 ML SYRINGE SC (08:17)
[2025-05-24] MEDS: MORPHINE SULF INJ 4 MG/ML VIAL 1 MG IVP ×2 (08:17→13:09)
[2025-05-24] MEDS: METOPROLOL TARTRATE 25 MG TABLET 50 MG PO ×2 (08:19→21:49)
[2025-05-24] MEDS: CLOPIDOGREL BISULFATE 75 MG TABLET PO (08:19)
[2025-05-24] MEDS: INSULIN DEGLUDEC 5 UNIT/0.05 ML (PER 5 UNITS) 4 UNIT SC (09:33)
--- NOTE | 2025-05-24 11:08 | PC.NURSE ---
PATIENT IS ALERT AND ORIENTED X4, C/O DIZZINESS, BS 59, PATIENT WAS GIVEN ORANGE JUICE, MILK AND CRACKERS. MD SALDANA MADE AWARE. ORDERS RECEIVED READ BACK AND CARRIED OUT.
--- NOTE | 2025-05-24 15:46 | PD.RESPRO ---
Documentation for date of: 05/24/25 Subjective Subjective Interval history: No acute overnight events. Denies any other complaints. Reported that her pain in the foot is significantly low today. Vitals are stable. Labs done this morning showed glucose of 287. Patient was given extra dose of insulin degludec 4 units this morning and got total 11 units of insulin and noted to have hypoglycemic episode of 59 for which dextrose is given. Premeal insulin is decreased to 4 units and started on degludec 30 units nighttime. Will follow-up with her blood sugars. Anticipate discharge within 24 hours Exam Vital Signs Temp Pulse Resp BP Pulse Ox O2 Del Method 97.2 F 67 18 102/55 L 95 Room Air 05/24/25 12:00 05/24/25 12:00 05/24/25 12:00 05/24/25 12:00 05/24/25 12:00 05/24/25 12:00 Narrative Exam General: Awake. HEENT: Normocephalic, atraumatic, mucous membranes moist. Heart: Regular rate and rhythm, no murmurs. Lungs: Clear to auscultation with no wheezing or crackles. Abdomen: Soft, nondistended, nontender, positive bowel sounds. ?No guarding or rebound tenderness. Neurologic: Alert and oriented x3, no gross neurological deficit, and patient able to move all 4 extremities. Extremities: No edema. noted healing wound on the right foot. Skin: No rash or ecchymoses. Objective Labs 05/24/25 05:54 05/24/25 05:54 Labs: Laboratory Results - last 24 hr 05/24/25 05:54 WBC 7.8 RBC 4.06 Hgb 10.7 L Hct 33.6 L MCV 83 MCH 26.4 MCHC 31.8 RDW Std Deviation 49.9 H Plt Count 331 Neut % (Auto) 55 Lymph % (Auto) 29 [place] % (Auto) 8 Eos % (Auto) 7 Baso % (Auto) 1 Neut # (Auto) 4.3 Lymph # (Auto) 2.3 [place] # (Auto) 0.6 Eos # (Auto) 0.5 Baso # (Auto) 0.1 Immature Gran # (Auto) 0.02 H Absolute Nucleated RBC 0.00 Immature Gran % 0 Nucleated RBC % 0 Sodium 137 Potassium 4.7 Chloride 101 Carbon Dioxide 28.5 Anion Gap 8 BUN 23 Creatinine 0.9 Estim Creat Clear Calc 48.2 L eGFR > 60 BUN/Creatinine Ratio 26 H Glucose 287 H D Calculated Osmolality 287 Calcium 8.8 Corrected Calcium 9.4 Total Bilirubin 0.2 L AST 30 ALT 37 Alkaline Phosphatase 145 H Total Protein 4.8 L Albumin 3.2 L Globulin 1.6 L Albumin/Globulin Ratio 2.0 ABG Interpretation ABG results: 05/19/25 05/19/25 05/19/25 08:53 13:35 17:42 VBG pH 7.33 7.45 7.43 VBG pCO2 45 34 L D 41 VBG pO2 28 51 D 46 VBG Base Excess -2 0 3 Quality Measures Quality Measures VTE prophylaxis Assessment & Plan Assessment Current Active Medications: Generic Name Dose Route Start Last Admin Trade Name Freq PRN Reason Stop Dose Admin Hydrocodone Bitart/Acetaminophen 1 tab 05/23/25 10:15 Hydrocodone/Apap 5/325 Tablet PO 05/28/25 10:14 Q4HR PRN Pain 4-6 Hydrocodone Bitart/Acetaminophen 1 tab 05/23/25 10:15 05/23/25 21:52 Hydrocodone/Apap 10/325 Tab PO 05/28/25 10:14 1 tab Q4HR PRN Administration Pain 7-10 Albuterol/Ipratropium 3 ml 05/19/25 11:15 Albuterol/Ipratropium (Duoneb) Rt Antonella 3 Ml Nebu INH 06/18/25 11:14 Q2HR PRN SHORTNESS OF BREATH OR WHEEZE Albuterol/Ipratropium 3 ml 05/19/25 15:00 05/23/25 22:33 Albuterol/Ipratropium (Duoneb) Rt Antonella 3 Ml Nebu INH 06/18/25 14:59 3 ml Q8HRRT BIRDIE Administration Amitriptyline HCl 100 mg 05/19/25 21:00 05/23/25 21:42 Amitriptyline Hcl 25 Mg Tablet PO 06/18/25 20:59 100 mg HS BIRDIE Administration Amlodipine Besylate 5 mg 05/23/25 10:15 05/24/25 08:18 Amlodipine Besylate 5 Mg Tablet PO 06/22/25 10:14 5 mg QDAY BIRDIE Administration Atorvastatin Calcium 40 mg 05/19/25 21:00 05/23/25 21:40 Atorvastatin Calcium 20 Mg Tablet PO 06/18/25 20:59 40 mg HS BIRDIE Administration Clopidogrel Bisulfate 75 mg 05/20/25 09:00 05/24/25 08:19 Clopidogrel Bisulfate 75 Mg Tablet PO 06/19/25 08:59 75 mg QDAY BIRDIE Administration Dextrose 25 ml 05/21/25 07:36 Dextrose 50%-Water Inj 50 Ml Syringe IV 06/20/25 07:35 Q15MIN PRN BG 50-70 responsive npo pt Dextrose 50 ml 05/21/25 07:36 Dextrose 50%-Water Inj 50 Ml Syringe IV 06/20/25 07:35 Q15MIN PRN BG <50 OR BG <70 & pt unresponsive Enoxaparin Sodium 40 mg 05/20/25 09:00 05/24/25 08:17 Enoxaparin Sod Inj 40 Mg/0.4 Ml Syringe [place] 06/03/25 08:59 40 mg QDAY BIRDIE Administration Gabapentin 100 mg 05/19/25 21:00 05/23/25 21:42 Gabapentin 100 Mg Capsule PO 06/18/25 20:59 100 mg HS BIRDIE Administration Glucagon 1 mg 05/21/25 07:36 Glucagon Inj 1 Mg Vial IM Q15MIN PRN BG <70, and no IV access Insulin Degludec 30 unit 05/24/25 21:00 Insulin Degludec 5 Unit/0.05 Ml (Per 5 Units) [place] 06/23/25 20:59 [facility] Insulin Human Lispro 0 unit 05/24/25 13:53 Insulin Lispro (Admelog) 1 Unit/0.01 Ml Unit [place] 06/20/25 16:59 [facility] Protocol Insulin Human Lispro 4 unit 05/24/25 17:30 Insulin Lispro (Admelog) 1 Unit/0.01 Ml Unit [place] 06/23/25 17:29 [facility]IDW[facility]AL [facility] Lamotrigine 25 mg 05/19/25 21:00 05/23/25 21:41 Lamotrigine 25 Mg Chew PO 06/18/25 20:59 25 mg HS BIRDIE Administration Lisinopril 40 mg 05/21/25 09:00 05/24/25 08:18 Lisinopril 20 Mg Tablet PO 06/20/25 08:59 40 mg QDAY BIRDIE Administration Metoclopramide HCl 10 mg 05/19/25 17:20 05/19/25 17:25 Metoclopramide Inj 5 Mg/Ml Vial 2 Ml IVP 06/18/25 17:19 10 mg Q6HR PRN Administration NAUSEA OR VOMITING Protocol Metoprolol Tartrate 50 mg 05/19/25 11:30 05/24/25 08:19 Metoprolol Tartrate 25 Mg Tablet PO 06/18/25 11:29 50 mg BID BRIDIE Administration Mirtazapine 15 mg 05/19/25 21:00 05/23/25 21:42 Mirtazapine 15 Mg Tablet PO 06/18/25 20:59 15 mg HS BIRDIE Administration Morphine Sulfate 1 mg 05/23/25 10:18 05/24/25 13:09 Morphine Sulf Inj 4 Mg/Ml Vial IVP 05/24/25 17:26 1 mg Q4HR PRN Administration SEVERE BREAKTHRU PAIN Ondansetron HCl 4 mg 05/19/25 15:15 05/23/25 21:52 Ondansetron Inj 2 Mg/Ml Inj 2 Ml IVP 06/18/25 08:49 4 mg Q4HR PRN Administration NAUSEA OR VOMITING Protocol Pantoprazole Sodium 40 mg 05/19/25 16:00 05/24/25 08:17 Pantoprazole Inj 40 Mg Vial IVP 06/18/25 15:59 40 mg QDAY BIRDIE Administration Plan 60-year-old female with a past medical history of T2DM, HTN, HLD, COPD, CAD status post stents on Plavix, bipolar disorder, and recent admission due to cellulitis of her right foot due to foreign body, s/p foreign body removal 04/30 who presented to [facility] ED on 05/19 for vomiting and abdominal pain. The patient was admitted to the ICU for DKA, and subsequently downgraded to the medical floors overnight. #Diabetic ketoacidosis, resolved #Insulin dependent type 2 diabetes mellitus #High anion gap metabolic acidosis, resolved Patient presented to [facility] ED with abdominal pain and vomiting for 1 day. The patient does have a history of T2DM and takes insulin at home, however the patient has not been compliant with recent changes to insulin regimen. In the ED, the patient was noted to have glucose of 316 and beta hydroxybutyrate of 5.6 with an anion gap of 20. Patient was initially admitted to ICU for insulin drip. Patient was downgraded to medical floors after anion gap closed twice and patient tolerated subcutaneous insulin. Plan: Increased insulin degludec to 30 daily during night Insulin lispro 6 with meals -- changed to 4units Sliding scale, moderate scale Continue to monitor, will adjust insulin regimen as necessary Carbohydrate consistent low diet #Right foot wound s/p foreign body removal 04/30 Patient was recently hospitalized due to a needle that was stuck in her right foot, resulting in cellulitis of that foot. The needle required removal by orthopedic surgery. The stitches have been in place since then. Attempted to remove stitches on 05/20, was able to remove most but 2 stitches remain embedded in foot. Blood cultures collected 05/19, no growth after 48 hours x2 Off antibiotics as there is a low suspicion for infection at this time Plan: Consulted orthopedic surgery, appreciate recommendations Patient to follow up outpatient for further removal of remaining stitches #CAD s/p stents Patient does have a history of CAD status post stents and takes Plavix at home for management. Plan: Plavix 75 mg daily Atorvastatin 40 mg nightly #Primary hypertension Patient is noted to have a history of hypertension. Patient did have a blood pressure of 193/88 in the ED on arrival. Plan: Lisinopril 40 mg daily Metoprolol 50 mg twice daily #Bipolar disorder #Anxiety Patient does have a history of bipolar disorder and anxiety. Patient takes mirtazapine, lamotrigine, and amitriptyline nightly for management. Patient also takes hydroxyzine for her anxiety. Plan: Lamotrigine 25 mg nightly Mirtazapine 15 mg nightly Amitriptyline 100 mg nightly #COPD Patient does have a history of COPD and takes albuterol inhalers at home for management. Plan: DuoNeb 3 mL every 8 hours DuoNeb 3 mm every 2 hours as needed Health Maintenance: DVT Prophylaxis: Lovenox GI Prophylaxis: Protonix Bowel: N/A Diet: Carbohydrate consistent low Oswald: N/A Lines: Peripheral IV Dispo: Pending blood sugar management Code Status: FULL Patient plan of care was discussed with the attending physician, Dr. Xiomy Bowens, PGY2 Attending Provider Attestation/Addendum I attest that I was physically present for the evaluation, physical examination, lab and imaging review of the patient with the residents. I discussed the case with the residents and agree with the findings and plans of care as documented above. At bedside today, patient appears comfortable, states that his foot pain has improved compared to yesterday, denies any new complaints. Glucose levels have improved compared to yesterday, 327 this morning but patient had episode of hypoglycemia with glucose of 59 after her short acting insulins. We will increase her long-acting insulin to 30 at bedtime and decrease her Premeal insulin. We will continue to monitor closely for glucose levels. Ely Stauffer MD
[2025-05-24] MEDS: INSULIN LISPRO (AdmeLOG) 1 UNIT/0.01 ML UNIT 4 UNIT SC (17:05)
[2025-05-24] MEDS: ONDANSETRON INJ 2 MG/ML INJ 2 ML 4 MG IVP (19:29)
[2025-05-24] MEDS: INSULIN DEGLUDEC 5 UNIT/0.05 ML (PER 5 UNITS) 30 UNIT SC (21:39)
[2025-05-24] MEDS: ATORVASTATIN CALCIUM 20 MG TABLET 40 MG PO (21:48)
[2025-05-24] MEDS: lamoTRIgine 25 MG CHEW PO (21:48)
[2025-05-24] MEDS: AMITRIPTYLINE HCL 25 MG TABLET 100 MG PO (21:48)
[2025-05-24] MEDS: MIRTAZAPINE 15 MG TABLET PO (21:49)
[2025-05-24] MEDS: GABAPENTIN 100 MG CAPSULE PO (21:49)
[2025-05-25] VITALS (15 sets, daily range): BP systolic 129–168; BP diastolic 62–80; PULSE 64–80; RESP 16–98; TEMP 36.1–36.9; O2SAT 92–99; BMI 17.7
[2025-05-25 05:11] LABS: Basophils # (Auto) 0.1 Thou/mm3 (0.0-0.2); Basophils % (Auto) 1 % (0-2.5); Eosinophils # (Auto) 0.6 Thou/mm3 (0.0-0.5); Eosinophils % (Auto) 9 % (0-10); Hematocrit 32.2 % (36.0-46.0); Hemoglobin 10.0 g/dL (12.0-16.0); Immature Granulocytes Auto 0.02 Thou/mm3 (0.00-0.00); Lymphocytes # (Auto) 2.3 Thou/mm3 (1.0-4.8); Lymphocytes % (Auto) 35 % (10-50); Mean Corpuscular HGB Conc 31.1 g/dl (31.0-37.0); Mean Corpuscular Hemoglobin 25.6 pg (25.0-35.0); Mean Corpuscular Volume 83 fL (80-100); Monocytes # (Auto) 0.7 Thou/mm3 (0.0-0.8); Monocytes % (Auto) 10 % (0-12); Neutrophils # (Auto) 3.0 Thou/mm3 (1.8-7.7); Neutrophils % (Auto) 45 % (37-80); Nucleated Red Blood Cell # 0.00 Thou/mm3 (0.00-0.00); Nucleated Red Blood Cell % 0 /100 WBC (0); Platelet Count 341 Thou/mm3 (140-440); RDW Standard Deviation 51.1 fL (36.4-46.3); Red Blood Count 3.90 Miln/mm3 (4.00-5.20); White Blood Count 6.6 Thou/mm3 (3.6-11.0)
[2025-05-25 05:32] LABS: Alanine Aminotransferase 65 U/L (10-49); Albumin, Serum 3.1 gm/dL (3.4-4.8); Albumin/Globulin Ratio 2.1 (1.2-2.2); Alkaline Phosphatase 138 U/L (46-116); Anion Gap 6 (7-16); Aspartate Amino Transferase 104 U/L (0-34); BUN/Creatinine Ratio 29 Ratio (12-20); Bilirubin,Total 0.2 mg/dL (0.3-1.2); Blood Urea Nitrogen 26 mg/dL (9-23); Calcium 8.7 mg/dL (8.3-10.6); Calcium (Corrected) 9.4 mg/dL (8.5-10.1); Carbon Dioxide 30.6 mMol/L (20.0-31.0); Chloride 104 mMol/L (98-107); Creatinine (Component) 0.9 mg/dL (0.6-1.3); Estimated Creatinine Clearance 47.7 mL/min (>60); Globulin 1.5 gm/dL (2.3-3.5); Glucose 149 mg/dL (74-106); Osmolality,Calculated 288 (275-295); Potassium 4.9 mMol/L (3.4-5.1); Sodium 141 mMol/L (136-145); Total Protein 4.6 gm/dL (5.7-8.2); eGFR > 60 See Note
[2025-05-25] MEDS: ALBUTEROL/IPRATROPIUM (Duoneb) RT SOL 3 ML NEBU INH ×3 (07:24→23:06)
[2025-05-25] MEDS: INSULIN LISPRO (AdmeLOG) 1 UNIT/0.01 ML UNIT 4 UNIT SC ×2 (07:39→11:52)
[2025-05-25] MEDS: ENOXAPARIN SOD INJ 40 MG/0.4 ML SYRINGE SC (08:23)
--- NOTE | 2025-05-25 08:23 | XR_ITS ---
Examination: Abdomen sonogram, Limited Date and time of exam: May 25, 2025, 1002 hrs. Indications: Elevated liver function tests on laboratory examination today Technique: Real-time bello scale transabdominal sonographic images of the upper abdomen obtained. Findings: 21 mm gallstone. Normal gallbladder wall. Common bile duct 0.5 cm no common bile duct stones. Pancreatic head 1.0 cm Liver 17.6 cm fatty infiltration no focal liver lesions. Normal hepatopedal portal venous flow. Patent IVC. Impression: Cholelithiasis, negative for cholecystitis Moderate hepatomegaly, fatty infiltration, no focal liver lesions.
[2025-05-25] MEDS: CLOPIDOGREL BISULFATE 75 MG TABLET PO (08:24)
[2025-05-25] MEDS: METOPROLOL TARTRATE 25 MG TABLET 50 MG PO ×2 (08:25→20:37)
[2025-05-25 13:55] LABS: Alanine Aminotransferase 65 U/L (10-49); Albumin, Serum 3.2 gm/dL (3.4-4.8); Alkaline Phosphatase 144 U/L (46-116); Aspartate Amino Transferase 66 U/L (0-34); Bilirubin,Direct < 0.1 mg/dL (0.0-0.3); Bilirubin,Total 0.2 mg/dL (0.3-1.2); Total Protein 4.8 gm/dL (5.7-8.2)
--- NOTE | 2025-05-25 14:00 | PD.RESDS ---
Planned Discharge Date 05/25/25 DS: Providers Provider Date of admission: 05/19/25 10:30 Primary care physician: Aaron Mclean MD Admitting Provider: Priyank Capellan MD Attending Provider on Admission: Ely Stauffer MD Consults: 05/19/25 09:49 Referral Registered Dietitian Routine Comment: 05/19/25 09:52 Consult to Primary Care Md Stat Comment: Moderate DKA Consulting Provider: Priyank Capellan I 05/19/25 13:51 [facility] Referral - Nutrition Routine Comment: Positive screening for nutrition needs. 05/20/25 09:51 Consult to Orthopedic Routine Comment: Stitches in foot, almost 21 days Consulting Provider: Alfredo Burton 05/21/25 08:00 Referral Wound Care Routine Comment: 05/21/25 12:17 Referral OP Wound Healing Dept Routine Comment: Right plantar foot Attending Provider on DC: Harshad Croft DO Discharging Provider: Harshad Croft DO Hospital Course Hospital Course Hospital course: Reason for hospitalization: Summary: Imaging: Discharge Recommendations: - Follow up with PCP within 1 week of discharge - Continue rest of medications as previously prescribed - Return to the ED or call EMS if symptoms return and/or worsen If you don't have a PCP, you can make an appointment at the [facility]: [address] [place] [address] Hospital Diagnoses: - Patient plan of care was discussed with the senior resident [...] and attending physician [...] Harshad Croft, PGY-1 Time Spent with Patient Time attestation: Total time spent providing and/or coordinating discharge services: Exam Vital Signs Temp Pulse Resp BP Pulse Ox O2 Del Method 97.3 F 80 19 168/80 H 97 Room Air 05/25/25 12:00 05/25/25 12:00 05/25/25 12:00 05/25/25 12:00 05/25/25 12:00 05/25/25 12:00 Discharge Plan Plan Patient Disposition: HOME (Self Care) Patient condition on transfer: Stable Care Plan Goals: 1) Follow up at [facility], [address] [place] [address]. Call [phone] for appointment. 2) Wound care to right foot: May shower with foot covered than changed dressing once a day and as needed for saturating. Ambulate using heel of foot only. Avoid tight fitting shoes and socks until wound is healed. -Wash hands with soap and water than remove old dressing. Cleanse well with wound cleanser spray and pat dry with gauze. Wash hands again. Apply small amount of therahoney gel to calcium alginate than cover wound. Secure with foam dressing. Change once a day and as needed for falling off. If active bleeding occurs, apply tight dressing and return to MD or ER. ? Notify primary doctor or return to Emergency Room if any of the following: ? Fever above 100.6? F. ? Increased pain ? Increase swelling ? Red streaks around your wound ? Drainage becomes foul smelling or changes color ? The wound is larger or deeper ? The wound looks dried out or dark ? Bleeding that does not stop with holding pressure Prescriptions/Referrals Prescriptions/Med Rec: Continued atorvastatin 40 mg Tablet 40 mg PO HS amitriptyline 100 mg Tablet 100 mg PO HS gabapentin 100 mg capsule 100 mg PO HS albuterol sulfate 90 mcg/actuation HFA aerosol inhaler 2 inh inhalation Q8H PRN (Reason: shortness of breath or wheezing) Qty: 8.5 0RF albuterol sulfate 2.5 mg /3 mL (0.083 %) solution for nebulization 2.5 mg inhalation QID PRN (Reason: shortness of breath or wheezing) Qty: 90 0RF cetirizine 10 mg tablet 10 mg PO QDAY hydroxyzine HCl 25 mg Tablet 25 mg PO HS 30 Days Qty: 30 0RF lisinopril 40 mg tablet 40 mg PO QDAY 30 Days Qty: 30 0RF lamotrigine 25 mg tablet 25 mg PO HS mirtazapine 15 mg tablet 15 mg PO HS metoclopramide HCl 10 mg Tablet 10 mg PO Q6H PRN (Reason: upset stomach) pantoprazole 40 mg Tablet,Delayed Release (Dr/Ec) 40 mg PO QDAY clopidogrel 75 mg Tablet 75 mg PO QDAY 30 Days Qty: 30 4RF (DME) FreeStyle Osmani 3 Sensor Device See Rx Instructions .Route Qty: 1 6RF Rx Instructions: As directed (DME) insulin syr/ndl U100 half windy 0.3 mL 29 gauge x 1/2 syringe See Rx Instructions .Route Qty: 100 0RF Rx Instructions: As directed Changed insulin lispro 100 unit/mL insulin pen 6 unit subcut TID Qty: 15 0RF Rx Instructions: 5 units with meals please insulin glargine [Lantus Solostar U-100 Insulin] 100 unit/mL (3 mL) insulin pen 20 unit subcut QAM Qty: 15 0RF Rx Instructions: 10 units subcutaneously; Referrals: Aaron Mclean MD [Primary Care Provider, Family Practice] Patient/Caregiver Discharge Instructions Education Materials: Nutrition for Wound Healing, Diabetes: Keeping Feet Healthy, Changing Dressing Dc, Foot Care Diabetes Steps Print Language: Thai Stand Alone Forms: Lela Award Info., Patient Portal Info Letter
--- NOTE | 2025-05-25 14:09 | PC.NURSE ---
checked pt blood glucose at 1408. it was 57. gave pt juice. Dr barron aware. no orders given at this moment
--- NOTE | 2025-05-25 14:19 | PC.NURSE ---
rechecked pts blood glucose. it is 43 @4075
--- NOTE | 2025-05-25 16:03 | ESPR_ITS ---
Documentation for date of: 05/25/25 Subjective Subjective Interval history: Overnight events: No acute events overnight. Patient was seen and examined at bedside. AM vitals and labs reviewed. Patient does not appear to be in any acute distress at this time. Patient has no complaints at this time. A.m. blood glucose 149, fingerstick 142 a few hours later. AST 104, ALT 65. 24-hour insulin use noted to be 53 units. Due to elevated AST and ALT, repeat LFTs ordered and liver ultrasound ordered. Repeat LFTs downtrending and liver ultrasound showed cholelithiasis without cholecystitis and fatty liver. Was planning to discharge, however nursing staff notified medicine team that patient's lunchtime blood glucose was noted to be in low 50s. Discontinued mealtime insulin. Review of systems otherwise negative except for what is mentioned above. Exam Vital Signs Temp Pulse Resp BP Pulse Ox O2 Del Method 97.3 F 64 16 168/80 H 98 Room Air 05/25/25 12:00 05/25/25 14:54 05/25/25 14:54 05/25/25 12:00 05/25/25 14:54 05/25/25 12:00 Narrative Exam Physical Exam: General: Alert, no acute distress. Skin: Warm, dry, intact. Head: Normocephalic, atraumatic. Eye: Normal conjunctiva, PERRL. Cardiovascular: Regular rate and rhythm, no murmur, +S1/S2. Respiratory: Lungs are clear to auscultation, respirations unlabored, no crackles, no wheezing. Gastrointestinal: Soft, nontender, non-distended. No guarding or rebound tenderness. Extremities: No edema, no cyanosis, no clubbing. 2+ radial pulse bilaterally. R ight foot plantar wound bandage. Neuro: No focal deficits observed. Conversant, moving all extremities. No overt cerebellar signs/incoordination. Psychiatric: Cooperative, appropriate affect. Objective Labs 05/25/25 04:30 05/25/25 04:30 Labs: Laboratory Results - last 24 hr 05/25/25 05/25/25 04:30 13:13 WBC 6.6 RBC 3.90 L Hgb 10.0 L Hct 32.2 L MCV 83 MCH 25.6 MCHC 31.1 RDW Std Deviation 51.1 H Plt Count 341 Neut % (Auto) 45 Lymph % (Auto) 35 [place] % (Auto) 10 Eos % (Auto) 9 Baso % (Auto) 1 Neut # (Auto) 3.0 Lymph # (Auto) 2.3 [place] # (Auto) 0.7 Eos # (Auto) 0.6 H Baso # (Auto) 0.1 Immature Gran # (Auto) 0.02 H Absolute Nucleated RBC 0.00 Immature Gran % 0 Nucleated RBC % 0 Sodium 141 Potassium 4.9 Chloride 104 Carbon Dioxide 30.6 Anion Gap 6 L BUN 26 H Creatinine 0.9 Estim Creat Clear Calc 47.7 L eGFR > 60 BUN/Creatinine Ratio 29 H Glucose 149 H D Calculated Osmolality 288 Calcium 8.7 Corrected Calcium 9.4 Total Bilirubin 0.2 L 0.2 L Direct Bilirubin < 0.1 AST 104 H 66 H ALT 65 H 65 H Alkaline Phosphatase 138 H 144 H Total Protein 4.6 L 4.8 L Albumin 3.1 L 3.2 L Globulin 1.5 L Albumin/Globulin Ratio 2.1 ABG Interpretation ABG results: 05/19/25 05/19/25 05/19/25 08:53 13:35 17:42 VBG pH 7.33 7.45 7.43 VBG pCO2 45 34 L D 41 VBG pO2 28 51 D 46 VBG Base Excess -2 0 3 Quality Measures Quality Measures VTE prophylaxis Assessment & Plan Assessment Current Active Medications: Generic Name Dose Route Start Last Admin Trade Name Freq PRN Reason Stop Dose Admin Hydrocodone Bitart/Acetaminophen 1 tab 05/23/25 10:15 Hydrocodone/Apap 5/325 Tablet PO 05/28/25 10:14 Q4HR PRN Pain 4-6 Hydrocodone Bitart/Acetaminophen 1 tab 05/23/25 10:15 05/25/25 08:23 Hydrocodone/Apap 10/325 Tab PO 05/28/25 10:14 1 tab Q4HR PRN Administration Pain 7-10 Albuterol/Ipratropium 3 ml 05/19/25 11:15 Albuterol/Ipratropium (Duoneb) Rt Antonella 3 Ml Nebu INH 06/18/25 11:14 Q2HR PRN SHORTNESS OF BREATH OR WHEEZE Albuterol/Ipratropium 3 ml 05/19/25 15:00 05/25/25 14:54 Albuterol/Ipratropium (Duoneb) Rt Antonella 3 Ml Nebu INH 06/18/25 14:59 3 ml Q8HRRT BIRDIE Administration Amitriptyline HCl 100 mg 05/19/25 21:00 05/24/25 21:48 Amitriptyline Hcl 25 Mg Tablet PO 06/18/25 20:59 100 mg HS BIRDIE Administration Amlodipine Besylate 5 mg 05/23/25 10:15 05/25/25 08:24 Amlodipine Besylate 5 Mg Tablet PO 06/22/25 10:14 5 mg QDAY BIRDIE Administration Atorvastatin Calcium 40 mg 05/19/25 21:00 05/24/25 21:48 Atorvastatin Calcium 20 Mg Tablet PO 06/18/25 20:59 40 mg HS BIRDIE Administration Clopidogrel Bisulfate 75 mg 05/20/25 09:00 05/25/25 08:24 Clopidogrel Bisulfate 75 Mg Tablet PO 06/19/25 08:59 75 mg QDAY BIRDIE Administration Dextrose 25 ml 05/21/25 07:36 Dextrose 50%-Water Inj 50 Ml Syringe IV 06/20/25 07:35 Q15MIN PRN BG 50-70 responsive npo pt Dextrose 50 ml 05/21/25 07:36 Dextrose 50%-Water Inj 50 Ml Syringe IV 06/20/25 07:35 Q15MIN PRN BG <50 OR BG <70 & pt unresponsive Enoxaparin Sodium 40 mg 05/20/25 09:00 05/25/25 08:23 Enoxaparin Sod Inj 40 Mg/0.4 Ml Syringe SC 06/03/25 08:59 40 mg QDAY BIRDIE Administration Gabapentin 100 mg 05/19/25 21:00 05/24/25 21:49 Gabapentin 100 Mg Capsule PO 06/18/25 20:59 100 mg HS BIRDIE Administration Glucagon 1 mg 05/21/25 07:36 Glucagon Inj 1 Mg Vial IM Q15MIN PRN BG <70, and no IV access Insulin Degludec 30 unit 05/24/25 21:00 05/24/25 21:39 Insulin Degludec 5 Unit/0.05 Ml (Per 5 Units) SC 06/23/25 20:59 30 unit HS BIRDIE Administration Insulin Human Lispro 0 unit 05/24/25 13:53 05/25/25 11:51 Insulin Lispro (Admelog) 1 Unit/0.01 Ml Unit SC 06/20/25 16:59 Not Given AC BIRDIE Protocol Lamotrigine 25 mg 05/19/25 21:00 05/24/25 21:48 Lamotrigine 25 Mg Chew PO 06/18/25 20:59 25 mg HS BIRDIE Administration Lisinopril 40 mg 05/21/25 09:00 05/25/25 08:23 Lisinopril 20 Mg Tablet PO 06/20/25 08:59 40 mg QDAY BIRDIE Administration Metoclopramide HCl 10 mg 05/19/25 17:20 05/19/25 17:25 Metoclopramide Inj 5 Mg/Ml Vial 2 Ml IVP 06/18/25 17:19 10 mg Q6HR PRN Administration NAUSEA OR VOMITING Protocol Metoprolol Tartrate 50 mg 05/19/25 11:30 05/25/25 08:25 Metoprolol Tartrate 25 Mg Tablet PO 06/18/25 11:29 50 mg BID BIRDIE Administration Mirtazapine 15 mg 05/19/25 21:00 05/24/25 21:49 Mirtazapine 15 Mg Tablet PO 06/18/25 20:59 15 mg HS BIRDIE Administration Ondansetron HCl 4 mg 05/19/25 15:15 05/24/25 19:29 Ondansetron Inj 2 Mg/Ml Inj 2 Ml IVP 06/18/25 08:49 4 mg Q4HR PRN Administration NAUSEA OR VOMITING Protocol Pantoprazole Sodium 40 mg 05/19/25 16:00 05/25/25 08:23 Pantoprazole Inj 40 Mg Vial IVP 06/18/25 15:59 40 mg QDAY BIRDIE Administration Plan 60-year-old female with a past medical history of T2DM, HTN, HLD, COPD, CAD status post stents on Plavix, bipolar disorder, and recent admission due to cellulitis of her right foot due to foreign body, s/p foreign body removal 04/30 who presented to [facility] ED on 05/19 for vomiting and abdominal pain. The patient was admitted to the ICU for DKA, and subsequently downgraded to the medical floors overnight. #Diabetic ketoacidosis, resolved #Insulin dependent type 2 diabetes mellitus #High anion gap metabolic acidosis, resolved Patient presented to [facility] ED with abdominal pain and vomiting for 1 day. The patient does have a history of T2DM and takes insulin at home, however the patient has not been compliant with recent changes to insulin regimen. In the ED, the patient was noted to have glucose of 316 and beta hydroxybutyrate of 5.6 with an anion gap of 20. Patient was initially admitted to ICU for insulin drip. Patient was downgraded to medical floors after anion gap closed twice and patient tolerated subcutaneous insulin. Plan: Increased insulin degludec to 30 daily during night Insulin lispro 6 with meals -- changed to 4 units, discontinued on 05/25 Sliding scale, moderate scale Continue to monitor, will adjust insulin regimen as necessary Carbohydrate consistent low diet #Transaminitis, resolving #Cholelithiasis, without cholecystitis Patient noted to have AST of 104 and ALT of 65 on 05/25. Exact cause is unclear. Plan: Repeat LFTs on 05/25 in the afternoon, resulted as downtrending Ultrasound of liver ordered on 05/25, resulted as cholelithiasis without cholecystitis and fatty liver #Right foot wound s/p foreign body removal 04/30 Patient was recently hospitalized due to a needle that was stuck in her right foot, resulting in cellulitis of that foot. The needle required removal by orthopedic surgery. The stitches have been in place since then. Attempted to remove stitches on 05/20, was able to remove most but 2 stitches remain embedded in foot. Blood cultures collected 05/19, no growth after 48 hours x2 Off antibiotics as there is a low suspicion for infection at this time Plan: Consulted orthopedic surgery, appreciate recommendations Patient to follow up outpatient for further removal of remaining stitches #CAD s/p stents Patient does have a history of CAD status post stents and takes Plavix at home for management. Plan: Plavix 75 mg daily Atorvastatin 40 mg nightly #Primary hypertension Patient is noted to have a history of hypertension. Patient did have a blood pressure of 193/88 in the ED on arrival. Plan: Lisinopril 40 mg daily Metoprolol 50 mg twice daily #Bipolar disorder #Anxiety Patient does have a history of bipolar disorder and anxiety. Patient takes mirtazapine, lamotrigine, and amitriptyline nightly for management. Patient also takes hydroxyzine for her anxiety. Plan: Lamotrigine 25 mg nightly Mirtazapine 15 mg nightly Amitriptyline 100 mg nightly #COPD Patient does have a history of COPD and takes albuterol inhalers at home for management. Plan: DuoNeb 3 mL every 8 hours DuoNeb 3 mm every 2 hours as needed Health Maintenance: DVT Prophylaxis: Lovenox GI Prophylaxis: Protonix Bowel: N/A Diet: Carbohydrate consistent low Oswald: N/A Lines: Peripheral IV Dispo: Pending blood sugar management Code Status: FULL Patient plan of care was discussed with the attending physician, Dr. Xiomy Croft, PGY1 Attending Provider Attestation/Addendum I attest that I was physically present for the evaluation, physical examination, lab and imaging review of the patient with the residents. I discussed the case with the residents and agree with the findings and plans of care as documented above. At bedside today, patient states she is feeling well and denies any new complaints. Her leg pain and wound has been improving. Had another episode of hypoglycemia this afternoon, we will discontinue the Premeal insulin and keep her on degludec along with sliding scale. We will continue to monitor her glucose level for 1 more day, if remains stable, we will plan for discharge tomorrow. Ely Stauffer MD
[2025-05-25] MEDS: INSULIN LISPRO (AdmeLOG) 1 UNIT/0.01 ML UNIT SC (17:23)
[2025-05-25] MEDS: INSULIN DEGLUDEC 5 UNIT/0.05 ML (PER 5 UNITS) 30 UNIT SC (20:30)
[2025-05-25] MEDS: GABAPENTIN 100 MG CAPSULE PO (20:36)
[2025-05-25] MEDS: lamoTRIgine 25 MG CHEW PO (20:36)
[2025-05-25] MEDS: ATORVASTATIN CALCIUM 20 MG TABLET 40 MG PO (20:36)
[2025-05-25] MEDS: AMITRIPTYLINE HCL 25 MG TABLET 100 MG PO (20:36)
[2025-05-25] MEDS: MIRTAZAPINE 15 MG TABLET PO (20:37)
[2025-05-26] VITALS: BP 129/68; PULSE 72; PULSE 73; RESP 18; TEMP 36.2; O2SAT 95
[2025-05-26 04:00] VITALS: BP 141/82; PULSE 85; RESP 20; TEMP 36.2; O2SAT 96
[2025-05-26] MEDS: ONDANSETRON INJ 2 MG/ML INJ 2 ML 4 MG IVP ×2 (04:49→09:50)
[2025-05-26 05:19] LABS: Basophils # (Auto) 0.1 Thou/mm3 (0.0-0.2); Basophils % (Auto) 1 % (0-2.5); Eosinophils # (Auto) 0.5 Thou/mm3 (0.0-0.5); Eosinophils % (Auto) 5 % (0-10); Hematocrit 32.5 % (36.0-46.0); Hemoglobin 10.4 g/dL (12.0-16.0); Immature Granulocytes Auto 0.02 Thou/mm3 (0.00-0.00); Lymphocytes # (Auto) 2.1 Thou/mm3 (1.0-4.8); Lymphocytes % (Auto) 22 % (10-50); Mean Corpuscular HGB Conc 32.0 g/dl (31.0-37.0); Mean Corpuscular Hemoglobin 26.5 pg (25.0-35.0); Mean Corpuscular Volume 83 fL (80-100); Monocytes # (Auto) 0.8 Thou/mm3 (0.0-0.8); Monocytes % (Auto) 8 % (0-12); Neutrophils # (Auto) 5.8 Thou/mm3 (1.8-7.7); Neutrophils % (Auto) 63 % (37-80); Nucleated Red Blood Cell # 0.00 Thou/mm3 (0.00-0.00); Nucleated Red Blood Cell % 0 /100 WBC (0); Platelet Count 361 Thou/mm3 (140-440); RDW Standard Deviation 50.4 fL (36.4-46.3); Red Blood Count 3.92 Miln/mm3 (4.00-5.20); White Blood Count 9.3 Thou/mm3 (3.6-11.0)
[2025-05-26 06:08] LABS: Alanine Aminotransferase 67 U/L (10-49); Albumin, Serum 3.2 gm/dL (3.4-4.8); Albumin/Globulin Ratio 2.0 (1.2-2.2); Alkaline Phosphatase 141 U/L (46-116); Anion Gap 9 (7-16); Aspartate Amino Transferase 83 U/L (0-34); BUN/Creatinine Ratio 33 Ratio (12-20); Bilirubin,Total < 0.2 mg/dL (0.3-1.2); Blood Urea Nitrogen 26 mg/dL (9-23); Calcium 9.4 mg/dL (8.3-10.6); Calcium (Corrected) 10.0 mg/dL (8.5-10.1); Carbon Dioxide 29.5 mMol/L (20.0-31.0); Chloride 104 mMol/L (98-107); Creatinine (Component) 0.8 mg/dL (0.6-1.3); Estimated Creatinine Clearance 53.7 mL/min (>60); Globulin 1.6 gm/dL (2.3-3.5); Glucose 154 mg/dL (74-106); Osmolality,Calculated 290 (275-295); Potassium 4.6 mMol/L (3.4-5.1); Sodium 142 mMol/L (136-145); Total Protein 4.8 gm/dL (5.7-8.2); eGFR > 60 See Note
[2025-05-26 08:00] VITALS: BP 163/74; PULSE 77; RESP 18; TEMP 37.1; O2SAT 98
[2025-05-26 09:47] VITALS: BP 136/67; PULSE 95
[2025-05-26] MEDS: METOPROLOL TARTRATE 25 MG TABLET 50 MG PO (09:47)
[2025-05-26 09:50] VITALS: BP 136/67; PULSE 95
[2025-05-26 09:51] VITALS: BP 136/67; PULSE 95
[2025-05-26] MEDS: CLOPIDOGREL BISULFATE 75 MG TABLET PO (09:52)
[2025-05-26] MEDS: ENOXAPARIN SOD INJ 40 MG/0.4 ML SYRINGE SC (09:53)
--- NOTE | 2025-05-26 12:02 | PD.RESDS ---
Planned Discharge Date 05/26/25 DS: Providers Provider Date of admission: 05/19/25 10:30 Primary care physician: Aaron Mclean MD Admitting Provider: Priyank Capellan MD Attending Provider on Admission: Ely Stauffer MD Consults: 05/19/25 09:49 Referral Registered Dietitian Routine Comment: 05/19/25 09:52 Consult to Yarn Preparation Supervisor Stat Comment: Moderate DKA Consulting Provider: Priyank Capellan I 05/19/25 13:51 Health Equity Referral - Nutrition Routine Comment: Positive screening for nutrition needs. 05/20/25 09:51 Consult to Orthopedic Routine Comment: Stitches in foot, almost 21 days Consulting Provider: Alfredo Burton 05/21/25 08:00 Referral Wound Care Routine Comment: 05/21/25 12:17 Referral OP Wound Healing Dept Routine Comment: Right plantar foot Attending Provider on DC: Ely Stauffer MD Discharging Provider: Harshad Croft DO Anticipated date of discharge: 05/26/25 DS: Diagnosis Problem List Completed Was Problem List Reviewed/Reconciled?: Yes Hospital Course Hospital Course Hospital course: Reason for hospitalization: DKA Summary: This patient is a 60-year-old female with a past medical history of T2DM, HTN, HLD, COPD, CAD status post stents on Plavix, bipolar disorder, and recent admission due to cellulitis of her right foot due to foreign body, s/p foreign body removal 04/30 who presented to [facility] ED on 05/19 for vomiting and abdominal pain. The patient was admitted to the ICU for DKA, and subsequently downgraded to the medical floors on 05/20. According to the patient, the patient could not tell how much insulin she was getting at home says she was previously discharged on 05/02. In the ED, the patient was hypertensive with BP of 193/88 and initial labs showed WBC 14.9, anion gap 20, glucose 316, lactic acid 1.8, and beta hydroxybutyrate 5.6. Central line was placed due to poor peripheral venous access. Prior to being admitted to the ICU, she also received 1 L lactated Ringer's and 2 g ceftriaxone. In the ICU, the patient received IV insulin and was then downgraded to medical floors after anion gap was closed x 2. While on the medical floors, the patient initially received insulin degludec 15 units nightly and insulin lispro 5 units with meals, however it was noted that the patient would frequently go into episodes of hypoglycemia and hyperglycemia. As a result, the patient stayed multiple nights to try and find an adequate insulin regimen. During this process, orthopedic surgery was reached out to for management of her right foot wound. Orthopedic surgery recommended removal of the stitches in her foot, which was successful completed in the hospital. It was initially thought that the patient would be discharged on 05/25, however patient was kept later in the day due to elevated LFTs, so repeat LFTs and liver ultrasound were performed, which showed downtrending LFTs and cholelithiasis without cholecystitis with fatty liver respectively. When the patient was about to be discharged on 05/25, nursing staff notified the medicine team that the patient had another episode of hypoglycemia in the 50s. On 05/26, the patient had successful control of her blood glucose with just insulin degludec 30 units nightly and sliding scale insulin with LFTs continuing to downtrend overall. Vitals were stable, and so patient was medically cleared to be discharged back home with self-care. Discharge Recommendations: - Follow up with PCP within 1 week of discharge - Continue rest of medications as previously prescribed - Return to the ED or call EMS if symptoms return and/or worsen - Recommended to follow up with Liver panel within 1 week of discharge - Take insulin Degludec 30 units at night time around 9:00 pm - Take insulin lispro as per sliding scale based on blood sugars with the meals - Stop taking insulin Glargine - Please follow-up with [facility], call [phone] to schedule appointments - Wound care to right foot: May shower with foot covered than changed dressing once a day and as needed for saturating. Ambulate using heel of foot only. Avoid tight fitting shoes and socks until wound is healed. - Please wash hands with soap and water than remove old dressing. Cleanse well with wound cleanser spray and pat dry with gauze. Wash hands again. Apply small amount of therahoney gel to calcium alginate than cover wound. Secure with foam dressing. Change once a day and as needed for falling off. If you don't have a PCP, you can make an appointment at the [facility]: [address] [place] [address] Hospital Diagnoses: #Diabetic ketoacidosis, resolved #Insulin-dependent type 2 diabetes mellitus #High anion gap metabolic acidosis, resolved #Transaminitis, resolving #Cholelithiasis, without cholecystitis #Right foot wound status post foreign body removal 04/30 #CAD status post stents #Primary hypertension #Bipolar disorder #Anxiety #COPD Patient plan of care was discussed with attending physician Dr. Xiomy Croft, PGY-1 Status at Discharge Functional status at discharge: independent ambulation Overall status at discharge: patient is back to baseline Time Spent with Patient Time attestation: Total time spent providing and/or coordinating discharge services: 41 min Time spent: Greater than 30 minutes Exam Vital Signs Temp Pulse Resp BP Pulse Ox O2 Del Method 98.7 F 95 18 136/67 H 98 Room Air 05/26/25 08:00 05/26/25 09:51 05/26/25 08:00 05/26/25 09:51 05/26/25 08:00 05/26/25 08:00 Narrative Exam Physical Exam: General: Alert, no acute distress. Skin: Warm, dry, intact. Head: Normocephalic, atraumatic. Eye: Normal conjunctiva, PERRL. Cardiovascular: Regular rate and rhythm, no murmur, +S1/S2. Respiratory: Lungs are clear to auscultation, respirations unlabored, no crackles, no wheezing. Gastrointestinal: Soft, nontender, non-distended. No guarding or rebound tenderness. Extremities: No edema, no cyanosis, no clubbing. 2+ radial pulse bilaterally. Right foot plantar wound bandage. Neuro: No focal deficits observed. Conversant, moving all extremities. No overt cerebellar signs/incoordination. Psychiatric: Cooperative, appropriate affect. Discharge Plan Plan Patient Disposition: HOME (Self Care) Patient condition on transfer: Stable Care Plan Goals: 1) Follow up at [facility], [address] [place] [address]. Call [phone] for appointment. 2) Wound care to right foot: May shower with foot covered than changed dressing once a day and as needed for saturating. Ambulate using heel of foot only. Avoid tight fitting shoes and socks until wound is healed. -Wash hands with soap and water than remove old dressing. Cleanse well with wound cleanser spray and pat dry with gauze. Wash hands again. Apply small amount of therahoney gel to calcium alginate than cover wound. Secure with foam dressing. Change once a day and as needed for falling off. If active bleeding occurs, apply tight dressing and return to MD or ER. ? Notify primary doctor or return to Emergency Room if any of the following: ? Fever above 100.6? F. ? Increased pain ? Increase swelling ? Red streaks around your wound ? Drainage becomes foul smelling or changes color ? The wound is larger or deeper ? The wound looks dried out or dark ? Bleeding that does not stop with holding pressure - Follow-up with PCP within 1 week of discharge. If you do not have appointment, please follow-up with the [facility] with Dr. Bowens. Call [phone] to make an appointment. - Recommended to follow up with Liver panel within 1 week of discharge - Take insulin Degludec 30 units at night time around 9:00 pm - Take insulin lispro as per sliding scale based on blood sugars with the meals - Stop Glargine - Take rest of the home medications - Return to ED if symptoms persist or return 150-200 mg/dL 1 unit 201-250 mg/dL 2 units 251-300 mg/dL 3 units Greater than 300 mg/dl 4 units Prescriptions/Referrals Prescriptions/Med Rec: New insulin degludec 100 unit/mL (3 mL) insulin pen 30 unit subcut HS Qty: 15 3RF Rx Instructions: Take 30 units at 9:00 pm insulin lispro [Admelog U-100 Insulin lispro] 100 unit/mL solution 1 sliding scale dose subcut USEASDIRECTD Qty: 10 2RF Rx Instructions: Take insulin according to the sliding scale with meals Continued atorvastatin 40 mg Tablet 40 mg PO HS amitriptyline 100 mg Tablet 100 mg PO HS gabapentin 100 mg capsule 100 mg PO HS albuterol sulfate 90 mcg/actuation HFA aerosol inhaler 2 inh inhalation Q8H PRN (Reason: shortness of breath or wheezing) Qty: 8.5 0RF albuterol sulfate 2.5 mg /3 mL (0.083 %) solution for nebulization 2.5 mg inhalation QID PRN (Reason: shortness of breath or wheezing) Qty: 90 0RF cetirizine 10 mg tablet 10 mg PO QDAY hydroxyzine HCl 25 mg Tablet 25 mg PO HS 30 Days Qty: 30 0RF lisinopril 40 mg tablet 40 mg PO QDAY 30 Days Qty: 30 0RF lamotrigine 25 mg tablet 25 mg PO HS mirtazapine 15 mg tablet 15 mg PO HS metoclopramide HCl 10 mg Tablet 10 mg PO Q6H PRN (Reason: upset stomach) pantoprazole 40 mg Tablet,Delayed Release (Dr/Ec) 40 mg PO QDAY clopidogrel 75 mg Tablet 75 mg PO QDAY 30 Days Qty: 30 4RF (DME) FreeStyle Osmani 3 Sensor Device See Rx Instructions .Route Qty: 1 6RF Rx Instructions: As directed (DME) insulin syr/ndl U100 half windy 0.3 mL 29 gauge x 1/2 syringe See Rx Instructions .Route Qty: 100 0RF Rx Instructions: As directed Discontinued insulin glargine [Lantus Solostar U-100 Insulin] 100 unit/mL (3 mL) insulin pen 10 unit subcut QAM Qty: 15 0RF Rx Instructions: 10 units subcutaneously; insulin lispro 100 unit/mL insulin pen 5 unit subcut TID Qty: 15 0RF Rx Instructions: 5 units with meals please Referrals: Aarno Mclean MD [Primary Care Provider, Family Practice] Patient/Caregiver Discharge Instructions Education Materials: Nutrition for Wound Healing, Diabetes: Keeping Feet Healthy, Changing Dressing Dc, Foot Care Diabetes Steps Print Language: Citizen [place] Stand Alone Forms: Lela Award Info., Patient Portal Info Letter Discharge Order Discharge Orders: Discharge (Routine); Ordered 05/26/25 Ordered By: Hugh Bowens Quality Discharge Quality Measures VTE prophylaxis Attestestation Attestation I attest that I was physically present for the evaluation, physical examination, lab and imaging review of the patient with the residents. I discussed the case with the residents and agree with the findings and plans of care as documented above. Patient seen and examined at bedside this morning. Denies any new complaints, states that her foot pain has been improving. Vital signs are stable, lab results are stable as well. Blood glucose has stabilized with current insulin regimen. We will discharge the patient home with insulin degludec 30 at bedtime along with sliding scale. Recommended to follow-up with PCP and outpatient wound care. Ely Stauffer MD
--- NOTE | 2025-05-27 15:06 | PC.CC ---
HH referral sent to [facility]
--- NOTE | 2025-05-28 11:49 | PC.CC ---
[facility] booked, soc 05/28
== END 2025-05-26 11:20 | disposition home health service (06) | DRG 420 ==
LOC: SERX 10:18 → SERHOLD 11:04 → S2SX 13:04 → S3NX 05-20 01:14
PROVIDERS: Student in an Organized Health Care Education/Training Program; Admitting Provider Internal Medicine Critical Care Medicine; PCP Family Medicine; Visit Provider Student in an Organized Health Care Education/Training Program
DX: E11.10 Type 2 diabetes mellitus with ketoacidosis without coma (principal); I10 Essential (primary) hypertension; R00.0 Tachycardia, unspecified; F31.9 Bipolar disorder, unspecified; J44.9 Chronic obstructive pulmonary disease, unspecified; E78.5 Hyperlipidemia, unspecified; I25.10 Atherosclerotic heart disease of native coronary artery without angina pectoris; E11.649 Type 2 diabetes mellitus with hypoglycemia without coma; N39.0 Urinary tract infection, site not specified; Z95.5 Presence of coronary angioplasty implant and graft; Z87.891 Personal history of nicotine dependence; Z79.4 Long term (current) use of insulin; K80.20 Calculus of gallbladder without cholecystitis without obstruction; F41.9 Anxiety disorder, unspecified; S90.851A Superficial foreign body, right foot, initial encounter; W45.8XXA Other foreign body or object entering through skin, initial encounter; Z79.02 Long term (current) use of antithrombotics/antiplatelets; Z79.899 Other long term (current) drug therapy; L03.115 Cellulitis of right lower limb; Z88.0 Allergy status to penicillin; Z91.199 Patient's noncompliance with other medical treatment and regimen due to unspecified reason
CPT/HCPCS: 36415; 74176; 76705; 80053; 80069; 80076; 80307; 81001; 82010; 82150; 82803; 82947; 83605; 83690; 83735; 84100; 84439; 84443; 84484; 85025; 85610; 85730; 87040; 87081; 87086; 93005; 93225; 94640; 96361; 96365; 96366; 96375; 99285; A9270; J0360; J0696; J1650; J1815; J2270; J2405; J2470; J2765; J3475; J3480; J3490; J7050; J7120; J7121; J1920

== ENCOUNTER → 2025-06-05 | Outpatient (CLI) | payer MEDICAID, SELFPAY | END | disposition home or self-care (01) | LOC: SWHD 09:27 | PROVIDERS: PCP Internal Medicine; Referring Provider Internal Medicine; Visit Provider Student in an Organized Health Care Education/Training Program | DX: E11.621 Type 2 diabetes mellitus with foot ulcer (principal); L97.415 Non-pressure chronic ulcer of right heel and midfoot with muscle involvement without evidence of necrosis; I25.10 Atherosclerotic heart disease of native coronary artery without angina pectoris; F41.9 Anxiety disorder, unspecified; J44.9 Chronic obstructive pulmonary disease, unspecified; K21.9 Gastro-esophageal reflux disease without esophagitis; I10 Essential (primary) hypertension; F17.200 Nicotine dependence, unspecified, uncomplicated; F50.20 Bulimia nervosa, unspecified; Z79.4 Long term (current) use of insulin; Z79.84 Long term (current) use of oral hypoglycemic drugs | CPT/HCPCS: 11043; 99213; A9270; G0463 ==

== ENCOUNTER 2025-06-19 21:06 | Inpatient (IN) | payer MEDICAID, SELFPAY ==
[2025-06-19 21:07] VITALS: BMI 19.1
[2025-06-19 22:00] VITALS: BP 153/71; PULSE 107; RESP 20; TEMP 37.1; O2SAT 97
--- NOTE | 2025-06-19 22:13 | PD.EDRME ---
Rapid Medical Screening Exam RME Arrival date/time: 06/19/25 21:06 60F with history of DM, HTn, COPD, CAD, psych, and recent admission for cellulitis/DKA presents to ED with N/V and high BS. Patient states this feels similar to when she was in DKA. Chief Complaint: Nausea/Vomiting/Diarrhea Vital signs: Vital Signs Temperature 98.7 F 06/19/25 22:00 Pulse Rate 107 H 06/19/25 22:00 Respiratory Rate 20 06/19/25 22:00 Blood Pressure 153/71 H 06/19/25 22:00 Pulse Oximetry (%) 97 06/19/25 22:00 Oxygen Delivery Method Room Air 06/19/25 22:00
[2025-06-19 22:55] LABS: Basophils # (Auto) 0.1 Thou/mm3 (0.0-0.2); Basophils % (Auto) 1 % (0-2.5); Eosinophils # (Auto) 0.1 Thou/mm3 (0.0-0.5); Eosinophils % (Auto) 2 % (0-10); Hematocrit 37.6 % (36.0-46.0); Hemoglobin 12.1 g/dL (12.0-16.0); Immature Granulocytes Auto 0.03 Thou/mm3 (0.00-0.00); Lymphocytes # (Auto) 2.0 Thou/mm3 (1.0-4.8); Lymphocytes % (Auto) 21 % (10-50); Mean Corpuscular HGB Conc 32.2 g/dl (31.0-37.0); Mean Corpuscular Hemoglobin 25.6 pg (25.0-35.0); Mean Corpuscular Volume 80 fL (80-100); Monocytes # (Auto) 0.6 Thou/mm3 (0.0-0.8); Monocytes % (Auto) 7 % (0-12); Neutrophils # (Auto) 6.3 Thou/mm3 (1.8-7.7); Neutrophils % (Auto) 69 % (37-80); Nucleated Red Blood Cell # 0.00 Thou/mm3 (0.00-0.00); Nucleated Red Blood Cell % 0 /100 WBC (0); Platelet Count 401 Thou/mm3 (140-440); RDW Standard Deviation 43.9 fL (36.4-46.3); Red Blood Count 4.72 Miln/mm3 (4.00-5.20); White Blood Count 9.2 Thou/mm3 (3.6-11.0)
[2025-06-19 23:02] LABS: Base Excess, Venous -4 (-3-3); O2 Saturation, Venous 74 % (96-97); PCO2, Venous 32 mmHg (36-56); PO2, Venous 37 mmHg (15-58); pH, Venous 7.41 (7.33-7.66)
[2025-06-19 23:14] LABS: Alanine Aminotransferase 21 U/L (10-49); Albumin, Serum 3.6 gm/dL (3.4-4.8); Albumin/Globulin Ratio 2.1 (1.2-2.2); Alkaline Phosphatase 130 U/L (46-116); Anion Gap 16 (7-16); Aspartate Amino Transferase 11 U/L (0-34); BUN/Creatinine Ratio 19 Ratio (12-20); Beta Hydroxybutyrate 5.0 mmol/L (<0.6); Bilirubin,Total 0.3 mg/dL (0.3-1.2); Blood Urea Nitrogen 19 mg/dL (9-23); Calcium 9.4 mg/dL (8.3-10.6); Calcium (Corrected) 9.7 mg/dL (8.5-10.1); Carbon Dioxide 20.3 mMol/L (20.0-31.0); Chloride 102 mMol/L (98-107); Creatinine (Component) 1.0 mg/dL (0.6-1.3); Estimated Creatinine Clearance 42.0 mL/min (>60); Globulin 1.7 gm/dL (2.3-3.5); Glucose 312 mg/dL (74-106); Magnesium 1.6 mg/dL (1.6-2.6); Osmolality,Calculated 289 (275-295); Phosphorous 4.1 mg/dL (2.4-5.1); Potassium 4.5 mMol/L (3.4-5.1); Sodium 138 mMol/L (136-145); Total Protein 5.3 gm/dL (5.7-8.2); eGFR > 60 See Note
[2025-06-20] VITALS (28 sets, daily range): BP systolic 140–189; BP diastolic 53–130; PULSE 78–101; RESP 14–27; TEMP 36.2–37.3; O2SAT 94–99; BMI 19.2
--- NOTE | 2025-06-20 | XR_ITS ---
Examination: MRI right foot, without contrast Date and time of exam: June 20, 2025 1124 hours INDICATIONS: Patient stepped on a nail April 2025 with redness swelling and pain nonhealing wound plantar surface of the foot at the midfoot level beginning 2 months ago, diabetes history Technique: Multiple axial sagittal and coronal images of the right foot have been obtained with the Siemens high-resolution 1.5 Jade MRI scanner. Images obtained include T2-weighted fat-suppressed sagittal sections, TR 3500, TE 46, T2 weighted coronal fat suppressed images, TR 3050, TE 84, T2-weighted transverse fat suppressed images, TR 3260, TE 63, proton density transverse images, TR 4720 TE 46, and T1 weighted coronal images, TR 560, TE 13. Findings: Soft tissue defect plantar aspect of the foot most prominent at the level of the second metatarsal, coronal image 17 No soft tissue abscess Negative for osteomyelitis Diffuse edema in the subcutaneous tissues surrounding the foot IMPRESSION: Soft tissue defect as above No soft tissue abscess Negative for osteomyelitis
[2025-06-20] MEDS: ONDANSETRON INJ 2 MG/ML INJ 2 ML 4 MG IVP (00:01)
[2025-06-20] MEDS: RINGERS LACTATED 1000 ML 1,000 ML 999 ML IV ×3 (00:01→10:08)
--- NOTE | 2025-06-20 01:37 | EDNOTE_ITS ---
Nausea/Vomit./Diarrhea-RME/HPI General Chief complaint: Nausea/Vomiting/Diarrhea Stated complaint: VOMITNG HIGH SUGAR Arrival date/time: 06/19/25 21:06 RME / HPI RME / HPI Narrative: 06/19/25 21:06 60F with history of DM, HTn, COPD, CAD, psych, and recent admission for cellulitis/DKA presents to ED with N/V and high BS. Patient states this feels similar to when she was in DKA. Dr. Aguirre?s Main ED Evaluation: 60yo female with known IDDM presenting with several bouts of emesis throughout the day. No abdominal pain or diarrhea. Patient's blood sugar read as high . 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 Notes having persistent pain and swelling, but no drainage. Related Data Home Medications ?Medication ?Instructions ?Recorded ?Confirmed amitriptyline 100 mg tablet 100 mg PO HS 07/28/1905/05 atorvastatin 40 mg tablet 40 mg PO HS 07/28/19 5 gabapentin 100 mg capsule 100 mg PO HS 10/28/23 lamotrigine 25 mg tablet 25 mg PO HS 02/10/24 5 metoclopramide HCl 10 mg tablet 10 mg PO Q6H PRN upset stomach 02/10/24 05/19/25 mirtazapine 15 mg tablet 15 mg PO HS 02/10/24 5 pantoprazole 40 mg tablet,delayed 40 mg PO QDAY 05/19/25 release cetirizine 10 mg tablet 10 mg PO QDAY 04/29/2505/19 Previous Rx's ?Medication ?Instructions ?Recorded blood-glucose sensor (FreeStyle #1 ea 02/11/24 Osmani 3 Sensor device) clopidogrel 75 mg tablet 75 mg PO QDAY 30 days #30 ta bs 02/11/24 insulin syr/ndl U100 half windy 0.3 #100 ea 02/11/24 mL 29 gauge x 1/2 albuterol sulfate 2.5 mg/3 mL 2.5 mg (3 mL) inhalation QID PRN 04/05/25 (0.083 %) solution for nebulization shortness of breat h or wheezing #90 mL albuterol sulfate 90 mcg/actuation 2 inh inhalation Q8 H PRN shortness 04/05/25 aerosol inhaler of breath or wheezing #8.5 g velia lisinopril 40 mg tablet 40 mg PO QDAY 30 days #30 ta bs 05/02/25 insulin degludec 100 unit/mL (3 30 unit (0.3 mL) subcu t HS #15 mL 05/26/25 mL) subcutaneous pen insulin lispro 100 unit/mL 1 sliding scale dose subcut 05/26/25 subcutaneous solution (Admelog USEASDIRECTD #10 mL U-100 Insulin lispro) Allergies Allergy/AdvReac Type Severity Reaction Status Date / Time aspirin Allergy Severe RASH Verified 05/19/25 08:47 cephalexin Allergy Severe Rash Verified 05/19/25 08:47 codeine Allergy Severe RASH Verified 05/19/25 08:47 diphenhydramine Allergy Severe Rash Verified 05/19/25 08:47 Penicillins Allergy Severe RASH Verified 05/19/25 08:47 Review of Systems Review of Systems Systems Reviewed: All systems reviewed, normal except as documented Past Medical History Past Medical History NEUROLOGIC: Positive Neurological Disorders, Migraine and Head Trauma; Negative Seizures CARDIAC: Positive Cardiac Disorders, Myocardial Infarction, Coronary Artery Disease, Atherosclerotic Heart Disease, Hypercholesterolemia, Edema and Hypertension; Negative Congestive Heart Failure RESPIRATORY: Positive Chronic Obstructive Pulmonary Disease (COPD), Asthma, Bronchitis, Pneumonia, Cough, Wheezing, Smoking, Smoking Cessation Counseling and Tobacco Use GASTROINTESTINAL: Positive Gastrointestinal Disorders and Gastroesophageal Reflux Disease; Negative Colorectal Cancer GENITOURINARY: Negative Genitourinary Disorders, Renal Disease or Prostate Cancer REPRODUCTIVE: Positive Previous Pregnancies; Negative Breast Cancer, Pelvic Inflammatory Disease or Testicular Cancer MUSCULOSKELETAL: Positive Musculoskeletal Disorders, Arthritis, Rheumatoid Arthritis and Fractures; Negative Bone Cancer ENT: Positive Head Trauma; Negative Ear Infection ENDOCRINE: Positive Endocrine Disorders, Diabetes Mellitus Type 2 and Hypothyroidism; Negative Diabetes Mellitus Type 1 HEMATOLOGIC: Negative Blood Disorders or Sickle Cell Disease PSYCHO/SOCIAL: Positive Recreational Drug Use, Depression and Anxiety OTHER HISTORY: Positive Hospitalization, Falls, Chicken Pox, Measles and Mumps; Negative Autoimmune Disease, Blood Transfusions, Blood Transfusion Reaction, Anesthesia Reactions, Hepatitis B, Hepatitis C, Breast Cancer, Cervical Cancer, Colorectal Cancer, Lung Cancer, Ovarian Cancer, Prostate Cancer or Testicular Cancer Family History FAMILY HISTORY: Positive Family Respiratory Disorders, Family Cardiac Disorders, Family Gastrointestinal Problems and Family Surgery; Negative Family Psychiatric Problems, Family Cancer or Family Anesthesia Reaction Surgical History SURGICAL: Positive Cardiac Surgery, Coronary Stent (X1), Cardiac Catheterization and Tubal Ligation; Negative Endocrine Surgery, Ear Surgery, Abdominal Surgery, Joint Replacement or Neurologic Surgery Social History SMOKING STATUS: Current every day smoker SECOND HAND EXPOSURE: Yes SUBSTANCE USE: former substance user, marijuana and amphetamines ED Exam Narrative Physical exam: GENERAL APPEARANCE: alert and oriented x 4, chronically-ill appearing, complains of nausea, no acute distress VITALS: All vitals were reviewed and the pulse ox is 95% on room air, which is normal according to my interpretation. HEENT: Normocephalic, atraumatic; pupils equal, round, reactive to light; EOMI; mucous membranes pink, moist; oropharynx clear NECK: Supple LUNGS: CTABL; no wheezes, no rales, no rhonchi HEART: Regular rate, regular rhythm; normal S1, S2; no murmurs ABDOMEN: non distended; normal BS; soft, no tenderness BACK: no CVA tenderness EXTREMITIES: right foot with patch of devitalized tissue at mid plantar surface with tenderness to palpation, no erythema or gross perulence, foul odor noted, no warmth, distal function intact; no edema NEUROLOGIC: awake; alert and oriented x4; cranial nerves II-XII grossly intact; no focal sensory or motor deficits PSYCHIATRIC: appropriate mood and affect SKIN: warm, dry, normal color; no rashes Course Quality Measures none Orders Category Date Time Status Blood glucose [Bedside Blood Glucose] NOW Care 06/19/25 21:12 Active Glucose [Bedside Blood Glucose] NOW Care 06/20/25 01:51 Active Insert IV NOW Care 06/19/25 22:13 Active XR foot comp RT min 3V Stat Exams 06/20/25 01:54 Taken Beta Hydroxybutyrate Stat Lab 06/19/25 22:35 Completed CBC Stat Lab 06/19/25 22:35 Completed CMP [Comprehensive Metabolic Panel] Stat Lab 06/19/25 22:35 Completed ESR [Sed Rate (ESR)] Stat Lab 06/20/25 02:27 Completed Lipase Stat Lab 06/20/25 00:00 Completed Mag [Magnesium] Stat Lab 06/19/25 22:35 Completed Phosphorous Stat Lab 06/19/25 22:35 Completed Urinalysis, C/S if Indicated Stat Lab 06/20/25 03:14 Completed VBG [Venous Blood Gas] Stat Lab 06/19/25 22:13 Completed Clindamycin 900Mg Ivpb [Cleocin/D5w Ivpb] 900 mg Med 06/20/25 03:46 Discontinued Pre-Mixed [Pre-mixed Bag] 1 bag IV X1 Insulin Regular Med 06/20/25 03:44 Discontinued 5 unit IV X1 ONE Levofloxacin/D5w 500 mg Ivpb [Levaquin Ivpb] Med 06/20/25 03:46 Discontinued 500 mg in 100 ml IV X1 Metoclopramide Inj [Reglan Inj] Med 06/20/25 02:24 Discontinued 10 mg IVP X1 ONE Morphine* Inj Med 06/20/25 02:57 Discontinued 4 mg IV X1 ONE Ondansetron Inj [Zofran Inj] Med 06/19/25 22:13 Discontinued 4 mg IVP X1 ONE Ringers Lactated 1000 ml [Lactated Ringers] 1,000 ml Med 06/19/25 22:13 Discontinued IV 999 mls/hr Sodium Chloride 0.9% 1000 ml [Ns] 1,000 ml Med 06/20/25 01:51 Discontinued IV 999 mls/hr Vital Signs Vital signs: Vital Signs Temperature 98.7 F 06/19/25 22:00 Pulse Rate 107 H 06/19/25 22:00 Respiratory Rate 20 06/19/25 22:00 Blood Pressure 153/71 H 06/19/25 22:00 Pulse Oximetry (%) 97 06/19/25 22:00 Oxygen Delivery Method Room Air 06/19/25 22:00 Nausea/Vomiting/Diarrhea MDM Narrative MDM Narrative:: Scribe Attestation: 06/20/25 Virginia Rivero am scribing for and in the presence of Dr. Aguirre. 60yo female with known IDDM presenting with several bouts of emesis throughout the day. No abdominal pain or diarrhea. Patient's blood sugar read as high . Pl ease see PE findings. Lab markers demonstrate normal WBC count, no anemia or thrombocytopenia. Chemistries demonstrated elevated blood sugar of 312, anion gap normal, serum ketones 5.0. Patient administered IV fluids, empiric antibiotics, and remained hemodynamically stable, although hyperglycemia despite IV fluids. Hospitalist was consulted for admission for consideration of insulin infusion. Patient data External records reviewed:: [facility] previous records (Per chart review, patient was admitted here on 05/19/25 for DKA.) Clinical information provided by:: patient Social determinants that could affect healthcare access:: none Patient has the following chronic illnesses:: T2DM, HTN, HLD, COPD, CAD status post stents on Plavix, bipolar disorder How is presenting disease/condition affected by chronic disease/condition?: exacerbated by Evaluation data The following diagnostics were reviewed and interpreted by me:: lab results and radiology exam(s) Lab and/or radiology exams considered but not ordered:: none Interpretation Summary: Right foot x-ray shows subcutaneous air, no definite erosion of the metatarsals, no cortical destruction, no foreign body, according to my interpretation. Medications / Prescriptions Medications / Prescriptions considered but not ordered:: none Medication administrations:: Medication Administration History Acetaminophen (Acetaminophen 325 Mg Tablet) 650 mg PO Q6H PRN PRN Reason: Fever >100.4 Stop: 07/20/25 04:21 Acetaminophen (Acetaminophen 325 Mg Tablet) 650 mg PO Q6H PRN PRN Reason: PAIN SCALE 1-3 (mild Stop: 07/20/25 04:26 Albuterol/Ipratropium (Albuterol/Ipratropium (Duoneb) Rt Antonella 3 Ml Nebu) 3 ml INH Q2HR PRN PRN Reason: SHORTNESS OF BREATH OR WHEEZE Stop: 07/20/25 04:39 Atorvastatin Calcium (Atorvastatin Calcium 20 Mg Tablet) 40 mg PO HS [facility]IRDIE Stop: 07/20/25 20:59 Clopidogrel Bisulfate (Clopidogrel Bisulfate 75 Mg Tablet) 75 mg PO QDAY [facility] Stop: 07/20/25 08:59 Dextrose (Dextrose 50%-Water Inj 50 Ml Syringe) 25 ml IV Q15MIN PRN PRN Reason: BG 50-70 responsive npo pt Stop: 07/20/25 04:37 Dextrose (Dextrose 50%-Water Inj 50 Ml Syringe) 50 ml IV Q15MIN PRN PRN Reason: BG <50 OR BG <70 & pt unresponsive Stop: 07/20/25 04:37 Glucagon (Glucagon Inj 1 Mg Vial) 1 mg IM Q15MIN PRN PRN Reason: BG <70, and no IV access Heparin Sodium (Porcine) (Heparin Sod Inj 5000 Unit/Ml Vial) 5,000 unit SC Q8HR [facility] Stop: 07/04/25 05:59 Clindamycin Phosphate (Cleocin/D5w Ivpb) 50 mls @ 100 mls/hr IV Q8HR [facility] Stop: 06/27/25 04:32 Insulin Degludec (Insulin Degludec 5 Unit/0.05 Ml (Per 5 Units)) 30 unit SC QDAY [facility] Stop: 07/20/25 08:59 Insulin Human Lispro (Insulin Lispro (Admelog) 1 Unit/0.01 Ml Unit) 0 unit SC ACHS [facility]; Protocol Stop: 07/20/25 07:29 Lisinopril (Lisinopril 20 Mg Tablet) 40 mg PO QDAY [facility] Stop: 07/20/25 08:59 Ondansetron HCl (Ondansetron Inj 2 Mg/Ml Inj 2 Ml) 4 mg IVP Q6H PRN; Protocol PRN Reason: NAUSEA OR VOMITING Stop: 07/20/25 04:21 Pantoprazole Sodium (Pantoprazole 40 Mg Tablet) 40 mg PO QDAY [facility] Stop: 07/20/25 08:59 Sennosides (Senna Tablet) 1 tab PO QDAY [facility]; Protocol Stop: 07/20/25 08:59 Discontinued Medications Lactated Ringer's (Lactated Ringers) 1,000 mls @ 999 mls/hr IV .Q1H1M ONE Stop: 06/19/25 23:13 Last Infusion: 06/20/25 01:09 Dose: Infused Documented By: Admin: 06/20/25 00:01 Dose: 999 mls/hr Documented By: JULIETTE Sodium Chloride (Ns) 1,000 mls @ 999 mls/hr IV .Q1H1M ONE Stop: 06/20/25 02:51 Last Infusion: 06/20/25 03:08 Dose: Infused Documented By: Admin: 06/20/25 02:07 Dose: 999 mls/hr Documented By: [place] Clindamycin Phosphate 900 mg/ (IV Miscellaneous Supplies) 50 mls @ 50 mls/hr IV X1 ONE Stop: 06/20/25 04:45 Levofloxacin/Dextrose (Levaquin Ivpb) 500 mg in 100 mls @ 100 mls/hr IV X1 ONE Stop: 06/20/25 04:45 Insulin Human Lispro (Insulin Lispro (Admelog) 1 Unit/0.01 Ml Unit) 0 unit SC AC [facility]; Protocol Stop: 07/20/25 07:29 Insulin Human Lispro (Insulin Lispro (Admelog) 1 Unit/0.01 Ml Unit) 0 unit SC AC [facility]; Protocol Stop: 07/20/25 07:29 Insulin Human Regular (Insulin Hum Regular 1 Unit/0.01 Ml (Per Unit)) 5 unit IV X1 ONE Stop: 06/20/25 03:45 Last Admin: 06/20/25 04:51 Dose: 5 unit Documented By: [place] Co-signed By: ROGELIO Metoclopramide HCl (Metoclopramide Inj 5 Mg/Ml Vial 2 Ml) 10 mg IVP X1 ONE; Protocol Stop: 06/20/25 02:25 Last Admin: 06/20/25 02:35 Dose: 10 mg Documented By: [place] Morphine Sulfate (Morphine Sulf Inj 4 Mg/Ml Vial) 4 mg IV X1 ONE Stop: 06/20/25 02:58 Last Admin: 06/20/25 03:11 Dose: 4 mg Documented By: [place] Ondansetron HCl (Ondansetron Inj 2 Mg/Ml Inj 2 Ml) 4 mg IVP X1 ONE; Protocol Stop: 06/19/25 22:14 Last Admin: 06/20/25 00:01 Dose: 4 mg Documented By: JULIETTE see above Consultations Consultation(s) initiated? (list below): Yes Consultation #1 (Physician, Specialty, Details): Discussed case with Dr. Mirza the resident physician, attending Dr. Mares from Hospitalist service regarding admission. Discussed patients ED course, exam findings, labs, and radiology results. Requests consulting the ICU service. Time: 03:49 Consultation #2 (Physician, Specialty, Details): Discussed case with Dr. Mares from Hospitalist/ICU service regarding admission. Discussed patients ED course, exam findings, labs, and radiology results. The Hospitalist recommends admitting the patient to the floors instead of ICU. Time: 03:55 Diagnosis Nausea Differential Diagnosis: other (hyperglycemia without ketosis, DKA, HHS, dehydration, electrolyte abnormality) Most likely diagnosis given after review of the tests above:: hyperglycemia, cellulitis, dehydration Admission Indicated Admission indicated?: indicated Admission Request Was there a request for admission?: Yes Admission Attestation Admission request attestation: Discussed case with [] from Hospitalist service regarding admission. Discussed patients ED course, exam findings, labs, and radiology results. The Hospitalist [agrees,declines] to accept the patient for admission. Disposition Plan Disposition Plan: Admit Critical Care Time Critical Care Time Critical Care Time: Yes Total Critical Care Time (min.): 35 Attestation: The high probability of sudden, clinically significant deterioration in the patient?s condition required the highest level of my preparedness to intervene urgently. The services I provided to this patient were to treat and/or prevent clinically significant deterioration. Services included the following: chart data review, reviewing nursing notes and/or old charts, documentation time, field sales consultant collaboration regarding findings and treatment options, medication orders and management, direct patient care, vital sign assessments and ordering, interpreting and reviewing diagnostic studies and lab tests. Aggregate critical care time includes only time during which I was engaged in work directly related to the patient?s care, as described above, whether at bedside or elsewhere in the Emergency Department. It did not include time spent performing other reported procedures or the services of residents, students, nurses or physician assistants. Discharge Plan Plan Patient Disposition: Admit Acute Care w/in Hospital Problem List Clinical Impression: Hyperglycemia, Cellulitis, Dehydration
--- NOTE | 2025-06-20 01:54 | XR_ITS ---
EXAMINATION: Right foot 3 views TECHNIQUE: AP oblique lateral right foot 3 views Date and time: June 20, 2025, 0201 hours INDICATIONS: Redness swelling and pain involving the foot this week. FINDINGS: Severe osteopenia Air in the soft tissue plantar foot between the first and second metatarsals No fracture No [place] cortical bone destruction IMPRESSION: No [place] cortical bone destruction, consider MRI foot without contrast follow-up
[2025-06-20] MEDS: SODIUM CHLORIDE 0.9% 1000 ML 1,000 ML 999 ML IV (02:07)
[2025-06-20 02:33] LABS: Sed Rate (ESR) 21 mm/hr (0-30)
[2025-06-20] MEDS: METOCLOPRAMIDE INJ 5 MG/ML VIAL 2 ML 10 MG IVP (02:35)
[2025-06-20 02:49] LABS: Lipase 18 U/L (12-53)
[2025-06-20] MEDS: MORPHINE SULF INJ 4 MG/ML VIAL IV (03:11)
[2025-06-20 03:27] LABS: Collection Type, Urine Clean Catch
[2025-06-20 03:38] LABS: Bilirubin,Urine Negative (Negative); Blood,Urine Trace (Negative); Clarity,Urine Clear (Clear/Hazy); Color,Urine Lt-Yellow (Lt Yel-Yel); Culture Indicated,Urine Not Indicated; Glucose, Urine 4+ (Negative); Hyaline Casts,Urine 1 /hpf (0-1); Ketones,Urine 4+ (Negative); Leukocyte Esterase,Urine Negative (Negative); Nitrite,Urine Negative (Negative); PH,Urine 6.0 (5.0-7.0); Protein,Urine 3+ (Neg - Trace); RBC,Urine 6 /hpf (0-3); Specific Gravity,Urine 1.017 (1.001-1.035); Squamous Epithelial Cell,Urine 2 /hpf (0-5); Urobilinogen,Urine Negative mg/dL (0.0-1.0); WBC,Urine 2 /hpf (0-5)
--- NOTE | 2025-06-20 04:35 | ESHP_ITS ---
<Statement entered by Uziel Mares MD - 06/20/25 06:00> I have discussed and was present for the essential components of the history, physical examination, diagnosis, and treatment plan with the resident. I agree with the patient's care as documented by the resident and amended herein by me. Uziel Mares MD FACP. Documentation for date of: 06/20/25 HPI History of Present Illness Chief complaint: BS high History of present illness: 60-year-old female with past medical history of hypertension, COPD, CAD, diabetes mellitus who presented to the ED due to nausea and vomiting. Patient states that she woke up today feeling nauseous had 2 episodes nonbloody, bilious vomiting. Additionally she states her sugars have been reading as high on her reader she says her reader goes up to 300 after that it just reads as high. She states she was feeling like she was having DKA again. Additionally 1 month ago she stepped on a needle and has a wound on her right lower extremity that has been swelling and with nasty odor and tender to the touch. She denies fever, chills, shortness of breath, chest pain, chest pressure, changes in bowel or urinary habits. ED course: BP 153/71, HR 107, respiratory rate 20, saturating 97% on room air, labs significant for glucose 312, BHB 5.0, VBG pH 7.41, CO2 32, UA negative for UTI but does show plus 4 ketones 4 glucose. BS404, In the ED patient received IV regular insulin, IVFs PMHx: As above SX Hx: Tubal ligation Social Hx: 3 to 4 cigarettes a day, marijuana every other day, remote history of methamphetamine use last use was around 10 years ago. FH X: Unknown Review of Systems Review of Systems Systems Reviewed: All systems reviewed, normal except as documented Exam Vital Signs Temp Pulse Resp BP Pulse Ox O2 Del Method 98.7 F 101 H 14 155/85 H 99 Room Air 06/19/25 22:00 06/20/25 02:37 06/20/25 02:37 06/20/25 02:37 06/20/25 02:37 06/20/25 02:37 Narrative Exam Physical Exam GENERAL: NAD, AAOx3, thin and frail HEENT: Moist mucosa. Eyes open, symmetrical, & clear CARDIO: Heart RRR, no obvious murmurs PULM: No noted coughing/dyspnea CTA B/L, no R/W/R GI: Abdomen soft, nondistended, no pain on palpation. BSx4 SKIN/MSK/EXT: right foot with patch of devitalized tissue at mid plantar surface with tenderness to palpation, smells gross, no pain on palpation. Pedal pulses present B/L NEURO: AAOx3, no focal neuro deficits, able to move all 4 extremities Results: Labs 06/19/25 22:35 06/19/25 22:35 Labs: Short CBC 06/19/25 Range/Units 22:35 WBC 9.2 (3.6-11.0) Thou/mm3 Hgb 12.1 (12.0-16.0) g/dL Hct 37.6 (36.0-46.0) % Plt Count 401 D (140-440) Thou/mm3 BMP 06/19/25 22:35 Sodium 138 Potassium 4.5 Chloride 102 Carbon Dioxide 20.3 BUN 19 Creatinine 1.0 Glucose 312 H Calcium 9.4 Liver Function 06/19/25 Range/Units 22:35 Total Bilirubin 0.3 (0.3-1.2) mg/dL AST 11 (0-34) U/L ALT 21 (10-49) U/L Alkaline Phosphatase 130 H (46-116) U/L Albumin 3.6 (3.4-4.8) gm/dL Urine 06/20/25 Range/Units 03:14 Urine Color Lt-Yellow (Lt Yel-Yel) Urine Clarity Clear (Clear/Hazy) Urine pH 6.0 (5.0-7.0) Ur Specific Delta 1.017 (1.001-1.035) Urine Protein 3+ A (Neg - Trace) Urine Glucose (UA) 4+ A (Negative) ABG Interpretation ABG results: 06/19/25 22:13 VBG pH 7.41 VBG pCO2 32 L VBG pO2 37 VBG Base Excess -4 L Quality Measures Quality Measures none Medications Home Medications and Allergies Home Medications ?Medication ?Instructions ?Recorded ?Confirmed ?Type amitriptyline 100 mg tablet 100 mg PO HS 07/28/1905/05 History atorvastatin 40 mg tablet 40 mg PO HS 07/28/19 5 History gabapentin 100 mg capsule 100 mg PO HS 10/28/23 History lamotrigine 25 mg tablet 25 mg PO HS 02/10/24 5 History metoclopramide HCl 10 mg tablet 10 mg PO Q6H PRN upset stomach 02/10/24 05/19/25 History mirtazapine 15 mg tablet 15 mg PO HS 02/10/24 5 History pantoprazole 40 mg tablet,delayed 40 mg PO QDAY 05/19/25 History release cetirizine 10 mg tablet 10 mg PO QDAY 04/29/2505/19 History Allergies Allergy/AdvReac Type Severity Reaction Status Date / Time aspirin Allergy Severe RASH Verified 05/19/25 08:47 cephalexin Allergy Severe Rash Verified 05/19/25 08:47 codeine Allergy Severe RASH Verified 05/19/25 08:47 diphenhydramine Allergy Severe Rash Verified 05/19/25 08:47 Penicillins Allergy Severe RASH Verified 05/19/25 08:47 Visit Medications Acetaminophen (Acetaminophen 325 Mg Tablet) 650 mg PO Q6H PRN PRN Reason: Fever >100.4 Stop: 07/20/25 04:21 Acetaminophen (Acetaminophen 325 Mg Tablet) 650 mg PO Q6H PRN PRN Reason: PAIN SCALE 1-3 (mild Stop: 07/20/25 04:26 Heparin Sodium (Porcine) (Heparin Sod Inj 5000 Unit/Ml Vial) 5,000 unit SC Q8HR [facility] Stop: 07/04/25 05:59 Clindamycin Phosphate 900 mg/ (IV Miscellaneous Supplies) 50 mls @ 50 mls/hr IV X1 ONE Stop: 06/20/25 04:45 Levofloxacin/Dextrose (Levaquin Ivpb) 500 mg in 100 mls @ 100 mls/hr IV X1 ONE Stop: 06/20/25 04:45 Ondansetron HCl (Ondansetron Inj 2 Mg/Ml Inj 2 Ml) 4 mg IVP Q6H PRN; Protocol PRN Reason: NAUSEA OR VOMITING Stop: 07/20/25 04:21 Pantoprazole Sodium (Pantoprazole 40 Mg Tablet) 40 mg PO QDAY [facility] Stop: 07/20/25 08:59 Sennosides (Senna Tablet) 1 tab PO QDAY [facility]; Protocol Stop: 07/20/25 08:59 Discontinued Medications Lactated Ringer's (Lactated Ringers) 1,000 mls @ 999 mls/hr IV .Q1H1M ONE Stop: 06/19/25 23:13 Last Infusion: 06/20/25 01:09 Dose: Infused Sodium Chloride (Ns) 1,000 mls @ 999 mls/hr IV .Q1H1M ONE Stop: 06/20/25 02:51 Last Infusion: 06/20/25 03:08 Dose: Infused Insulin Human Regular (Insulin Hum Regular 1 Unit/0.01 Ml (Per Unit)) 5 unit IV X1 ONE Stop: 06/20/25 03:45 Metoclopramide HCl (Metoclopramide Inj 5 Mg/Ml Vial 2 Ml) 10 mg IVP X1 ONE; Protocol Stop: 06/20/25 02:25 Last Admin: 06/20/25 02:35 Dose: 10 mg Morphine Sulfate (Morphine Sulf Inj 4 Mg/Ml Vial) 4 mg IV X1 ONE Stop: 06/20/25 02:58 Last Admin: 06/20/25 03:11 Dose: 4 mg Ondansetron HCl (Ondansetron Inj 2 Mg/Ml Inj 2 Ml) 4 mg IVP X1 ONE; Protocol Stop: 06/19/25 22:14 Last Admin: 06/20/25 00:01 Dose: 4 mg Assessment & Plan Plan 60-year-old female with past medical history as stated above who presented to the ED with nausea vomiting and a wound on her right lower extremity. Patient will be admitted for IV antibiotic therapy and BS control. #Cellulitis #Wound on plantar surface of right lower extremity Patient stepped on needle 1 month ago Has a wound that is swollen, tender to the touch, with foul smell In the ED patient received IV fluids and was started on clindamycin XR of foot does not seem to be osteomyelitis, will await official radiology report Patient received IVFs in ED ? Clindamycin 900mg IV ? Wound culture ? MRI of the foot Right ? Consider Tdap ? consider Podiatry consult ? wound care ordered #Hyperglycemia #Diabetes Mellitus sugars around the 300-400 range Not in DKA AG is 16, ph 7.42, although BHB 5, with urinary ketones received iv insulin in ED with IVFs ? degludec 30units as taken at home ? SSI ? Hypoglycemia protocol Chronic problems: #Hypertension #COPD #CAD #Hyperlipidemia #Anxiety/depression ? Pending med recs ? Duonebs as needed ? resume home meds as reconciled. Case discussed with my attending Dr. Vishnu Mclean MD PGY-2 Disclaimer: Despite multiple revisions, due to the dictation software being used, the document bellow may not be free of grammatical errors including phonetic/typographic errors. However, this does not deter from our commitment to providing health care in the patient's best interest in mind.
[2025-06-20] MEDS: INSULIN HUM REGULAR 1 UNIT/0.01 ML (PER UNIT) 5 UNIT IV (04:51)
[2025-06-20 05:08] LABS: Basophils # (Auto) 0.0 Thou/mm3 (0.0-0.2); Basophils % (Auto) 1 % (0-2.5); Eosinophils # (Auto) 0.1 Thou/mm3 (0.0-0.5); Eosinophils % (Auto) 1 % (0-10); Hematocrit 34.1 % (36.0-46.0); Hemoglobin 10.7 g/dL (12.0-16.0); Immature Granulocytes Auto 0.02 Thou/mm3 (0.00-0.00); Lymphocytes # (Auto) 1.7 Thou/mm3 (1.0-4.8); Lymphocytes % (Auto) 20 % (10-50); Mean Corpuscular HGB Conc 31.4 g/dl (31.0-37.0); Mean Corpuscular Hemoglobin 25.5 pg (25.0-35.0); Mean Corpuscular Volume 81 fL (80-100); Monocytes # (Auto) 0.1 Thou/mm3 (0.0-0.8); Monocytes % (Auto) 1 % (0-12); Neutrophils # (Auto) 6.8 Thou/mm3 (1.8-7.7); Neutrophils % (Auto) 77 % (37-80); Nucleated Red Blood Cell # 0.00 Thou/mm3 (0.00-0.00); Nucleated Red Blood Cell % 0 /100 WBC (0); Platelet Count 381 Thou/mm3 (140-440); RDW Standard Deviation 46.2 fL (36.4-46.3); Red Blood Count 4.19 Miln/mm3 (4.00-5.20); White Blood Count 8.8 Thou/mm3 (3.6-11.0)
[2025-06-20 05:24] LABS: Glucose Estimated Average 243 mg/dL (80-131); Hemoglobin A1C 10.1 % Hgb (4.8-6.0)
[2025-06-20 05:37] LABS: Alanine Aminotransferase 21 U/L (10-49); Albumin, Serum 3.5 gm/dL (3.4-4.8); Albumin/Globulin Ratio 1.8 (1.2-2.2); Alkaline Phosphatase 123 U/L (46-116); Anion Gap 21 (7-16); Aspartate Amino Transferase 14 U/L (0-34); BUN/Creatinine Ratio 21 Ratio (12-20); Bilirubin,Total 0.3 mg/dL (0.3-1.2); Blood Urea Nitrogen 23 mg/dL (9-23); Calcium 9.3 mg/dL (8.3-10.6); Calcium (Corrected) 9.7 mg/dL (8.5-10.1); Carbon Dioxide 15.5 mMol/L (20.0-31.0); Chloride 102 mMol/L (98-107); Creatinine (Component) 1.1 mg/dL (0.6-1.3); Estimated Creatinine Clearance 38.2 mL/min (>60); Globulin 1.9 gm/dL (2.3-3.5); Magnesium 1.5 mg/dL (1.6-2.6); Osmolality,Calculated 300 (275-295); Potassium 4.8 mMol/L (3.4-5.1); Sodium 138 mMol/L (136-145); Total Protein 5.4 gm/dL (5.7-8.2); eGFR 58 See Note
[2025-06-20 05:38] LABS: Glucose 484 mg/dL (74-106)
[2025-06-20] MEDS: CLINDAMYCIN 900MG IVPB 900 MG in PRE-MIXED 1 BAG 50 MG IV (05:40)
[2025-06-20] MEDS: LEVOFLOXACIN/D5W 500 MG IVPB 500 MG/100 ML BAG 100 MG IV (06:31)
[2025-06-20] MEDS: HEPARIN SOD INJ 5000 UNIT/ML VIAL SC ×3 (06:32→21:30)
--- NOTE | 2025-06-20 07:25 | PC.NURSE ---
REPORT RECEIVED AT 0710 AND CARE ASSUMED. PT HERE WITH C/O N/V AND HIGH BLOOD SUGAR AND BEING ADMITTED TO MED/TELE. PER REPORT NIGHT NURSE CALLED HOSPITALIST FOR INSULIN ORDERS AND WAS TOLD TO WAIT FOR DAY SHIFT HOSPITALIST. DAY SHIFT MD HERE NOW AND INFORMED ABOUT BLOOD SUGARS. BANDAID TO BOTTOM OF RIGHT FOOT INTACT
--- NOTE | 2025-06-20 07:47 | PD.RESPRO ---
Documentation for date of: 06/20/25 Exam Vital Signs Temp Pulse Resp BP Pulse Ox O2 Del Method 98.7 F 91 20 159/73 H 95 Room Air 06/19/25 22:00 06/20/25 06:23 06/20/25 06:23 06/20/25 05:46 06/20/25 06:23 06/20/25 05:46 Objective Labs 06/20/25 05:00 06/20/25 05:00 Labs: Laboratory Results - last 24 hr 06/19/25 06/19/25 06/20/25 22:13 22:35 00:00 WBC 9.2 RBC 4.72 Hgb 12.1 Hct 37.6 MCV 80 MCH 25.6 MCHC 32.2 RDW Std Deviation 43.9 Plt Count 401 D Neut % (Auto) 69 Lymph % (Auto) 21 [place] % (Auto) 7 Eos % (Auto) 2 Baso % (Auto) 1 Neut # (Auto) 6.3 Lymph # (Auto) 2.0 [place] # (Auto) 0.6 Eos # (Auto) 0.1 Baso # (Auto) 0.1 Immature Gran # (Auto) 0.03 H Absolute Nucleated RBC 0.00 Immature Gran % 0 Nucleated RBC % 0 ESR VBG pH 7.41 VBG pCO2 32 L VBG pO2 37 VBG O2 Sat ([place]ot[place]) 74 L VBG Base Excess -4 L Sodium 138 Potassium 4.5 Chloride 102 Carbon Dioxide 20.3 Anion Gap 16 BUN 19 Creatinine 1.0 Estim Creat Clear Calc 42.0 L eGFR > 60 BUN/Creatinine Ratio [address] Glu mg/dL Hemoglobin A1c Calculated Osmolality 289 Calcium 9.4 Corrected Calcium 9.7 Phosphorus 4.1 Magnesium 1.6 Total Bilirubin 0.3 AST 11 ALT 21 Alkaline Phosphatase 130 H Total Protein 5.3 L Albumin 3.6 Globulin 1.7 L Albumin/Globulin Ratio 2.1 Lipase 18 Beta-Hydroxybutyrate/Acetoacetate 5.0 H Ur Collection Type Urine Color Urine Clarity Urine pH Ur Specific [place] Urine Protein Urine Glucose (UA) Urine Ketones Urine Blood Urine Nitrite Urine Bilirubin Urine Urobilinogen (Auto) Ur Leukocyte Esterase Urine RBC Urine WBC Ur Squamous Epith Cells Urine Bacteria Hyaline Casts Ur Culture Indicated? 06/20/25 06/20/25 06/20/25 02:27 03:14 05:00 WBC 8.8 RBC 4.19 Hgb 10.7 L Hct 34.1 L MCV 81 MCH 25.5 MCHC 31.4 RDW Std Deviation 46.2 Plt Count 381 Neut % (Auto) 77 Lymph % (Auto) 20 [place] % (Auto) 1 Eos % (Auto) 1 Baso % (Auto) 1 Neut # (Auto) 6.8 Lymph # (Auto) 1.7 [place] # (Auto) 0.1 Eos # (Auto) 0.1 Baso # (Auto) 0.0 Immature Gran # (Auto) 0.02 H Absolute Nucleated RBC 0.00 Immature Gran % 0 Nucleated RBC % 0 ESR 21 VBG pH VBG pCO2 VBG pO2 VBG O2 Sat ([place]) VBG Base Excess Sodium 138 Potassium 4.8 Chloride 102 Carbon Dioxide 15.5 L Anion Gap 21 H BUN 23 Creatinine 1.1 Estim Creat Clear Calc 38.2 L eGFR 58 L BUN/Creatinine Ratio 21 H Glucose 484 H* D Estimated Ave Glu mg/dL 243 H Hemoglobin A1c 10.1 H Calculated Osmolality 300 H Calcium 9.3 Corrected Calcium 9.7 Phosphorus Magnesium 1.5 L Total Bilirubin 0.3 AST 14 ALT 21 Alkaline Phosphatase 123 H Total Protein 5.4 L Albumin 3.5 Globulin 1.9 L Albumin/Globulin Ratio 1.8 Lipase Beta-Hydroxybutyrate/Acetoacetate Ur Collection Type Clean Catch Urine Color Lt-Yellow Urine Clarity Clear Urine pH 6.0 Ur Specific [place] 1.017 Urine Protein 3+ A Urine Glucose (UA) 4+ A Urine Ketones 4+ A Urine Blood Trace Urine Nitrite Negative Urine Bilirubin Negative Urine Urobilinogen (Auto) Negative Ur Leukocyte Esterase Negative Urine RBC 6 H Urine WBC 2 Ur Squamous Epith Cells 2 Urine Bacteria None Hyaline Casts 1 Ur Culture Indicated? Not Indicated ABG Interpretation ABG results: 06/19/25 22:13 VBG pH 7.41 VBG pCO2 32 L VBG pO2 37 VBG Base Excess -4 L Quality Measures Quality Measures none Assessment & Plan Assessment Current Active Medications: Generic Name Dose Route Start Last Admin Trade Name Freq PRN Reason Stop Dose Admin Acetaminophen 650 mg 06/20/25 04:22 Acetaminophen 325 Mg Tablet PO 07/20/25 04:21 Q6H PRN Fever >100.4 Acetaminophen 650 mg 06/20/25 04:27 Acetaminophen 325 Mg Tablet PO 07/20/25 04:26 Q6H PRN PAIN SCALE 1-3 (mild Albuterol/Ipratropium 3 ml 06/20/25 04:40 Albuterol/Ipratropium (Duoneb) Rt Antonella 3 Ml Nebu INH 07/20/25 04:39 Q2HR PRN SHORTNESS OF BREATH OR WHEEZE Atorvastatin Calcium 40 mg 06/20/25 21:00 Atorvastatin Calcium 20 Mg Tablet PO 07/20/25 20:59 HS BIRDIE Clopidogrel Bisulfate 75 mg 06/20/25 09:00 Clopidogrel Bisulfate 75 Mg Tablet PO 07/20/25 08:59 QDAY BIRDIE Dextrose 25 ml 06/20/25 04:38 Dextrose 50%-Water Inj 50 Ml Syringe IV 07/20/25 04:37 Q15MIN PRN BG 50-70 responsive npo pt Dextrose 50 ml 06/20/25 04:38 Dextrose 50%-Water Inj 50 Ml Syringe IV 07/20/25 04:37 Q15MIN PRN BG <50 OR BG <70 & pt unresponsive Glucagon 1 mg 06/20/25 04:38 Glucagon Inj 1 Mg Vial IM Q15MIN PRN BG <70, and no IV access Heparin Sodium (Porcine) 5,000 unit 06/20/25 06:00 06/20/25 06:32 Heparin Sod Inj 5000 Unit/Ml Vial SC 07/04/25 05:59 5,000 unit Q8HR [facility] Administration Clindamycin Phosphate 50 mls @ 100 mls/hr 06/20/25 14:00 Cleocin/D5w Ivpb IV 06/27/25 13:59 Q8HR [facility] Lactated Ringer's 1,000 mls @ 999 mls/hr 06/20/25 07:34 Lactated Ringers IV 06/20/25 08:34 .Q1H1M ONE Lactated Ringer's 1,000 mls @ 999 mls/hr 06/20/25 07:34 Lactated Ringers IV 06/20/25 08:34 .Q1H1M ONE Insulin Degludec 30 unit 06/20/25 09:00 Insulin Degludec 5 Unit/0.05 Ml (Per 5 Units) SC 07/20/25 08:59 QDAY [facility] Insulin Human Lispro 0 unit 06/20/25 07:37 Insulin Lispro (Admelog) 1 Unit/0.01 Ml Unit SC 07/20/25 07:29 ACHS BIRDIE Protocol Lisinopril 40 mg 06/20/25 09:00 Lisinopril 20 Mg Tablet PO 07/20/25 08:59 [facility] Ondansetron HCl 4 mg 06/20/25 04:22 Ondansetron Inj 2 Mg/Ml Inj 2 Ml IVP 07/20/25 04:21 Q6H PRN NAUSEA OR VOMITING Protocol Pantoprazole Sodium 40 mg 06/20/25 09:00 Pantoprazole 40 Mg Tablet PO 07/20/25 08:59 [facility] Sennosides 1 tab 06/20/25 09:00 Senna Tablet PO 07/20/25 08:59 [facility] Protocol
[2025-06-20] MEDS: INSULIN HUM REGULAR 1 UNIT/0.01 ML (PER UNIT) 10 UNIT IV (07:51)
--- NOTE | 2025-06-20 08:09 | PC.NURSE ---
PT NEEDS ANOTHER IV FOR IV MEDICATION AND WANT TO WAIT UNTIL SHE FINISHES EATING
[2025-06-20 08:26] LABS: Base Excess, Venous -14 (-3-3); Lactate (Lactic Acid) 1.7 mMol/L (0.4-2.0); O2 Saturation, Venous 99 % (96-97); PCO2, Venous 25 mmHg (36-56); PO2, Venous 111 mmHg (15-58); pH, Venous 7.28 (7.33-7.66)
[2025-06-20 08:31] LABS: Beta Hydroxybutyrate 5.9 mmol/L (<0.6)
[2025-06-20] MEDS: Magnesium Sulfate 2 GM Ivpb 2 GM/50 ML BAG IV ×2 (08:40→16:46)
[2025-06-20] MEDS: cefTRIAXone/D5w 1gm IV premix 1 GM/50 ML BAG IV (08:40)
--- NOTE | 2025-06-20 08:41 | PC.NURSE ---
GIVING ANTIBIOTIC THEN WILL START MAG
[2025-06-20 08:47] LABS: Albumin, Serum 3.1 gm/dL (3.4-4.8); Anion Gap 19 (7-16); BUN/Creatinine Ratio 18 Ratio (12-20); Blood Urea Nitrogen 18 mg/dL (9-23); Calcium 8.4 mg/dL (8.3-10.6); Calcium (Corrected) 9.1 mg/dL (8.5-10.1); Chloride 106 mMol/L (98-107); Creatinine (Component) 1.0 mg/dL (0.6-1.3); Estimated Creatinine Clearance 42.0 mL/min (>60); Glucose 380 mg/dL (74-106); Magnesium 1.3 mg/dL (1.6-2.6); Osmolality,Calculated 291 (275-295); Phosphorous 3.3 mg/dL (2.4-5.1); Potassium 3.8 mMol/L (3.4-5.1); Sodium 137 mMol/L (136-145); eGFR > 60 See Note
[2025-06-20 08:59] LABS: Carbon Dioxide 12.1 mMol/L (20.0-31.0)
--- NOTE | 2025-06-20 09:15 | PC.NURSE ---
hospitalist here to see pt and says we are taking here to icu
[2025-06-20] MEDS: CLOPIDOGREL BISULFATE 75 MG TABLET PO (09:25)
[2025-06-20] MEDS: PANTOPRAZOLE 40 MG TABLET PO (09:25)
[2025-06-20] MEDS: INSULIN DEGLUDEC 5 UNIT/0.05 ML (PER 5 UNITS) 30 UNIT SC (09:26)
[2025-06-20] MEDS: DOXYCYCLINE INJ 100 MG in SODIUM CHLORIDE 0.9% (POP) 100 ML IV ×2 (09:27→21:28)
--- NOTE | 2025-06-20 10:45 | PC.NURSE ---
Per MD Bergman do not start DKA protocol until renal panel is drawn and resulted. Pending lab to draw labs. per lab unable to draw in ED
[2025-06-20] MEDS: HYDROcodone/APAP 5/325 TABLET 1 TAB PO ×2 (11:08→22:01)
[2025-06-20] MEDS: NICOTINE PATCH 14 MG/24 HR PATCH.TD24 TOP (11:08)
[2025-06-20 11:09] LABS: Lactate (Lactic Acid) 1.3 mMol/L (0.4-2.0)
[2025-06-20 11:33] LABS: Albumin, Serum 3.8 gm/dL (3.4-4.8); Anion Gap 15 (7-16); BUN/Creatinine Ratio 18 Ratio (12-20); Blood Urea Nitrogen 20 mg/dL (9-23); C-Reactive Protein < 0.5 mg/dL (0.0-0.9); Calcium 8.9 mg/dL (8.3-10.6); Calcium (Corrected) 9.1 mg/dL (8.5-10.1); Carbon Dioxide 19.3 mMol/L (20.0-31.0); Chloride 100 mMol/L (98-107); Creatinine (Component) 1.1 mg/dL (0.6-1.3); Estimated Creatinine Clearance 38.2 mL/min (>60); Magnesium 2.3 mg/dL (1.6-2.6); Osmolality,Calculated 290 (275-295); Phosphorous 3.8 mg/dL (2.4-5.1); Potassium 4.7 mMol/L (3.4-5.1); Sodium 134 mMol/L (136-145); eGFR 58 See Note
[2025-06-20 11:35] LABS: Glucose 467 mg/dL (74-106)
--- NOTE | 2025-06-20 11:45 | PD.RESHP ---
Documentation for date of: 06/20/25 Exam Vital Signs Temp Pulse Resp BP Pulse Ox O2 Del Method 98.6 F 94 16 151/69 H 97 Room Air 06/20/25 09:19 06/20/25 09:25 06/20/25 09:19 06/20/25 09:25 06/20/25 09:19 06/20/25 09:19 Results: Labs 06/20/25 05:00 06/20/25 10:58 Labs: Short CBC 06/19/25 06/20/25 Range/Units 22:35 05:00 WBC 9.2 8.8 (3.6-11.0) Thou/mm3 Hgb 12.1 10.7 L (12.0-16.0) g/dL Hct 37.6 34.1 L (36.0-46.0) % Plt Count 401 D 381 (140-440) Thou/mm3 BMP 06/19/25 06/20/25 06/20/25 22:35 05:00 08:21 Sodium 138 138 137 Potassium 4.5 4.8 3.8 D Chloride 102 102 106 Carbon Dioxide 20.3 15.5 L 12.1 L* BUN 19 23 18 Creatinine 1.0 1.1 1.0 Glucose 312 H 484 H* D 380 H D Calcium 9.4 9.3 8.4 06/20/25 10:58 Sodium 134 L Potassium 4.7 D Chloride 100 Carbon Dioxide 19.3 L BUN 20 Creatinine 1.1 Glucose 467 H* D Calcium 8.9 Liver Function 06/19/25 06/20/25 06/20/25 Range/Units 22:35 05:00 08:21 Total Bilirubin 0.3 0.3 (0.3-1.2) mg/dL AST 11 14 (0-34) U/L ALT 21 21 (10-49) U/L Alkaline Phosphatase 130 H 123 H (46-116) U/L Albumin 3.6 3.5 3.1 L (3.4-4.8) gm/dL 06/20/25 Range/Units 10:58 Total Bilirubin (0.3-1.2) mg/dL AST (0-34) U/L ALT (10-49) U/L Alkaline Phosphatase (46-116) U/L Albumin 3.8 D (3.4-4.8) gm/dL Urine 06/20/25 Range/Units 03:14 Urine Color Lt-Yellow (Lt Yel-Yel) Urine Clarity Clear (Clear/Hazy) Urine pH 6.0 (5.0-7.0) Ur Specific [place] 1.017 (1.001-1.035) Urine Protein 3+ A (Neg - Trace) Urine Glucose (UA) 4+ A (Negative) ABG Interpretation ABG results: 06/19/25 06/20/25 22:13 08:21 VBG pH 7.41 7.28 L VBG pCO2 32 L 25 L VBG pO2 37 111 H D VBG Base Excess -4 L -14 L Quality Measures Quality Measures none Medications Home Medications and Allergies Home Medications ?Medication ?Instructions ?Recorded ?Confirmed ?Type amitriptyline 100 mg tablet 100 mg PO HS 07/28/19 05/19/25 History atorvastatin 40 mg tablet 40 mg PO HS 07/28/19 05/19/25 History gabapentin 100 mg capsule 100 mg PO HS 10/28/23 05/19/25 History lamotrigine 25 mg tablet 25 mg PO HS 02/10/24 05/19/25 History metoclopramide HCl 10 mg tablet 10 mg PO Q6H PRN upset stomach 02/10/24 05/19/25 History mirtazapine 15 mg tablet 15 mg PO HS 02/10/24 05/19/25 History pantoprazole 40 mg tablet,delayed 40 mg PO QDAY 02/10/24 05/19/25 History release cetirizine 10 mg tablet 10 mg PO QDAY 04/29/25 05/19/25 History Allergies Allergy/AdvReac Type Severity Reaction Status Date / Time aspirin Allergy Severe RASH Verified 05/19/25 08:47 cephalexin Allergy Severe Rash Verified 05/19/25 08:47 codeine Allergy Severe RASH Verified 05/19/25 08:47 diphenhydramine Allergy Severe Rash Verified 05/19/25 08:47 Penicillins Allergy Severe RASH Verified 05/19/25 08:47 Visit Medications Acetaminophen (Acetaminophen 325 Mg Tablet) 650 mg PO Q6H PRN PRN Reason: Fever >100.4 Stop: 07/20/25 04:21 Acetaminophen (Acetaminophen 325 Mg Tablet) 650 mg PO Q6H PRN PRN Reason: PAIN SCALE 1-3 (mild Stop: 07/20/25 04:26 Hydrocodone Bitart/Acetaminophen (Hydrocodone/Apap 5/325 Tablet) 1 tab PO Q6HR PRN PRN Reason: PAIN SCALE 4-10(Mod-Sev Stop: 06/25/25 10:58 Albuterol/Ipratropium (Albuterol/Ipratropium (Duoneb) Rt Antonella 3 Ml Nebu) 3 ml INH Q2HR PRN PRN Reason: SHORTNESS OF BREATH OR WHEEZE Stop: 07/20/25 04:39 Amitriptyline HCl (Amitriptyline Hcl 25 Mg Tablet) 100 mg PO HS BIRDIE Stop: 07/20/25 20:59 Atorvastatin Calcium (Atorvastatin Calcium 20 Mg Tablet) 40 mg PO HS BIRDIE Stop: 07/20/25 20:59 Clopidogrel Bisulfate (Clopidogrel Bisulfate 75 Mg Tablet) 75 mg PO QDAY BIRDIE Stop: 07/20/25 08:59 Last Admin: 06/20/25 09:25 Dose: 75 mg Collagenase (Collagenase Oint 30 Gm Tube) 0 gm TOP QDAY BIRDIE Stop: 07/20/25 11:29 Cyclobenzaprine HCl (Cyclobenzaprine 5 Mg Tablet) 10 mg PO BID PRN PRN Reason: MUSCLE SPASMS Stop: 07/20/25 10:59 Dextrose (Dextrose 50%-Water Inj 50 Ml Syringe) 25 ml IV [id number] PRN PRN Reason: Blood Sugar - Low Guaifenesin (Guaifenesin Syrup 200 Mg/10 Ml Udc) 100 mg PO QID PRN; Protocol PRN Reason: COUGH Stop: 07/20/25 10:59 Heparin Sodium (Porcine) (Heparin Sod Inj 5000 Unit/Ml Vial) 5,000 unit SC Q8HR BIRDIE Stop: 07/04/25 05:59 Last Admin: 06/20/25 06:32 Dose: 5,000 unit Hydroxyzine HCl (Hydroxyzine Hcl 25 Mg Tablet) 25 mg PO HS BIRDIE Stop: 07/20/25 20:59 Ceftriaxone Sodium/Dextrose (Rocephin/D5w 1gm Iv Premix) 1 gm in 50 mls @ 100 mls/hr IV QDAY BIRDIE Stop: 06/27/25 08:59 Last Infusion: 06/20/25 09:15 Dose: Infused Doxycycline Hyclate 100 mg/ (Sodium Chloride) 100 mls @ 100 mls/hr IV BID BIRDIE Stop: 06/27/25 08:59 Last Infusion: 06/20/25 10:34 Dose: Infused Potassium Chloride (Kcl Ivpb) 10 meq in 100 mls @ 100 mls/hr IV .Q1H PRN PRN Reason: IF POTASSIUM LESS THAN 3.3 Stop: 07/20/25 10:08 Magnesium Sulfate (Magnesium Sulfate Ivpb) 2 gm in 50 mls @ 25 mls/hr IV .Q2H PRN PRN Reason: PER DKA PROTOCOL Stop: 07/20/25 10:08 Insulin Human Regular 100 unit (/ IV Miscellaneous Supplies) 100 mls @ 4.445 mls/hr IV .[id number] PRN; Protocol PRN Reason: PER PROTOCOL Stop: 07/20/25 10:08 Dextrose/Lactated Ringer's (D5-Lr) 1,000 mls @ 250 mls/hr IV .Q4H PRN PRN Reason: PER PROTOCOL Stop: 07/20/25 10:08 Lactated Ringer's (Lactated Ringers) 1,000 mls @ 250 mls/hr IV .Q4H PRN PRN Reason: PER PROTOCOL Stop: 06/21/25 10:08 Potassium Chloride 20 meq/ (Lactated Ringer's) 1,010 mls @ 250 mls/hr IV .Q4H3M PRN PRN Reason: K LEVEL 3.3 TO 5.3mM/L Stop: 07/20/25 10:08 Potassium Chloride 40 meq/ (Lactated Ringer's) 1,020 mls @ 250 mls/hr IV .Q4H5M PRN PRN Reason: K LEVEL < 3.3 mM/L Stop: 07/20/25 10:08 Potassium Chloride 40 meq/ (Dextrose/Lactated Ringer's) 1,020 mls @ 250 mls/hr IV .Q4H5M PRN PRN Reason: K LEVEL < 3.3mM/L Stop: 07/20/25 10:08 Potassium Cl/Dextrose/Lact Ringer's (Kcl 20 Meq/L In D5-Lr) 20 meq in 1,000 mls @ 250 mls/hr IV .Q4H PRN PRN Reason: K LEVEL 3.3 TO 5.3 mM/L Potassium Chloride (Kcl Ivpb) 10 meq in 100 mls @ 50 mls/hr IV PRN PRN PRN Reason: K LEVEL 3.3 to 5.3 & BG > 200 Stop: 07/20/25 10:08 Potassium Phosphate (Pot Phos 15 Mmol In Ns 250 Ml) 15 mmol in 250 mls @ 62.5 mls/hr IV PRN PRN PRN Reason: Phosphate <= 1mg/dL Stop: 07/20/25 10:08 Sodium Phosphate 15 mmol/ (Sodium Chloride) 255 mls @ 62.5 mls/hr IV .Q4H5M PRN PRN Reason: Phosphate <= 1mg/dL and K> than 5.3 Stop: 07/20/25 10:08 Lamotrigine (Lamotrigine 25 Mg Chew) 25 mg PO QDAY [facility] Stop: 07/21/25 08:59 Metoprolol Tartrate (Metoprolol Tartrate 25 Mg Tablet) 25 mg PO BID BIRDIE Stop: 07/20/25 20:59 Mirtazapine (Mirtazapine 15 Mg Tablet) 15 mg PO HS BIRDIE Stop: 07/20/25 20:59 Ondansetron HCl (Ondansetron Inj 2 Mg/Ml Inj 2 Ml) 4 mg IVP Q6H PRN; Protocol PRN Reason: NAUSEA OR VOMITING Stop: 07/20/25 04:21 Pantoprazole Sodium (Pantoprazole 40 Mg Tablet) 40 mg PO QDAY BIRDIE Stop: 07/20/25 08:59 Last Admin: 06/20/25 09:25 Dose: 40 mg Sennosides (Senna Tablet) 1 tab PO QDAY [facility]; Protocol Stop: 07/20/25 08:59 Last Admin: 06/20/25 09:31 Dose: Not Given Sodium Bicarbonate (Sodium Bicarb Inj 8.4% Syr 50 Ml Syringe) 50 ml IV Q4HR PRN PRN Reason: For ph <= to 7.0 Stop: 07/20/25 10:08 Sodium Hypochlorite (Sod Hypochlorite 1/4 Str 473 Ml Btl) 473 ml IRRIG DAILY [facility] Stop: 07/20/25 11:29 Discontinued Medications Hydrocodone Bitart/Acetaminophen (Hydrocodone/Apap 5/325 Tablet) 1 tab PO X1 ONE Stop: 06/20/25 11:00 Last Admin: 06/20/25 11:08 Dose: 1 tab Dextrose (Dextrose 50%-Water Inj 50 Ml Syringe) 25 ml IV Q15MIN PRN PRN Reason: BG 50-70 responsive npo pt Stop: 07/20/25 04:37 Dextrose (Dextrose 50%-Water Inj 50 Ml Syringe) 50 ml IV Q15MIN PRN PRN Reason: BG <50 OR BG <70 & pt unresponsive Stop: 07/20/25 04:37 Glucagon (Glucagon Inj 1 Mg Vial) 1 mg IM Q15MIN PRN PRN Reason: BG <70, and no IV access Hydroxyzine HCl (Hydroxyzine Hcl 25 Mg Tablet) 25 mg PO X1 ONE Stop: 06/20/25 11:00 Last Admin: 06/20/25 11:08 Dose: 25 mg Lactated Ringer's (Lactated Ringers) 1,000 mls @ 999 mls/hr IV .Q1H1M ONE Stop: 06/19/25 23:13 Last Infusion: 06/20/25 01:09 Dose: Infused Sodium Chloride (Ns) 1,000 mls @ 999 mls/hr IV .Q1H1M ONE Stop: 06/20/25 02:51 Last Infusion: 06/20/25 03:08 Dose: Infused Clindamycin Phosphate 900 mg/ (IV Miscellaneous Supplies) 50 mls @ 50 mls/hr IV X1 ONE Stop: 06/20/25 04:45 Last Infusion: 06/20/25 06:40 Dose: Infused Levofloxacin/Dextrose (Levaquin Ivpb) 500 mg in 100 mls @ 100 mls/hr IV X1 ONE Stop: 06/20/25 04:45 Last Infusion: 06/20/25 07:45 Dose: Infused Clindamycin Phosphate (Cleocin/D5w Ivpb) 50 mls @ 100 mls/hr IV Q8HR BIRDIE Stop: 06/27/25 13:59 Lactated Ringer's (Lactated Ringers) 1,000 mls @ 999 mls/hr IV .Q1H1M ONE Stop: 06/20/25 08:34 Last Infusion: 06/20/25 10:09 Dose: Infused Lactated Ringer's (Lactated Ringers) 1,000 mls @ 999 mls/hr IV .Q1H1M ONE Stop: 06/20/25 08:34 Last Admin: 06/20/25 10:08 Dose: 999 mls/hr Magnesium Sulfate (Magnesium Sulfate Ivpb) 2 gm in 50 mls @ 25 mls/hr IV X1 ONE Stop: 06/20/25 09:56 Last Admin: 06/20/25 08:40 Dose: 25 mls/hr Magnesium Sulfate (Magnesium Sulfate Ivpb) 4 gm in 50 mls @ 12.5 mls/hr IV X1 ONE Stop: 06/20/25 14:12 Insulin Degludec (Insulin Degludec 5 Unit/0.05 Ml (Per 5 Units)) 30 unit SC QDAY [facility] Stop: 06/20/25 10:09 Last Admin: 06/20/25 09:26 Dose: 30 unit Insulin Human Lispro (Insulin Lispro (Admelog) 1 Unit/0.01 Ml Unit) 0 unit SC AC [facility]; Protocol Stop: 07/20/25 07:29 Insulin Human Lispro (Insulin Lispro (Admelog) 1 Unit/0.01 Ml Unit) 0 unit SC AC [facility]; Protocol Stop: 07/20/25 07:29 Insulin Human Lispro (Insulin Lispro (Admelog) 1 Unit/0.01 Ml Unit) 0 unit SC [facility]; Protocol Stop: 07/20/25 07:29 Insulin Human Lispro (Insulin Lispro (Admelog) 1 Unit/0.01 Ml Unit) 0 unit SC [facility]; Protocol Stop: 07/20/25 07:29 Insulin Human Regular (Insulin Hum Regular 1 Unit/0.01 Ml (Per Unit)) 5 unit IV X1 ONE Stop: 06/20/25 03:45 Last Admin: 06/20/25 04:51 Dose: 5 unit Insulin Human Regular (Insulin Hum Regular 1 Unit/0.01 Ml (Per Unit)) 10 unit IV X1 ONE Stop: 06/20/25 07:35 Last Admin: 06/20/25 07:51 Dose: 10 unit Lisinopril (Lisinopril 20 Mg Tablet) 40 mg PO QDAY [facility] Stop: 07/20/25 08:59 Last Admin: 06/20/25 09:25 Dose: 40 mg Metoclopramide HCl (Metoclopramide Inj 5 Mg/Ml Vial 2 Ml) 10 mg IVP X1 ONE; Protocol Stop: 06/20/25 02:25 Last Admin: 06/20/25 02:35 Dose: 10 mg Morphine Sulfate (Morphine Sulf Inj 4 Mg/Ml Vial) 4 mg IV X1 ONE Stop: 06/20/25 02:58 Last Admin: 06/20/25 03:11 Dose: 4 mg Nicotine (Nicotine Patch 14 Mg/24 Hr Patch.Td24) 14 mg TOP X1 ONE Stop: 06/20/25 10:15 Last Admin: 06/20/25 11:08 Dose: 14 mg Ondansetron HCl (Ondansetron Inj 2 Mg/Ml Inj 2 Ml) 4 mg IVP X1 ONE; Protocol Stop: 06/19/25 22:14 Last Admin: 06/20/25 00:01 Dose: 4 mg
[2025-06-20 11:56] LABS: Sed Rate (ESR) 25 mm/hr (0-30)
[2025-06-20] MEDS: INSULIN REG 100 UNITS/100 ML 100 UNIT in PRE-MIXED 1 BAG IV (12:38)
[2025-06-20] MEDS: POT CHL ADDITIVE 20 MEQ in RINGERS LACTATED 1000 ML 1,000 ML 250 MEQ IV (12:40)
--- NOTE | 2025-06-20 13:26 | ESPR_ITS ---
Documentation for date of: 06/20/25 Subjective Subjective Interval history: This is a 60-year-old female with a history of diabetes who was recently admitted in the middle of May for DKA. She was at home in her usual state of health until yesterday morning. Yesterday morning she woke up and had significant nausea and vomiting. She was unable to take her insulin. She denies any diarrhea. Denies any chest pain, shortness of breath, cough, abdominal pain, fevers or chills. States nobody else was able to help give her her insulin and she was brought to the ER overnight. Of note she does complain of pain in her right foot from the wound that has been there for the last month or 2. PMH: CAD, COPD, HTN, diabetes Critical Care Note Critical care time (min.): 0 Exam Vital Signs Temp Pulse Resp BP Pulse Ox O2 Del Method 98.6 F 94 16 151/69 H 97 Room Air 06/20/25 09:19 06/20/25 09:25 06/20/25 09:19 06/20/25 09:25 06/20/25 09:19 06/20/25 09:19 Narrative Exam General-elderly appearing female who is in visible distress from pain in her foot, awake, alert, conversant, oriented, thin body habitus HEENT-normocephalic, atraumatic, sclera anicteric, oral mucosa dry, EOMI, pupils equal reactive Chest-lungs clear auscultation bilaterally, heart regular rhythmic, no bruits murmurs auscultated on exam, no increased work of breathing Abdomen-soft, nontender, bowel sounds present, no rebound or guarding Extremities-no edema lower extremities, pulses palpable, no clubbing or cyanosis of the digits, no mottling, moves all 4 difficulties, wound in the plantar aspect of the patient's right foot with some purulent discharge noted. The wound seems to track down to the level of the tendons however unable to probe to bone given the patient's pain Physical Exam Completion Physical Exam Complete?: Yes Objective - Operations And Intelligence Assistant Labs 06/20/25 05:00 06/20/25 10:58 Labs: Laboratory Results - last 24 hr 06/19/25 06/19/25 06/20/25 22:13 22:35 00:00 WBC 9.2 RBC 4.72 Hgb 12.1 Hct 37.6 MCV 80 MCH 25.6 MCHC 32.2 RDW Std Deviation 43.9 Plt Count 401 D Neut % (Auto) 69 Lymph % (Auto) 21 Curry % (Auto) 7 Eos % (Auto) 2 Baso % (Auto) 1 Neut # (Auto) 6.3 Lymph # (Auto) 2.0 Curry # (Auto) 0.6 Eos # (Auto) 0.1 Baso # (Auto) 0.1 Immature Gran # (Auto) 0.03 H Absolute Nucleated RBC 0.00 Immature Gran % 0 Nucleated RBC % 0 ESR VBG pH 7.41 VBG pCO2 32 L VBG pO2 37 VBG O2 Sat (Scotty) 74 L VBG Base Excess -4 L Sodium 138 Potassium 4.5 Chloride 102 Carbon Dioxide 20.3 Anion Gap 16 BUN 19 Creatinine 1.0 Estim Creat Clear Calc 42.0 L eGFR > 60 BUN/Creatinine Ratio [address] Glu mg/dL Hemoglobin A1c Calculated Osmolality 289 Lactic Acid Calcium 9.4 Corrected Calcium 9.7 Phosphorus 4.1 Magnesium 1.6 Total Bilirubin 0.3 AST 11 ALT 21 Alkaline Phosphatase 130 H C-Reactive Prot, Quant Total Protein 5.3 L Albumin 3.6 Globulin 1.7 L Albumin/Globulin Ratio 2.1 Lipase 18 Beta-Hydroxybutyrate/Acetoacetate 5.0 H Ur Collection Type Urine Color Urine Clarity Urine pH Ur Specific [place] Urine Protein Urine Glucose (UA) Urine Ketones Urine Blood Urine Nitrite Urine Bilirubin Urine Urobilinogen (Auto) Ur Leukocyte Esterase Urine RBC Urine WBC Ur Squamous Epith Cells Urine Bacteria Hyaline Casts Ur Culture Indicated? 06/20/25 06/20/25 06/20/25 02:27 03:14 05:00 WBC 8.8 RBC 4.19 Hgb 10.7 L Hct 34.1 L MCV 81 MCH 25.5 MCHC 31.4 RDW Std Deviation 46.2 Plt Count 381 Neut % (Auto) 77 Lymph % (Auto) 20 Curry % (Auto) 1 Eos % (Auto) 1 Baso % (Auto) 1 Neut # (Auto) 6.8 Lymph # (Auto) 1.7 Curry # (Auto) 0.1 Eos # (Auto) 0.1 Baso # (Auto) 0.0 Immature Gran # (Auto) 0.02 H Absolute Nucleated RBC 0.00 Immature Gran % 0 Nucleated RBC % 0 ESR 21 VBG pH VBG pCO2 VBG pO2 VBG O2 Sat ([place]ot[place]) VBG Base Excess Sodium 138 Potassium 4.8 Chloride 102 Carbon Dioxide 15.5 L Anion Gap 21 H BUN 23 Creatinine 1.1 Estim Creat Clear Calc 38.2 L eGFR 58 L BUN/Creatinine Ratio 21 H Glucose 484 H* D Estimated Ave Glu mg/dL 243 H Hemoglobin A1c 10.1 H Calculated Osmolality 300 H Lactic Acid Calcium 9.3 Corrected Calcium 9.7 Phosphorus Magnesium 1.5 L Total Bilirubin 0.3 AST 14 ALT 21 Alkaline Phosphatase 123 H C-Reactive Prot, Quant Total Protein 5.4 L Albumin 3.5 Globulin 1.9 L Albumin/Globulin Ratio 1.8 Lipase Beta-Hydroxybutyrate/Acetoacetate Ur Collection Type Clean Catch Urine Color Lt-Yellow Urine Clarity Clear Urine pH 6.0 Ur Specific [place] 1.017 Urine Protein 3+ A Urine Glucose (UA) 4+ A Urine Ketones 4+ A Urine Blood Trace Urine Nitrite Negative Urine Bilirubin Negative Urine Urobilinogen (Auto) Negative Ur Leukocyte Esterase Negative Urine RBC 6 H Urine WBC 2 Ur Squamous Epith Cells 2 Urine Bacteria None Hyaline Casts 1 Ur Culture Indicated? Not Indicated 06/20/25 06/20/25 08:21 10:58 WBC RBC Hgb Hct MCV MCH MCHC RDW Std Deviation Plt Count Neut % (Auto) Lymph % (Auto) Curry % (Auto) Eos % (Auto) Baso % (Auto) Neut # (Auto) Lymph # (Auto) Curry # (Auto) Eos # (Auto) Baso # (Auto) Immature Gran # (Auto) Absolute Nucleated RBC Immature Gran % Nucleated RBC % ESR 25 VBG pH 7.28 L VBG pCO2 25 L VBG pO2 111 H D VBG O2 Sat (Scotty) 99 H VBG Base Excess -14 L Sodium 137 134 L Potassium 3.8 D 4.7 D Chloride 106 100 Carbon Dioxide 12.1 L* 19.3 L Anion Gap 19 H 15 BUN 18 20 Creatinine 1.0 1.1 Estim Creat Clear Calc 42.0 L 38.2 L eGFR > 60 58 L BUN/Creatinine Ratio 18 18 Glucose 380 H D 467 H* D Estimated Ave Glu mg/dL Hemoglobin A1c Calculated Osmolality 291 290 Lactic Acid 1.7 1.3 Calcium 8.4 8.9 Corrected Calcium 9.1 9.1 Phosphorus 3.3 3.8 Magnesium 1.3 L 2.3 Total Bilirubin AST ALT Alkaline Phosphatase C-Reactive Prot, Quant < 0.5 Total Protein Albumin 3.1 L 3.8 D Globulin Albumin/Globulin Ratio Lipase Beta-Hydroxybutyrate/Acetoacetate 5.9 H Ur Collection Type Urine Color Urine Clarity Urine pH Ur Specific [place] Urine Protein Urine Glucose (UA) Urine Ketones Urine Blood Urine Nitrite Urine Bilirubin Urine Urobilinogen (Auto) Ur Leukocyte Esterase Urine RBC Urine WBC Ur Squamous Epith Cells Urine Bacteria Hyaline Casts Ur Culture Indicated? Assessment & Plan Additional Assessment Additional Assessment: In summary this is a 60-year-old female admitted to the ICU for DKA a/p [employer] stable CV CAD- cont home meds Resp COPD- stable, no acute exacerbation Renal Hyponatremia-pseudohyponatremia in the setting of hyperglycemia Anion gap metabolic acidosis-secondary to patient's DKA which will be treated Hypomagnesemia-replete the patient's mag IV GI Nausea-as needed Zofran Endo DKA-patient has been off of her insulin for the last 24 hours. She has developed an anion gap along with beta hydroxybutyrate. She will be given IV fluids and started on DKA protocol with labs drawn every 4 hours and a fingerstick every hour. Dyslipidemia- cont statin Heme Anemia-appears at baseline DVT prophylaxis-Lovenox ID Right foot ulcer-currently this appears tender with some purulent discharge. She has been started on IV antibiotics. There is an MRI pending to evaluate for possible osteomyelitis. Will need wound care eval and possible surgical debridement. Case discussed with ICU team Labs, imaging records reviewed Approximately 65 minutes required for evaluation, exam, review, intervention, discussion formulation of plan of care for this unfortunate patient with DKA Provider Notation Provider Notation: Although this document has been carefully reviewed, there may still be some phonetic and other typographical errors. These errors are purely grammatical due to imperfections in the software program and should not be construed in any way to compromise the substance of the patient's medical care during this visit. Thank you for the opportunity and privilege in assisting you with this patient's care and management.
--- NOTE | 2025-06-20 13:54 | ESPR_ITS ---
<Statement entered by Zac Mckeon MD - 06/20/25 18:04> This patient is a 60-year-old female with past medical history of hypertension, COPD, CAD s/p stents 10 years ago, type 2 diabetes on insulin presented today with chief complaint of 1 day history of nausea and vomiting. Patient reported that she vomited 6 times yesterday without blood. She also had pain in her sole of right foot. She stated that she received antibiotics for unknown duration 2 months ago when the wound was found. Per chart review, general surgery has seen the patient and removed nail when she initially came before this visit. There was a stitch seen inside the wound along with wound care nurse. Wound is painful and appears to have pus with white fibrous tissue foul-smelling with no necrotic tissue seen. Pulses were palpable. Extremities were warm. Patient reported that she does not take her long-acting insulin Lantus and lispro due to vomiting. She usually takes 30 units Lantus at night and 5 units 3 times daily with meals.In the ED, patient received 2 L bolus of LR, 1 L of NS, Zofran 4 mg x 1, Reglan 10 mg x 1, morphine 4 mg x 1, regular insulin 5 units x 1, clindamycin 9 mg x 1, Levaquin 500 mg x 1. Heparin for DVT prophylaxis. Initially, patient was admitted to floors for management of hyperglycemia due to uncontrolled diabetes and right foot diabetic wound. However morning labs revealed patient has high anion gap metabolic acidosis with elevated BHB and hyperglycemia. Primary team administered 1 L bolus and 10 units of IV regular insulin which did not improved labs. Therefore patient is upgraded to ICU for management of DKA on insulin drip. Patient has been started on DKA protocol with insulin drip and will correct electrolytes as necessary. Patient's home medications were resumed. Lisinopril is on hold due to mild LA. DuoNebs ordered as needed considering patient's history of COPD. X-ray foot showed no carolina cortical bone destruction. Air in the soft tissue plantar foot between 1st and 2nd metatarsal. No fracture. Will follow-up with MRI right foot to rule out for osteomyelitis due to patient's ongoing wound with no improvement with p.o. antibiotics in the past. Although, CRP and ESR were normal. Will continue with Rocephin and doxycycline. Follow-up with blood cultures. Will consider consulting general surgery for further recommendations for right foot wound. All labs and orders were reviewed. I discussed and supervised with the consultant intern physician who took care of this patient. I personally saw and examined the patient. I agree with most of the assessment and plan. Disclaimer: Despite multiple revisions, due to the dictation software being used, the document bellow may not be free of grammatical errors including phonetic/typographic errors. However, this does not deter from our commitment to providing health care in the patient's best interest in mind. Plan of care discussed with saw sharpener, Dr. Luis Mckeon MD PGY-3 Documentation for date of: 06/20/25 Subjective Subjective Interval history: 60-year-old female with a past medical history significant for hypertension, COPD, [place], CAD status post PCI with one stent and on Plavix, hyperlipidemia, hypothyroidism, and insulin-dependent diabetes mellitus presented to the ED on 06/20 with complaints of nausea, vomiting, and a chronic wound on the plantar aspect of the right foot. She reported one day of nausea with approximately six episodes of non-bloody, non-bilious vomiting. She noted that her home glucose monitor read high (above measurable range). She reports that her device reads up to 300 mg/dL. She felt as though she was experiencing another episode of DKA. Per chart review, patient's most recent hospitalization (05/19-05/26/2025) was for diabetic ketoacidosis. Regarding the foot wound, the patient accidentally stepped on a sewing needle about two months ago which resulted in a wound on the plantar surface of the right foot. She reports receiving a full course of cephalexin. Chart review shows that Dr. Burton evaluated her and performed an incision and drainage with foreign body removal on 04/30/2025. In the ED, the patient received: - 2L Lactated Ringer?s - 1L Normal Saline - Zofran 4 mg IV x1 - Reglan 10 mg IV x1 - Morphine 4 mg IV x1 - Regular insulin 5 units IV x1 - Clindamycin 900 mg IV x1 - Levofloxacin 500 mg IV x1 - Heparin for DVT prophylaxis She was initially admitted to the medical floor for IV antibiotic therapy for her right lower extremity wound and for management of hyperglycemia from uncontrolled diabetes. Morning labs revealed high anion gap metabolic acidosis, elevated beta-hydroxybutyrate, and persistent hyperglycemia?consistent with diabetic ketoacidosis. The primary team administered a 1L fluid bolus and 10 units of IV regular insulin without significant improvement in labs. Given her worsening metabolic profile and need for close monitoring and insulin infusion, the patient was upgraded to the ICU for management of DKA. Interval History: 06/20/2025: Patient was started on the DKA protocol, including an insulin drip. Electrolytes will be closely monitored and repleted as necessary. Home medications have been reconciled and restarted, with the exception of lisinopril, which is currently on hold due to mild acute kidney injury. DuoNebs have been ordered as needed for COPD. A right foot X-ray showed no evidence of cortical bone destruction or fracture but there is soft tissue gas noted between the 1st and 2nd metatarsals on the plantar aspect. MRI of the right foot has showed negative for osteomyelitis and no soft tissue abscess. Patient will continue on Rocephin 1 gram for broad coverage for common gram-negative and some gram-positive, and Doxycycline 100mg for atypical pathogens and MRSA. Pending blood culture. Exam Vital Signs Temp Pulse Resp BP Pulse Ox O2 Del Method 98.6 F 94 16 151/69 H 97 Room Air 06/20/25 09:19 06/20/25 09:25 06/20/25 09:19 06/20/25 09:25 06/20/25 09:19 06/20/25 09:19 Narrative Exam Physical Exam General: Awake and in no acute distress. Conversational and non-toxic appearing. Thin body habitus. Head: Normocephalic, atraumatic. Eyes: Pupils equally round and reactive to light. Anicteric. Heart: Regular rate and rhythm, no murmurs. Lungs: Clear to auscultation with no wheezing or crackles. Non-labored respirations, symmetric chest rise, no use of accessory muscles. Abdomen: Soft, nontender. No guarding or rebound tenderness. Neurologic: Alert and oriented x4, no gross neurological deficit, and patient able to move all 4 extremities. Extremities: No edema. Posterior tibial pulses are 2+ bilaterally. 2+ radial pulse bilaterally. No clubbing or cyanosis. No mottling. Unable to fully assess the right foot wound due to patient refusal secondary to severe pain. Will reassess tomorrow morning. Objective Labs 06/20/25 05:00 10/10/25 15:20 Labs: Laboratory Results - last 24 hr 06/19/25 06/19/25 06/20/25 22:13 22:35 00:00 WBC 9.2 RBC 4.72 Hgb 12.1 Hct 37.6 MCV 80 MCH 25.6 MCHC 32.2 RDW Std Deviation 43.9 Plt Count 401 D Neut % (Auto) 69 Lymph % (Auto) 21 Maury % (Auto) 7 Eos % (Auto) 2 Baso % (Auto) 1 Neut # (Auto) 6.3 Lymph # (Auto) 2.0 Maury # (Auto) 0.6 Eos # (Auto) 0.1 Baso # (Auto) 0.1 Immature Gran # (Auto) 0.03 H Absolute Nucleated RBC 0.00 Immature Gran % 0 Nucleated RBC % 0 ESR VBG pH 7.41 VBG pCO2 32 L VBG pO2 37 VBG O2 Sat (Scotty) 74 L VBG Base Excess -4 L Sodium 138 Potassium 4.5 Chloride 102 Carbon Dioxide 20.3 Anion Gap 16 BUN 19 Creatinine 1.0 Estim Creat Clear Calc 42.0 L eGFR > 60 BUN/Creatinine Ratio [address] Glu mg/dL Hemoglobin A1c Calculated Osmolality 289 Lactic Acid Calcium 9.4 Corrected Calcium 9.7 Phosphorus 4.1 Magnesium 1.6 Total Bilirubin 0.3 AST 11 ALT 21 Alkaline Phosphatase 130 H C-Reactive Prot, Quant Total Protein 5.3 L Albumin 3.6 Globulin 1.7 L Albumin/Globulin Ratio 2.1 Lipase 18 Beta-Hydroxybutyrate/Acetoacetate 5.0 H Ur Collection Type Urine Color Urine Clarity Urine pH Ur Specific Thompson Urine Protein Urine Glucose (UA) Urine Ketones Urine Blood Urine Nitrite Urine Bilirubin Urine Urobilinogen (Auto) Ur Leukocyte Esterase Urine RBC Urine WBC Ur Squamous Epith Cells Urine Bacteria Hyaline Casts Ur Culture Indicated? 06/20/25 06/20/25 06/20/25 02:27 03:14 05:00 WBC 8.8 RBC 4.19 Hgb 10.7 L Hct 34.1 L MCV 81 MCH 25.5 MCHC 31.4 RDW Std Deviation 46.2 Plt Count 381 Neut % (Auto) 77 Lymph % (Auto) 20 Maury % (Auto) 1 Eos % (Auto) 1 Baso % (Auto) 1 Neut # (Auto) 6.8 Lymph # (Auto) 1.7 Maury # (Auto) 0.1 Eos # (Auto) 0.1 Baso # (Auto) 0.0 Immature Gran # (Auto) 0.02 H Absolute Nucleated RBC 0.00 Immature Gran % 0 Nucleated RBC % 0 ESR 21 VBG pH VBG pCO2 VBG pO2 VBG O2 Sat (Scotty) VBG Base Excess Sodium 138 Potassium 4.8 Chloride 102 Carbon Dioxide 15.5 L Anion Gap 21 H BUN 23 Creatinine 1.1 Estim Creat Clear Calc 38.2 L eGFR 58 L BUN/Creatinine Ratio 21 H Glucose 484 H* D Estimated Ave Glu mg/dL 243 H Hemoglobin A1c 10.1 H Calculated Osmolality 300 H Lactic Acid Calcium 9.3 Corrected Calcium 9.7 Phosphorus Magnesium 1.5 L Total Bilirubin 0.3 AST 14 ALT 21 Alkaline Phosphatase 123 H C-Reactive Prot, Quant Total Protein 5.4 L Albumin 3.5 Globulin 1.9 L Albumin/Globulin Ratio 1.8 Lipase Beta-Hydroxybutyrate/Acetoacetate Ur Collection Type Clean Catch Urine Color Lt-Yellow Urine Clarity Clear Urine pH 6.0 Ur Specific Thompson 1.017 Urine Protein 3+ A Urine Glucose (UA) 4+ A Urine Ketones 4+ A Urine Blood Trace Urine Nitrite Negative Urine Bilirubin Negative Urine Urobilinogen (Auto) Negative Ur Leukocyte Esterase Negative Urine RBC 6 H Urine WBC 2 Ur Squamous Epith Cells 2 Urine Bacteria None Hyaline Casts 1 Ur Culture Indicated? Not Indicated 06/20/25 06/20/25 08:21 10:58 WBC RBC Hgb Hct MCV MCH MCHC RDW Std Deviation Plt Count Neut % (Auto) Lymph % (Auto) Maury % (Auto) Eos % (Auto) Baso % (Auto) Neut # (Auto) Lymph # (Auto) Maury # (Auto) Eos # (Auto) Baso # (Auto) Immature Gran # (Auto) Absolute Nucleated RBC Immature Gran % Nucleated RBC % ESR 25 VBG pH 7.28 L VBG pCO2 25 L VBG pO2 111 H D VBG O2 Sat (Scotty) 99 H VBG Base Excess -14 L Sodium 137 134 L Potassium 3.8 D 4.7 D Chloride 106 100 Carbon Dioxide 12.1 L* 19.3 L Anion Gap 19 H 15 BUN 18 20 Creatinine 1.0 1.1 Estim Creat Clear Calc 42.0 L 38.2 L eGFR > 60 58 L BUN/Creatinine Ratio 18 18 Glucose 380 H D 467 H* D Estimated Ave Glu mg/dL Hemoglobin A1c Calculated Osmolality 291 290 Lactic Acid 1.7 1.3 Calcium 8.4 8.9 Corrected Calcium 9.1 9.1 Phosphorus 3.3 3.8 Magnesium 1.3 L 2.3 Total Bilirubin AST ALT Alkaline Phosphatase C-Reactive Prot, Quant < 0.5 Total Protein Albumin 3.1 L 3.8 D Globulin Albumin/Globulin Ratio Lipase Beta-Hydroxybutyrate/Acetoacetate 5.9 H Ur Collection Type Urine Color Urine Clarity Urine pH Ur Specific Thompson Urine Protein Urine Glucose (UA) Urine Ketones Urine Blood Urine Nitrite Urine Bilirubin Urine Urobilinogen (Auto) Ur Leukocyte Esterase Urine RBC Urine WBC Ur Squamous Epith Cells Urine Bacteria Hyaline Casts Ur Culture Indicated? ABG Interpretation ABG results: 06/19/25 06/20/25 22:13 08:21 VBG pH 7.41 7.28 L VBG pCO2 32 L 25 L VBG pO2 37 111 H D VBG Base Excess -4 L -14 L Quality Measures Quality Measures VTE prophylaxis (Heparin SC ) Assessment & Plan Assessment Current Active Medications: Generic Name Dose Route Start Last Admin Trade Name Freq PRN Reason Stop Dose Admin Acetaminophen 650 mg 06/20/25 04:22 Acetaminophen 325 Mg Tablet PO 07/20/25 04:21 Q6H PRN Fever >100.4 Acetaminophen 650 mg 06/20/25 04:27 Acetaminophen 325 Mg Tablet PO 07/20/25 04:26 Q6H PRN PAIN SCALE 1-3 (mild Hydrocodone Bitart/Acetaminophen 1 tab 06/20/25 10:59 Hydrocodone/Apap 5/325 Tablet PO 06/25/25 10:58 Q6HR PRN PAIN SCALE 4-10(Mod-Sev Albuterol/Ipratropium 3 ml 06/20/25 04:40 Albuterol/Ipratropium (Duoneb) Rt Antonella 3 Ml Nebu INH 07/20/25 04:39 Q2HR PRN SHORTNESS OF BREATH OR WHEEZE Amitriptyline HCl 100 mg 06/20/25 21:00 Amitriptyline Hcl 25 Mg Tablet PO 07/20/25 20:59 HS BIRIDE Atorvastatin Calcium 40 mg 06/20/25 21:00 Atorvastatin Calcium 20 Mg Tablet PO 07/20/25 20:59 HS BIRDIE Clopidogrel Bisulfate 75 mg 06/20/25 09:00 06/20/25 09:25 Clopidogrel Bisulfate 75 Mg Tablet PO 07/20/25 08:59 75 mg QDAY BIRDIE Administration Collagenase 0 gm 06/20/25 11:30 Collagenase Oint 30 Gm Tube TOP 07/20/25 11:29 QDAY BIRDIE Cyclobenzaprine HCl 10 mg 06/20/25 11:00 Cyclobenzaprine 5 Mg Tablet PO 07/20/25 10:59 BID PRN MUSCLE SPASMS Dextrose 25 ml 06/20/25 10:09 Dextrose 50%-Water Inj 50 Ml Syringe IV [id number] PRN Blood Sugar - Low Guaifenesin 100 mg 06/20/25 11:00 Guaifenesin Syrup 200 Mg/10 Ml Udc PO 07/20/25 10:59 QID PRN COUGH Protocol Heparin Sodium (Porcine) 5,000 unit 06/20/25 06:00 06/20/25 06:32 Heparin Sod Inj 5000 Unit/Ml Vial SC 07/04/25 05:59 5,000 unit Q8HR BIRDIE Administration Hydroxyzine HCl 25 mg 06/20/25 21:00 Hydroxyzine Hcl 25 Mg Tablet PO 07/20/25 20:59 HS BIRDIE Ceftriaxone Sodium/Dextrose 1 gm in 50 mls @ 100 mls/hr 06/20/25 09:00 06/20/25 09:15 Rocephin/D5w 1gm Iv Premix IV 06/27/25 08:59 Infused QDAY BIRDIE Infusion Doxycycline Hyclate 100 mg/ 100 mls @ 100 mls/hr 06/20/25 09:00 06/20/25 10:34 Sodium Chloride IV 06/27/25 08:59 Infused BID BIRDIE Infusion Potassium Chloride 10 meq in 100 mls @ 100 mls/hr 06/20/25 10:09 Kcl Ivpb IV 07/20/25 10:08 .Q1H PRN IF POTASSIUM LESS THAN 3.3 Magnesium Sulfate 2 gm in 50 mls @ 25 mls/hr 06/20/25 10:09 Magnesium Sulfate Ivpb IV 07/20/25 10:08 .Q2H PRN PER DKA PROTOCOL Insulin Human Regular 100 unit 100 mls @ 4.445 mls/hr 06/20/25 10:09 06/20/25 13:00 / IV Miscellaneous Supplies IV 07/20/25 10:08 0.1 unit/kg/hr .[id number] PRN 4.445 mls/hr PER PROTOCOL Titration Protocol 0.1 UNIT/KG/HR Dextrose/Lactated Ringer's 1,000 mls @ 250 mls/hr 06/20/25 10:09 D5-Lr IV 07/20/25 10:08 .Q4H PRN PER PROTOCOL Lactated Ringer's 1,000 mls @ 250 mls/hr 06/20/25 10:09 Lactated Ringers IV 06/21/25 10:08 .Q4H PRN PER PROTOCOL Potassium Chloride 20 meq/ 1,010 mls @ 250 mls/hr 06/20/25 10:09 06/20/25 12:40 Lactated Ringer's IV 07/20/25 10:08 250 mls/hr .Q4H3M PRN Administration K LEVEL 3.3 TO 5.3mM/L Potassium Chloride 40 meq/ 1,020 mls @ 250 mls/hr 06/20/25 10:09 Lactated Ringer's IV 07/20/25 10:08 .Q4H5M PRN K LEVEL < 3.3 mM/L Potassium Chloride 40 meq/ 1,020 mls @ 250 mls/hr 06/20/25 10:09 Dextrose/Lactated Ringer's IV 07/20/25 10:08 .Q4H5M PRN K LEVEL < 3.3mM/L Potassium Cl/Dextrose/Lact Ringer's 20 meq in 1,000 mls @ 250 mls/hr 06/20/25 10:09 Kcl 20 Meq/L In D5-Lr IV .Q4H PRN K LEVEL 3.3 TO 5.3 mM/L Potassium Chloride 10 meq in 100 mls @ 50 mls/hr 06/20/25 10:09 Kcl Ivpb IV 07/20/25 10:08 PRN PRN K LEVEL 3.3 to 5.3 & BG > 200 Potassium Phosphate 15 mmol in 250 mls @ 62.5 mls/hr 06/20/25 10:09 Pot Phos 15 Mmol In Ns 250 Ml IV 07/20/25 10:08 PRN PRN Phosphate <= 1mg/dL Sodium Phosphate 15 mmol/ 255 mls @ 62.5 mls/hr 06/20/25 10:09 Sodium Chloride IV 07/20/25 10:08 .Q4H5M PRN Phosphate <= 1mg/dL and K> than 5.3 Lamotrigine 25 mg 06/21/25 09:00 Lamotrigine 25 Mg Chew PO 07/21/25 08:59 QDAY BIRDIE Metoprolol Tartrate 25 mg 06/20/25 21:00 Metoprolol Tartrate 25 Mg Tablet PO 07/20/25 20:59 BID BIRDIE Mirtazapine 15 mg 06/20/25 21:00 Mirtazapine 15 Mg Tablet PO 07/20/25 20:59 HS BIRDIE Ondansetron HCl 4 mg 06/20/25 04:22 Ondansetron Inj 2 Mg/Ml Inj 2 Ml IVP 07/20/25 04:21 Q6H PRN NAUSEA OR VOMITING Protocol Pantoprazole Sodium 40 mg 06/20/25 09:00 06/20/25 09:25 Pantoprazole 40 Mg Tablet PO 07/20/25 08:59 40 mg QDAY [facility] Administration Sennosides 1 tab 06/20/25 09:00 06/20/25 09:31 Senna Tablet PO 07/20/25 08:59 Not Given QDAY BIRDIE Protocol Sodium Bicarbonate 50 ml 06/20/25 10:09 Sodium Bicarb Inj 8.4% Syr 50 Ml Syringe IV 07/20/25 10:08 Q4HR PRN For ph <= to 7.0 Sodium Hypochlorite 473 ml 06/20/25 11:30 Sod Hypochlorite 1/4 Str 473 Ml Btl IRRIG 07/20/25 11:29 DAILY BIRDIE Plan 60-year-old female with past medical history significant for CAD s/p stents, COPD, insulin-dependent T2DM, HTN, HLD, and bipolar disorder. recent hospitalization for DKA, presented for nausea, vomiting, uncontrolled hyperglycemia, and right plantar foot wound, admitted to ICU for DKA protocol and IV antibiotics for right plantar foot wound. Neurology #History of bipolar disorder Treatment Plan: - Continue home medications: lamotrigine 25 mg PO nightly (patient brought home medication in), mirtazapine 15 mg PO nightly and amitriptyline 100 mg PO nightly. Cardiovascular #History of coronary artery disease #History of hyperlipidemia Myocardial infarction in 2012. Status post stent placement, taking Plavix. Treatment Plan: - Continue home medications: clopidogrel 75mg PO daily, atorvastatin 40 mg PO daily. #History of hypertension Treatment Plan: - Hold home lisinopril for LA. - Home metoprolol 25 mg PO twice daily. - Monitor blood pressure closely. Respiratory #History of COPD Currently no signs of acute exacerbation. Treatment Plan: - Supplemental O2 to maintain SpO2 88?92% to avoid worsening hypercapnia. - Monitor for signs of respiratory failure, consider ABG if severe or deteriorating. - DuoNebs Q2H as needed is ordered. GI and F/E/N #Nausea/Vomiting Likely secondary to DKA Treatment Plan: - IV Ondansetron 4mg Q6H as needed is ordered. Treatment Review: - Patient received IV Ondansetron 4mg x1 in the ED. Renal #Mixed acid-base disorder #Anion gap metabolic acidosis with non-compensatory respiratory alkalosis Diagnostic Test: - VBG: pH 7.28, pCO2 25. - CMP: sodium 137, bicarb 12.1, chloride 106. - Anion gap: 18.9. - Using winter's formula, pCO2 not in the predicted range --> non compensatory respiratory alkalosis. - Delta-Delta ratio: 0.66, which is <1, indicating both gap acidosis and non-gap acidosis. Treatment Plan: - Continue DKA protocol. - Monitor labs Q4H. #Mild acute kidney injury DDx Dehydration, Diabetes nephropathy Diagnostic Test: - Baseline Cr: 0.8. - Cr on this admission 1.0. Treatment Plan: - Anticipate improvement with DKA protocol. - Hold Lisinopril until LA resolves. Heme #Anemia DDx: hemoconcentration in setting of acute DKA vs anemia of chronic disease vs diabetic nephropathy vs nutritional deficiencies Diagnostic Test: - Hemoglobin 12.1 --> 10.7. Treatment Plan: - Continue DKA protocol. - Monitor CBC. Endo #Insulin dependent diabetes mellitus type 2 #Diabetic ketoacidosis Diagnostic Test: - Glucose 312 --> 484 --> 380 --> 467 - BHB 5.0 --> 5.9. - Hemoglobin A1c: 10.1 - Anion gap metabolic acidosis. - UA: urine ketones 4+. Treatment Plan: - Continue DKA protocol. ID #Right plantar foot wound DDx: diabetic foot ulcer vs pressure ulcer vs traumatic ulcer. Completed antibiotic course with cephalexin from 05/02/2025 hospitalization. Diagnostic Test: - Status post incision and drainage with foreign body removal on 04/30/[address] Burton. - Foot x-ray 06/20: right foot with severe osteopenia, air in the soft tissue plantar foot between the first and second metatarsals, no fracture or carolina cortical bone destruction - Foot MRI 06/20: soft tissue defect plantar aspect of foot most prominent at level of second metatarsal, no soft tissue abscess, negative for osteomyelitis. Treatment Plan: - History of antibiotics prescribed for foot wound, though unsure of the duration and name. - IV Rocephin 1 gram daily. - IV Doxycycline 100 mg twice daily. - Blood cultures pending. - Consult general surgery. - Daily wound care. Health Maintenance DVT prophylaxis: Heparin 5000 subcu GI prophylaxis: Pantoprazole 40mg QD Diet: NPO Oswald: none Lines: Peripherals Drips: Insulin drip Vent: None CODE STATUS: FULL CODE Patient discussed with my senior resident and attending, . Susy iVeyra DO, PGY 1
--- NOTE | 2025-06-20 15:43 | EVENTNT_ITS ---
<Statement entered by Courtney Miller MD - 07/04/25 17:16> I reviewed above note and agree with findings and plans. I have also personally examined the patient with medicine team and went over assessment and plan with medical team including psychology intern and resident physician. Documentation for date of: 06/20/25 Event Note Event Note: Patient was seen in ED. Vitals were within normal limits except for BP 153/71 and slightly tachycardic. Patient says she had initially thought she stepped on a bee 2 months ago. She pulled a sewing needle out of wound. Admits to receiving Tdap vaccine during her last ED visit. Patient was seen and evaluated. AOx4. Patient was sitting upright on side of bed, discomfort, thin and pale. Diminished lung sounds on posterior lungs abraham, anterior lung abraham exhibited vesicular breathe sounds. Heart sounds were RRR, no murmurs on auscultation. Examing foot, right lower extremity exhibits a lesion on plantar surface. A dried white bandage covers lesion. Bandage was not taken off. Lesion had a foul odor. Labs were notable for WBC 8.8 down from 9.2, BMP: bicarb 17.1, anion gap 19, glucose 380, A1c 10.1, VBG pH 7.28, pCO2 25, BHB 5.9 Given IV insulin 10 U, 2L LR bolus, and transferred to ICU
[2025-06-20 15:48] LABS: Lactate (Lactic Acid) 1.8 mMol/L (0.4-2.0)
[2025-06-20] MEDS: POT CHL ADDITIVE 20 MEQ in DEXTROSE 5%-LACTATED RINGERS 1,000 ML 250 MEQ IV (16:02)
[2025-06-20 16:14] LABS: Albumin, Serum 3.0 gm/dL (3.4-4.8); Anion Gap 8 (7-16); BUN/Creatinine Ratio 15 Ratio (12-20); Blood Urea Nitrogen 12 mg/dL (9-23); Calcium 8.7 mg/dL (8.3-10.6); Calcium (Corrected) 9.5 mg/dL (8.5-10.1); Carbon Dioxide 23.5 mMol/L (20.0-31.0); Chloride 108 mMol/L (98-107); Creatinine (Component) 0.8 mg/dL (0.6-1.3); Estimated Creatinine Clearance 51.0 mL/min (>60); Glucose 187 mg/dL (74-106); Magnesium 1.5 mg/dL (1.6-2.6); Osmolality,Calculated 282 (275-295); Phosphorous 2.8 mg/dL (2.4-5.1); Potassium 4.1 mMol/L (3.4-5.1); Sodium 139 mMol/L (136-145); eGFR > 60 See Note
[2025-06-20] MEDS: COLLAGENASE OINT 30 GM TUBE TOP (18:41)
[2025-06-20] MEDS: SOD HYPOCHLORITE 1/4 STR 473 ML BTL IRRIG (18:41)
[2025-06-20 18:45] LABS: Lactate (Lactic Acid) 1.3 mMol/L (0.4-2.0)
[2025-06-20 19:07] LABS: Albumin, Serum 3.0 gm/dL (3.4-4.8); Anion Gap 8 (7-16); BUN/Creatinine Ratio 15 Ratio (12-20); Blood Urea Nitrogen 12 mg/dL (9-23); Calcium 9.0 mg/dL (8.3-10.6); Calcium (Corrected) 9.8 mg/dL (8.5-10.1); Carbon Dioxide 24.9 mMol/L (20.0-31.0); Chloride 109 mMol/L (98-107); Creatinine (Component) 0.8 mg/dL (0.6-1.3); Estimated Creatinine Clearance 51.0 mL/min (>60); Glucose 147 mg/dL (74-106); Magnesium 2.3 mg/dL (1.6-2.6); Osmolality,Calculated 285 (275-295); Phosphorous 2.6 mg/dL (2.4-5.1); Potassium 3.9 mMol/L (3.4-5.1); Sodium 142 mMol/L (136-145); eGFR > 60 See Note
[2025-06-20] MEDS: INSULIN DEGLUDEC 5 UNIT/0.05 ML (PER 5 UNITS) 15 UNIT SC (19:48)
[2025-06-20] MEDS: INSULIN LISPRO (AdmeLOG) 1 UNIT/0.01 ML UNIT SC (19:49)
--- NOTE | 2025-06-20 21:21 | EVENTNT_ITS ---
Documentation for date of: 06/20/25 Event Note Event Note: Ms Cristobal is a 60-year-old female with past medical history of insulin-dependent type 2 diabetes mellitus, hypertension, hyperlipidemia, COPD, CAD status post stent on Plavix, bipolar disorder and significant anxiety disorder who was admitted to [facility] on 06/20 earlier in the morning for right foot cellulitis and wound. Patient was upgraded to ICU as she was found to have high anion gap and elevated beta hydroxybutyrate. Patient was started on IV fluids, started on insulin drip. Patient was started on clear diabetic diet, anion gap closed x 3, bicarb 24.9, patient tolerated diet well was given insulin degludec 15 units x 1 and started on sliding scale insulin. Patient downgraded to MedSur, will continue IV antibiotics and other home medications which were resumed by admitting team. Patient is stable for downgrade, will be signed off to hospitalist team in a.m. for continuity of care. Case discussed with Attending Physician Dr. Karl Pacheco MD Internal Medicine PGY-2 Disclaimer: This note was dictated by speech recognition. Minor errors in bank reconciliator may be present due to voice recognition software.
[2025-06-20] MEDS: AMITRIPTYLINE HCL 25 MG TABLET 100 MG PO (21:28)
[2025-06-20] MEDS: METOPROLOL TARTRATE 25 MG TABLET PO (21:29)
[2025-06-20] MEDS: GABAPENTIN 100 MG CAPSULE PO (21:29)
[2025-06-20] MEDS: ATORVASTATIN CALCIUM 20 MG TABLET 40 MG PO (21:29)
[2025-06-20] MEDS: MIRTAZAPINE 15 MG TABLET PO (21:30)
[2025-06-21] VITALS (15 sets, daily range): BP systolic 105–174; BP diastolic 52–88; PULSE 51–81; RESP 13–20; TEMP 36.3–36.6; O2SAT 93–99
[2025-06-21] MEDS: HEPARIN SOD INJ 5000 UNIT/ML VIAL SC ×3 (05:21→21:24)
[2025-06-21 06:04] LABS: Basophils # (Auto) 0.1 Thou/mm3 (0.0-0.2); Basophils % (Auto) 1 % (0-2.5); Eosinophils # (Auto) 0.7 Thou/mm3 (0.0-0.5); Eosinophils % (Auto) 11 % (0-10); Hematocrit 32.1 % (36.0-46.0); Hemoglobin 10.6 g/dL (12.0-16.0); Immature Granulocytes Auto 0.02 Thou/mm3 (0.00-0.00); Lymphocytes # (Auto) 1.2 Thou/mm3 (1.0-4.8); Lymphocytes % (Auto) 18 % (10-50); Mean Corpuscular HGB Conc 33.0 g/dl (31.0-37.0); Mean Corpuscular Hemoglobin 26.4 pg (25.0-35.0); Mean Corpuscular Volume 80 fL (80-100); Monocytes # (Auto) 0.4 Thou/mm3 (0.0-0.8); Monocytes % (Auto) 6 % (0-12); Neutrophils # (Auto) 4.0 Thou/mm3 (1.8-7.7); Neutrophils % (Auto) 63 % (37-80); Nucleated Red Blood Cell # 0.00 Thou/mm3 (0.00-0.00); Nucleated Red Blood Cell % 0 /100 WBC (0); Platelet Count 344 Thou/mm3 (140-440); RDW Standard Deviation 44.3 fL (36.4-46.3); Red Blood Count 4.02 Miln/mm3 (4.00-5.20); White Blood Count 6.4 Thou/mm3 (3.6-11.0)
[2025-06-21 06:33] LABS: Alanine Aminotransferase 15 U/L (10-49); Albumin, Serum 2.9 gm/dL (3.4-4.8); Albumin/Globulin Ratio 2.1 (1.2-2.2); Alkaline Phosphatase 108 U/L (46-116); Anion Gap 10 (7-16); Aspartate Amino Transferase 13 U/L (0-34); BUN/Creatinine Ratio 11 Ratio (12-20); Bilirubin,Total 0.2 mg/dL (0.3-1.2); Blood Urea Nitrogen 9 mg/dL (9-23); Calcium 8.9 mg/dL (8.3-10.6); Calcium (Corrected) 9.8 mg/dL (8.5-10.1); Carbon Dioxide 24.4 mMol/L (20.0-31.0); Chloride 109 mMol/L (98-107); Creatinine (Component) 0.8 mg/dL (0.6-1.3); Estimated Creatinine Clearance 51.0 mL/min (>60); Globulin 1.4 gm/dL (2.3-3.5); Glucose 127 mg/dL (74-106); Osmolality,Calculated 285 (275-295); Potassium 4.6 mMol/L (3.4-5.1); Sodium 143 mMol/L (136-145); Total Protein 4.3 gm/dL (5.7-8.2); eGFR > 60 See Note
[2025-06-21] MEDS: DOXYCYCLINE INJ 100 MG in SODIUM CHLORIDE 0.9% (POP) 100 ML IV ×2 (08:58→21:15)
[2025-06-21] MEDS: INSULIN DEGLUDEC 5 UNIT/0.05 ML (PER 5 UNITS) 15 UNIT SC (08:58)
[2025-06-21] MEDS: cefTRIAXone/D5w 1gm IV premix 1 GM/50 ML BAG IV (08:58)
[2025-06-21] MEDS: PANTOPRAZOLE 40 MG TABLET PO (08:59)
[2025-06-21] MEDS: CLOPIDOGREL BISULFATE 75 MG TABLET PO (08:59)
[2025-06-21] MEDS: METOPROLOL TARTRATE 25 MG TABLET PO ×2 (08:59→21:15)
[2025-06-21] MEDS: lamoTRIgine 25 MG CHEW PO (09:00)
--- NOTE | 2025-06-21 09:00 | PC.SS ---
Patient Venecia Cristobal is a 60 Year old female admitted for Hyperglycemia,Foot Infection. SS contacted patients daughter, Ruthy Muse [phone]. Patient's daughter was able to verify demographic information and verify discharge plan. Daughter reports patient lives at home with her and her family. Patient utilizes a Rollator Walker Patient is able to complete all ADL's independently. Pharmacy of choice is [facility]. PCP JOHN. At time of discharge patient will return back home, Family will provide transportation. Discharge plan: Home Next of kin: DaughterRuthy
[2025-06-21 10:14] LABS: Magnesium 2.0 mg/dL (1.6-2.6); Phosphorous 4.6 mg/dL (2.4-5.1)
[2025-06-21] MEDS: SOD HYPOCHLORITE 1/4 STR 473 ML BTL IRRIG (11:35)
[2025-06-21] MEDS: COLLAGENASE OINT 30 GM TUBE TOP (11:36)
[2025-06-21] MEDS: INSULIN LISPRO (AdmeLOG) 1 UNIT/0.01 ML UNIT SC ×2 (11:42→21:26)
[2025-06-21] MEDS: HYDROcodone/APAP 5/325 TABLET 1 TAB PO ×2 (11:45→21:24)
--- NOTE | 2025-06-21 12:56 | ESPR_ITS ---
<Statement entered by Courtney Miller MD - 07/04/25 17:17> I reviewed above note and agree with findings and plans. I have also personally examined the patient with medicine team and went over assessment and plan with medical team including promotions intern and resident physician. Documentation for date of: 06/21/25 No overnight events. Patient downgraded from ICU overnight, initially upgraded from floors for DKA and started on insulin drip. Patient downgraded and started on Degludec 15 units in addition to sliding scale. Episode of hypoglycemia, maintained Degludec at 15 units. Plan to discharge patient tomorrow with Degludec 15 units if no further hypoglycemic episodes, consider decreasing but patient would benefit from current dose given A1c of 10.1 - The patient's plan was discussed with attending Dr. Angela Eid MD PGY2 Internal Medicine Subjective Subjective Interval history: Overnight, Venecia complained of anxiety on scheduled 25mg hydroxyzine nightly. She also complained of pain and was given one dose of norco. Labs reviewed, glucose on BMP was 127, rest of BMP values were wnl; Hbg 10.6, Hct 32.1. Sendout lab for anaerobic Cx colloected from right foot cellulitis was negative, saying no growth for 72 hours. Discussed MRI results of no soft tissue abscess or osteomyelitis. At bedside, glucose was 187 noted by nurse. Venecia mentioned her freestyle libre3 had to be taken off for MRI requested another one. Patient AOx3, feeling better since her downgrade from ICU. Eating and drinking, no complaints of nausea. No chest pain or SOB. Patient says wound care is addressing right foot wound/cellulitis. Exam Vital Signs Temp Pulse Resp BP Pulse Ox O2 Del Method 97.6 F 74 17 169/79 H 97 Room Air 06/21/25 11:51 06/21/25 11:51 06/21/25 11:51 06/21/25 11:51 06/21/25 11:51 06/21/25 11:51 Narrative Exam General: No acute distress, well nourished Eye: PERRL, EOMI, normal conjunctiva, no scleral icterus HENT: Normocephalic, atraumatic, normal hearing, pink and moist mucus membranes, mouth without lesions Neck: Supple, non-tender, no JVD, no lymphadenopathy Lungs: Clear to auscultation bilaterally, non-labored respirations, symmetric chest rise, no use of accessory muscles, breaths through mouth, spO2 99% on 2L Heart: Normal S1 and S2, no S3 or S4 appreciated. Normal rate and regular rhythm, no murmurs, rubs gallops, or edema. Peripheral pulses intact bilaterally, capillary refill brisk distally Abdomen: Soft, non-tender, non-distended, normal bowel sounds. No guarding or rebound tenderness. Musculoskeletal: Normal range of motion and strength. Skin: Skin is warm, dry, no rashes. Plantar surface of foot has a pink bandage. Neurologic: Alert, awake and oriented x3. CN II-XII grossly intact. No focal neuro deficits. No signs of meningeal irritation noted. Psychiatric: Cooperative, appropriate mood and affect Objective Labs 06/22/25 05:29 06/22/25 05:29 Labs: Laboratory Results - last 24 hr 06/20/25 06/20/25 06/20/25 15:20 15:20 18:31 WBC RBC Hgb Hct MCV MCH MCHC RDW Std Deviation Plt Count Neut % (Auto) Lymph % (Auto) Ashley % (Auto) Eos % (Auto) Baso % (Auto) Neut # (Auto) Lymph # (Auto) Ashley # (Auto) Eos # (Auto) Baso # (Auto) Immature Gran # (Auto) Absolute Nucleated RBC Immature Gran % Nucleated RBC % Sodium 139 142 Potassium 4.1 D 3.9 Chloride 108 H 109 H Carbon Dioxide 23.5 24.9 Anion Gap 8 8 BUN 12 12 Creatinine 0.8 0.8 Estim Creat Clear Calc 51.0 L 51.0 L eGFR > 60 > 60 BUN/Creatinine Ratio 15 15 Glucose 187 H D 147 H Calculated Osmolality 282 285 Lactic Acid 1.8 1.3 Calcium 8.7 9.0 Corrected Calcium 9.5 9.8 Phosphorus 2.8 Cancelled 2.6 Magnesium 1.5 L 2.3 Total Bilirubin AST ALT Alkaline Phosphatase Total Protein Albumin 3.0 L D 3.0 L Globulin Albumin/Globulin Ratio 06/21/25 04:24 WBC 6.4 RBC 4.02 Hgb 10.6 L Hct 32.1 L MCV 80 MCH 26.4 MCHC 33.0 RDW Std Deviation 44.3 Plt Count 344 D Neut % (Auto) 63 Lymph % (Auto) 18 Ashley % (Auto) 6 Eos % (Auto) 11 H Baso % (Auto) 1 Neut # (Auto) 4.0 Lymph # (Auto) 1.2 Ashley # (Auto) 0.4 Eos # (Auto) 0.7 H Baso # (Auto) 0.1 Immature Gran # (Auto) 0.02 H Absolute Nucleated RBC 0.00 Immature Gran % 0 Nucleated RBC % 0 Sodium 143 Potassium 4.6 D Chloride 109 H Carbon Dioxide 24.4 Anion Gap 10 BUN 9 Creatinine 0.8 Estim Creat Clear Calc 51.0 L eGFR > 60 BUN/Creatinine Ratio 11 L Glucose 127 H Calculated Osmolality 285 Lactic Acid Calcium 8.9 Corrected Calcium 9.8 Phosphorus 4.6 Magnesium 2.0 Total Bilirubin 0.2 L AST 13 ALT 15 Alkaline Phosphatase 108 Total Protein 4.3 L Albumin 2.9 L Globulin 1.4 L Albumin/Globulin Ratio 2.1 ABG Interpretation ABG results: 06/19/25 06/20/25 22:13 08:21 VBG pH 7.41 7.28 L VBG pCO2 32 L 25 L VBG pO2 37 111 H D VBG Base Excess -4 L -14 L Quality Measures Quality Measures VTE prophylaxis (Heparin SC ) Assessment & Plan Assessment Current Active Medications: Generic Name Dose Route Start Last Admin Trade Name Freq PRN Reason Stop Dose Admin Acetaminophen 650 mg 06/20/25 04:22 Acetaminophen 325 Mg Tablet PO 07/20/25 04:21 Q6H PRN Fever >100.4 Acetaminophen 650 mg 06/20/25 04:27 Acetaminophen 325 Mg Tablet PO 07/20/25 04:26 Q6H PRN PAIN SCALE 1-3 (mild Hydrocodone Bitart/Acetaminophen 1 tab 06/20/25 10:59 06/21/25 11:45 Hydrocodone/Apap 5/325 Tablet PO 06/25/25 10:58 1 tab Q6HR PRN Administration PAIN SCALE 4-10(Mod-Sev Albuterol/Ipratropium 3 ml 06/20/25 04:40 Albuterol/Ipratropium (Duoneb) Rt Antonella 3 Ml Nebu INH 07/20/25 04:39 Q2HR PRN SHORTNESS OF BREATH OR WHEEZE Amitriptyline HCl 100 mg 06/20/25 21:00 06/20/25 21:28 Amitriptyline Hcl 25 Mg Tablet PO 07/20/25 20:59 100 mg HS BIRDIE Administration Atorvastatin Calcium 40 mg 06/20/25 21:00 06/20/25 21:29 Atorvastatin Calcium 20 Mg Tablet PO 07/20/25 20:59 40 mg HS BIRDIE Administration Clopidogrel Bisulfate 75 mg 06/20/25 09:00 06/21/25 08:59 Clopidogrel Bisulfate 75 Mg Tablet PO 07/20/25 08:59 75 mg QDAY BIRDIE Administration Collagenase 0 gm 06/20/25 11:30 06/21/25 11:36 Collagenase Oint 30 Gm Tube TOP 07/20/25 11:29 30 applicatio QDAY BIRDIE Administration Cyclobenzaprine HCl 10 mg 06/20/25 11:00 Cyclobenzaprine 5 Mg Tablet PO 07/20/25 10:59 BID PRN MUSCLE SPASMS Dextrose 25 ml 06/20/25 19:28 Dextrose 50%-Water Inj 50 Ml Syringe IV 07/20/25 19:27 Q15MIN PRN BG 50-70 responsive npo pt Dextrose 50 ml 06/20/25 19:28 Dextrose 50%-Water Inj 50 Ml Syringe IV 07/20/25 19:27 Q15MIN PRN BG <50 OR BG <70 & pt unresponsive Gabapentin 100 mg 06/20/25 21:00 06/20/25 21:29 Gabapentin 100 Mg Capsule PO 07/20/25 20:59 100 mg HS IBRDIE Administration Glucagon 1 mg 06/20/25 19:28 Glucagon Inj 1 Mg Vial IM Q15MIN PRN BG <70, and no IV access Guaifenesin 100 mg 06/20/25 11:00 Guaifenesin Syrup 200 Mg/10 Ml Udc PO 07/20/25 10:59 QID PRN COUGH Protocol Heparin Sodium (Porcine) 5,000 unit 06/20/25 06:00 06/21/25 05:21 Heparin Sod Inj 5000 Unit/Ml Vial SC 07/04/25 05:59 5,000 unit Q8HR BIRDIE Administration Hydroxyzine HCl 25 mg 06/20/25 21:00 06/20/25 21:29 Hydroxyzine Hcl 25 Mg Tablet PO 07/20/25 20:59 25 mg HS BIRDIE Administration Ceftriaxone Sodium/Dextrose 1 gm in 50 mls @ 100 mls/hr 06/20/25 09:00 06/21/25 08:58 Rocephin/D5w 1gm Iv Premix IV 06/27/25 08:59 100 mls/hr QDAY BIRDIE Administration Doxycycline Hyclate 100 mg/ 100 mls @ 100 mls/hr 06/20/25 09:00 06/21/25 08:58 Sodium Chloride IV 06/27/25 08:59 100 mls/hr BID BIRDIE Administration Insulin Degludec 15 unit 06/20/25 19:30 06/21/25 08:58 Insulin Degludec 5 Unit/0.05 Ml (Per 5 Units) SC 07/20/25 19:29 15 unit QDAY BIRDIE Administration Insulin Human Lispro 0 unit 06/21/25 11:30 06/21/25 11:42 Insulin Lispro (Admelog) 1 Unit/0.01 Ml Unit SC 07/21/25 11:29 2 unit ACHS BIRDIE Administration Protocol Lamotrigine 25 mg 06/21/25 09:00 06/21/25 09:00 Lamotrigine 25 Mg Chew PO 07/21/25 08:59 25 mg QDAY BIRDIE Administration Lisinopril 40 mg 06/20/25 19:30 06/21/25 09:00 Lisinopril 20 Mg Tablet PO 07/20/25 19:29 40 mg QDAY BIRDIE Administration Metoprolol Tartrate 25 mg 06/20/25 21:00 06/21/25 08:59 Metoprolol Tartrate 25 Mg Tablet PO 07/20/25 20:59 25 mg BID BIRDIE Administration Mirtazapine 15 mg 06/20/25 21:00 06/20/25 21:30 Mirtazapine 15 Mg Tablet PO 07/20/25 20:59 15 mg HS BIRDIE Administration Ondansetron HCl 4 mg 06/20/25 04:22 Ondansetron Inj 2 Mg/Ml Inj 2 Ml IVP 07/20/25 04:21 Q6H PRN NAUSEA OR VOMITING Protocol Pantoprazole Sodium 40 mg 06/20/25 09:00 06/21/25 08:59 Pantoprazole 40 Mg Tablet PO 07/20/25 08:59 40 mg QDAY BIRDIE Administration Sennosides 1 tab 06/20/25 09:00 06/21/25 08:59 Senna Tablet PO 07/20/25 08:59 1 tab QDAY BIRDIE Administration Protocol Sodium Hypochlorite 473 ml 06/20/25 11:30 06/21/25 11:35 Sod Hypochlorite 1/4 Str 473 Ml Btl IRRIG 07/20/25 11:29 473 appln DAILY BIRDIE Administration Plan 60-year-old female with past medical history significant for CAD s/p stents, COPD, insulin-dependent T2DM, HTN, HLD, and bipolar disorder. recent hospitalization for DKA, presented for nausea, vomiting, uncontrolled hyperglycemia, and right plantar foot wound, admitted to ICU for DKA protocol and IV antibiotics for right plantar foot wound. #Diabetic ketoacidosis, resolved #Mixed acid-base disorder, resolved #Anion gap metabolic acidosis with non-compensatory respiratory alkalosis, resolved #Insulin dependent diabetes mellitus type 2 Ddx: HHS ruled-out Diagnostic Test: - Glucose 127 - BHB 5.0 06/19 --> 5.9 06/20 - Hemoglobin A1c: 10.1 - Bicarb 24.4, Anion gap: 10 --> anion gap closed, bicarb returned to baseline - Mg 2.0, Phos 4.6 Plan: -SSI Protocol -hypoglycemia protocol #Right plantar foot wound DDx: diabetic foot ulcer vs pressure ulcer vs traumatic ulcer. Completed antibiotic course with cephalexin from 05/02/2025 hospitalization. Diagnostic Test: - Status post incision and drainage with foreign body removal on 04/30/[address] Burton. - Foot x-ray 06/20: right foot with severe osteopenia, air in the soft tissue plantar foot between the first and second metatarsals, no fracture or [place] cortical bone destruction - Foot MRI 06/20: soft tissue defect plantar aspect of foot most prominent at level of second metatarsal, no soft tissue abscess, negative for osteomyelitis. Plan: - IV Rocephin 1 gram daily. - IV Doxycycline 100 mg twice daily. - Blood cultures pending. - Daily wound care. #Nausea/Vomiting, resolved Likely secondary to DKA - IV Ondansetron 4mg Q6H as needed is ordered. #Anemia DDx: hemoconcentration in setting of acute DKA vs anemia of chronic disease vs diabetic nephropathy vs nutritional deficiencies Hemoglobin 10.6 - Monitor CBC. #Hypertension - Hold home lisinopril for AL. - Home metoprolol 25 mg PO twice daily. - Monitor blood pressure closely. #Bipolar disorder - Continue home medications: lamotrigine 25 mg PO nightly (patient brought home medication in), mirtazapine 15 mg PO nightly and amitriptyline 100 mg PO nightly. #Coronary artery disease #Hyperlipidemia Myocardial infarction in 2013. Status post stent placement, taking Plavix. - Continue home medications: clopidogrel 75mg PO daily, atorvastatin 40 mg PO daily. DVT prophylaxis: Heparin 5000 subQ q8hr GI prophylaxis: Pantoprazole 40mg PO daily Diet: NPO Oswald: none Lines: PIV CODE STATUS: FULL CODE Case was discussed with Attending Dr. Miller, and Senior Resident Dr. Ragini Hoyos, DO PGY-1
[2025-06-21] MEDS: DEXTROSE 50%-WATER INJ 50 ML SYRINGE IV (15:26)
[2025-06-21 16:34] LABS: Glucose 179 mg/dL (74-106)
[2025-06-21] MEDS: MIRTAZAPINE 15 MG TABLET PO (21:14)
[2025-06-21] MEDS: AMITRIPTYLINE HCL 25 MG TABLET 100 MG PO (21:14)
[2025-06-21] MEDS: ATORVASTATIN CALCIUM 20 MG TABLET 40 MG PO (21:15)
[2025-06-21] MEDS: GABAPENTIN 100 MG CAPSULE PO (21:15)
[2025-06-22 04:00] VITALS: BP 160/74; PULSE 66; RESP 18; TEMP 36.4; O2SAT 94
[2025-06-22] MEDS: HYDROcodone/APAP 5/325 TABLET 1 TAB PO (05:24)
[2025-06-22] MEDS: HEPARIN SOD INJ 5000 UNIT/ML VIAL SC (05:25)
[2025-06-22 05:47] LABS: Basophils # (Auto) 0.1 Thou/mm3 (0.0-0.2); Basophils % (Auto) 1 % (0-2.5); Eosinophils # (Auto) 0.7 Thou/mm3 (0.0-0.5); Eosinophils % (Auto) 12 % (0-10); Hematocrit 37.5 % (36.0-46.0); Hemoglobin 11.9 g/dL (12.0-16.0); Immature Granulocytes Auto 0.01 Thou/mm3 (0.00-0.00); Lymphocytes # (Auto) 1.8 Thou/mm3 (1.0-4.8); Lymphocytes % (Auto) 30 % (10-50); Mean Corpuscular HGB Conc 31.7 g/dl (31.0-37.0); Mean Corpuscular Hemoglobin 25.5 pg (25.0-35.0); Mean Corpuscular Volume 81 fL (80-100); Monocytes # (Auto) 0.5 Thou/mm3 (0.0-0.8); Monocytes % (Auto) 8 % (0-12); Neutrophils # (Auto) 3.0 Thou/mm3 (1.8-7.7); Neutrophils % (Auto) 49 % (37-80); Nucleated Red Blood Cell # 0.00 Thou/mm3 (0.00-0.00); Nucleated Red Blood Cell % 0 /100 WBC (0); Platelet Count 315 Thou/mm3 (140-440); RDW Standard Deviation 44.9 fL (36.4-46.3); Red Blood Count 4.66 Miln/mm3 (4.00-5.20); White Blood Count 6.0 Thou/mm3 (3.6-11.0)
--- NOTE | 2025-06-22 05:48 | PC.NURSE ---
called Dr. Pierce regarding patient's blood glucose of 70, patient states she did feel a little weak when she got up to use the bedside commode but no other symptoms observed, educated patient on hypoglycemia symptoms and know when to call for help. Patient was given snacks and will recheck in about 30 minutes, no new orders received.
[2025-06-22 06:31] LABS: Alanine Aminotransferase 21 U/L (10-49); Albumin, Serum 3.2 gm/dL (3.4-4.8); Albumin/Globulin Ratio 1.9 (1.2-2.2); Alkaline Phosphatase 118 U/L (46-116); Anion Gap 10 (7-16); Aspartate Amino Transferase 23 U/L (0-34); BUN/Creatinine Ratio 14 Ratio (12-20); Bilirubin,Total 0.2 mg/dL (0.3-1.2); Blood Urea Nitrogen 11 mg/dL (9-23); Calcium 8.9 mg/dL (8.3-10.6); Calcium (Corrected) 9.5 mg/dL (8.5-10.1); Carbon Dioxide 28.9 mMol/L (20.0-31.0); Chloride 106 mMol/L (98-107); Creatinine (Component) 0.8 mg/dL (0.6-1.3); Estimated Creatinine Clearance 51.0 mL/min (>60); Globulin 1.7 gm/dL (2.3-3.5); Glucose 65 mg/dL (74-106); Magnesium 1.7 mg/dL (1.6-2.6); Osmolality,Calculated 286 (275-295); Phosphorous 5.6 mg/dL (2.4-5.1); Potassium 4.4 mMol/L (3.4-5.1); Sodium 145 mMol/L (136-145); Total Protein 4.9 gm/dL (5.7-8.2); eGFR > 60 See Note
[2025-06-22 06:39] VITALS: PULSE 71; RESP 16; O2SAT 96
--- NOTE | 2025-06-22 06:44 | PC.NURSE ---
called Dr. Pierce regarding patient's blood sugar 30 minutes after giving carbs is 176. Per doctor will let day team know, no new orders received.
[2025-06-22] MEDS: INSULIN LISPRO (AdmeLOG) 1 UNIT/0.01 ML UNIT SC ×2 (07:57→11:49)
[2025-06-22 08:00] VITALS: BP 151/71; PULSE 74; RESP 17; TEMP 36.3; O2SAT 95
[2025-06-22] MEDS: cefTRIAXone/D5w 1gm IV premix 1 GM/50 ML BAG IV (09:04)
[2025-06-22 09:05] VITALS: BP 151/71; PULSE 74
[2025-06-22] MEDS: PANTOPRAZOLE 40 MG TABLET PO (09:05)
[2025-06-22] MEDS: lamoTRIgine 25 MG CHEW PO (09:05)
[2025-06-22] MEDS: METOPROLOL TARTRATE 25 MG TABLET PO (09:05)
[2025-06-22 09:06] VITALS: BP 151/71; PULSE 74
[2025-06-22] MEDS: COLLAGENASE OINT 30 GM TUBE TOP (09:06)
[2025-06-22] MEDS: CLOPIDOGREL BISULFATE 75 MG TABLET PO (09:06)
[2025-06-22] MEDS: SOD HYPOCHLORITE 1/4 STR 473 ML BTL IRRIG (09:07)
[2025-06-22] MEDS: INSULIN DEGLUDEC 5 UNIT/0.05 ML (PER 5 UNITS) 15 UNIT SC (09:19)
[2025-06-22] MEDS: DOXYCYCLINE INJ 100 MG in SODIUM CHLORIDE 0.9% (POP) 100 ML IV (09:47)
--- NOTE | 2025-06-22 11:30 | PC.SS ---
SS was informed by RNSylvia pt is needing a replacement Freestyle Osmani 3 Sensor due to hers being removed during hospital stay for MRI. SS replaced sensor from inventory from [employer].
--- NOTE | 2025-06-22 11:51 | ESDS_ITS ---
<Statement entered by Courtney Miller MD - 07/04/25 17:18> I reviewed above note and agree with findings and plans. I have also personally examined the patient with medicine team and went over assessment and plan with medical team including epidemiology intern and resident physician. <Statement entered by Gennaro Barrios MD - 06/23/25 05:44> I saw and examined patient personally and supervised PGY 1 resident, Dr. Hoyos with formulating a management plan. I agree with the documentation with the exceptions as listed below. Patient was hospitalized for DKA secondary to right diabetic foot wound. Upon discharge decreased her home degludec to 20 units from 30 units. Discharged on a 12-day course of doxycycline. Recommended to follow-up with outpatient wound care for foot ulcer. Plan of care discussed with Attending Dr. Angela Barrios MD PGY 2 Disclaimer: This note was dictated by speech recognition. Minor errors in earth observations chief scientist may be present due to voice recognition software. Planned Discharge Date 06/22/25 DS: Providers Provider Date of admission: 06/20/25 04:22 Primary care physician: Physician No Primary/Family Admitting Provider: Uziel Mares MD Attending Provider on Admission: Courtney Miller MD Consults: 06/20/25 04:48 Referral Wound Care Stat Comment: 06/20/25 07:36 Consult to Grating Machine Operator Routine Comment: Consulting Provider: Sidra Smith 06/20/25 10:09 Referral Registered Dietitian Routine Comment: 06/20/25 14:26 [facility] Referral - Transportation Routine Comment: Positive screening for transportation needs. 06/22/25 08:24 Referral OP Wound Healing Dept Routine Comment: Attending Provider on DC: Janet Hoyos MD Discharging Provider: Janet Hoyos MD DS: Diagnosis Problem List Completed Was Problem List Reviewed/Reconciled?: Yes Hospital Course Hospital Course Hospital course: 60-year-old female with past medical history significant for CAD s/p stents, COPD, insulin-dependent T2DM, HTN, HLD, and bipolar disorder. recent hospitalization for DKA, presented for nausea, vomiting, uncontrolled hyperglycemia, and right plantar foot wound, admitted to ICU for DKA protocol and IV antibiotics for right plantar foot wound. ED Course: BP 153/71, HR 107, respiratory rate 20, saturating 97% on room air, labs significant for glucose 312, BHB 5.0, VBG pH 7.41, CO2 32, UA negative for UTI but does show plus 4 ketones 4 glucose. [id number], In the ED patient received IV regular insulin, IVFs Hospital Course: Patient downgraded from ICU overnight, initially upgraded from floors for DKA and started on insulin drip. Patient downgraded and started on Degludec 15 units in addition to sliding scale. Episode of hypoglycemia, maintained Degludec at 15 units. On the floor, patient's BG was monitored tended to oscillate between 90s to low 200s. Maintained on 30 U. Wound care was consulted for R foot cellulitis wound. Given 1g rocephin daily transitioned to oral antibiotics. Patient hemodynamically stable and safe for discharge. Reducing degludec to 20 U, see below per discharge instructions. - You have been started on an antibiotic for your foot wound. Follow instructions below - We have reduced your Degludec dose to 20units due to your low blood glucose. Follow with your primary doctor to adjust the dose. - Continue the rest of the medication as listed below - Follow up with your primary care physician within 1 week of discharge. If you do not have a primary care physician, please follow up with the [facility] Residents clinic ([phone]) - If you experience any new, worsening or persistent symptoms either call your primary doctor, or dial 911 or present to the emergency department. #Diabetic ketoacidosis, resolved #Mixed acid-base disorder, resolved #Anion gap metabolic acidosis with non-compensatory respiratory alkalosis, resolved #Insulin dependent diabetes mellitus type 2 Ddx: HHS ruled-out #Right plantar foot wound #Nausea/Vomiting, resolved #Anemia #Hypertension #Bipolar disorder #Coronary artery disease #Hyperlipidemia Case was discussed with Attending Dr. Miller, and Senior Resident Dr. Sophie Hoyos, DO PGY-1 Status at Discharge Functional status at discharge: independent ambulation Overall status at discharge: patient is back to baseline Time Spent with Patient Time attestation: Total time spent providing and/or coordinating discharge services: Time spent: Greater than 30 minutes Exam Vital Signs Temp Pulse Resp BP Pulse Ox O2 Del Method 97.3 F 74 17 151/71 H 95 Room Air 06/22/25 08:00 06/22/25 09:06 06/22/25 08:00 06/22/25 09:06 06/22/25 08:00 06/22/25 08:00 Narrative Exam General: No acute distress, well nourished Eye: PERRL, EOMI, normal conjunctiva, no scleral icterus HENT: Normocephalic, atraumatic, normal hearing, pink and moist mucous membranes, no oral lesions in mouth, throat shows no erythema Neck: Supple, non-tender, no JVD, no lymphadenopathy Lungs: Clear to auscultation bilaterally, non-labored respirations, symmetric chest rise, no use of accessory muscles Heart: Normal S1 and S2, no S3 or S4 appreciated. Normal rate and regular rhythm, no murmurs, rubs gallops, or edema. Peripheral pulses intact bilaterally, capillary refill brisk distally Abdomen: Soft, non-tender, non-distended, normal bowel sounds. No guarding or rebound tenderness. Musculoskeletal: Normal range of motion and strength. Skin: Skin is warm, dry, no rashes. Right foot planatar surface shows a pink bandage covering wound. Neurologic: Alert, awake and oriented x3. CN II-XII grossly intact. No focal neuro deficits. No signs of meningeal irritation noted. Psychiatric: Cooperative, appropriate mood and affect Discharge Plan Plan Patient Disposition: HOME (Self Care) Care Plan Goals: - You have been started on an antibiotic for your foot wound. Follow instruction s below - We have reduced your Degludec dose to 20units due to your low blood glucose. Follow with your primary doctor to adjust the dose. - Continue the rest of the medication as listed below - Follow up with your primary care physician within 1 week of discharge. If you do not have a primary care physician, please follow up with the [facility] Residents clinic ([phone]) ? If you experience any new, worsening or persistent symptoms either call your primary doctor, or dial 911 or present to the emergency department. The wound clinic will reach out to you for appt. Prescriptions/Referrals Prescriptions/Med Rec: New sennosides [Senna Lax] 8.6 mg Tablet 8.6 mg PO QDAY PRN (Reason: constipation) 30 Days Qty: 30 0RF mirtazapine 15 mg Tablet 15 mg PO HS 30 Days Qty: 30 0RF insulin degludec 200 unit/mL (3 mL) insulin pen 20 unit subcut QDAY Qty: 9 0RF doxycycline hyclate 100 mg capsule 100 mg PO BID 12 Days Qty: 24 0RF Continued atorvastatin 40 mg Tablet 40 mg PO HS amitriptyline 100 mg Tablet 100 mg PO HS gabapentin 100 mg capsule 100 mg PO HS albuterol sulfate 90 mcg/actuation HFA aerosol inhaler 2 inh inhalation Q8H PRN (Reason: shortness of breath or wheezing) Qty: 8.5 0RF albuterol sulfate 2.5 mg /3 mL (0.083 %) solution for nebulization 2.5 mg inhalation QID PRN (Reason: shortness of breath or wheezing) Qty: 90 0RF cetirizine 10 mg tablet 10 mg PO QDAY lisinopril 40 mg tablet 40 mg PO QDAY 30 Days Qty: 30 0RF lamotrigine 25 mg tablet 25 mg PO HS metoclopramide HCl 10 mg Tablet 10 mg PO Q6H PRN (Reason: upset stomach) clopidogrel 75 mg Tablet 75 mg PO QDAY 30 Days Qty: 30 4RF (DME) FreeStyle Osmani 3 Sensor Device See Rx Instructions .Route Qty: 1 6RF Rx Instructions: As directed (DME) insulin syr/ndl U100 half windy 0.3 mL 29 gauge x 1/2 syringe See Rx Instructions .Route Qty: 100 0RF Rx Instructions: As directed insulin lispro [Admelog U-100 Insulin lispro] 100 unit/mL solution 1 sliding scale dose subcut USEASDIRECTD Qty: 10 2RF Rx Instructions: Take insulin according to the sliding scale with meals hydroxyzine HCl 25 mg tablet 25 mg PO HS Patient Comments: TAKE ONE TABLET BY MOUTH AT BEDTIME metformin 1,000 mg tablet 1,000 mg PO BID metoprolol tartrate 50 mg tablet 50 mg PO BID dextromethorphan-guaifenesin [Chest Congestion Relief DM] 10-100 mg/5 mL syrup 5 ml PO Q6H PRN (Reason: cough) cyclobenzaprine 10 mg tablet 10 mg PO Q8H hydrocodone-acetaminophen 5-325 mg tablet 1 tab PO Q6H PRN (Reason: pain) Patient Comments: TAKE ONE TABLET BY MOUTH EVERY 6 HOURS NEEDED FOR PAIN (DME) pen needle, diabetic [Comfort EZ Pen [place]] 31 gauge x 3/16 needle Patient Comments: DIRECTED Discontinued mirtazapine 15 mg tablet 15 mg PO HS pantoprazole 40 mg Tablet,Delayed Release (Dr/Ec) 40 mg PO QDAY insulin degludec 100 unit/mL (3 mL) insulin pen 30 unit subcut HS Qty: 15 3RF Rx Instructions: Take 30 units at 9:00 pm Referrals: Rimma Hardy MD [Physician, Wound Care] No Primary/Family,Physician [Primary Care Provider] Patient/Caregiver Discharge Instructions Education Materials: Discharge Instructions for Cellulitis, Discharge Instructions Wound ... Print Language: French Stand Alone Forms: Lela Award Info., Patient Portal Info Letter Discharge Order Discharge Orders: Discharge (Routine); Ordered 06/22/25 Ordered By: Gennaro Barrios Quality Discharge Quality Measures VTE prophylaxis
[2025-06-22 12:00] VITALS: BP 163/77; PULSE 80; RESP 18; TEMP 36.2; O2SAT 95
--- NOTE | 2025-06-22 14:28 | PC.SS ---
[employer] set up for pt per request. ETA [id number]
== END 2025-06-22 14:40 | disposition home or self-care (01) | DRG 351 ==
LOC: SERX 06-20 03:59 → SERHOLD 06-20 04:59 → S2SX 06-20 13:09 → S3NX 06-22 08:24 → SERHOLD 06-23 06:34 → S2SX 06-23 06:34 → S3NX 06-23 06:34
PROVIDERS: Physician Assistant; Student in an Organized Health Care Education/Training Program; Admitting Provider Internal Medicine; Emergency Provider Emergency Medicine; Visit Provider Internal Medicine
DX: S91.341A Puncture wound with foreign body, right foot, initial encounter (principal); E11.65 Type 2 diabetes mellitus with hyperglycemia; I10 Essential (primary) hypertension; J44.9 Chronic obstructive pulmonary disease, unspecified; I25.10 Atherosclerotic heart disease of native coronary artery without angina pectoris; F17.200 Nicotine dependence, unspecified, uncomplicated; F12.90 Cannabis use, unspecified, uncomplicated; E78.5 Hyperlipidemia, unspecified; F41.9 Anxiety disorder, unspecified; L03.115 Cellulitis of right lower limb; E11.10 Type 2 diabetes mellitus with ketoacidosis without coma; E11.649 Type 2 diabetes mellitus with hypoglycemia without coma; E83.42 Hypomagnesemia; E87.1 Hypo-osmolality and hyponatremia; I25.2 Old myocardial infarction; E87.4 Mixed disorder of acid-base balance; F31.9 Bipolar disorder, unspecified; L97.519 Non-pressure chronic ulcer of other part of right foot with unspecified severity; E11.621 Type 2 diabetes mellitus with foot ulcer; M85.80 Other specified disorders of bone density and structure, unspecified site; N17.9 Acute kidney failure, unspecified; W45.8XXA Other foreign body or object entering through skin, initial encounter; Z79.4 Long term (current) use of insulin; Z79.899 Other long term (current) drug therapy; Z95.5 Presence of coronary angioplasty implant and graft; Z98.51 Tubal ligation status; Z88.0 Allergy status to penicillin; Z88.6 Allergy status to analgesic agent; Z88.5 Allergy status to narcotic agent; Z88.1 Allergy status to other antibiotic agents; Z88.8 Allergy status to other drugs, medicaments and biological substances
CPT/HCPCS: 36415; 73630; 73718; 80053; 80069; 81001; 82010; 82436; 82803; 82947; 83036; 83605; 83690; 83735; 84100; 84133; 84300; 85025; 85652; 86140; 87040; 87070; 87077; 87081; 87186; 87205; 96361; 96365; 96366; 96372; 96375; 99285; J0696; J0736; J1644; J1815; J1956; J2270; J2405; J2765; J3475; J3480; J3490; J7030; J7120; J7121; A9270

== ENCOUNTER 2025-06-25 02:33 | Emergency (ER) | payer MEDICAID, SELFPAY ==
--- NOTE | 2025-06-25 02:40 | PD.EDAMS ---
Altered Mental Status RME/HPI General Chief Complaint: Altered Mental Status Stated Complaint: LOW BLOOD SUGAR Time Seen by Provider: 06/25/25 02:39 Arrival date/time: 06/25/25 02:33 RME / HPI RME / HPI narrative: 66-year-old female with history of insulin-dependent diabetes presents with altered mental status since this morning. Paramedics were called to the patient's home but the patient had alteration of mental status with a blood sugar of 29. An IV was established and the patient was given D10 W which helped increase the blood sugar to 237 upon arrival here in the emergency room and improved the patient's mental status. According to paramedics they have had multiple calls to this patient's house in the past for the same complaint of decreased mental status due to hypoglycemia. Patient denies recent illness. Related Data Home Medications ?Medication ?Instructions ?Recorded ?Confirmed amitriptyline 100 mg tablet 100 mg PO HS 07/28/19 06/20/25 atorvastatin 40 mg tablet 40 mg PO HS 07/28/19 06/20/25 gabapentin 100 mg capsule 100 mg PO HS 10/28/23 06/20/25 lamotrigine 25 mg tablet 25 mg PO HS 02/10/24 06/20/25 metoclopramide HCl 10 mg tablet 10 mg PO Q6H PRN upset stomach 02/10/24 06/20/25 cetirizine 10 mg tablet 10 mg PO QDAY 04/29/25 06/20/25 cyclobenzaprine 10 mg tablet 10 mg PO Q8H 06/20/25 06/20/25 dextromethorphan-guaifenesin 10 5 ml PO Q6H PRN cough 06/20/25 06/20/25 mg-100 mg/5 mL oral syrup (Chest Congestion Relief DM) hydroxyzine HCl 25 mg tablet 25 mg PO HS 06/20/25 06/20/25 metformin 1,000 mg tablet 1,000 mg PO BID 06/20/25 06/20/25 metoprolol tartrate 50 mg tablet 50 mg PO BID 06/20/25 06/20/25 hydrocodone 5 mg-acetaminophen 325 1 tab PO Q6H PRN pain 06/21/25 06/21/25 mg tablet pen needle, diabetic 31 gauge x 06/21/25 06/21/2511/24 (Comfort EZ Pen [place]) Previous Rx's ?Medication ?Instructions ?Recorded blood-glucose sensor (FreeStyle #1 ea 02/11/24 Osmani 3 Sensor device) clopidogrel 75 mg tablet 75 mg PO QDAY 30 days #30 tabs 02/11/24 insulin syr/ndl U100 half windy 0.3 #100 ea 02/11/24 mL 29 gauge x 1/2 albuterol sulfate 2.5 mg/3 mL 2.5 mg (3 mL) inhalation QID PRN 04/05/25 (0.083 %) solution for nebulization shortness of breath or wheezing #90 mL albuterol sulfate 90 mcg/actuation 2 inh inhalation Q8H PRN shortness 04/05/25 aerosol inhaler of breath or wheezing #8.5 grams lisinopril 40 mg tablet 40 mg PO QDAY 30 days #30 tabs 05/02/25 insulin lispro 100 unit/mL 1 sliding scale dose subcut 05/26/25 subcutaneous solution (Admelog USEASDIRECTD #10 mL U-100 Insulin lispro) doxycycline hyclate 100 mg capsule 100 mg PO BID 12 days #24 caps 06/22/25 insulin degludec 200 unit/mL (3 20 unit (0.1 mL) subcut QDAY #9 mL 06/22/25 mL) subcutaneous pen mirtazapine 15 mg tablet 15 mg PO HS 30 days #30 tabs 06/22/25 sennosides 8.6 mg tablet (Senna 8.6 mg PO QDAY PRN constipation 30 06/22/25 Lax) days #30 tabs Allergies Allergy/AdvReac Type Severity Reaction Status Date / Time aspirin Allergy Severe RASH Verified 05/19/25 08:47 cephalexin Allergy Severe Rash Verified 05/19/25 08:47 codeine Allergy Severe RASH Verified 05/19/25 08:47 diphenhydramine Allergy Severe Rash Verified 05/19/25 08:47 Penicillins Allergy Severe RASH Verified 05/19/25 08:47 Review of Systems Review of Systems Systems Reviewed: All systems reviewed, normal except as documented ED Exam Narrative Physical exam: Generally patient is alert somnolent but arousable becomes oriented cachectic and emaciated. Heart regular rate and rhythm, lungs clear to auscultation and equal bilaterally, abdomen soft nondistended nontender, neurologic exam shows the patient to obey commands. No focal motor deficits. She is oriented x 3., Extremities show an ulceration to the plantar surface of the right foot with mild discharge. Course Quality Measures none Orders Category Date Time Status EKG (ED ONLY) *Do not use* NOW Care 06/25/25 02:43 Completed EKG (ED Only) Stat Exams 06/25/25 02:43 Ordered BMP [Basic Metabolic Panel] Stat Lab 06/25/25 02:43 Completed CBC Stat Lab 06/25/25 02:43 Completed Drug Screen,Urine Stat Lab 06/25/25 02:43 Ordered Troponin I Stat Lab 06/25/25 02:43 Completed UA [Urinalysis] Stat Lab 06/25/25 02:45 Ordered Vital Signs Vital signs: Vital Signs Temperature 94.6 F L 06/25/25 02:44 Pulse Rate 66 06/25/25 02:44 Respiratory Rate 16 06/25/25 02:44 Blood Pressure 198/83 H 06/25/25 02:44 Pulse Oximetry (%) 100 06/25/25 02:44 Oxygen Delivery Method Room Air 06/25/25 02:44 Altered Mental Status MDM Narrative MDM Narrative:: Patient's blood sugar at scene was 29. Patient was given D10 IV and it went up to 237. Blood sugar on the laboratory draw on the chemistry panel was 69. After eating a sandwich and drinking juices her blood sugar 77. Troponin is not elevated. No leukocytosis. Patient takes metformin as well as a long-acting insulin and sliding scale insulin as well. She is currently on antibiotic therapy for a right plantar foot ulceration. She just got discharged from the hospital on June 22. The last fingerstick blood sugar taken at 5:25 AM this morning was 126. Patient is stable for discharge home. Patient data External records reviewed:: [facility] previous records and EMS form Clinical information provided by:: patient and EMS Social determinants that could affect healthcare access:: none Patient has the following chronic illnesses:: Insulin-dependent diabetes mellitus How is presenting disease/condition affected by chronic disease/condition?: caused by Evaluation data The following diagnostics were reviewed and interpreted by me:: lab results Lab and/or radiology exams considered but not ordered:: None Interpretation Summary: None Medications / Prescriptions Medications or Prescriptions considered but not ordered:: None Medication administrations:: None Consultations Consultation(s) initiated? (list below): No Diagnosis Most likely diagnosis given after review of the tests above:: none Admission Indicated Admission indicated?: not indicated Admission Request Was there a request for admission?: No Disposition Plan Disposition Plan: Discharge Discharge Attestation Discharge Attestation: The patient and all family members were given an opportunity to ask questions and understood the discharge instructions. Discharge instructions specifically effects, indications for sooner follow up or return to the emergency department, and the expected course of current diagnosis. Patient condition: Stable Discharge Plan Plan Patient Disposition: HOME (Self Care) Prescriptions/Referrals Prescriptions/Med Rec: No Action atorvastatin 40 mg Tablet 40 mg PO HS amitriptyline 100 mg Tablet 100 mg PO HS gabapentin 100 mg capsule 100 mg PO HS albuterol sulfate 90 mcg/actuation HFA aerosol inhaler 2 inh inhalation Q8H PRN (Reason: shortness of breath or wheezing) Qty: 8.5 0RF albuterol sulfate 2.5 mg /3 mL (0.083 %) solution for nebulization 2.5 mg inhalation QID PRN (Reason: shortness of breath or wheezing) Qty: 90 0RF cetirizine 10 mg tablet 10 mg PO QDAY lisinopril 40 mg tablet 40 mg PO QDAY 30 Days Qty: 30 0RF lamotrigine 25 mg tablet 25 mg PO HS metoclopramide HCl 10 mg Tablet 10 mg PO Q6H PRN (Reason: upset stomach) clopidogrel 75 mg Tablet 75 mg PO QDAY 30 Days Qty: 30 4RF (DME) FreeStyle Osmani 3 Sensor Device See Rx Instructions .Route Qty: 1 6RF Rx Instructions: As directed (DME) insulin syr/ndl U100 half windy 0.3 mL 29 gauge x 1/2 syringe See Rx Instructions .Route Qty: 100 0RF Rx Instructions: As directed insulin lispro [Admelog U-100 Insulin lispro] 100 unit/mL solution 1 sliding scale dose subcut USEASDIRECTD Qty: 10 2RF Rx Instructions: Take insulin according to the sliding scale with meals hydroxyzine HCl 25 mg tablet 25 mg PO HS Patient Comments: TAKE ONE TABLET BY MOUTH AT BEDTIME metformin 1,000 mg tablet 1,000 mg PO BID metoprolol tartrate 50 mg tablet 50 mg PO BID dextromethorphan-guaifenesin [Chest Congestion Relief DM] 10-100 mg/5 mL syrup 5 ml PO Q6H PRN (Reason: cough) cyclobenzaprine 10 mg tablet 10 mg PO Q8H hydrocodone-acetaminophen 5-325 mg tablet 1 tab PO Q6H PRN (Reason: pain) Patient Comments: TAKE ONE TABLET BY MOUTH EVERY 6 HOURS NEEDED FOR PAIN (DME) pen needle, diabetic [Comfort EZ Pen [place]] 31 gauge x 3/16 needle Patient Comments: DIRECTED sennosides [Senna Lax] 8.6 mg Tablet 8.6 mg PO QDAY PRN (Reason: constipation) 30 Days Qty: 30 0RF mirtazapine 15 mg Tablet 15 mg PO HS 30 Days Qty: 30 0RF insulin degludec 200 unit/mL (3 mL) insulin pen 20 unit subcut QDAY Qty: 9 0RF doxycycline hyclate 100 mg capsule 100 mg PO BID 12 Days Qty: 24 0RF Referrals: Aaron Mclean MD [Primary Care Provider, Family Practice] - In 1 week Problem List Clinical Impression: Hypoglycemia Patient/Caregiver Discharge Instructions Education Materials: Hypoglycemia (Low Blood Sugar) Additional Instructions: You must eat regular meals. Continue all current medications. Follow-up with your doctor. Return to ER as needed or if condition worsens. Print Language: Kinyarwanda Stand Alone Forms: Lela Award Info., Patient Portal Info Letter
[2025-06-25 02:44] VITALS: BP 198/83; PULSE 66; PULSE 78; RESP 16; RESP 18; TEMP 34.8; O2SAT 100; O2SAT 96
[2025-06-25 03:59] LABS: Basophils # (Auto) 0.1 Thou/mm3 (0.0-0.2); Basophils % (Auto) 1 % (0-2.5); Eosinophils # (Auto) 0.5 Thou/mm3 (0.0-0.5); Eosinophils % (Auto) 5 % (0-10); Hematocrit 38.5 % (36.0-46.0); Hemoglobin 12.0 g/dL (12.0-16.0); Immature Granulocytes Auto 0.04 Thou/mm3 (0.00-0.00); Lymphocytes # (Auto) 2.6 Thou/mm3 (1.0-4.8); Lymphocytes % (Auto) 24 % (10-50); Mean Corpuscular HGB Conc 31.2 g/dl (31.0-37.0); Mean Corpuscular Hemoglobin 25.8 pg (25.0-35.0); Mean Corpuscular Volume 83 fL (80-100); Monocytes # (Auto) 0.7 Thou/mm3 (0.0-0.8); Monocytes % (Auto) 6 % (0-12); Neutrophils # (Auto) 6.8 Thou/mm3 (1.8-7.7); Neutrophils % (Auto) 64 % (37-80); Nucleated Red Blood Cell # 0.00 Thou/mm3 (0.00-0.00); Nucleated Red Blood Cell % 0 /100 WBC (0); Platelet Count 377 Thou/mm3 (140-440); RDW Standard Deviation 47.3 fL (36.4-46.3); Red Blood Count 4.66 Miln/mm3 (4.00-5.20); White Blood Count 10.6 Thou/mm3 (3.6-11.0)
[2025-06-25 04:13] LABS: Anion Gap 11 (7-16); BUN/Creatinine Ratio 21 Ratio (12-20); Blood Urea Nitrogen 15 mg/dL (9-23); Calcium 8.9 mg/dL (8.3-10.6); Carbon Dioxide 26.7 mMol/L (20.0-31.0); Chloride 105 mMol/L (98-107); Creatinine (Component) 0.7 mg/dL (0.6-1.3); Glucose 69 mg/dL (74-106); Osmolality,Calculated 283 (275-295); Potassium 3.8 mMol/L (3.4-5.1); Sodium 143 mMol/L (136-145); Troponin I < 0.002 ng/mL (0.0-0.045); eGFR > 60 See Note
[2025-06-25 04:30] VITALS: BP 157/71; PULSE 60; RESP 15; O2SAT 99
[2025-06-25 04:44] VITALS: BMI 19.1
[2025-06-25 05:26] VITALS: BP 165/76; PULSE 62; RESP 17; O2SAT 100
[2025-06-25 05:55] VITALS: BP 114/72; PULSE 78; RESP 14; TEMP 36.6; O2SAT 99
== END 2025-06-25 05:57 | disposition home or self-care (01) ==
PROVIDERS: Emergency Provider Emergency Medicine; PCP Family Medicine
DX: E11.649 Type 2 diabetes mellitus with hypoglycemia without coma (principal); Z79.4 Long term (current) use of insulin; Z79.84 Long term (current) use of oral hypoglycemic drugs
CPT/HCPCS: 36415; 80048; 80307; 81001; 84484; 85025; 93005; 99283

== ENCOUNTER → 2025-06-26 | Outpatient (CLI) | payer MEDICAID, SELFPAY | END | disposition home or self-care (01) | LOC: SWHD 13:40 | PROVIDERS: PCP Internal Medicine; Referring Provider Internal Medicine; Visit Provider Student in an Organized Health Care Education/Training Program | DX: E11.621 Type 2 diabetes mellitus with foot ulcer (principal); L97.412 Non-pressure chronic ulcer of right heel and midfoot with fat layer exposed; I25.10 Atherosclerotic heart disease of native coronary artery without angina pectoris; F41.9 Anxiety disorder, unspecified; J44.9 Chronic obstructive pulmonary disease, unspecified; K21.9 Gastro-esophageal reflux disease without esophagitis; I10 Essential (primary) hypertension; F17.200 Nicotine dependence, unspecified, uncomplicated; F50.20 Bulimia nervosa, unspecified; Z79.4 Long term (current) use of insulin; Z79.84 Long term (current) use of oral hypoglycemic drugs | CPT/HCPCS: 11042; A9270 ==

== ENCOUNTER 2025-07-01 09:07 | Emergency (ER) | payer MEDICAID, SELFPAY ==
[2025-07-01] VITALS (7 sets, daily range): BP systolic 166–228; BP diastolic 75–122; PULSE 62–85; RESP 18–23; TEMP 34.3–36.9; O2SAT 97–100; BMI 21.9
--- NOTE | 2025-07-01 09:13 | PD.EDAMS ---
Altered Mental Status RME/HPI General Chief Complaint: Altered Mental Status Stated Complaint: HYPOGLYCEMIA Time Seen by Provider: 07/01/25 09:12 Arrival date/time: 07/01/25 09:07 RME / HPI RME / HPI narrative: 60 yo female patient BIBA due to AMS. Family called EMS when patient was yelling and agitated, not acting normally. When EMS arrived, BG 28. Administered glucagon IN. Recheck BG 67. Patient unable to provide any history. Repeats I want my sister . Related Data Home Medications ?Medication ?Instructions ?Recorded ?Confirmed amitriptyline 100 mg tablet 100 mg PO HS 07/28/19 06/20/25 atorvastatin 40 mg tablet 40 mg PO HS 07/28/19 06/20/25 gabapentin 100 mg capsule 100 mg PO HS 10/28/23 06/20/25 lamotrigine 25 mg tablet 25 mg PO HS 02/10/24 06/20/25 metoclopramide HCl 10 mg tablet 10 mg PO Q6H PRN upset stomach 02/10/24 06/20/25 cetirizine 10 mg tablet 10 mg PO QDAY 04/29/25 06/20/25 cyclobenzaprine 10 mg tablet 10 mg PO Q8H 06/20/25 06/20/25 dextromethorphan-guaifenesin 10 5 ml PO Q6H PRN cough 06/20/25 06/20/25 mg-100 mg/5 mL oral syrup (Chest Congestion Relief DM) hydroxyzine HCl 25 mg tablet 25 mg PO HS 06/20/25 06/20/25 metformin 1,000 mg tablet 1,000 mg PO BID 06/20/25 06/20/25 metoprolol tartrate 50 mg tablet 50 mg PO BID 06/20/25 06/20/25 hydrocodone 5 mg-acetaminophen 325 1 tab PO Q6H PRN pain 06/21/25 06/21/25 mg tablet pen needle, diabetic 31 gauge x 06/21/25 06/21/2511/24 (Comfort EZ Pen [place]) Previous Rx's ?Medication ?Instructions ?Recorded blood-glucose sensor (FreeStyle #1 ea 02/11/24 Osmani 3 Sensor device) clopidogrel 75 mg tablet 75 mg PO QDAY 30 days #30 tabs 02/11/24 insulin syr/ndl U100 half windy 0.3 #100 ea 02/11/24 mL 29 gauge x 1/2 albuterol sulfate 2.5 mg/3 mL 2.5 mg (3 mL) inhalation QID PRN 04/05/25 (0.083 %) solution for nebulization shortness of breath or wheezing #90 mL albuterol sulfate 90 mcg/actuation 2 inh inhalation Q8H PRN shortness 04/05/25 aerosol inhaler of breath or wheezing #8.5 grams lisinopril 40 mg tablet 40 mg PO QDAY 30 days #30 tabs 05/02/25 insulin lispro 100 unit/mL 1 sliding scale dose subcut 05/26/25 subcutaneous solution (Admelog USEASDIRECTD #10 mL U-100 Insulin lispro) doxycycline hyclate 100 mg capsule 100 mg PO BID 12 days #24 caps 06/22/25 insulin degludec 200 unit/mL (3 20 unit (0.1 mL) subcut QDAY #9 mL 06/22/25 mL) subcutaneous pen mirtazapine 15 mg tablet 15 mg PO HS 30 days #30 tabs 06/22/25 sennosides 8.6 mg tablet (Senna 8.6 mg PO QDAY PRN constipation 30 06/22/25 Lax) days #30 tabs Allergies Allergy/AdvReac Type Severity Reaction Status Date / Time aspirin Allergy Severe RASH Verified 05/19/25 08:47 cephalexin Allergy Severe Rash Verified 05/19/25 08:47 codeine Allergy Severe RASH Verified 05/19/25 08:47 diphenhydramine Allergy Severe Rash Verified 05/19/25 08:47 Penicillins Allergy Severe RASH Verified 05/19/25 08:47 Review of Systems Review of Systems ROS Unobtainable: unobtainable due to mental status Past Medical History Past Medical History NEUROLOGIC: Positive Neurological Disorders, Migraine and Head Trauma CARDIAC: Positive Cardiac Disorders, Myocardial Infarction, Coronary Artery Disease, Atherosclerotic Heart Disease, Hypercholesterolemia, Edema and Hypertension RESPIRATORY: Positive Chronic Obstructive Pulmonary Disease (COPD), Asthma, Bronchitis, Pneumonia, Cough, Wheezing, Smoking, Smoking Cessation Counseling and Tobacco Use GASTROINTESTINAL: Positive Gastrointestinal Disorders and Gastroesophageal Reflux Disease REPRODUCTIVE: Positive Previous Pregnancies MUSCULOSKELETAL: Positive Musculoskeletal Disorders, Arthritis, Rheumatoid Arthritis and Fractures ENT: Positive Head Trauma ENDOCRINE: Positive Endocrine Disorders and Diabetes Mellitus Type 2 PSYCHO/SOCIAL: Positive Recreational Drug Use, Depression and Anxiety OTHER HISTORY: Positive Hospitalization, Falls and Chicken Pox Family History FAMILY HISTORY: Positive Family Respiratory Disorders, Family Cardiac Disorders, Family Gastrointestinal Problems and Family Surgery Surgical History SURGICAL: Positive Cardiac Surgery, Coronary Stent, Cardiac Catheterization and Tubal Ligation Social History SMOKING STATUS: Light (< 1 pack/day) SECOND HAND EXPOSURE: Yes SUBSTANCE USE: former substance user, marijuana and amphetamines ED Exam Narrative Physical exam: GENERAL APPEARANCE: Appears altered, repeatedly asking for sister, well-developed, well-nourished, no acute distress HEENT: Normocephalic, atraumatic; pupils equal, round, reactive to light; EOMI; mucous membranes pink, moist; oropharynx clear NECK: Supple LUNGS: CTABL; no wheezes, no rales, no rhonchi HEART: Regular rate, regular rhythm; normal S1, S2; no murmurs ABDOMEN: non distended; normal BS; soft, no tenderness, no guarding, no rebound; no masses, no organomegaly, no hernia BACK: no CVA tenderness EXTREMITIES: atraumatic; no edema NEUROLOGIC: Appears altered, repeatedly asking for sister,; cranial nerves II-XII grossly intact PSYCHIATRIC: appropriate mood and affect SKIN: warm, dry, normal color; no rashes Course Course Course Narrative: BG in ED has remained stable. Blood pressure was elevated that improved with po hydralazine. We reviewed all the results, analysis, and treatment plans. Patient is amenable to discharge. Quality Measures none Orders Category Date Time Status Bedside Blood Glucose Q1HR Care 07/01/25 09:17 Completed EKG (ED ONLY) *Do not use* NOW Care 07/01/25 10:37 Completed EKG (ED Only) Stat Exams 07/01/25 10:37 Ordered B-Type Natriuretic Peptide Stat Lab 07/01/25 12:21 Completed CBC Stat Lab 07/01/25 10:40 Completed Comprehensive Metabolic Panel Stat Lab 07/01/25 10:35 Completed Lipase Stat Lab 07/01/25 10:35 Completed Magnesium Stat Lab 07/01/25 10:35 Completed Troponin I Stat Lab 07/01/25 10:35 Completed UA, C/S IF [Urinalysis, C/S if Indicated] Stat Lab 07/01/25 10:35 Completed Dextrose 50% Syr [D50w Syringe Abboject] Med 07/01/25 09:17 Discontinued 50 ml IVP X1 ONE hydrALAZINE HCL [Apresoline] Med 07/01/25 12:50 Discontinued 25 mg PO X1 ONE hydrALAZINE INJ [Apresoline Inj] Med 07/01/25 11:15 Discontinued 10 mg IVP X1 ONE Vital Signs Vital signs: Vital Signs Pulse Rate 75 07/01/25 11:01 Respiratory Rate 19 07/01/25 11:01 Blood Pressure 228/122 H 07/01/25 11:01 Pulse Oximetry (%) 100 07/01/25 11:01 Oxygen Delivery Method Room Air 07/01/25 11:01 Pulse ox is 100% on room air which is adequate. Altered Mental Status MDM Narrative MDM Narrative:: Ashley Osborn am scribing for and in the presence of Dr. Haji. Patient data External records reviewed:: [facility] previous records and EMS form Clinical information provided by:: patient and EMS Social determinants that could affect healthcare access:: none Patient has the following chronic illnesses:: CAD, hypertension, diabetes, COPD How is presenting disease/condition affected by chronic disease/condition?: exacerbated by Evaluation data The following diagnostics were reviewed and interpreted by me:: lab results and EKG tracing(s) (EKG @ 09:38 AM. Sinus rhythm, rate 66, no STEMI. ) Lab and/or radiology exams considered but not ordered:: None Interpretation Summary: CBC with no acute findings On the CMP, the BG is 21. Medications / Prescriptions Medications or Prescriptions considered but not ordered:: None Medication administrations:: Medication Administration History Discontinued Medications Dextrose (Dextrose 50%-Water Inj 50 Ml Syringe) 50 ml IVP X1 ONE Stop: 07/01/25 09:18 Last Admin: 07/01/25 10:54 Dose: 50 ml Documented By: GINNA Hydralazine HCl (Hydralazine Inj 20 Mg/Ml Vial) 10 mg IVP X1 ONE Stop: 07/01/25 11:16 Last Admin: 07/01/25 11:35 Dose: 10 mg Documented By: SKY Hydralazine HCl (Hydralazine Hcl 25 Mg Tablet) 25 mg PO X1 ONE Stop: 07/01/25 12:51 Last Admin: 07/01/25 13:00 Dose: 25 mg Documented By: SKY See above Consultations Consultation(s) initiated? (list below): No Diagnosis Most likely diagnosis given after review of the tests above:: Hypoglycemia Admission Indicated Admission indicated?: not indicated Admission Request Was there a request for admission?: No Disposition Plan Disposition Plan: Discharge Discharge Attestation Discharge Attestation: The patient and all family members were given an opportunity to ask questions and understood the discharge instructions. Discharge instructions specifically effects, indications for sooner follow up or return to the emergency department, and the expected course of current diagnosis. Patient condition: Stable Discharge Plan Plan Patient Disposition: HOME (Self Care) Prescriptions/Referrals Prescriptions/Med Rec: No Action atorvastatin 40 mg Tablet 40 mg PO HS amitriptyline 100 mg Tablet 100 mg PO HS gabapentin 100 mg capsule 100 mg PO HS albuterol sulfate 90 mcg/actuation HFA aerosol inhaler 2 inh inhalation Q8H PRN (Reason: shortness of breath or wheezing) Qty: 8.5 0RF albuterol sulfate 2.5 mg /3 mL (0.083 %) solution for nebulization 2.5 mg inhalation QID PRN (Reason: shortness of breath or wheezing) Qty: 90 0RF cetirizine 10 mg tablet 10 mg PO QDAY lisinopril 40 mg tablet 40 mg PO QDAY 30 Days Qty: 30 0RF lamotrigine 25 mg tablet 25 mg PO HS metoclopramide HCl 10 mg Tablet 10 mg PO Q6H PRN (Reason: upset stomach) clopidogrel 75 mg Tablet 75 mg PO QDAY 30 Days Qty: 30 4RF (DME) FreeStyle [place] 3 Sensor Device See Rx Instructions .Route Qty: 1 6RF Rx Instructions: As directed (DME) insulin syr/ndl U100 half windy 0.3 mL 29 gauge x 1/2 syringe See Rx Instructions .Route Qty: 100 0RF Rx Instructions: As directed insulin lispro [Admelog U-100 Insulin lispro] 100 unit/mL solution 1 sliding scale dose subcut USEASDIRECTD Qty: 10 2RF Rx Instructions: Take insulin according to the sliding scale with meals hydroxyzine HCl 25 mg tablet 25 mg PO HS Patient Comments: TAKE ONE TABLET BY MOUTH AT BEDTIME metformin 1,000 mg tablet 1,000 mg PO BID metoprolol tartrate 50 mg tablet 50 mg PO BID dextromethorphan-guaifenesin [Chest Congestion Relief DM] 10-100 mg/5 mL syrup 5 ml PO Q6H PRN (Reason: cough) cyclobenzaprine 10 mg tablet 10 mg PO Q8H hydrocodone-acetaminophen 5-325 mg tablet 1 tab PO Q6H PRN (Reason: pain) Patient Comments: TAKE ONE TABLET BY MOUTH EVERY 6 HOURS NEEDED FOR PAIN (DME) pen needle, diabetic [Comfort EZ Pen [place]] 31 gauge x 3/16 needle Patient Comments: DIRECTED sennosides [Senna Lax] 8.6 mg Tablet 8.6 mg PO QDAY PRN (Reason: constipation) 30 Days Qty: 30 0RF mirtazapine 15 mg Tablet 15 mg PO HS 30 Days Qty: 30 0RF insulin degludec 200 unit/mL (3 mL) insulin pen 20 unit subcut QDAY Qty: 9 0RF doxycycline hyclate 100 mg capsule 100 mg PO BID 12 Days Qty: 24 0RF Referrals: No Primary/Family,Physician [Primary Care Provider] - In 1 week Problem List Clinical Impression: Hypoglycemia Patient/Caregiver Discharge Instructions Education Materials: Hypoglycemia (Low Blood Sugar), Hypoglycemia Steps Additional Instructions: Follow up with your doctor to discuss adjusting your insulin dose Print Language: Syriac Stand Alone Forms: Lela Award Info., Patient Portal Info Letter
[2025-07-01 10:48] LABS: Collection Type, Urine Clean Catch
[2025-07-01] MEDS: DEXTROSE 50%-WATER INJ 50 ML SYRINGE IVP (10:54)
[2025-07-01 11:03] LABS: Bacteria,Urine Rare; Bilirubin,Urine Negative (Negative); Blood,Urine Negative (Negative); Clarity,Urine Clear (Clear/Hazy); Color,Urine Lt-Yellow (Lt Yel-Yel); Culture Indicated,Urine Not Indicated; Glucose, Urine 1+ (Negative); Hyaline Casts,Urine < 1 /hpf (0-1); Ketones,Urine Negative (Negative); Leukocyte Esterase,Urine Negative (Negative); Nitrite,Urine Negative (Negative); PH,Urine 7.5 (5.0-7.0); Protein,Urine 2+ (Neg - Trace); RBC,Urine 1 /hpf (0-3); Specific Gravity,Urine 1.013 (1.001-1.035); Squamous Epithelial Cell,Urine 2 /hpf (0-5); Urobilinogen,Urine Negative mg/dL (0.0-1.0); WBC,Urine 1 /hpf (0-5)
[2025-07-01 11:06] LABS: Basophils # (Auto) 0.1 Thou/mm3 (0.0-0.2); Basophils % (Auto) 1 % (0-2.5); Eosinophils # (Auto) 0.1 Thou/mm3 (0.0-0.5); Eosinophils % (Auto) 1 % (0-10); Hematocrit 40.0 % (36.0-46.0); Hemoglobin 12.6 g/dL (12.0-16.0); Immature Granulocytes Auto 0.05 Thou/mm3 (0.00-0.00); Lymphocytes # (Auto) 1.8 Thou/mm3 (1.0-4.8); Lymphocytes % (Auto) 16 % (10-50); Mean Corpuscular HGB Conc 31.5 g/dl (31.0-37.0); Mean Corpuscular Hemoglobin 26.1 pg (25.0-35.0); Mean Corpuscular Volume 83 fL (80-100); Monocytes # (Auto) 0.3 Thou/mm3 (0.0-0.8); Monocytes % (Auto) 3 % (0-12); Neutrophils # (Auto) 8.5 Thou/mm3 (1.8-7.7); Neutrophils % (Auto) 79 % (37-80); Nucleated Red Blood Cell # 0.00 Thou/mm3 (0.00-0.00); Nucleated Red Blood Cell % 0 /100 WBC (0); Platelet Count 482 Thou/mm3 (140-440); RDW Standard Deviation 47.8 fL (36.4-46.3); Red Blood Count 4.82 Miln/mm3 (4.00-5.20); White Blood Count 10.7 Thou/mm3 (3.6-11.0)
[2025-07-01] MEDS: hydrALAZINE INJ 20 MG/ML VIAL 10 MG IVP (11:35)
[2025-07-01 11:40] LABS: Alanine Aminotransferase 43 U/L (10-49); Albumin, Serum 4.4 gm/dL (3.4-4.8); Albumin/Globulin Ratio 2.4 (1.2-2.2); Alkaline Phosphatase 128 U/L (46-116); Anion Gap 8 (7-16); Aspartate Amino Transferase 44 U/L (0-34); BUN/Creatinine Ratio 28 Ratio (12-20); Bilirubin,Total 0.2 mg/dL (0.3-1.2); Blood Urea Nitrogen 17 mg/dL (9-23); Calcium 9.7 mg/dL (8.3-10.6); Calcium (Corrected) 9.7 mg/dL (8.5-10.1); Carbon Dioxide 28.2 mMol/L (20.0-31.0); Chloride 106 mMol/L (98-107); Creatinine (Component) 0.6 mg/dL (0.6-1.3); Estimated Creatinine Clearance 78.9 mL/min (>60); Globulin 1.8 gm/dL (2.3-3.5); Lipase 30 U/L (12-53); Magnesium 1.6 mg/dL (1.6-2.6); Osmolality,Calculated 280 (275-295); Potassium 6.0 mMol/L (3.4-5.1); Sodium 142 mMol/L (136-145); Total Protein 6.2 gm/dL (5.7-8.2); Troponin I < 0.002 ng/mL (0.0-0.045); eGFR > 60 See Note
[2025-07-01 11:46] LABS: Glucose 21 mg/dL (74-106)
[2025-07-01 12:58] LABS: B-Type Natriuretic Peptide 158 pg/mL (0-100)
== END 2025-07-01 14:53 | disposition home or self-care (01) ==
PROVIDERS: Emergency Provider Emergency Medicine
DX: E16.2 Hypoglycemia, unspecified (principal)
CPT/HCPCS: 36415; 80053; 81001; 83690; 83735; 83880; 84484; 85025; 93005; 96374; 99282; J0360; A9270

== ENCOUNTER → 2025-07-03 | Outpatient (CLI) | payer MEDICAID, SELFPAY | END | disposition home or self-care (01) | LOC: SWHD 13:41 | PROVIDERS: PCP Internal Medicine; Referring Provider Internal Medicine; Visit Provider Student in an Organized Health Care Education/Training Program | DX: E11.621 Type 2 diabetes mellitus with foot ulcer (principal); L97.412 Non-pressure chronic ulcer of right heel and midfoot with fat layer exposed; I25.10 Atherosclerotic heart disease of native coronary artery without angina pectoris; F41.9 Anxiety disorder, unspecified; J44.9 Chronic obstructive pulmonary disease, unspecified; K21.9 Gastro-esophageal reflux disease without esophagitis; I10 Essential (primary) hypertension; F17.200 Nicotine dependence, unspecified, uncomplicated; F50.20 Bulimia nervosa, unspecified; Z79.4 Long term (current) use of insulin; Z79.84 Long term (current) use of oral hypoglycemic drugs | CPT/HCPCS: 11042; A9270 ==

== ENCOUNTER 2025-07-18 07:24 | Emergency (ER) | payer MEDICAID, SELFPAY ==
[2025-07-18 07:29] VITALS: PULSE 110; O2SAT 99; BMI 17.4
[2025-07-18 07:32] VITALS: BP 205/88; PULSE 115; RESP 18; TEMP 36.6; O2SAT 100
--- NOTE | 2025-07-18 07:47 | PD.EDNV ---
Nausea/Vomit./Diarrhea-RME/HPI General Chief complaint: Nausea/Vomiting/Diarrhea Stated complaint: HIGH BLOOD SUGAR Time Seen by Provider: 07/18/25 07:40 Source: patient Arrival date/time: 07/18/25 07:24 Mode of arrival: ambulatory Limitations: no limitations RME / HPI MD complaint: nausea, vomiting and other (High blood sugars since being taken off her insulin 2 days ago. She was placed on oral medications only.) Onset (ago): day(s) Description of Vomiting: food contents Associated Abdominal Pain: No Consistency: intermittent Relieving factors: none Exacerbating factors: none Associated symptoms: weakness RME / HPI Narrative: 60 year old female with history of CAD, hypertension, diabetes, COPD presents to the ED BIBA from home for evaluation of elevated blood sugar today. Per medics, on scene BG was 516. Patient complains of headache, nausea, and vomiting. No other associated symptoms reported. No fevers, chills, chest pain, cough, shortness of breath, diarrhea, or urinary symptoms. Related Data Home Medications ?Medication ?Instructions ?Recorded ?Confirmed amitriptyline 100 mg tablet 100 mg PO HS 07/28/19 06/20/25 atorvastatin 40 mg tablet 40 mg PO HS 07/28/19 06/20/25 gabapentin 100 mg capsule 100 mg PO HS 10/28/23 06/20/25 lamotrigine 25 mg tablet 25 mg PO HS 02/10/24 06/20/25 metoclopramide HCl 10 mg tablet 10 mg PO Q6H PRN upset stomach 02/10/24 06/20/25 cetirizine 10 mg tablet 10 mg PO QDAY 04/29/25 06/20/25 cyclobenzaprine 10 mg tablet 10 mg PO Q8H 06/20/25 06/20/25 dextromethorphan-guaifenesin 10 5 ml PO Q6H PRN cough 06/20/25 06/20/25 mg-100 mg/5 mL oral syrup (Chest Congestion Relief DM) hydroxyzine HCl 25 mg tablet 25 mg PO HS 06/20/25 06/20/25 metformin 1,000 mg tablet 1,000 mg PO BID 06/20/25 06/20/25 metoprolol tartrate 50 mg tablet 50 mg PO BID 06/20/25 06/20/25 hydrocodone 5 mg-acetaminophen 325 1 tab PO Q6H PRN pain 06/21/25 06/21/25 mg tablet pen needle, diabetic 31 gauge x 06/21/25 06/21/25 3/16 (Comfort EZ Pen Bryan) Previous Rx's ?Medication ?Instructions ?Recorded blood-glucose sensor (FreeStyle #1 ea 02/11/24 Osmani 3 Sensor device) clopidogrel 75 mg tablet 75 mg PO QDAY 30 days #30 tabs 02/11/24 insulin syr/ndl U100 half windy 0.3 #100 ea 02/11/24 mL 29 gauge x 1/2 albuterol sulfate 2.5 mg/3 mL 2.5 mg (3 mL) inhalation QID PRN 04/05/25 (0.083 %) solution for nebulization shortness of breath or wheezing #90 mL albuterol sulfate 90 mcg/actuation 2 inh inhalation Q8H PRN shortness 04/05/25 aerosol inhaler of breath or wheezing #8.5 grams lisinopril 40 mg tablet 40 mg PO QDAY 30 days #30 tabs 05/02/25 insulin lispro 100 unit/mL 1 sliding scale dose subcut 05/26/25 subcutaneous solution (Admelog USEASDIRECTD #10 mL U-100 Insulin lispro) insulin degludec 200 unit/mL (3 20 unit (0.1 mL) subcut QDAY #9 mL 06/22/25 mL) subcutaneous pen mirtazapine 15 mg tablet 15 mg PO HS 30 days #30 tabs 06/22/25 sennosides 8.6 mg tablet (Senna 8.6 mg PO QDAY PRN constipation 30 06/22/25 Lax) days #30 tabs ondansetron HCl 4 mg tablet 4 mg PO Q6H PRN nausea and 07/18/25 vomiting #16 tabs Allergies Allergy/AdvReac Type Severity Reaction Status Date / Time aspirin Allergy Severe RASH Verified 05/19/25 08:47 cephalexin Allergy Severe Rash Verified 05/19/25 08:47 codeine Allergy Severe RASH Verified 05/19/25 08:47 diphenhydramine Allergy Severe Rash Verified 05/19/25 08:47 Penicillins Allergy Severe RASH Verified 05/19/25 08:47 Review of Systems Review of Systems Systems Reviewed: All systems reviewed, normal except as documented Past Medical History Past Medical History NEUROLOGIC: Positive Neurological Disorders, Migraine and Head Trauma; Negative Seizures CARDIAC: Positive Cardiac Disorders, Myocardial Infarction, Coronary Artery Disease, Atherosclerotic Heart Disease, Hypercholesterolemia, Edema and Hypertension; Negative Congestive Heart Failure RESPIRATORY: Positive Chronic Obstructive Pulmonary Disease (COPD), Asthma, Bronchitis, Pneumonia, Cough, Wheezing, Smoking, Smoking Cessation Counseling and Tobacco Use GASTROINTESTINAL: Positive Gastrointestinal Disorders and Gastroesophageal Reflux Disease; Negative Colorectal Cancer GENITOURINARY: Negative Genitourinary Disorders, Renal Disease or Prostate Cancer REPRODUCTIVE: Positive Previous Pregnancies; Negative Breast Cancer, Pelvic Inflammatory Disease or Testicular Cancer MUSCULOSKELETAL: Positive Musculoskeletal Disorders, Arthritis, Rheumatoid Arthritis and Fractures; Negative Bone Cancer ENT: Positive Head Trauma; Negative Ear Infection ENDOCRINE: Positive Endocrine Disorders and Diabetes Mellitus Type 2; Negative Diabetes Mellitus Type 1 or Hypothyroidism HEMATOLOGIC: Negative Blood Disorders or Sickle Cell Disease PSYCHO/SOCIAL: Positive Recreational Drug Use, Depression and Anxiety OTHER HISTORY: Positive Hospitalization, Falls and Chicken Pox; Negative Autoimmune Disease, Blood Transfusions, Blood Transfusion Reaction, Anesthesia Reactions, Measles, Mumps, Hepatitis B, Hepatitis C, Cancer, Breast Cancer, Cervical Cancer, Colorectal Cancer, Lung Cancer, Ovarian Cancer, Prostate Cancer or Testicular Cancer Family History FAMILY HISTORY: Positive Family Respiratory Disorders, Family Cardiac Disorders, Family Gastrointestinal Problems and Family Surgery; Negative Family Psychiatric Problems, Family Cancer or Family Anesthesia Reaction Surgical History SURGICAL: Positive Cardiac Surgery, Coronary Stent, Cardiac Catheterization and Tubal Ligation; Negative Endocrine Surgery, Ear Surgery, Abdominal Surgery, Joint Replacement or Neurologic Surgery Social History SMOKING STATUS: Current some day smoker SECOND HAND EXPOSURE: Yes SUBSTANCE USE: former substance user, marijuana and amphetamines ED Exam General Limitations: Present no limitations General appearance: Present alert and anxious Head Head exam: Present atraumatic and normocephalic Eye Eye exam: Present normal appearance, PERRL and EOMI ENT ENT exam: Present normal exam, normal oropharynx and mucous membranes dry Neck Neck exam: Present normal inspection, full ROM and trachea midline Chest Chest inspection: Present normal inspection and symmetric chest wall rise Respiratory Respiratory exam: Present normal lung sounds bilaterally Cardiovascular Cardiovascular exam: Present regular rate, normal rhythm and normal heart sounds Abdominal Exam Abdominal exam: Present soft and normal bowel sounds; Absent tenderness or organomegaly Rectal Exam Rectal exam: Present deferred Extremities Exam Extremities exam: Present normal inspection and full ROM Back Exam Back exam: Present normal inspection and full ROM Neurological Exam Neurological exam: Present alert, oriented X3 and CN II-XII intact Psychiatric Psychiatric exam: Present normal affect and normal mood Skin Skin exam: Present warm, dry, intact and normal color Course Quality Measures none Orders Category Date Time Status Bedside Blood Glucose NOW Care 07/18/25 11:49 Completed Bottle Packer NOW Care 07/18/25 07:53 Completed Continuous Pulse Oximetry NOW Care 07/18/25 07:53 Completed EKG (ED ONLY) *Do not use* NOW Care 07/18/25 07:53 Completed Insert IV NOW Care 07/18/25 07:53 Completed EKG (ED Only) Stat Exams 07/18/25 07:53 Draft XR chest 1V portable Stat Exams 07/18/25 07:53 Completed CBC Stat Lab 07/18/25 08:20 Completed Comprehensive Metabolic Panel Stat Lab 07/18/25 08:20 Completed Partial Thromboplastin Time Stat Lab 07/18/25 08:20 Completed Prothrombin Time with INR Stat Lab 07/18/25 08:20 Completed Famotidine Inj [Pepcid Inj] Med 07/18/25 07:58 Discontinued 20 mg IVP X1 ONE Insulin Regular Med 07/18/25 07:55 Discontinued 10 unit SC X1 ONE Ondansetron Inj [Zofran Inj] Med 07/18/25 07:54 Discontinued 4 mg IVP X1 ONE Ringers Lactated 1000 ml [Lactated Ringers] 1,000 ml Med 07/18/25 07:54 Discontinued IV 999 mls/hr Ringers Lactated 1000 ml [Lactated Ringers] 1,000 ml Med 07/18/25 07:56 Discontinued IV 999 mls/hr Vital Signs Vital signs: Vital Signs Temperature 98 F 07/18/25 07:32 Pulse Rate 115 H 07/18/25 07:32 Respiratory Rate 18 07/18/25 07:32 Blood Pressure 205/88 H 07/18/25 07:32 Pulse Oximetry (%) 100 07/18/25 07:32 Oxygen Delivery Method Room Air 07/18/25 07:32 Pulse ox is 100% on room air which is adequate. Nausea/Vomiting/Diarrhea MDM Narrative MDM Narrative:: Ashley Osborn, pedro luis scribing for and in the presence of Dr. Baca. Patient data External records reviewed:: [facility] previous records and EMS form Clinical information provided by:: patient and EMS Social determinants that could affect healthcare access:: none Patient has the following chronic illnesses:: CAD, hypertension, diabetes, COPD How is presenting disease/condition affected by chronic disease/condition?: exacerbated by Evaluation data The following diagnostics were reviewed and interpreted by me:: lab results, radiology exam(s) and EKG tracing(s) (EKG @ 10:01 AM. Sinus tachycardia, rate 104, no STEMI. ) Lab and/or radiology exams considered but not ordered:: None Interpretation Summary: Ordering Physician: Guanakito Baca MD Date of Service: 07/18/25 Procedure(s): XR chest 1V portable Accession Number(s): [id number] cc: Guanakito Baca MD; Yeison Ellison DO~ CLINICAL INDICATION: COUGH, elevated blood sugar level today TECHNIQUE: XR chest 1V portable Exam date and time: 07/18/2025 at 8:17 a.m. COMPARISON: Chest radiographs 05/19/2025, 04/05/2025, 11/07/2024 and CTA chest 02/02/2024 FINDINGS: No cardiomegaly or congestive heart failure pattern. Aortic atherosclerosis is reidentified. Redemonstration of hyperinflated lucent lungs consistent with pulmonary emphysema with upper lobe predominance. Redemonstration of chronic scarring and architectural distortion in the right lower lung field with effacement of the right costophrenic angle as seen on multiple prior studies. A nodule projecting in the lingular region is compatible with a nipple shadow. No airspace opacities suggestive of pneumonia. No mass detected. No pleural effusion or pneumothorax. No acute osseous abnormality detected. IMPRESSION: No radiographic evidence for acute cardiopulmonary abnormality. Redemonstration of pulmonary emphysema and chronic scarring at the right lung base. - This report was generated utilizing speech recognition software. - Dictated By: Yeison Ellison DO Signed By: <Electronically signed by Yeison Ellison DO in OV> 07/18/25 0833 Medications / Prescriptions Medications / Prescriptions considered but not ordered:: None Medication administrations:: Medication Administration History Discontinued Medications Famotidine (Famotidine Inj 10 Mg/Ml Vial 2 Ml) 20 mg IVP X1 ONE Stop: 07/18/25 07:59 Last Admin: 07/18/25 08:06 Dose: 20 mg Documented By: EF Lactated Ringer's (Lactated Ringers) 1,000 mls @ 999 mls/hr IV .Q1H1M ONE Stop: 07/18/25 08:54 Last Infusion: 07/18/25 10:56 Dose: Infused Documented By: Admin: 07/18/25 09:40 Dose: 999 mls/hr Documented By: JON Lactated Ringer's (Lactated Ringers) 1,000 mls @ 999 mls/hr IV .Q1H1M ONE Stop: 07/18/25 08:56 Last Infusion: 07/18/25 09:36 Dose: Infused Documented By: Admin: 07/18/25 08:06 Dose: 999 mls/hr Documented By: JON Insulin Human Regular (Insulin Hum Regular 1 Unit/0.01 Ml (Per Unit)) 10 unit SC X1 ONE Stop: 07/18/25 07:56 Last Admin: 07/18/25 08:07 Dose: 10 unit Documented By: JON Co-signed By: CLAIRE Ondansetron HCl (Ondansetron Inj 2 Mg/Ml Inj 2 Ml) 4 mg IVP X1 ONE; Protocol Stop: 07/18/25 07:55 Last Admin: 07/18/25 08:06 Dose: 4 mg Documented By: JON See above Consultations Consultation(s) initiated? (list below): No Diagnosis Nausea Differential Diagnosis: food poisoning, gastroenteritis, drug-induced nausea and vomiting, dehydration and other (hyperglycemia ) Most likely diagnosis given after review of the tests above:: Nausea and vomiting Acute hyperglycemia Diabetes Admission Indicated Admission indicated?: not indicated Explain why admission is indicated or not indicated:: With no condition needing emergent intervention, there was no indication for admission. Admission Request Was there a request for admission?: No Disposition Plan Disposition Plan: Discharge Discharge Attestation Discharge Attestation: The patient and all family members were given an opportunity to ask questions and understood the discharge instructions. Discharge instructions specifically effects, indications for sooner follow up or return to the emergency department, and the expected course of current diagnosis. Patient condition: Stable Discharge Plan Plan Patient Disposition: HOME (Self Care) Patient condition on transfer: Stable Prescriptions/Referrals Prescriptions/Med Rec: New ondansetron HCl 4 mg tablet 4 mg PO Q6H MDD 4 PRN (Reason: nausea and vomiting) Qty: 16 1RF No Action atorvastatin 40 mg Tablet 40 mg PO HS amitriptyline 100 mg Tablet 100 mg PO HS gabapentin 100 mg capsule 100 mg PO HS albuterol sulfate 90 mcg/actuation HFA aerosol inhaler 2 inh inhalation Q8H PRN (Reason: shortness of breath or wheezing) Qty: 8.5 0RF albuterol sulfate 2.5 mg /3 mL (0.083 %) solution for nebulization 2.5 mg inhalation QID PRN (Reason: shortness of breath or wheezing) Qty: 90 0RF cetirizine 10 mg tablet 10 mg PO QDAY lisinopril 40 mg tablet 40 mg PO QDAY 30 Days Qty: 30 0RF lamotrigine 25 mg tablet 25 mg PO HS metoclopramide HCl 10 mg Tablet 10 mg PO Q6H PRN (Reason: upset stomach) clopidogrel 75 mg Tablet 75 mg PO QDAY 30 Days Qty: 30 4RF (DME) FreeStyle Osmani 3 Sensor Device See Rx Instructions .Route Qty: 1 6RF Rx Instructions: As directed (DME) insulin syr/ndl U100 half windy 0.3 mL 29 gauge x 1/2 syringe See Rx Instructions .Route Qty: 100 0RF Rx Instructions: As directed insulin lispro [Admelog U-100 Insulin lispro] 100 unit/mL solution 1 sliding scale dose subcut USEASDIRECTD Qty: 10 2RF Rx Instructions: Take insulin according to the sliding scale with meals hydroxyzine HCl 25 mg tablet 25 mg PO HS Patient Comments: TAKE ONE TABLET BY MOUTH AT BEDTIME metformin 1,000 mg tablet 1,000 mg PO BID metoprolol tartrate 50 mg tablet 50 mg PO BID dextromethorphan-guaifenesin [Chest Congestion Relief DM] 10-100 mg/5 mL syrup 5 ml PO Q6H PRN (Reason: cough) cyclobenzaprine 10 mg tablet 10 mg PO Q8H hydrocodone-acetaminophen 5-325 mg tablet 1 tab PO Q6H PRN (Reason: pain) Patient Comments: TAKE ONE TABLET BY MOUTH EVERY 6 HOURS NEEDED FOR PAIN (DME) pen needle, diabetic [Comfort EZ Pen Bryan] 31 gauge x 3/16 needle Patient Comments: DIRECTED sennosides [Senna Lax] 8.6 mg Tablet 8.6 mg PO QDAY PRN (Reason: constipation) 30 Days Qty: 30 0RF mirtazapine 15 mg Tablet 15 mg PO HS 30 Days Qty: 30 0RF insulin degludec 200 unit/mL (3 mL) insulin pen 20 unit subcut QDAY Qty: 9 0RF Referrals: Grant Fay MD [Primary Care Provider, Internal Medicine] - In 1 week Problem List Clinical Impression: Nausea & vomiting, Acute hyperglycemia, Diabetes mellitus Patient/Caregiver Discharge Instructions Discharge Activity: activity as tolerated Additional Instructions: Continue your usual medications. Restart your long-acting insulin 10 units once a day. Drink plenty of fluids. Please make an appointment to see your doctor in 3 days. Print Language: German Stand Alone Forms: Lela Award Info., Patient Portal Info Letter
--- NOTE | 2025-07-18 07:53 | XR_ITS ---
CLINICAL INDICATION: COUGH, elevated blood sugar level today TECHNIQUE: XR chest 1V portable Exam date and time: 07/18/2025 at 8:17 a.m. COMPARISON: Chest radiographs 05/19/2025, 04/05/2025, 11/07/2024 and CTA chest 02/02/2024 FINDINGS: No cardiomegaly or congestive heart failure pattern. Aortic atherosclerosis is reidentified. Redemonstration of hyperinflated lucent lungs consistent with pulmonary emphysema with upper lobe predominance. Redemonstration of chronic scarring and architectural distortion in the right lower lung field with effacement of the right costophrenic angle as seen on multiple prior studies. A nodule projecting in the lingular region is compatible with a nipple shadow. No airspace opacities suggestive of pneumonia. No mass detected. No pleural effusion or pneumothorax. No acute osseous abnormality detected. IMPRESSION: No radiographic evidence for acute cardiopulmonary abnormality. Redemonstration of pulmonary emphysema and chronic scarring at the right lung base. - This report was generated utilizing speech recognition software. -
--- NOTE | 2025-07-18 07:53 | EKG_ITS ---
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
[2025-07-18 07:59] VITALS: PULSE 104
[2025-07-18] MEDS: RINGERS LACTATED 1000 ML 1,000 ML 999 ML IV ×2 (08:06→09:40)
[2025-07-18] MEDS: ONDANSETRON INJ 2 MG/ML INJ 2 ML 4 MG IVP (08:06)
[2025-07-18] MEDS: FAMOTIDINE INJ 10 MG/ML VIAL 2 ML 20 MG IVP (08:06)
[2025-07-18] MEDS: INSULIN HUM REGULAR 1 UNIT/0.01 ML (PER UNIT) 10 UNIT SC (08:07)
[2025-07-18 08:29] LABS: Basophils # (Auto) 0.1 Thou/mm3 (0.0-0.2); Basophils % (Auto) 1 % (0-2.5); Eosinophils # (Auto) 0.0 Thou/mm3 (0.0-0.5); Eosinophils % (Auto) 1 % (0-10); Hematocrit 41.8 % (36.0-46.0); Hemoglobin 13.2 g/dL (12.0-16.0); Immature Granulocytes Auto 0.03 Thou/mm3 (0.00-0.00); Lymphocytes # (Auto) 1.2 Thou/mm3 (1.0-4.8); Lymphocytes % (Auto) 14 % (10-50); Mean Corpuscular HGB Conc 31.6 g/dl (31.0-37.0); Mean Corpuscular Hemoglobin 25.6 pg (25.0-35.0); Mean Corpuscular Volume 81 fL (80-100); Monocytes # (Auto) 0.4 Thou/mm3 (0.0-0.8); Monocytes % (Auto) 4 % (0-12); Neutrophils # (Auto) 6.7 Thou/mm3 (1.8-7.7); Neutrophils % (Auto) 80 % (37-80); Nucleated Red Blood Cell # 0.00 Thou/mm3 (0.00-0.00); Nucleated Red Blood Cell % 0 /100 WBC (0); Platelet Count 432 Thou/mm3 (140-440); RDW Standard Deviation 45.2 fL (36.4-46.3); Red Blood Count 5.16 Miln/mm3 (4.00-5.20); White Blood Count 8.4 Thou/mm3 (3.6-11.0)
[2025-07-18 08:49] LABS: Alanine Aminotransferase 28 U/L (10-49); Albumin, Serum 4.4 gm/dL (3.4-4.8); Albumin/Globulin Ratio 2.2 (1.2-2.2); Alkaline Phosphatase 145 U/L (46-116); Anion Gap 19 (7-16); Aspartate Amino Transferase 16 U/L (0-34); BUN/Creatinine Ratio 13 Ratio (12-20); Bilirubin,Total 0.3 mg/dL (0.3-1.2); Blood Urea Nitrogen 15 mg/dL (9-23); Calcium 9.6 mg/dL (8.3-10.6); Calcium (Corrected) 9.6 mg/dL (8.5-10.1); Carbon Dioxide 19.2 mMol/L (20.0-31.0); Chloride 98 mMol/L (98-107); Creatinine (Component) 1.2 mg/dL (0.6-1.3); Estimated Creatinine Clearance 32.9 mL/min (>60); Globulin 2.0 gm/dL (2.3-3.5); Osmolality,Calculated 293 (275-295); Potassium 4.1 mMol/L (3.4-5.1); Sodium 136 mMol/L (136-145); Total Protein 6.4 gm/dL (5.7-8.2); eGFR 52 See Note
[2025-07-18 08:50] LABS: Glucose 480 mg/dL (74-106)
[2025-07-18 09:07] LABS: INR 0.9 (0.9-1.3); Partial Thromboplastin Time 20.2 Seconds (22.0-36.0); Prothrombin Time 9.4 Seconds (9.0-12.2)
[2025-07-18 09:46] VITALS: BP 177/88; PULSE 97; RESP 22; TEMP 36.8; O2SAT 96
[2025-07-18 11:18] VITALS: BP 150/73; PULSE 96; RESP 20; TEMP 37.1; O2SAT 95
== END 2025-07-18 12:11 | disposition home or self-care (01) ==
PROVIDERS: Emergency Provider Family Medicine; PCP Internal Medicine
DX: E11.65 Type 2 diabetes mellitus with hyperglycemia (principal); J43.9 Emphysema, unspecified
CPT/HCPCS: 36415; 71045; 80053; 85025; 85610; 85730; 93005; 96361; 96374; 96375; 99284; J1815; J2405; J3490; J7120

== ENCOUNTER 2025-07-20 08:10 | Emergency (ER) | payer MEDICAID, SELFPAY ==
[2025-07-20 08:17] VITALS: BP 203/80; PULSE 98; RESP 20; TEMP 36.4; O2SAT 98
--- NOTE | 2025-07-20 08:30 | PD.EDNV ---
Nausea/Vomit./Diarrhea-RME/HPI General Chief complaint: Nausea/Vomiting/Diarrhea Stated complaint: NAUSEA, VOMITING Time Seen by Provider: 07/20/25 08:32 Arrival date/time: 07/20/25 08:10 RME / HPI RME / HPI Narrative: DR. HAJI MAIN ED EVALUATION: 60-year-old female with a past medical history of coronary artery disease, hypertension, diabetes, and COPD was brought in by EMS for evaluation of vomiting throughout the night. She reports multiple episodes of non-bloody, non?black-colored emesis, associated with diffuse abdominal pain. No diarrhea. No shortness of breath or chest pain. Related Data Home Medications ?Medication ?Instructions ?Recorded ?Confirmed amitriptyline 100 mg tablet 100 mg PO HS 07/28/19 06/20/25 atorvastatin 40 mg tablet 40 mg PO HS 07/28/19 06/20/25 gabapentin 100 mg capsule 100 mg PO HS 10/28/23 06/20/25 lamotrigine 25 mg tablet 25 mg PO HS 02/10/24 06/20/25 metoclopramide HCl 10 mg tablet 10 mg PO Q6H PRN upset stomach 02/10/24 06/20/25 cetirizine 10 mg tablet 10 mg PO QDAY 04/29/25 06/20/25 cyclobenzaprine 10 mg tablet 10 mg PO Q8H 06/20/25 06/20/25 dextromethorphan-guaifenesin 10 5 ml PO Q6H PRN cough 06/20/25 06/20/25 mg-100 mg/5 mL oral syrup (Chest Congestion Relief DM) hydroxyzine HCl 25 mg tablet 25 mg PO HS 06/20/25 06/20/25 metformin 1,000 mg tablet 1,000 mg PO BID 06/20/25 06/20/25 metoprolol tartrate 50 mg tablet 50 mg PO BID 06/20/25 06/20/25 hydrocodone 5 mg-acetaminophen 325 1 tab PO Q6H PRN pain 06/21/25 06/21/25 mg tablet pen needle, diabetic 31 gauge x 06/21/25 06/21/25/16 (Comfort EZ Pen [place]) Previous Rx's ?Medication ?Instructions ?Recorded blood-glucose sensor (FreeStyle #1 ea 02/11/24 Osmani 3 Sensor device) clopidogrel 75 mg tablet 75 mg PO QDAY 30 days #30 tabs 02/11/24 insulin syr/ndl U100 half windy 0.3 #100 ea 02/11/24 mL 29 gauge x 1/2 albuterol sulfate 2.5 mg/3 mL 2.5 mg (3 mL) inhalation QID PRN 04/05/25 (0.083 %) solution for nebulization shortness of breath or wheezing #90 mL albuterol sulfate 90 mcg/actuation 2 inh inhalation Q8H PRN shortness 04/05/25 aerosol inhaler of breath or wheezing #8.5 grams lisinopril 40 mg tablet 40 mg PO QDAY 30 days #30 tabs 05/02/25 insulin lispro 100 unit/mL 1 sliding scale dose subcut 05/26/25 subcutaneous solution (Admelog USEASDIRECTD #10 mL U-100 Insulin lispro) insulin degludec 200 unit/mL (3 20 unit (0.1 mL) subcut QDAY #9 mL 06/22/25 mL) subcutaneous pen mirtazapine 15 mg tablet 15 mg PO HS 30 days #30 tabs 06/22/25 sennosides 8.6 mg tablet (Senna 8.6 mg PO QDAY PRN constipation 30 06/22/25 Lax) days #30 tabs ondansetron HCl 4 mg tablet 4 mg PO Q6H PRN nausea and 07/18/25 vomiting #16 tabs Allergies Allergy/AdvReac Type Severity Reaction Status Date / Time aspirin Allergy Severe RASH Verified 05/19/25 08:47 cephalexin Allergy Severe Rash Verified 05/19/25 08:47 codeine Allergy Severe RASH Verified 05/19/25 08:47 diphenhydramine Allergy Severe Rash Verified 05/19/25 08:47 Penicillins Allergy Severe RASH Verified 05/19/25 08:47 Review of Systems Review of Systems Systems Reviewed: All systems reviewed, normal except as documented Past Medical History Past Medical History NEUROLOGIC: Positive Neurological Disorders, Migraine and Head Trauma; Negative Seizures CARDIAC: Positive Cardiac Disorders, Myocardial Infarction, Coronary Artery Disease, Atherosclerotic Heart Disease, Hypercholesterolemia, Edema and Hypertension; Negative Congestive Heart Failure RESPIRATORY: Positive Chronic Obstructive Pulmonary Disease (COPD), Asthma, Bronchitis, Pneumonia, Cough, Wheezing, Smoking, Smoking Cessation Counseling and Tobacco Use GASTROINTESTINAL: Positive Gastrointestinal Disorders and Gastroesophageal Reflux Disease; Negative Colorectal Cancer GENITOURINARY: Negative Genitourinary Disorders, Renal Disease or Prostate Cancer REPRODUCTIVE: Positive Previous Pregnancies; Negative Breast Cancer, Pelvic Inflammatory Disease or Testicular Cancer MUSCULOSKELETAL: Positive Musculoskeletal Disorders, Arthritis, Rheumatoid Arthritis and Fractures; Negative Bone Cancer ENT: Positive Head Trauma; Negative Ear Infection ENDOCRINE: Positive Endocrine Disorders and Diabetes Mellitus Type 2; Negative Diabetes Mellitus Type 1 or Hypothyroidism HEMATOLOGIC: Negative Blood Disorders or Sickle Cell Disease PSYCHO/SOCIAL: Positive Recreational Drug Use, Depression and Anxiety OTHER HISTORY: Positive Hospitalization, Falls and Chicken Pox; Negative Autoimmune Disease, Blood Transfusions, Blood Transfusion Reaction, Anesthesia Reactions, Measles, Mumps, Hepatitis B, Hepatitis C, Cancer, Breast Cancer, Cervical Cancer, Colorectal Cancer, Lung Cancer, Ovarian Cancer, Prostate Cancer or Testicular Cancer Family History FAMILY HISTORY: Positive Family Respiratory Disorders, Family Cardiac Disorders, Family Gastrointestinal Problems and Family Surgery; Negative Family Psychiatric Problems, Family Cancer or Family Anesthesia Reaction Surgical History SURGICAL: Positive Cardiac Surgery, Coronary Stent, Cardiac Catheterization and Tubal Ligation; Negative Endocrine Surgery, Ear Surgery, Abdominal Surgery, Joint Replacement or Neurologic Surgery Social History SMOKING STATUS: Current every day smoker SECOND HAND EXPOSURE: Yes SUBSTANCE USE: former substance user, marijuana and amphetamines ED Exam Narrative Physical exam: GENERAL APPEARANCE: alert and oriented x 4, well-developed, well-nourished, no acute distress VITALS: All vitals were reviewed. HEENT: Normocephalic, atraumatic; pupils equal, round, reactive to light; EOMI; mucous membranes pink, moist; oropharynx clear NECK: Supple LUNGS: CTABL; no wheezes, no rales, no rhonchi HEART: Regular rate, regular rhythm; normal S1, S2; no murmurs ABDOMEN: non distended; normal BS; soft, no tenderness, no guarding, no rebound; no masses, no organomegaly, no hernia BACK: no CVA tenderness EXTREMITIES: atraumatic; no edema NEUROLOGIC: awake; alert and oriented x4; cranial nerves II-XII grossly intact; no focal sensory or motor deficits PSYCHIATRIC: appropriate mood and affect SKIN: warm, dry, normal color; no rashes Course Quality Measures none Orders Category Date Time Status Bedside Blood Glucose Q1HR Care 07/20/25 08:34 Active ABG [Arterial Blood Gas] Stat Lab 07/20/25 11:21 Completed Beta Hydroxybutyrate Stat Lab 07/20/25 09:35 Completed CBC Stat Lab 07/20/25 09:35 Completed Comprehensive Metabolic Panel Stat Lab 07/20/25 09:35 Completed Lactate (Lactic Acid) Stat Lab 07/20/25 12:09 Completed Lipase Stat Lab 07/20/25 09:35 Completed Magnesium Stat Lab 07/20/25 09:35 Completed UA, C/S IF [Urinalysis, C/S if Indicated] Stat Lab 07/20/25 12:26 Completed HYDROcodone*/APAP 5/325 [Peytona 5/325] Med 07/20/25 12:28 Discontinued 1 tab PO X1 ONE Ketorolac Inj [Toradol Inj] Med 07/20/25 15:59 Discontinued 15 mg IVP X1 ONE Labetalol IV [Trandate IV] Med 07/20/25 14:01 Discontinued 10 mg IVP X1 ONE Lidocaine 2% Viscous [Xylocaine 2% Viscous] Med 07/20/25 12:28 Discontinued 15 ml PO X1 ONE Morphine* Inj Med 07/20/25 08:32 Discontinued 4 mg IVP X1 ONE Ondansetron Inj [Zofran Inj] Med 07/20/25 08:32 Discontinued 4 mg IVP X1 ONE Sodium Chloride 0.9% 1000 ml [Ns] 1,000 ml Med 07/20/25 08:32 Discontinued IV 999 mls/hr Sodium Chloride 0.9% 1000 ml [Ns] 1,000 ml Med 07/20/25 14:01 Discontinued IV 999 mls/hr mg Hyd/Al Hyd/Rodríguez Susp [Maalox Susp] Med 07/20/25 12:28 Discontinued 30 ml PO X1 ONE Vital Signs Vital signs: Vital Signs Temperature 97.6 F 07/20/25 08:17 Pulse Rate 98 07/20/25 08:17 Respiratory Rate 20 07/20/25 08:17 Blood Pressure 203/80 H 07/20/25 08:17 Pulse Oximetry (%) 98 07/20/25 08:17 Oxygen Delivery Method Aerosol Mask 07/20/25 08:17 Nausea/Vomiting/Diarrhea MDM Narrative MDM Narrative:: ITamara am scribing for and in the presence of Dr. Haji. Patient data External records reviewed:: [facility] previous records and EMS form Clinical information provided by:: patient and EMS Social determinants that could affect healthcare access:: none Patient has the following chronic illnesses:: coronary artery disease, hypertension, diabetes, and COPD How is presenting disease/condition affected by chronic disease/condition?: uneffected by Evaluation data The following diagnostics were reviewed and interpreted by me:: lab results Lab and/or radiology exams considered but not ordered:: none Interpretation Summary: No acute findings. Medications / Prescriptions Medications / Prescriptions considered but not ordered:: none Medication administrations:: Medication Administration History Discontinued Medications Hydrocodone Bitart/Acetaminophen (Hydrocodone/Apap 5/325 Tablet) 1 tab PO X1 ONE Stop: 07/20/25 12:29 Last Admin: 07/20/25 12:40 Dose: 1 tab Documented By: ENZO Al Hydrox/Mg Hydrox/Simethicone (Mg Hyd/Al Hyd/Rodríguez (Maalox Reg) Susp 30 Ml Udc) 30 ml PO X1 ONE Stop: 07/20/25 12:29 Last Admin: 07/20/25 12:40 Dose: 30 ml Documented By: ENZO Sodium Chloride (Ns) 1,000 mls @ 999 mls/hr IV .Q1H1M ONE Stop: 07/20/25 09:32 Last Infusion: 07/20/25 17:06 Dose: Infused Documented By: Admin: 07/20/25 09:57 Dose: 999 mls/hr Documented By: ENZO Sodium Chloride (Ns) 1,000 mls @ 999 mls/hr IV .Q1H1M ONE Stop: 07/20/25 15:01 Last Infusion: 07/20/25 17:22 Dose: 0 mls/hr Documented By: Admin: 07/20/25 16:04 Dose: 999 mls/hr Documented By: ENZO Ketorolac Tromethamine (Ketorolac Inj 30 Mg/Ml Vial) 15 mg IVP X1 ONE Stop: 07/20/25 16:00 Last Admin: 07/20/25 16:05 Dose: 15 mg Documented By: ENZO Labetalol HCl (Labetalol Inj 5 Mg/Ml Vial 20 Ml) 10 mg IVP X1 ONE Stop: 07/20/25 14:02 Last Admin: 07/20/25 16:07 Dose: Not Given Documented By: ENZO Non-Admin Reason: Cancelled by Provider Lidocaine HCl (Lidocaine Viscous 2% 15 Ml Udc) 15 ml PO X1 ONE Stop: 07/20/25 12:29 Last Admin: 07/20/25 12:40 Dose: 15 ml Documented By: ENZO Morphine Sulfate (Morphine Sulf Inj 4 Mg/Ml Vial) 4 mg IVP X1 ONE Stop: 07/20/25 08:33 Last Admin: 07/20/25 09:58 Dose: 4 mg Documented By: ENZO Ondansetron HCl (Ondansetron Inj 2 Mg/Ml Inj 2 Ml) 4 mg IVP X1 ONE Stop: 07/20/25 08:33 Last Admin: 07/20/25 09:58 Dose: 4 mg Documented By: ENZO see above Consultations Consultation(s) initiated? (list below): No Diagnosis Nausea Differential Diagnosis: other (Gastroenteritis, gastritis, and diabetic gastroparesis.) Most likely diagnosis given after review of the tests above:: Vomiting Body aches Admission Indicated Admission indicated?: not indicated Admission Request Was there a request for admission?: No Disposition Plan Disposition Plan: Discharge Discharge Attestation Discharge Attestation: The patient and all family members were given an opportunity to ask questions and understood the discharge instructions. Discharge instructions specifically effects, indications for sooner follow up or return to the emergency department, and the expected course of current diagnosis. Patient condition: Stable Discharge Plan Plan Patient Disposition: HOME (Self Care) Prescriptions/Referrals Prescriptions/Med Rec: No Action atorvastatin 40 mg Tablet 40 mg PO HS amitriptyline 100 mg Tablet 100 mg PO HS gabapentin 100 mg capsule 100 mg PO HS albuterol sulfate 90 mcg/actuation HFA aerosol inhaler 2 inh inhalation Q8H PRN (Reason: shortness of breath or wheezing) Qty: 8.5 0RF albuterol sulfate 2.5 mg /3 mL (0.083 %) solution for nebulization 2.5 mg inhalation QID PRN (Reason: shortness of breath or wheezing) Qty: 90 0RF cetirizine 10 mg tablet 10 mg PO QDAY lisinopril 40 mg tablet 40 mg PO QDAY 30 Days Qty: 30 0RF ondansetron HCl 4 mg tablet 4 mg PO Q6H MDD 4 PRN (Reason: nausea and vomiting) Qty: 16 1RF lamotrigine 25 mg tablet 25 mg PO HS metoclopramide HCl 10 mg Tablet 10 mg PO Q6H PRN (Reason: upset stomach) clopidogrel 75 mg Tablet 75 mg PO QDAY 30 Days Qty: 30 4RF (DME) FreeStyle Osmani 3 Sensor Device See Rx Instructions .Route Qty: 1 6RF Rx Instructions: As directed (DME) insulin syr/ndl U100 half windy 0.3 mL 29 gauge x 1/2 syringe See Rx Instructions .Route Qty: 100 0RF Rx Instructions: As directed insulin lispro [Admelog U-100 Insulin lispro] 100 unit/mL solution 1 sliding scale dose subcut USEASDIRECTD Qty: 10 2RF Rx Instructions: Take insulin according to the sliding scale with meals hydroxyzine HCl 25 mg tablet 25 mg PO HS Patient Comments: TAKE ONE TABLET BY MOUTH AT BEDTIME metformin 1,000 mg tablet 1,000 mg PO BID metoprolol tartrate 50 mg tablet 50 mg PO BID dextromethorphan-guaifenesin [Chest Congestion Relief DM] 10-100 mg/5 mL syrup 5 ml PO Q6H PRN (Reason: cough) cyclobenzaprine 10 mg tablet 10 mg PO Q8H hydrocodone-acetaminophen 5-325 mg tablet 1 tab PO Q6H PRN (Reason: pain) Patient Comments: TAKE ONE TABLET BY MOUTH EVERY 6 HOURS NEEDED FOR PAIN (DME) pen needle, diabetic [Comfort EZ Pen [place]] 31 gauge x 3/16 needle Patient Comments: DIRECTED sennosides [Senna Lax] 8.6 mg Tablet 8.6 mg PO QDAY PRN (Reason: constipation) 30 Days Qty: 30 0RF mirtazapine 15 mg Tablet 15 mg PO HS 30 Days Qty: 30 0RF insulin degludec 200 unit/mL (3 mL) insulin pen 20 unit subcut QDAY Qty: 9 0RF Referrals: Aaron Mclean MD [Primary Care Provider, Family Practice] - In 1 week Problem List Clinical Impression: Vomiting, Body aches Patient/Caregiver Discharge Instructions Education Materials: ED Vomiting (Adult) Print Language: Irish Stand Alone Forms: Lela Award Info., Patient Portal Info Letter
[2025-07-20 09:41] VITALS: BMI 18.5
[2025-07-20] MEDS: SODIUM CHLORIDE 0.9% 1000 ML 1,000 ML 999 ML IV ×2 (09:57→16:04)
[2025-07-20] MEDS: MORPHINE SULF INJ 4 MG/ML VIAL IVP (09:58)
[2025-07-20] MEDS: ONDANSETRON INJ 2 MG/ML INJ 2 ML 4 MG IVP (09:58)
[2025-07-20 10:06] LABS: Basophils # (Auto) 0.0 Thou/mm3 (0.0-0.2); Basophils % (Auto) 0 % (0-2.5); Eosinophils # (Auto) 0.0 Thou/mm3 (0.0-0.5); Eosinophils % (Auto) 0 % (0-10); Hematocrit 40.7 % (36.0-46.0); Hemoglobin 13.4 g/dL (12.0-16.0); Immature Granulocytes Auto 0.03 Thou/mm3 (0.00-0.00); Lymphocytes # (Auto) 0.9 Thou/mm3 (1.0-4.8); Lymphocytes % (Auto) 10 % (10-50); Mean Corpuscular HGB Conc 32.9 g/dl (31.0-37.0); Mean Corpuscular Hemoglobin 26.1 pg (25.0-35.0); Mean Corpuscular Volume 79 fL (80-100); Monocytes # (Auto) 0.4 Thou/mm3 (0.0-0.8); Monocytes % (Auto) 4 % (0-12); Neutrophils # (Auto) 7.9 Thou/mm3 (1.8-7.7); Neutrophils % (Auto) 86 % (37-80); Nucleated Red Blood Cell # 0.00 Thou/mm3 (0.00-0.00); Nucleated Red Blood Cell % 0 /100 WBC (0); Platelet Count 356 Thou/mm3 (140-440); RDW Standard Deviation 44.6 fL (36.4-46.3); Red Blood Count 5.13 Miln/mm3 (4.00-5.20); White Blood Count 9.3 Thou/mm3 (3.6-11.0)
[2025-07-20 10:23] LABS: Beta Hydroxybutyrate 6.2 mmol/L (<0.6)
[2025-07-20 10:40] LABS: Alanine Aminotransferase 28 U/L (10-49); Albumin, Serum 4.5 gm/dL (3.4-4.8); Albumin/Globulin Ratio 2.8 (1.2-2.2); Alkaline Phosphatase 128 U/L (46-116); Anion Gap 20 (7-16); Aspartate Amino Transferase 29 U/L (0-34); BUN/Creatinine Ratio 17 Ratio (12-20); Bilirubin,Total 0.3 mg/dL (0.3-1.2); Blood Urea Nitrogen 17 mg/dL (9-23); Calcium 9.8 mg/dL (8.3-10.6); Calcium (Corrected) 9.8 mg/dL (8.5-10.1); Carbon Dioxide 24.2 mMol/L (20.0-31.0); Chloride 98 mMol/L (98-107); Creatinine (Component) 1.0 mg/dL (0.6-1.3); Estimated Creatinine Clearance 42.0 mL/min (>60); Globulin 1.6 gm/dL (2.3-3.5); Glucose 200 mg/dL (74-106); Lipase 19 U/L (12-53); Magnesium 1.6 mg/dL (1.6-2.6); Osmolality,Calculated 290 (275-295); Potassium 4.1 mMol/L (3.4-5.1); Sodium 142 mMol/L (136-145); Total Protein 6.1 gm/dL (5.7-8.2); eGFR > 60 See Note
[2025-07-20 11:25] LABS: Base Excess -4 (-3-3); HCO3 22 mEq/L (20-26); Inspired Oxygen, FIO2 21 %; O2 Saturation 97 % (91-98); PCO2 38 mmHg (32.0-48.0); PO2 87 mmHg (83-108); pH, Arterial 7.36 (7.35-7.45)
[2025-07-20 11:27] LABS: Puncture Site Left Radial
[2025-07-20 11:31] LABS: Allen Test Performed/OK
[2025-07-20 12:15] LABS: Lactate (Lactic Acid) 0.9 mMol/L (0.4-2.0)
[2025-07-20 12:38] LABS: Collection Type, Urine Clean Catch
[2025-07-20] MEDS: MG HYD/AL HYD/SIME (Maalox Reg) SUSP 30 ML UDC PO (12:40)
[2025-07-20] MEDS: LIDOCAINE VISCOUS 2% 15 ML UDC PO (12:40)
[2025-07-20] MEDS: HYDROcodone/APAP 5/325 TABLET 1 TAB PO (12:40)
[2025-07-20 12:55] VITALS: BP 220/92; PULSE 97; RESP 16; TEMP 36.6; O2SAT 96
[2025-07-20 13:03] LABS: Bacteria,Urine Rare; Bilirubin,Urine Negative (Negative); Blood,Urine 2+ (Negative); Budding Yeast,Urine Present; Clarity,Urine Clear (Clear/Hazy); Color,Urine Lt-Yellow (Lt Yel-Yel); Culture Indicated,Urine Not Indicated; Glucose, Urine 4+ (Negative); Ketones,Urine 4+ (Negative); Leukocyte Esterase,Urine Negative (Negative); Nitrite,Urine Negative (Negative); PH,Urine 6.5 (5.0-7.0); Protein,Urine 3+ (Neg - Trace); RBC,Urine 3 /hpf (0-3); Specific Gravity,Urine 1.017 (1.001-1.035); Squamous Epithelial Cell,Urine 2 /hpf (0-5); Urobilinogen,Urine Negative mg/dL (0.0-1.0); WBC,Urine 1 /hpf (0-5)
[2025-07-20 14:30] VITALS: BP 164/71; PULSE 93; RESP 16; TEMP 37.1; O2SAT 97
[2025-07-20] MEDS: KETOROLAC INJ 30 MG/ML VIAL 15 MG IVP (16:05)
[2025-07-20 16:06] VITALS: BP 177/73; PULSE 101; RESP 16; TEMP 37; O2SAT 97
[2025-07-20 18:12] VITALS: BP 180/81; PULSE 92; O2SAT 95
== END 2025-07-20 18:13 | disposition home or self-care (01) ==
PROVIDERS: Emergency Provider Emergency Medicine; PCP Family Medicine
DX: R11.10 Vomiting, unspecified (principal); E11.9 Type 2 diabetes mellitus without complications; I10 Essential (primary) hypertension; I25.10 Atherosclerotic heart disease of native coronary artery without angina pectoris; J44.9 Chronic obstructive pulmonary disease, unspecified; Z79.84 Long term (current) use of oral hypoglycemic drugs; Z95.5 Presence of coronary angioplasty implant and graft; Z96.60 Presence of unspecified orthopedic joint implant; Z98.51 Tubal ligation status
CPT/HCPCS: 36415; 36600; 80053; 81001; 82010; 82803; 83605; 83690; 83735; 85025; 96361; 96374; 96375; 99283; J1885; J2270; J2405; J3490; J7030; A9270

== ENCOUNTER 2025-07-21 07:56 | Inpatient (IN) | payer MEDICAID, SELFPAY ==
[2025-07-21] VITALS (19 sets, daily range): BP systolic 90–198; BP diastolic 53–110; PULSE 60–112; RESP 10–99; TEMP 36.3–36.8; O2SAT 93–100; BMI 18.5
--- NOTE | 2025-07-21 08:03 | PC.NURSE ---
WHILE CHECKING PT IN AT THE TRIAGE DESK, PT WAS CONTINUALLY CRYING SAYING HELP ME, I DON'T FEEL GOOD. THEN PT LAID HERSELF TO THE LEFT ON THE WHEELCHAIR SAYING I'M SO DIZZY. PT DID NOT PASS OUT AND IMMEDIATELY RESPONDED WHEN NAME CALLED.
--- NOTE | 2025-07-21 08:16 | PD.EDRME ---
Rapid Medical Screening Exam [facility] Arrival date/time: 07/21/25 07:56 60-year-old female with a history of hyperlipidemia, type 2 diabetes, COPD presents to the emergency room with a chief complaint of 10 out of 10 abdominal pain, nausea, vomiting x 3 days. Patient was seen here yesterday and states her symptoms have progressively gotten worse. I have greeted and performed a focused initial assessment of this patient. A comprehensive ED assessment and evaluation of the patient, analysis of all test results, and completion of the medical decision making process will be conducted by additional ED providers. Chief Complaint: Nausea/Vomiting/Diarrhea Time Seen by Provider: 07/21/25 08:04 Vital signs: Vital Signs Temperature 97.4 F 07/21/25 08:04 Pulse Rate 100 07/21/25 08:04 Respiratory Rate 18 07/21/25 08:04 Blood Pressure 90/53 L 07/21/25 08:04 Pulse Oximetry (%) 99 07/21/25 08:04 Oxygen Delivery Method Room Air 07/21/25 08:04 Vital signs reviewed by provider: Yes Exam: 10 out of 10 diffuse abdominal pain with palpation. Patient is a GCS of 15 Clinical Impression: Abdominal pain/gastroenteritis/small bowel obstruction/cholelithiasis/cholecystitis
--- NOTE | 2025-07-21 08:22 | XR_ITS ---
Examination: CT abdomen with intravenous contrast CT pelvis with intravenous contrast 2-D coronal reconstructions 2-D sagittal reconstructions Date and time of exam: July 21, 2025, 1424 hours, comparison 05/19/2025 INDICATIONS: Vomiting diffuse abdominal pain today. CTDI: vol (mGy) 4.45 DLP: (mGycm) 219 Technique: Multiple axial sections of the abdomen and pelvis have been obtained. 64 slice high-resolution scanner used. 3 mm axial sections have been obtained, post intravenous injection 60 cc [id number] 2-D sagittal, coronal reconstructions obtained. Low dose protocols were performed. One or more of the following dose reduction techniques were used; automated exposure control, adjustment of the mA and/or KV according to patient size, use of iterative reconstruction technique. Findings: No focal liver or splenic lesions Suspicious for tiny gallstones No pancreatic mass No hydronephrosis No pericecal inflammatory change Mildly fluid distended small bowel loops No definite obstruction Anteverted atrophic uterus Urinary bladder intact Intact osseous structures IMPRESSION: Recommend hepatobiliary sonography to exclude small gallstones No pericecal inflammatory change No renal or ureteral calculi, no hydronephrosis Mild small bowel ileus No bowel obstruction
[2025-07-21] MEDS: ONDANSETRON ODT 4 MG TABRAP PO (08:38)
[2025-07-21] MEDS: SODIUM CHLORIDE 0.9% 1000 ML 1,000 ML 999 ML IV ×2 (09:07→10:42)
[2025-07-21] MEDS: ONDANSETRON INJ 2 MG/ML INJ 2 ML 4 MG IVP (09:13)
[2025-07-21 09:15] LABS: Basophils # (Auto) 0.1 Thou/mm3 (0.0-0.2); Basophils % (Auto) 1 % (0-2.5); Eosinophils # (Auto) 0.1 Thou/mm3 (0.0-0.5); Eosinophils % (Auto) 1 % (0-10); Hematocrit 41.7 % (36.0-46.0); Hemoglobin 12.9 g/dL (12.0-16.0); Immature Granulocytes Auto 0.07 Thou/mm3 (0.00-0.00); Lymphocytes # (Auto) 1.3 Thou/mm3 (1.0-4.8); Lymphocytes % (Auto) 14 % (10-50); Mean Corpuscular HGB Conc 30.9 g/dl (31.0-37.0); Mean Corpuscular Hemoglobin 25.6 pg (25.0-35.0); Mean Corpuscular Volume 83 fL (80-100); Monocytes # (Auto) 0.4 Thou/mm3 (0.0-0.8); Monocytes % (Auto) 4 % (0-12); Neutrophils # (Auto) 7.6 Thou/mm3 (1.8-7.7); Neutrophils % (Auto) 80 % (37-80); Nucleated Red Blood Cell # 0.00 Thou/mm3 (0.00-0.00); Nucleated Red Blood Cell % 0 /100 WBC (0); Platelet Count 429 Thou/mm3 (140-440); RDW Standard Deviation 47.2 fL (36.4-46.3); Red Blood Count 5.03 Miln/mm3 (4.00-5.20); White Blood Count 9.5 Thou/mm3 (3.6-11.0)
[2025-07-21] MEDS: HYDROmorphone INJ 2 MG/ML VIAL 1 MG IVP (09:15)
[2025-07-21 09:27] LABS: Beta Hydroxybutyrate > 6.4 mmol/L (<0.6)
[2025-07-21 09:41] LABS: Alanine Aminotransferase 23 U/L (10-49); Albumin, Serum 3.9 gm/dL (3.4-4.8); Albumin/Globulin Ratio 2.3 (1.2-2.2); Alkaline Phosphatase 129 U/L (46-116); Anion Gap 25 (7-16); Aspartate Amino Transferase 20 U/L (0-34); BUN/Creatinine Ratio 10 Ratio (12-20); Bilirubin,Total 0.2 mg/dL (0.3-1.2); Blood Urea Nitrogen 13 mg/dL (9-23); Calcium 9.1 mg/dL (8.3-10.6); Calcium (Corrected) 9.2 mg/dL (8.5-10.1); Chloride 100 mMol/L (98-107); Creatinine (Component) 1.3 mg/dL (0.6-1.3); Estimated Creatinine Clearance 32.3 mL/min (>60); Globulin 1.7 gm/dL (2.3-3.5); Lipase 19 U/L (12-53); Osmolality,Calculated 299 (275-295); Potassium 5.0 mMol/L (3.4-5.1); Sodium 135 mMol/L (136-145); Total Protein 5.6 gm/dL (5.7-8.2); eGFR 47 See Note
[2025-07-21 09:46] LABS: Carbon Dioxide 10.2 mMol/L (20.0-31.0); Glucose 626 mg/dL (74-106)
--- NOTE | 2025-07-21 10:22 | PD.EDABDPN ---
ED Abdominal Pain RME/HPI General Chief Complaint: Nausea/Vomiting/Diarrhea Stated complaint: VOMITING, CAN'T EAT,DIFF BREATHING x 4 DAYS Time seen by provider: 07/21/25 08:04 Arrival date/time: 07/21/25 07:56 RME / HPI RME / HPI narrative: 07/21/25 07:56 60-year-old female with a history of hyperlipidemia, type 2 diabetes, COPD presents to the emergency room with a chief complaint of 10 out of 10 abdominal pain, nausea, vomiting x 3 days. Patient was seen here yesterday and states her symptoms have progressively gotten worse. I have greeted and performed a focused initial assessment of this patient. A comprehensive ED assessment and evaluation of the patient, analysis of all test results, and completion of the medical decision making process will be conducted by additional ED providers. DR. VIDALES MAIN ED EVALUATION 60 year old female with history of CAD, hypertension, diabetes, COPD presents to the ED BIBA from home for evaluation of abdominal pain, nausea, and vomiting beginning 3 days ago. Accompanied by feeling slightly short of breath today. Patient reports she was evaluated here yesterday for similar abdominal pain with nausea and vomiting. States her symptoms had improved during ED visit and was discharged home diagnosed with vomiting. Reportedly symptoms returned during the night prompting return to the ED. Denies fevers, chills. Denies chest or cough. Denies diarrhea, constipation. Denies dysuria, urinary frequency and urgency. Exam: 10 out of 10 diffuse abdominal pain with palpation. Patient is a GCS of 15 Impression: Abdominal pain/gastroenteritis/small bowel obstruction/cholelithiasis/cholecystitis Related Data Home Medications ?Medication ?Instructions ?Recorded ?Confirmed amitriptyline 100 mg tablet 100 mg PO HS 07/28/19 06/20/25 atorvastatin 40 mg tablet 40 mg PO HS 07/28/19 06/20/25 gabapentin 100 mg capsule 100 mg PO HS 10/28/23 06/20/25 lamotrigine 25 mg tablet 25 mg PO HS 02/10/24 06/20/25 metoclopramide HCl 10 mg tablet 10 mg PO Q6H PRN upset stomach 02/10/24 06/20/25 cetirizine 10 mg tablet 10 mg PO QDAY 04/29/25 06/20/25 cyclobenzaprine 10 mg tablet 10 mg PO Q8H 06/20/25 06/20/25 dextromethorphan-guaifenesin 10 5 ml PO Q6H PRN cough 06/20/25 06/20/25 mg-100 mg/5 mL oral syrup (Chest Congestion Relief DM) hydroxyzine HCl 25 mg tablet 25 mg PO HS 06/20/25 06/20/25 metformin 1,000 mg tablet 1,000 mg PO BID 06/20/25 06/20/25 metoprolol tartrate 50 mg tablet 50 mg PO BID 06/20/25 06/20/25 hydrocodone 5 mg-acetaminophen 325 1 tab PO Q6H PRN pain 06/21/25 06/21/25 mg tablet pen needle, diabetic 31 gauge x 06/21/25 06/21/2511/24 (Comfort EZ Pen [place]) Previous Rx's ?Medication ?Instructions ?Recorded blood-glucose sensor (FreeStyle #1 ea 02/11/24 Osmani 3 Sensor device) clopidogrel 75 mg tablet 75 mg PO QDAY 30 days #30 tabs 02/11/24 insulin syr/ndl U100 half windy 0.3 #100 ea 02/11/24 mL 29 gauge x 1/2 albuterol sulfate 2.5 mg/3 mL 2.5 mg (3 mL) inhalation QID PRN 04/05/25 (0.083 %) solution for nebulization shortness of breath or wheezing #90 mL albuterol sulfate 90 mcg/actuation 2 inh inhalation Q8H PRN shortness 04/05/25 aerosol inhaler of breath or wheezing #8.5 grams lisinopril 40 mg tablet 40 mg PO QDAY 30 days #30 tabs 05/02/25 insulin lispro 100 unit/mL 1 sliding scale dose subcut 05/26/25 subcutaneous solution (Admelog USEASDIRECTD #10 mL U-100 Insulin lispro) insulin degludec 200 unit/mL (3 20 unit (0.1 mL) subcut QDAY #9 mL 06/22/25 mL) subcutaneous pen mirtazapine 15 mg tablet 15 mg PO HS 30 days #30 tabs 06/22/25 sennosides 8.6 mg tablet (Senna 8.6 mg PO QDAY PRN constipation 30 06/22/25 Lax) days #30 tabs ondansetron HCl 4 mg tablet 4 mg PO Q6H PRN nausea and 07/18/25 vomiting #16 tabs Allergies Allergy/AdvReac Type Severity Reaction Status Date / Time aspirin Allergy Severe RASH Verified 07/21/25 07:59 cephalexin Allergy Severe Rash Verified 07/21/25 07:59 codeine Allergy Severe RASH Verified 07/21/25 07:59 diphenhydramine Allergy Severe Rash Verified 07/21/25 07:59 Penicillins Allergy Severe RASH Verified 07/21/25 07:59 Review of Systems Review of Systems Systems Reviewed: All systems reviewed, normal except as documented Past Medical History Past Medical History NEUROLOGIC: Positive Neurological Disorders, Migraine and Head Trauma CARDIAC: Positive Cardiac Disorders, Myocardial Infarction, Coronary Artery Disease, Atherosclerotic Heart Disease, Hypercholesterolemia, Edema and Hypertension RESPIRATORY: Positive Asthma, Bronchitis, Pneumonia, Cough, Wheezing, Smoking, Smoking Cessation Counseling and Tobacco Use GASTROINTESTINAL: Positive Gastrointestinal Disorders and Gastroesophageal Reflux Disease REPRODUCTIVE: Positive Previous Pregnancies MUSCULOSKELETAL: Positive Musculoskeletal Disorders, Arthritis, Rheumatoid Arthritis and Fractures ENT: Positive Head Trauma ENDOCRINE: Positive Endocrine Disorders and Diabetes Mellitus Type 2 PSYCHO/SOCIAL: Positive Recreational Drug Use, Depression and Anxiety OTHER HISTORY: Positive Hospitalization, Falls and Chicken Pox Family History FAMILY HISTORY: Positive Family Respiratory Disorders, Family Cardiac Disorders, Family Gastrointestinal Problems and Family Surgery Surgical History SURGICAL: Positive Cardiac Surgery, Coronary Stent, Cardiac Catheterization and Tubal Ligation Social History SMOKING STATUS: Current every day smoker SECOND HAND EXPOSURE: Yes SUBSTANCE USE: former substance user, marijuana and amphetamines ED Exam Narrative Physical exam: GENERAL APPEARANCE: alert and oriented x 4, well-developed, well-nourished, grimacing, appears in pain HEENT: Normocephalic, atraumatic; pupils equal, round, reactive to light; EOMI; mucous membranes pink, moist; oropharynx clear NECK: Supple LUNGS: CTABL; no wheezes, no rales, no rhonchi HEART: Tachycardic, regular rhythm; normal S1, S2; no murmurs ABDOMEN: non distended; normal BS; soft, diffuse tenderness, no guarding, no rebound; no masses, no organomegaly, no hernia EXTREMITIES: atraumatic; no edema NEUROLOGIC: awake; alert and oriented x4; cranial nerves II-XII grossly intact; no focal sensory or motor deficits PSYCHIATRIC: appropriate mood and affect SKIN: warm, dry, normal color; no rashes Course Course Course Narrative: 1020 called ICU, LM with nurse for residents to admit for DKA. Quality Measures none Orders Category Date Time Status CT Screening NOW Care 07/21/25 08:[address] abdomen pelvis w con Stat Exams 07/21/25 08:22 Ordered ABG [Arterial Blood Gas] Stat Lab 07/21/25 10:32 Completed Beta Hydroxybutyrate Stat Lab 07/21/25 08:50 Completed CBC Stat Lab 07/21/25 08:50 Completed CMP [Comprehensive Metabolic Panel] Stat Lab 07/21/25 08:50 Completed Lipase Stat Lab 07/21/25 08:50 Completed UA [Urinalysis] Stat Lab 07/21/25 10:51 Completed Urine Culture Stat Lab 07/21/25 11:00 Received HYDROmorphone INJ [Dilaudid Inj] Med 07/21/25 08:24 Discontinued 1 mg IVP X1 ONE Insulin Reg 100 Units/100 ml [Myxredlin] Med 07/21/25 10:18 Discontinued 100 unit in 100 ml IV 0.1 unit/kg/hr Insulin Regular Med 07/21/25 10:18 Discontinued 10 unit IV X1 ONE Ondansetron Inj [Zofran Inj] Med 07/21/25 08:24 Discontinued 4 mg IVP X1 ONE Ondansetron Odt [Zofran Odt] Med 07/21/25 08:12 Discontinued 4 mg PO X1 ONE Sodium Bicarb 8.4% SYR Med 07/21/25 11:07 Discontinued 50 ml IV X1 ONE Sodium Chloride 0.9% 1000 ml [Ns] 1,000 ml Med 07/21/25 08:23 Discontinued IV 999 mls/hr Sodium Chloride 0.9% 1000 ml [Ns] 1,000 ml Med 07/21/25 10:19 Discontinued IV 999 mls/hr Vital Signs Vital signs: Vital Signs Temperature 97.4 F 07/21/25 08:04 Pulse Rate 100 07/21/25 08:04 Respiratory Rate 18 07/21/25 08:04 Blood Pressure 90/53 L 07/21/25 08:04 Pulse Oximetry (%) 99 07/21/25 08:04 Oxygen Delivery Method Room Air 07/21/25 08:04 Pulse ox is 99% on room air which is adequate. Abdominal Pain MDM MDM Narrative MDM Narrative:: Ashley Osborn am scribing for and in the presence of Dr. Vidales. Patient data External records reviewed:: [facility] previous records (I reviewed previous ED visits on 07/18/25 and 07/20/25 ) Clinical information provided by:: patient Social determinants that could affect healthcare access:: none Patient has the following chronic illnesses:: CAD, hypertension, diabetes, COPD How is presenting disease/condition affected by chronic disease/condition?: exacerbated by Evaluation data The following diagnostics were reviewed and interpreted by me:: lab results and EKG tracing(s) Lab and/or radiology exams considered but not ordered:: None Interpretation Summary: ABG pH 7.07, pCO2 30 Carbon dioxide 10.2, anion gap 25, glucose 626, beta-hydroxybutyrate > 6.4 Medications / Prescriptions Medications or Prescriptions considered but not ordered:: None Medication administrations:: Medication Administration History Acetaminophen (Acetaminophen 325 Mg Tablet) 650 mg PO Q6H PRN PRN Reason: Fever >100.4 and pain 1-3 Stop: 08/20/25 11:12 Hydrocodone Bitart/Acetaminophen (Hydrocodone/Apap 5/325 Tablet) 1 tab PO Q4HR PRN PRN Reason: PAIN SCALE 4-6 (Moderate Stop: 07/26/25 11:12 Dextrose (Dextrose 50%-Water Inj 50 Ml Syringe) 25 ml IV [id number] PRN PRN Reason: Blood Sugar - Low Potassium Chloride (Kcl Ivpb) 10 meq in 100 mls @ 100 mls/hr IV .Q1H PRN PRN Reason: IF POTASSIUM LESS THAN 3.3 Stop: 08/20/25 11:12 Magnesium Sulfate (Magnesium Sulfate Ivpb) 2 gm in 50 mls @ 25 mls/hr IV .Q2H PRN PRN Reason: PER DKA PROTOCOL Stop: 08/20/25 11:12 Insulin Human Regular 100 unit (/ IV Miscellaneous Supplies) 100 mls @ 4.445 mls/hr IV .[id number] PRN; Protocol PRN Reason: PER PROTOCOL Stop: 08/20/25 11:12 Last Admin: 07/21/25 12:35 Dose: 0.1 unit/kg/hr, 4.445 mls/hr Documented By: AA Co-signed By: DO Dextrose/Lactated Ringer's (D5-Lr) 1,000 mls @ 250 mls/hr IV .Q4H PRN PRN Reason: PER PROTOCOL Stop: 08/20/25 11:12 Lactated Ringer's (Lactated Ringers) 1,000 mls @ 250 mls/hr IV .Q4H PRN PRN Reason: PER PROTOCOL Stop: 07/22/25 11:12 Last Admin: 07/21/25 12:45 Dose: 250 mls/hr Documented By: DENISSE Potassium Chloride 20 meq/ (Lactated Ringer's) 1,010 mls @ 250 mls/hr IV .Q4H3M PRN PRN Reason: K LEVEL 3.3 TO 5.3mM/L Stop: 08/20/25 11:12 Potassium Chloride 40 meq/ (Lactated Ringer's) 1,020 mls @ 250 mls/hr IV .Q4H5M PRN PRN Reason: K LEVEL < 3.3 mM/L Stop: 08/20/25 11:12 Potassium Chloride 40 meq/ (Dextrose/Lactated Ringer's) 1,020 mls @ 250 mls/hr IV .Q4H5M PRN PRN Reason: K LEVEL < 3.3mM/L Stop: 08/20/25 11:12 Potassium Cl/Dextrose/Lact Ringer's (Kcl 20 Meq/L In D5-Lr) 20 meq in 1,000 mls @ 250 mls/hr IV .Q4H PRN PRN Reason: K LEVEL 3.3 TO 5.3 mM/L Potassium Chloride (Kcl Ivpb) 10 meq in 100 mls @ 50 mls/hr IV PRN PRN PRN Reason: K LEVEL 3.3 to 5.3 & BG > 200 Stop: 08/20/25 11:12 Potassium Phosphate (Pot Phos 15 Mmol In Ns 250 Ml) 15 mmol in 250 mls @ 62.5 mls/hr IV PRN PRN PRN Reason: Phosphate <= 1mg/dL Stop: 08/20/25 11:12 Sodium Phosphate 15 mmol/ (Sodium Chloride) 255 mls @ 62.5 mls/hr IV .Q4H5M PRN PRN Reason: Phosphate <= 1mg/dL and K> than 5.3 Stop: 08/20/25 11:12 Sodium Bicarbonate 88.23 meq/ (Dextrose) 588.23 mls @ 100 mls/hr IV .Q5H53M [facility] Stop: 07/21/25 17:20 Last Admin: 07/21/25 13:08 Dose: 100 mls/hr Documented By: DENISSE Morphine Sulfate (Morphine Sulf Inj 4 Mg/Ml Vial) 2 mg IVP Q2H PRN PRN Reason: PAIN SCALE 7-10 (Severe Stop: 07/26/25 11:12 Last Admin: 07/21/25 12:04 Dose: 2 mg Documented By: DENISSE Ondansetron HCl (Ondansetron Inj 2 Mg/Ml Inj 2 Ml) 4 mg IVP Q6H PRN; Protocol PRN Reason: NAUSEA OR VOMITING Stop: 08/20/25 11:12 Sodium Bicarbonate (Sodium Bicarb Inj 8.4% Syr 50 Ml Syringe) 50 ml IV Q4HR PRN PRN Reason: For ph <= to 7.0 Stop: 08/20/25 11:12 Discontinued Medications Hydromorphone HCl (Hydromorphone Inj 2 Mg/Ml Vial) 1 mg IVP X1 ONE Stop: 07/21/25 08:25 Last Admin: 07/21/25 09:15 Dose: 1 mg Documented By: ED Sodium Chloride (Ns) 1,000 mls @ 999 mls/hr IV .Q1H1M ONE Stop: 07/21/25 09:23 Last Infusion: 07/21/25 10:08 Dose: Infused Documented By: Admin: 07/21/25 09:07 Dose: 999 mls/hr Documented By: ED Insulin Human Regular (Myxredlin) 100 unit in 100 mls @ 4.445 mls/hr IV .[id number] PRN; Protocol PRN Reason: PER PROTOCOL Stop: 08/20/25 10:17 Sodium Chloride (Ns) 1,000 mls @ 999 mls/hr IV .Q1H1M ONE Stop: 07/21/25 11:19 Last Infusion: 07/21/25 12:27 Dose: Infused Documented By: Admin: 07/21/25 10:42 Dose: 999 mls/hr Documented By: ED Insulin Human Regular (Insulin Hum Regular 1 Unit/0.01 Ml (Per Unit)) 10 unit IV X1 ONE Stop: 07/21/25 10:19 Last Admin: 07/21/25 10:38 Dose: 10 unit Documented By: ED Co-signed By: MADHU Ondansetron HCl (Ondansetron Odt 4 Mg Tabrap) 4 mg PO X1 ONE; Protocol Stop: 07/21/25 08:13 Last Admin: 07/21/25 08:38 Dose: 4 mg Documented By: AA Ondansetron HCl (Ondansetron Inj 2 Mg/Ml Inj 2 Ml) 4 mg IVP X1 ONE; Protocol Stop: 07/21/25 08:25 Last Admin: 07/21/25 09:13 Dose: 4 mg Documented By: ED Sodium Bicarbonate (Sodium Bicarb Inj 8.4% Syr 50 Ml Syringe) 50 ml IV X1 ONE Stop: 07/21/25 11:08 Last Admin: 07/21/25 11:30 Dose: 50 ml Documented By: AA See above Consultations Consultation(s) initiated? (list below): Yes Consultation #1 (Physician, Specialty, Details): See course Diagnosis Differential diagnosis abdominal pain: abdominal pain, gastroenteritis and other (DKA) Most likely diagnosis given after review of the tests above:: DKA Admission Indicated Admission indicated?: indicated Admission Request Was there a request for admission?: Yes Admission Attestation Admission request attestation: Discussed case with [] from Hospitalist service regarding admission. Discussed patients ED course, exam findings, labs, and radiology results. The Hospitalist [agrees,declines] to accept the patient for admission. Disposition Plan Disposition Plan: Admit Critical Care Time Critical Care Time Critical Care Time: Yes Total Critical Care Time (min.): 35 Attestation: The high probability of sudden, clinically significant deterioration in the patient's condition required the highest level of my preparedness to intervene urgently. The services I provided to this patient were to treat and/or prevent clinically significant deterioration. Services included the following: chart data review, reviewing nursing notes and/or old charts, documentation time, hr business partner consultant collaboration regarding findings and treatment options, medication orders and management, direct patient care, vital sign assessments and ordering, interpreting and reviewing diagnostic studies and lab tests. Aggregate critical care time includes only time during which I was engaged in work directly related to the patient's care, as described above, whether at bedside or elsewhere in the Emergency Department. It did not include time spent performing other reported procedures or the services of residents, students, nurses or physician assistants. Discharge Plan Plan Patient Disposition: Admit Acute Care w/in Hospital Problem List Clinical Impression: DKA (diabetic ketoacidosis)
[2025-07-21 10:38] LABS: Base Excess -20 (-3-3); HCO3 9 mEq/L (20-26); Inspired Oxygen, FIO2 21 %; O2 Saturation 96 % (91-98); PCO2 30 mmHg (32.0-48.0); PO2 96 mmHg (83-108)
[2025-07-21] MEDS: INSULIN HUM REGULAR 1 UNIT/0.01 ML (PER UNIT) 10 UNIT IV (10:38)
[2025-07-21 10:42] LABS: Allen Test Performed/OK; Puncture Site Right Radial
--- NOTE | 2025-07-21 10:43 | PC.NURSE ---
Dr. Croft is bedside talking to pt.
[2025-07-21 10:44] LABS: pH, Arterial 7.07 (7.35-7.45)
--- NOTE | 2025-07-21 11:05 | PC.NURSE ---
DR Masters and Dr Croft at bedside to attempt central line placement.
[2025-07-21 11:19] LABS: Collection Type, Urine Clean Catch
[2025-07-21] MEDS: Sodium Bicarb Inj 8.4% SYR 50 ML SYRINGE IV (11:30)
[2025-07-21 11:32] LABS: Bacteria,Urine 1+; Bilirubin,Urine Negative (Negative); Blood,Urine Trace (Negative); Budding Yeast,Urine Present; Clarity,Urine Clear (Clear/Hazy); Color,Urine Colorless (Lt Yel-Yel); Glucose, Urine 4+ (Negative); Ketones,Urine 4+ (Negative); Leukocyte Esterase,Urine Negative (Negative); Nitrite,Urine Negative (Negative); PH,Urine 6.0 (5.0-7.0); Protein,Urine 2+ (Neg - Trace); RBC,Urine 1 /hpf (0-3); Specific Gravity,Urine 1.022 (1.001-1.035); Squamous Epithelial Cell,Urine 3 /hpf (0-5); Urobilinogen,Urine Negative mg/dL (0.0-1.0); WBC,Urine 1 /hpf (0-5)
--- NOTE | 2025-07-21 11:58 | XR_ITS ---
EXAMINATION: AP chest single view TECHNIQUE: Portable sitting AP chest single view Date and time: July 21, 2025, 12 0 9:00 p.m., comparison July 18, 2025 INDICATIONS: Post central line placement. FINDINGS: Right internal jugular central line tip SVC satisfactory position No pneumothorax Prominent hyperexpansion Persistent pleural scarring right base No pneumonia or pulmonary edema IMPRESSION: Right internal jugular central line tip SVC satisfactory position, no pneumothorax
[2025-07-21] MEDS: MORPHINE SULF INJ 4 MG/ML VIAL 2 MG IVP ×2 (12:04→15:03)
--- NOTE | 2025-07-21 12:15 | PC.NURSE ---
XRAY AT BEDSIDE OBTAINING IMAGES, PER ELMA WEI TO USE CENTRAL LINE.
--- NOTE | 2025-07-21 12:30 | PD.RESPROC ---
PROCEDURES: Procedure Date / Time 07/21/25 Time start: 1045 Time complete Procedure Narrative Procedure Narrative: Attending Attestation: I was not present at time of procedure. However I was aware and agree with placement of CVC. Follow-up chest x-ray shows no significant postprocedural pneumothorax and adequate positioning of the catheter tip. Central Line Placement Right IJ: Indication(s): poor, or inadequate peripheral venous access Informed consent obtained: from patient Time out done, and the following verified: correct patient, side and site, procedure, patient position and implants and/or equipment Patient placed on monitor/pulse ox: Yes Hand Hygiene: alcohol-based hand rub Max Sterile Barrier Techniques used: cap, mask, sterile gown, sterile gloves and sterile full body drape Central line prep: Chlorhexidine scrub Local anesthesia used: lidocaine 1% Amount of anesthesia used (mL): 3 Ultrasound used for placement: Yes Sterile Technique if Ultrasound used, including sterile gel: yes Central line lumen inserted: triple Post procedure: sutured in place, good blood return, all ports aspirated, flushed, capped and sterile dressing applied Post procedure x-ray: tip of catheter in good position and no pneumothorax seen Patient tolerated procedure: well and no complications EBL(ml): 2 Complications: none Procedure comment: The patient was placed in Trendelenburg position. The right neck was prepped using chlorhexidine scrub and draped in sterile fashion. Using real-time ultrasound, with sterile probe cover and sterile gel, the introducer needle was inserted into the vein under direct ultrasound visualization. Venous blood was withdrawn. The syringe was removed and a guidewire was advanced into the introducer needle. The guidewire was visualized in the appropriate vein by ultrasound. A small incision was made at the skin surface with a scalpel and the introducer needle was exchanged for a dilator over the guidewire. After appropriate dilation was obtained, the dilator was exchanged over the wire for a central venous catheter. The wire was removed and the catheter was sutured in place. A biopatch was placed at the insertion site. A sterile op-site was placed over the catheter and biopatch. The patient tolerated the procedure without any hemodynamic compromise. At time of procedure completion, all ports aspirated and flushed properly. Chest X Ray afterwards pending official read, but appears in good position. Case disclosed with Attending Dr. Marilia Croft, PGY 1
[2025-07-21] MEDS: INSULIN REG 100 UNITS/100 ML 100 UNIT in PRE-MIXED 1 BAG IV (12:35)
[2025-07-21 12:40] LABS: Lactate (Lactic Acid) 2.9 mMol/L (0.4-2.0)
[2025-07-21] MEDS: RINGERS LACTATED 1000 ML 1,000 ML 250 ML IV (12:45)
--- NOTE | 2025-07-21 12:51 | PC.NURSE ---
Patient presents to ED with c/o upper abd pain with nausea/vomiting, loss of appetite. Patient states pain now is 6/10. Patient is alert and oriented x4, laying in gurney. Patient call light within reach.
[2025-07-21] MEDS: Sodium Bicarb 8.4% 50ml Vial* 88.23 MEQ in DEXTROSE 5%-WATER 500 ML 100 MEQ IV (13:08)
[2025-07-21 13:22] LABS: Albumin, Serum 3.7 gm/dL (3.4-4.8); Anion Gap 22 (7-16); BUN/Creatinine Ratio 11 Ratio (12-20); Blood Urea Nitrogen 13 mg/dL (9-23); Calcium 8.3 mg/dL (8.3-10.6); Calcium (Corrected) 8.5 mg/dL (8.5-10.1); Chloride 109 mMol/L (98-107); Creatinine (Component) 1.2 mg/dL (0.6-1.3); Estimated Creatinine Clearance 35.0 mL/min (>60); Magnesium 1.9 mg/dL (1.6-2.6); Osmolality,Calculated 302 (275-295); Phosphorous 3.0 mg/dL (2.4-5.1); Potassium 4.6 mMol/L (3.4-5.1); Sodium 142 mMol/L (136-145); eGFR 52 See Note
[2025-07-21 14:03] LABS: Carbon Dioxide 10.6 mMol/L (20.0-31.0)
[2025-07-21 14:04] LABS: Glucose 438 mg/dL (74-106)
--- NOTE | 2025-07-21 14:43 | ESHP_ITS ---
<Statement entered by Rene Giordano MD - 07/21/25 18:15> I have reviewed the note and agree with the resident's assessment & plan with exceptions as below. I have personally reviewed labs, imaging, home meds/prior records, examined the patient, formulated and discussed management plan with my attending 60-year-old female with a history of insulin-dependent T2DM, hypertension, hyperlipidemia, COPD, CAD status post stents (on Plavix), bipolar disorder, anxiety, and right foot ulcer was similar to the ICU on 07/21/2025 due to DKA. Patient came in initially with complaints of nausea and vomiting that started around 2 or 3 days ago. Patient stated that she was recently taken off her insulin by her primary care physician and was switched to Januvia and pioglitazone as well as metformin, but that she felt it was not controlling her blood sugars quite well. She mentioned that she has not been able to keep anything down due to nausea and vomiting. Of note the patient was seen on 07/20/2025 for body aches at that time had a beta-hydroxybutyrate of 6.2 but blood sugars over 200. Patient was also recently in our hospital due to DKA and was recently discharged last month on 06/22/2025. Otherwise no other complaints at this time. Patient also has a chronic right plantar wound for which she gets outpatient wound care. In summary: #DKA Initially presented with nausea and vomiting Beta-hydroxybutyrate 6.2 and anion gap of 25 on presentation with bicarb of 10.2 and pH of 7.07 on ABG. Glucose was 626 and UA was positive for ketones. Central line was placed on the right IJ as patient has very poor peripheral access Plan: DKA protocol 1 amp of sodium bicarb and 1 bag of sodium bicarb drip ordered Will continue to monitor until patient's gap closes. Downgrade tomorrow in the am if gap closed. Rene Giordano PGY2 Disclaimer: Even though this this note was dictated by speech recognition and even though it was carefully revised there may still be minor errors in synoptic meteorologist due to voice recognition software. Documentation for date of: 07/21/25 HPI History of Present Illness Chief complaint: Nausea/Vomitting History of present illness: This patient is a 60-year-old female with a history of insulin-dependent T2DM, hypertension, hyperlipidemia, COPD, CAD status post stents (on Plavix), bipolar disorder, anxiety, and right foot ulcer who presented to [facility] ED on 07/21 for nausea/vomiting. Patient was admitted to the ICU for management of DKA. The patient is well-known to [facility] and was recently discharged for DKA on 06/22/2025. During that recent hospitalization, the patient was also treated for MRSA of her right foot ulcer and was discharged with doxycycline to complete her course of antibiotics. The patient was doing well since her discharge, however about 4 days ago, the patient stated that her PCP discontinued her insulin and put the patient on a combination of sitagliptin (Januvia) and pioglitazone in addition to her home metformin for control of her T2DM. Since then, the patient has not used any insulin and had slowly worsening nausea and vomiting, to the point where she is unable to take any oral medications. This prompted the patient to seek care at [facility] ED. At this time, the patient denies any chest pain, shortness of breath, hematemesis, hematuria, and dysuria. Patient does complain of significant abdominal pain that is worst in her epigastric and suprapubic region, as well as significant pain around her right foot ulcer on the anterior portion of her right sole. ED course: Initial vitals were significant for blood pressure of 90/53. Initial labs significant for sodium 135, bicarb of 10.2, anion gap of 25, creatinine of 1.3, glucose of 626, and beta hydroxybutyrate greater than 6.4. Urinalysis significant for 2+ protein, 4+ glucose, 4+ ketones, and 1+ urine bacteria. ABG significant for pH of 7.07 and bicarb of 9. Blood cultures and urine culture collected 07/21. CT abdomen/pelvis 07/21 unremarkable. Past Surgical History: Tubal ligation Family History: Noncontributory Alcohol Intake: N/A Tobacco/Vape Use: 3-4 cigarettes daily Other Drug Use: Marijuana use every other day, remote history of methamphetamine use (about 10 years ago) Review of Systems Review of Systems Systems Reviewed: All systems reviewed, normal except as documented Exam Vital Signs Temp Pulse Resp BP Pulse Ox O2 Del Method 97.6 F 96 19 185/83 H 98 Room Air 07/21/25 13:00 07/21/25 13:00 07/21/25 13:00 07/21/25 13:00 07/21/25 13:00 07/21/25 12:08 Narrative Exam Physical Exam: General: Alert, acute distress. Skin: Warm, dry, intact. Head: Normocephalic, atraumatic. Flaky white circular patch located on lower left posterior head with clear defined borders, about 2 cm x 3 cm, pruritic. Eye: Normal conjunctiva, PERRL. Throat: Oral mucosa dry. No obvious lesions in oropharynx. Cardiovascular: Tachycardic and regular rhythm, no murmur, +S1/S2. Respiratory: Lungs are clear to auscultation, respirations unlabored, no crackles, no wheezing. Gastrointestinal: Soft, diffusely tender to light palpation which is worse in epigastric and suprapubic regions, non-distended. Extremities: No edema, no cyanosis, no clubbing. 2+ radial pulse bilaterally, 2+ pedal pulse bilaterally. Significantly tender right foot ulcer, about 3 cm x 5 cm x 1 cm in size, with straw-colored drainage noted on the patient's dressing, and yellow/white color throughout ulcer. No pus or drainage expressed from ulcer during compression of patient's right foot. Neuro: No focal deficits observed. Conversant, moving all extremities. No overt cerebellar signs/incoordination. Psychiatric: Cooperative, sad affect. Results: Labs 07/21/25 08:50 07/21/25 15:39 Labs: Short CBC 07/21/25 Range/Units 08:50 WBC 9.5 (3.6-11.0) Thou/mm3 Hgb 12.9 (12.0-16.0) g/dL Hct 41.7 (36.0-46.0) % Plt Count 429 D (140-440) Thou/mm3 BMP 07/21/25 07/21/25 08:50 12:25 Sodium 135 L 142 Potassium 5.0 D 4.6 Chloride 100 109 H Carbon Dioxide 10.2 L* 10.6 L* BUN 13 13 Creatinine 1.3 1.2 Glucose 626 H* D 438 H* D Calcium 9.1 8.3 Liver Function 07/21/25 07/21/25 Range/Units 08:50 12:25 Total Bilirubin 0.2 L (0.3-1.2) mg/dL AST 20 (0-34) U/L ALT 23 (10-49) U/L Alkaline Phosphatase 129 H (46-116) U/L Albumin 3.9 D 3.7 (3.4-4.8) gm/dL Urine 07/21/25 Range/Units 10:51 Urine Color Colorless A (Lt Yel-Yel) Urine Clarity Clear (Clear/Hazy) Urine pH 6.0 (5.0-7.0) Ur Specific [place] 1.022 (1.001-1.035) Urine Protein 2+ A (Neg - Trace) Urine Glucose (UA) 4+ A (Negative) ABG Interpretation ABG results: 07/21/25 10:32 ABG pH 7.07 L* D ABG pCO2 30 L ABG pO2 96 ABG HCO3 9 L* ABG O2 Saturation 96 ABG Base Excess -20 L Quality Measures Quality Measures VTE prophylaxis Medications Home Medications and Allergies Home Medications ?Medication ?Instructions ?Recorded ?Confirmed ?Type amitriptyline 100 mg tablet 100 mg PO HS 07/28/1907/12 History atorvastatin 40 mg tablet 40 mg PO HS 07/28/19 5 History gabapentin 100 mg capsule 100 mg PO HS 10/28/23 History lamotrigine 25 mg tablet 25 mg PO HS 02/10/24 5 History cetirizine 10 mg tablet 10 mg PO QDAY 04/29/2507/21 History cyclobenzaprine 10 mg tablet 10 mg PO Q8H 06/20/2507/05 History dextromethorphan-guaifenesin 10 5 ml PO Q6H PRN cough 06/20/25 06/20/25 History mg-100 mg/5 mL oral syrup (Chest Congestion Relief DM) hydroxyzine HCl 25 mg tablet 25 mg PO HS 06/20/2507/12 History metformin 1,000 mg tablet 1,000 mg PO BID 06/20/2507/05 History metoprolol tartrate 50 mg tablet 50 mg PO BID 06/20/25 07/21/25 History hydrocodone 5 mg-acetaminophen 325 1 tab PO Q6H PRN pa in 06/21/25 06/21/25 History mg tablet pen needle, diabetic 31 gauge x 06/21/25 06/21/25 His tory 3/16 (Comfort EZ Pen [place]) pioglitazone 30 mg tablet 30 mg PO QDAY 07/21/2507/21 History sitagliptin phosphate 50 mg tablet 50 mg PO QDAY 07/2107/21/25 History (Januvia) Allergies Allergy/AdvReac Type Severity Reaction Status Date / Time aspirin Allergy Severe RASH Verified 07/21/25 07:59 cephalexin Allergy Severe Rash Verified 07/21/25 07:59 codeine Allergy Severe RASH Verified 07/21/25 07:59 diphenhydramine Allergy Severe Rash Verified 07/21/25 07:59 Penicillins Allergy Severe RASH Verified 07/21/25 07:59 Visit Medications Acetaminophen (Acetaminophen 325 Mg Tablet) 650 mg PO Q6H PRN PRN Reason: Fever >100.4 and pain 1-3 Stop: 08/20/25 11:12 Hydrocodone Bitart/Acetaminophen (Hydrocodone/Apap 5/325 Tablet) 1 tab PO Q4HR PRN PRN Reason: PAIN SCALE 4-6 (Moderate Stop: 07/26/25 11:12 Dextrose (Dextrose 50%-Water Inj 50 Ml Syringe) 25 ml IV [id number] PRN PRN Reason: Blood Sugar - Low Potassium Chloride (Kcl Ivpb) 10 meq in 100 mls @ 100 mls/hr IV .Q1H PRN PRN Reason: IF POTASSIUM LESS THAN 3.3 Stop: 08/20/25 11:12 Magnesium Sulfate (Magnesium Sulfate Ivpb) 2 gm in 50 mls @ 25 mls/hr IV .Q2H PRN PRN Reason: PER DKA PROTOCOL Stop: 08/20/25 11:12 Insulin Human Regular 100 unit (/ IV Miscellaneous Supplies) 100 mls @ 4.445 mls/hr IV .[id number] PRN; Protocol PRN Reason: PER PROTOCOL Stop: 08/20/25 11:12 Last Admin: 07/21/25 12:35 Dose: 0.1 unit/kg/hr, 4.445 mls/hr Dextrose/Lactated Ringer's (D5-Lr) 1,000 mls @ 250 mls/hr IV .Q4H PRN PRN Reason: PER PROTOCOL Stop: 08/20/25 11:12 Lactated Ringer's (Lactated Ringers) 1,000 mls @ 250 mls/hr IV .Q4H PRN PRN Reason: PER PROTOCOL Stop: 07/22/25 11:12 Last Admin: 07/21/25 12:45 Dose: 250 mls/hr Potassium Chloride 20 meq/ (Lactated Ringer's) 1,010 mls @ 250 mls/hr IV .Q4H3M PRN PRN Reason: K LEVEL 3.3 TO 5.3mM/L Stop: 08/20/25 11:12 Potassium Chloride 40 meq/ (Lactated Ringer's) 1,020 mls @ 250 mls/hr IV .Q4H5M PRN PRN Reason: K LEVEL < 3.3 mM/L Stop: 08/20/25 11:12 Potassium Chloride 40 meq/ (Dextrose/Lactated Ringer's) 1,020 mls @ 250 mls/hr IV .Q4H5M PRN PRN Reason: K LEVEL < 3.3mM/L Stop: 08/20/25 11:12 Potassium Cl/Dextrose/Lact Ringer's (Kcl 20 Meq/L In D5-Lr) 20 meq in 1,000 mls @ 250 mls/hr IV .Q4H PRN PRN Reason: K LEVEL 3.3 TO 5.3 mM/L Potassium Chloride (Kcl Ivpb) 10 meq in 100 mls @ 50 mls/hr IV PRN PRN PRN Reason: K LEVEL 3.3 to 5.3 & BG > 200 Stop: 08/20/25 11:12 Potassium Phosphate (Pot Phos 15 Mmol In Ns 250 Ml) 15 mmol in 250 mls @ 62.5 mls/hr IV PRN PRN PRN Reason: Phosphate <= 1mg/dL Stop: 08/20/25 11:12 Sodium Phosphate 15 mmol/ (Sodium Chloride) 255 mls @ 62.5 mls/hr IV .Q4H5M PRN PRN Reason: Phosphate <= 1mg/dL and K> than 5.3 Stop: 08/20/25 11:12 Sodium Bicarbonate 88.23 meq/ (Dextrose) 588.23 mls @ 100 mls/hr IV .Q5H53M BIRDIE Stop: 07/21/25 17:20 Last Admin: 07/21/25 13:08 Dose: 100 mls/hr Morphine Sulfate (Morphine Sulf Inj 4 Mg/Ml Vial) 2 mg IVP Q2H PRN PRN Reason: PAIN SCALE 7-10 (Severe Stop: 07/26/25 11:12 Last Admin: 07/21/25 12:04 Dose: 2 mg Ondansetron HCl (Ondansetron Inj 2 Mg/Ml Inj 2 Ml) 4 mg IVP Q6H PRN; Protocol PRN Reason: NAUSEA OR VOMITING Stop: 08/20/25 11:12 Sodium Bicarbonate (Sodium Bicarb Inj 8.4% Syr 50 Ml Syringe) 50 ml IV Q4HR PRN PRN Reason: For ph <= to 7.0 Stop: 08/20/25 11:12 Discontinued Medications Hydromorphone HCl (Hydromorphone Inj 2 Mg/Ml Vial) 1 mg IVP X1 ONE Stop: 07/21/25 08:25 Last Admin: 07/21/25 09:15 Dose: 1 mg Sodium Chloride (Ns) 1,000 mls @ 999 mls/hr IV .Q1H1M ONE Stop: 07/21/25 09:23 Last Infusion: 07/21/25 10:08 Dose: Infused Insulin Human Regular (Myxredlin) 100 unit in 100 mls @ 4.445 mls/hr IV .[id number] PRN; Protocol PRN Reason: PER PROTOCOL Stop: 08/20/25 10:17 Sodium Chloride (Ns) 1,000 mls @ 999 mls/hr IV .Q1H1M ONE Stop: 07/21/25 11:19 Last Infusion: 07/21/25 12:27 Dose: Infused Insulin Human Regular (Insulin Hum Regular 1 Unit/0.01 Ml (Per Unit)) 10 unit IV X1 ONE Stop: 07/21/25 10:19 Last Admin: 07/21/25 10:38 Dose: 10 unit Ondansetron HCl (Ondansetron Odt 4 Mg Tabrap) 4 mg PO X1 ONE; Protocol Stop: 07/21/25 08:13 Last Admin: 07/21/25 08:38 Dose: 4 mg Ondansetron HCl (Ondansetron Inj 2 Mg/Ml Inj 2 Ml) 4 mg IVP X1 ONE; Protocol Stop: 07/21/25 08:25 Last Admin: 07/21/25 09:13 Dose: 4 mg Sodium Bicarbonate (Sodium Bicarb Inj 8.4% Syr 50 Ml Syringe) 50 ml IV X1 ONE Stop: 07/21/25 11:08 Last Admin: 07/21/25 11:30 Dose: 50 ml Assessment & Plan Plan This patient is a 60-year-old female with a history of insulin-dependent T2DM, hypertension, hyperlipidemia, COPD, CAD status post stents (on Plavix), bipolar disorder, anxiety, and right foot ulcer who presented to [facility] ED on 07/21 for nausea/vomiting. Patient was admitted to the ICU for management of DKA. NEURO #No active problems CARDIO #Hypertension DDx: Primary, anxiety Rx: Resume home metoprolol tartrate 50 mg twice daily once patient is able to tolerate oral intake Resume home lisinopril 40 mg daily once patient is able to tolerate oral intake and has improvement of renal function Labetalol 5 mg IV every 6 hours as needed for SBP >180 PULM #No active problems GI #No active problems NEPHRO #HAGMA #Lactic acidosis, resolved Dx: Initial labs in ED significant for bicarb of 10.2 and anion gap of 25 Lactic acid on admission 2.9 => 1.7 Rx: Treat underling DKA with DKA protocol #LA DDx: Prerenal azotemia, ATN Dx: Patient noted to have creatinine of 1.3 on admission with baseline creatinine 0.8 Rx: Avoid nephrotoxic drugs and renally dose medication Continue to monitor with renal panel Encourage oral fluid intake once patient is cleared for oral intake URO #No active problems HEME #No active problems ENDO #DKA #Insulin dependent T2DM Dx: Glucose 626 and beta-hydroxybuterate over 6.4 on admission ABG on admission pH 7.07, pCO2 30, and bicarb 9 Lactic acid on admission 2.9 Urinalysis shows 4+ glucose and 4+ ketones Rx: DKA protocol with insulin drip Renal function panel every 4 hours Magnesium & phosphorus check every 4 hours Lactic acid check every 4 hours Beta-hydroxybuterate ordered daily Patient NPO Strict input and output ID #No active problems MSK #No active problems SKIN #White circular patch on lower left posterior head DDx: Tinea capitis, psoriasis Rx: Consider oral antifungal once stabilized for downgrade to medical floors #Right foot ulcer Rx: [place] every 4 hours as needed for moderate pain Morphine 2 mg IV every 2 hours as needed for severe pain DVT prophylaxis: Heparin GI prophylaxis: None Diet: NPO Oswald: N/A Lines: Peripheral IV, RIJ Central line Antibiotics: N/A CODE STATUS: FULL Vent Status: N/A Reason for ICU care: DKA Patient plan of care was discussed with the attending etl architect, Dr. Capellan and senior resident Dr. Masters (PGY-2). Harshad Croft, PGY-1 Attending Provider Attestation/Addendum Patient seen and examined with the above resident, Harshad Croft, DO. I agree with the findings, assessment, and plan of care as document except for any differences below. Patient well-known to ICU service with recurrent admissions for diabetic ketoacidosis. Recent right foot ulcer is being managed by outpatient wound care. Compared to prior admissions that I have assessed this, this is improved gradually. Patient has already completed 2 rounds of antibiotics and at this point we will continue to monitor without any treatment other than topically. Patient with significant hyperglycemia and dehydration. Started on IV insulin drip and will continue monitor serial labs to resolution of ketoacidosis. Patient remains otherwise hemodynamically stable. Labs to be followed as per protocol and electrolyte replacement to be aggressively done with ongoing IV insulin. Patient will have to have ice chips and sips. Will avoid fluid otherwise is likely to have significant nausea and vomiting precipitated by this. Right IJ central line was placed given difficulty with access. Will probably remove this after resolution of acute phase of her illness. Monitor urine output and resolution of acute kidney injury. Total critical care time: I personally spent 30 minutes for review of physiologic parameters, directing plan of care throughout the day, coordination of care with other specialties, and counseling patient at bedside. This is exclusive of time spent teaching of staff performing any separate billable procedures. Patient remains at significant risk for further morbidity and mortality warranting close monitoring care only available in the ICU. Critical care services required for diabetic ketoacidosis without coma/type 1 diabetes, diabetic foot ulcer, acute renal failure/azotemia.
[2025-07-21] MEDS: LABETALOL INJ 5 MG/ML VIAL 20 ML IVP ×2 (15:04→19:29)
[2025-07-21 15:38] LABS: Reflex Lactate? Y
[2025-07-21 16:02] LABS: Lactate (Lactic Acid) 1.7 mMol/L (0.4-2.0)
[2025-07-21] MEDS: HEPARIN SOD INJ 5000 UNIT/ML VIAL SC (16:27)
[2025-07-21] MEDS: POT CHL ADDITIVE 20 MEQ in RINGERS LACTATED 1000 ML 1,000 ML 250 MEQ IV (17:14)
[2025-07-21 17:51] LABS: Albumin, Serum 2.9 gm/dL (3.4-4.8); Anion Gap 11 (7-16); BUN/Creatinine Ratio 14 Ratio (12-20); Blood Urea Nitrogen 13 mg/dL (9-23); Calcium 7.6 mg/dL (8.3-10.6); Calcium (Corrected) 8.5 mg/dL (8.5-10.1); Carbon Dioxide 23.7 mMol/L (20.0-31.0); Chloride 108 mMol/L (98-107); Creatinine (Component) 0.9 mg/dL (0.6-1.3); Estimated Creatinine Clearance 46.6 mL/min (>60); Glucose 252 mg/dL (74-106); Magnesium 1.5 mg/dL (1.6-2.6); Osmolality,Calculated 294 (275-295); Phosphorous 1.3 mg/dL (2.4-5.1); Potassium 3.5 mMol/L (3.4-5.1); Sodium 143 mMol/L (136-145); eGFR > 60 See Note
[2025-07-21] MEDS: POT CHL ADDITIVE 20 MEQ in DEXTROSE 5%-LACTATED RINGERS 1,000 ML 250 MEQ IV ×2 (18:10→23:56)
[2025-07-21] MEDS: Magnesium Sulfate 2 GM Ivpb 2 GM/50 ML BAG IV ×2 (18:40→21:03)
[2025-07-21 19:38] LABS: Lactate (Lactic Acid) 1.8 mMol/L (0.4-2.0)
[2025-07-21 20:03] LABS: Albumin, Serum 3.0 gm/dL (3.4-4.8); Anion Gap 9 (7-16); BUN/Creatinine Ratio 14 Ratio (12-20); Blood Urea Nitrogen 11 mg/dL (9-23); Calcium 8.0 mg/dL (8.3-10.6); Calcium (Corrected) 8.8 mg/dL (8.5-10.1); Carbon Dioxide 28.9 mMol/L (20.0-31.0); Chloride 106 mMol/L (98-107); Creatinine (Component) 0.8 mg/dL (0.6-1.3); Estimated Creatinine Clearance 52.5 mL/min (>60); Glucose 195 mg/dL (74-106); Magnesium 1.7 mg/dL (1.6-2.6); Osmolality,Calculated 291 (275-295); Phosphorous 1.3 mg/dL (2.4-5.1); Potassium 3.5 mMol/L (3.4-5.1); Sodium 144 mMol/L (136-145); eGFR > 60 See Note
[2025-07-21] MEDS: METOPROLOL TARTRATE 25 MG TABLET 50 MG PO (20:05)
[2025-07-21] MEDS: POT PHOS 15 mMol in NS 250 ML 15 MMOL/250 ML BAG 62.5 MMOL IV (20:05)
[2025-07-21 23:18] LABS: Lactate (Lactic Acid) 1.4 mMol/L (0.4-2.0)
[2025-07-21 23:44] LABS: Albumin, Serum 2.6 gm/dL (3.4-4.8); Anion Gap 4 (7-16); BUN/Creatinine Ratio 14 Ratio (12-20); Blood Urea Nitrogen 10 mg/dL (9-23); Calcium 7.6 mg/dL (8.3-10.6); Calcium (Corrected) 8.7 mg/dL (8.5-10.1); Carbon Dioxide 31.0 mMol/L (20.0-31.0); Chloride 108 mMol/L (98-107); Creatinine (Component) 0.7 mg/dL (0.6-1.3); Estimated Creatinine Clearance 60.0 mL/min (>60); Glucose 107 mg/dL (74-106); Magnesium 2.5 mg/dL (1.6-2.6); Osmolality,Calculated 283 (275-295); Phosphorous 2.7 mg/dL (2.4-5.1); Potassium 4.1 mMol/L (3.4-5.1); Sodium 143 mMol/L (136-145); eGFR > 60 See Note
[2025-07-22] VITALS (18 sets, daily range): BP systolic 139–206; BP diastolic 62–98; PULSE 60–80; RESP 13–22; TEMP 36.3–37.1; O2SAT 94–99; BMI 20.7; BMI 80.3
[2025-07-22] MEDS: INSULIN DEGLUDEC 5 UNIT/0.05 ML (PER 5 UNITS) 15 UNIT SC ×2 (00:40→21:07)
[2025-07-22 05:30] LABS: Basophils # (Auto) 0.1 Thou/mm3 (0.0-0.2); Basophils % (Auto) 1 % (0-2.5); Eosinophils # (Auto) 0.5 Thou/mm3 (0.0-0.5); Eosinophils % (Auto) 4 % (0-10); Hematocrit 31.8 % (36.0-46.0); Hemoglobin 10.4 g/dL (12.0-16.0); Immature Granulocytes Auto 0.03 Thou/mm3 (0.00-0.00); Lymphocytes # (Auto) 2.8 Thou/mm3 (1.0-4.8); Lymphocytes % (Auto) 24 % (10-50); Mean Corpuscular HGB Conc 32.7 g/dl (31.0-37.0); Mean Corpuscular Hemoglobin 25.8 pg (25.0-35.0); Mean Corpuscular Volume 79 fL (80-100); Monocytes # (Auto) 0.9 Thou/mm3 (0.0-0.8); Monocytes % (Auto) 7 % (0-12); Neutrophils # (Auto) 7.5 Thou/mm3 (1.8-7.7); Neutrophils % (Auto) 64 % (37-80); Nucleated Red Blood Cell # 0.00 Thou/mm3 (0.00-0.00); Nucleated Red Blood Cell % 0 /100 WBC (0); Platelet Count 359 Thou/mm3 (140-440); RDW Standard Deviation 43.8 fL (36.4-46.3); Red Blood Count 4.03 Miln/mm3 (4.00-5.20); White Blood Count 11.7 Thou/mm3 (3.6-11.0)
[2025-07-22 06:10] LABS: Alanine Aminotransferase 16 U/L (10-49); Albumin, Serum 3.0 gm/dL (3.4-4.8); Albumin/Globulin Ratio 2.7 (1.2-2.2); Alkaline Phosphatase 97 U/L (46-116); Anion Gap 8 (7-16); Aspartate Amino Transferase 15 U/L (0-34); BUN/Creatinine Ratio 11 Ratio (12-20); Bilirubin,Total 0.2 mg/dL (0.3-1.2); Blood Urea Nitrogen 8 mg/dL (9-23); Calcium 7.9 mg/dL (8.3-10.6); Calcium (Corrected) 8.7 mg/dL (8.5-10.1); Carbon Dioxide 29.2 mMol/L (20.0-31.0); Chloride 107 mMol/L (98-107); Creatinine (Component) 0.7 mg/dL (0.6-1.3); Estimated Creatinine Clearance 60.0 mL/min (>60); Globulin 1.1 gm/dL (2.3-3.5); Glucose 144 mg/dL (74-106); Magnesium 2.1 mg/dL (1.6-2.6); Osmolality,Calculated 288 (275-295); Phosphorous 2.3 mg/dL (2.4-5.1); Potassium 3.9 mMol/L (3.4-5.1); Sodium 144 mMol/L (136-145); Total Protein 4.1 gm/dL (5.7-8.2); eGFR > 60 See Note
--- NOTE | 2025-07-22 07:48 | PD.RESEVENT ---
Documentation for date of: 07/22/25 Event Note Event Note: ICU downgrade: DKA 60-year-old female with a history of insulin-dependent T2DM, hypertension, hyperlipidemia, COPD, CAD status post stents (on Plavix), bipolar disorder, anxiety, and right foot ulcer. Additionally came in with nausea and vomiting. Stated that she was transitioned to p.o. agent Januvia and pioglitazone plus metformin by her PCP. Patient was wishing to try p.o. agents versus insulin. Presented to ED due to worsening vomiting. Found to be in DKA with BHB of 6.2, blood sugars 626, anion gap was 25, bicarb 10.2, pH 7.07. She was was admitted to ICU for insulin drip. Overnight, anion gap closed x 3 and she was bridged with subcu insulin. Insulin drip was discontinued around 3 AM. Patient was tolerating diet well. Now in stable condition and downgraded back to floors. Patient was resumed on home antihypertensive agents metoprolol to tartrate 50 twice daily and lisinopril 40 mg daily. The patient's management plan was discussed with my attending physician Dr. Galloway. Izabel Kidd, PGY-2
[2025-07-22] MEDS: NAPH,KPH MBDB 1 PACKET (1.5 GM) PO (07:59)
[2025-07-22] MEDS: HEPARIN SOD INJ 5000 UNIT/ML VIAL SC ×2 (09:19→21:08)
[2025-07-22] MEDS: METOPROLOL TARTRATE 25 MG TABLET 50 MG PO ×2 (09:19→21:08)
[2025-07-22] MEDS: CLOPIDOGREL BISULFATE 75 MG TABLET PO (09:19)
[2025-07-22] MEDS: COLLAGENASE OINT 30 GM TUBE TOP (09:48)
[2025-07-22] MEDS: LIDOCAINE 5% 1 PATCH TOP (09:49)
--- NOTE | 2025-07-22 11:16 | ESPR_ITS ---
<Statement entered by Yaneli Richard MD - 07/22/25 15:46> Pt is seen at bedside, Pt is ICU downgrade overnight, she was admitted for DKA. Gap is closed x4 and pt is emotional crying about her current health. Pt is reassured that her Diabetes is being managed and blood sugars are controlled. Per Pt, Pt's primary care had taken her off insulin and transitioned her to oral meds which caused her to go into DKA. Pts BG is well controlled with degludac 15untis plus sliding scale insulin AC. Pt was recently hospitalized for a needle in her right foot which was removed by Dr. Burton. The wound is clean, still healing, no purulent discharge is noted on exam. Pt follows [facility] outpatient once a week. will monitor one more day and anticipate discharge tomorrow. Patient was seen and examined by me personally. I have directly supervised and reviewed documentation by the team resident and agree with its findings. ------- Plan of care was discussed with the attending, Dr. Karl Richard, PGY-2 Documentation for date of: 07/22/25 Subjective Subjective Interval history: Initially admitted for DKA, downgraded to floors overnight. BG and K WNL, anion gap closed x4. Reports neck pain, given lidocaine patch. Denies N/V/GI distress upon evaluation this AM. Patient lives at home with daughter who helps take care of her. Exam Vital Signs Temp Pulse Resp BP Pulse Ox O2 Del Method 98.0 F 74 19 179/98 H 98 Room Air 07/22/25 10:41 07/22/25 10:41 07/22/25 10:41 07/22/25 10:41 07/22/25 10:41 07/22/25 10:41 Narrative Exam General: No acute distress, tearful Eye: PERRL, EOMI, normal conjunctiva, no scleral icterus HENT: Normocephalic, atraumatic, normal hearing, moist oral mucosa. Flaky white circular patch located on lower left posterior head with clear defined borders, about 2 cm x 3 cm, pruritic. Neck: Supple, non-tender, no JVD, no lymphadenopathy Lungs: Clear to auscultation bilaterally, non-labored respirations, symmetric chest rise, no use of accessory muscles Heart: Normal S1 and S2, no S3 or S4 appreciated. Normal rate and regular rhythm, no murmurs, rubs gallops, or edema. Peripheral pulses intact bilaterally, capillary refill brisk distally Abdomen: Soft, non-tender, non-distended, normal bowel sounds. No guarding or rebound tenderness. Musculoskeletal: Normal range of motion and strength, no tenderness or swelling Skin: Skin is warm, dry, no rashes or lesions. Tender right foot ulcer, ~ 3 cm x 5 cm x 1 cm, no drainage on bandage. No pus or drainage expressed from ulcer during compression of patient's right foot. Neurologic: Alert, awake and oriented x3. CN II-XII grossly intact. No focal neuro deficits. No signs of meningeal irritation noted. Psychiatric: Cooperative, appropriate mood and affect Objective Labs 07/23/25 05:20 07/23/25 05:20 Labs: Laboratory Results - last 24 hr 07/21/25 07/21/25 07/21/25 10:51 12:25 15:39 WBC RBC Hgb Hct MCV MCH MCHC RDW Std Deviation Plt Count Neut % (Auto) Lymph % (Auto) [place] % (Auto) Eos % (Auto) Baso % (Auto) Neut # (Auto) Lymph # (Auto) [place] # (Auto) Eos # (Auto) Baso # (Auto) Immature Gran # (Auto) Absolute Nucleated RBC Immature Gran % Nucleated RBC % Sodium 142 143 Potassium 4.6 3.5 D Chloride 109 H 108 H Carbon Dioxide 10.6 L* 23.7 Anion Gap 22 H 11 BUN 13 13 Creatinine 1.2 0.9 Estim Creat Clear Calc 35.0 L 46.6 L eGFR 52 L > 60 BUN/Creatinine Ratio 11 L 14 Glucose 438 H* D 252 H D Calculated Osmolality 302 H 294 Lactic Acid 2.9 H 1.7 Calcium 8.3 7.6 L Corrected Calcium 8.5 8.5 Phosphorus 3.0 1.3 L Magnesium 1.9 1.5 L Total Bilirubin AST ALT Alkaline Phosphatase Total Protein Albumin 3.7 2.9 L D Globulin Albumin/Globulin Ratio Ur Collection Type Clean Catch Urine Color Colorless A Urine Clarity Clear Urine pH 6.0 Ur Specific [place] 1.022 Urine Protein 2+ A Urine Glucose (UA) 4+ A Urine Ketones 4+ A Urine Blood Trace Urine Nitrite Negative Urine Bilirubin Negative Urine Urobilinogen (Auto) Negative Ur Leukocyte Esterase Negative Urine RBC 1 Urine WBC 1 Ur Squamous Epith Cells 3 Urine Bacteria 1+ A Urine Yeast (Budding) Present A 07/21/25 07/21/25 07/22/25 19:12 23:09 04:47 WBC 11.7 H RBC 4.03 Hgb 10.4 L D Hct 31.8 L MCV 79 L MCH 25.8 MCHC 32.7 RDW Std Deviation 43.8 Plt Count 359 D Neut % (Auto) 64 Lymph % (Auto) 24 [place] % (Auto) 7 Eos % (Auto) 4 Baso % (Auto) 1 Neut # (Auto) 7.5 Lymph # (Auto) 2.8 [place] # (Auto) 0.9 H Eos # (Auto) 0.5 Baso # (Auto) 0.1 Immature Gran # (Auto) 0.03 H Absolute Nucleated RBC 0.00 Immature Gran % 0 Nucleated RBC % 0 Sodium 144 143 144 Potassium 3.5 4.1 D 3.9 Chloride 106 108 H 107 Carbon Dioxide 28.9 31.0 29.2 Anion Gap 9 4 L 8 BUN 11 10 8 L Creatinine 0.8 0.7 0.7 Estim Creat Clear Calc 52.5 L 60.0 L 60.0 L eGFR > 60 > 60 > 60 BUN/Creatinine Ratio 14 14 11 L Glucose 195 H D 107 H D 144 H Calculated Osmolality 291 283 288 Lactic Acid 1.8 1.4 Calcium 8.0 L 7.6 L 7.9 L Corrected Calcium 8.8 8.7 8.7 Phosphorus 1.3 L 2.7 2.3 L Magnesium 1.7 2.5 2.1 Total Bilirubin 0.2 L AST 15 ALT 16 Alkaline Phosphatase 97 D Total Protein 4.1 L Albumin 3.0 L 2.6 L 3.0 L Globulin 1.1 L Albumin/Globulin Ratio 2.7 H Ur Collection Type Urine Color Urine Clarity Urine pH Ur Specific [place] Urine Protein Urine Glucose (UA) Urine Ketones Urine Blood Urine Nitrite Urine Bilirubin Urine Urobilinogen (Auto) Ur Leukocyte Esterase Urine RBC Urine WBC Ur Squamous Epith Cells Urine Bacteria Urine Yeast (Budding) ABG Interpretation ABG results: 07/21/25 10:32 ABG pH 7.07 L* D ABG pCO2 30 L ABG pO2 96 ABG HCO3 9 L* ABG O2 Saturation 96 ABG Base Excess -20 L Quality Measures Quality Measures VTE prophylaxis Assessment & Plan Assessment Current Active Medications: Generic Name Dose Route Start Last Admin Trade Name Angel PRN Reason Stop Dose Admin Acetaminophen 650 mg 07/21/25 11:13 Acetaminophen 325 Mg Tablet PO 08/20/25 11:12 Q6H PRN Fever >100.4 and pain 1-3 Hydrocodone Bitart/Acetaminophen 1 tab 07/21/25 11:13 Hydrocodone/Apap 5/325 Tablet PO 07/26/25 11:12 Q4HR PRN PAIN SCALE 4-6 (Moderate Amitriptyline HCl 100 mg 07/22/25 21:00 Amitriptyline Hcl 25 Mg Tablet PO 08/21/25 20:59 HS BIRDIE Atorvastatin Calcium 40 mg 07/22/25 21:00 Atorvastatin Calcium 20 Mg Tablet PO 08/21/25 20:59 HS BIRDIE Clopidogrel Bisulfate 75 mg 07/22/25 09:00 07/22/25 09:19 Clopidogrel Bisulfate 75 Mg Tablet PO 08/21/25 08:59 75 mg QDAY BIRDIE Administration Collagenase 0 gm 07/22/25 09:00 07/22/25 09:48 Collagenase Oint 30 Gm Tube TOP 08/21/25 08:59 30 gm QDAY BIRDIE Administration Dextrose 25 ml 07/22/25 02:52 Dextrose 50%-Water Inj 50 Ml Syringe IV 08/21/25 02:51 Q15MIN PRN BG 50-70 responsive npo pt Dextrose 50 ml 07/22/25 02:52 Dextrose 50%-Water Inj 50 Ml Syringe IV 08/21/25 02:51 Q15MIN PRN BG <50 OR BG <70 & pt unresponsive Glucagon 1 mg 07/22/25 02:52 Glucagon Inj 1 Mg Vial IM Q15MIN PRN BG <70, and no IV access Heparin Sodium (Porcine) 5,000 unit 07/22/25 09:00 07/22/25 09:19 Heparin Sod Inj 5000 Unit/Ml Vial SC 08/05/25 08:59 5,000 unit Q12H BIRDIE Administration Insulin Degludec 15 unit 07/22/25 21:00 Insulin Degludec 5 Unit/0.05 Ml (Per 5 Units) SC 08/21/25 20:59 QDAY BIRDIE Insulin Human Lispro 0 unit 07/22/25 07:30 07/22/25 08:00 Insulin Lispro (Admelog) 1 Unit/0.01 Ml Unit SC 08/21/25 07:29 Not Given ACHS BIRDIE Protocol Labetalol HCl 5 mg 07/21/25 14:55 07/21/25 15:04 Labetalol Inj 5 Mg/Ml Vial 20 Ml IVP 08/20/25 14:54 5 mg Q6HR PRN Administration SBP >180 Lamotrigine 25 mg 07/22/25 21:00 Lamotrigine 25 Mg Chew PO 08/21/25 20:59 HS BIRDIE Lisinopril 40 mg 07/22/25 09:00 07/22/25 09:20 Lisinopril 20 Mg Tablet PO 08/21/25 08:59 40 mg QDAY BIRDIE Administration Loratadine 10 mg 07/22/25 09:00 07/22/25 09:19 Loratadine 10 Mg Tablet PO 08/21/25 08:59 10 mg QDAY BIRDIE Administration Protocol Metoprolol Tartrate 50 mg 07/21/25 21:00 07/22/25 09:19 Metoprolol Tartrate 25 Mg Tablet PO 08/20/25 20:59 50 mg BID BIRDIE Administration Mirtazapine 15 mg 07/22/25 21:00 Mirtazapine 15 Mg Tablet PO 08/21/25 20:59 HS BIRDIE Morphine Sulfate 2 mg 07/21/25 11:13 07/21/25 15:03 Morphine Sulf Inj 4 Mg/Ml Vial IVP 07/26/25 11:12 2 mg Q2H PRN Administration PAIN SCALE 7-10 (Severe Ondansetron HCl 4 mg 07/21/25 11:13 Ondansetron Inj 2 Mg/Ml Inj 2 Ml IVP 08/20/25 11:12 Q6H PRN NAUSEA OR VOMITING Protocol Plan This patient is a 60-year-old female with a history of insulin-dependent T2DM, hypertension, hyperlipidemia, COPD, CAD status post stents (on Plavix), bipolar disorder, anxiety, and right foot ulcer who presented to [facility] ED on 07/21 for nausea/vomiting. Patient was admitted to the ICU for management of DKA. #DKA - resolved #Insulin dependent T2DM #Lactic acidosis - resolved #HAGMA - resolved Initial presentation: N/V x2 days On admit: glucose 626, BHB >6.4. ABG 7.07/30/96, Bicarb 10.2, lactic acid 2.9. Anion gap 25. UA 4+ glucose, 4+ ketones Pt recently transitioned from insulin to oral metformin, Januvia and pioglitazone, has had previous admissions for DKA Completed DKA protocol in ICU, anion gap closed x4 Plan: - Degludec 15 U QHS - Lispro sliding scale ACHS - step 2 - CTM with daily CMP #Hypertension DDx: Primary, anxiety Plan: - Metoprolol tartrate 50 mg BID (home med) - Lisinopril 40 mg daily daily (home med) - Labetalol 5 mg IV every 6 hours PRN for SBP >180 #LA - resolved On admit Cr 1.3, baseline 0.8 Tolerating PO intake Plan: - Avoid nephrotoxic drugs and renally dose medication - CTM daily CMP #CAD s/p stents Plan: - Atorvastatin 40 mg daily (home med) - Plavix 75 mg daily (home med) #White circular patch on lower left posterior head DDx: Tinea capitis, psoriasis Plan: - Consider oral antifungal on d/c #Right foot ulcer Plan: [place] every 4 hours as needed for moderate pain Morphine 2 mg IV every 2 hours as needed for severe pain #Acid reflux Plan: - Pantoprazole 40 mg IV daily #Bipolar disorder Plan: - Amitryptiline 100 mg PO QHS (home med) - Lamotrigine 25 mg PO QHS - Mirtazepine 15 mg PO QHS Checklist Dispo: Anticipate d/c in next 24-48 hours Lines: CVC right IJ 2/2 poor peripheral access Diet: carb consistent Bowel Reg: n/a VTE ppx: heparin subQ BID GI ppx: pantoprazole 40 mg IV daily Pain mgmt: [place] 5 mg q4h, Morphine 2 mg q6h Code status: full Plan discussed with Dr. Broderick Richard and Dr. Bobbi Pierce MD PGY1 Attending Provider Attestation/Addendum I reviewed labs, imaging, EKG, home medications and prior available records. Face to face evaluation was performed by me. I have personally examined the patient and discussed assessment and plan with the IM team. I reviewed the resident note and agree with the plan with exceptions as below. DKA, resolved Uncontrolled diabetes mellitus with hyperglycemia, insulin-dependent CAD Uncontrolled hypertension Dyspepsia A1c is 10.1 Continue 15 units of long-acting insulin plus sliding scale insulin Will plan for discharge on insulin instead of oral hyperglycemia agents Continue Plavix and atorvastatin Resumed antihypertensive treatment Started PPI for dyspepsia
[2025-07-22] MEDS: INSULIN LISPRO (AdmeLOG) 1 UNIT/0.01 ML UNIT SC ×3 (12:01→21:07)
--- NOTE | 2025-07-22 15:09 | PC.SS ---
Patient is alert/oriented. Patient was able to verify demographics. Patient admitted for DKA. Patient is a downgrade from ICU. Patient is independent with ADL's. Patient has hx: bipolar disorder and anxiety. Patient follows with [facility] and sees a psychiatrist. Patient has hx: drug/alcohol. Hx: mental health. She receives social security income and snap. Transportation: family. Patient follows with [facility] and goes 1 x weekly. Discharge home once cleared. Alt medical decision maker: Ruthy Muse, daughter,
[2025-07-22] MEDS: lamoTRIgine 25 MG CHEW PO (21:06)
[2025-07-22] MEDS: ATORVASTATIN CALCIUM 20 MG TABLET 40 MG PO (21:08)
[2025-07-22] MEDS: AMITRIPTYLINE HCL 25 MG TABLET 100 MG PO (21:08)
[2025-07-22] MEDS: MIRTAZAPINE 15 MG TABLET PO (21:08)
[2025-07-23] VITALS (9 sets, daily range): BP systolic 148–179; BP diastolic 70–87; PULSE 64–74; RESP 16–17; TEMP 36.1–37.1; O2SAT 94–99; BMI 20.7
[2025-07-23 06:06] LABS: Basophils # (Auto) 0.1 Thou/mm3 (0.0-0.2); Basophils % (Auto) 1 % (0-2.5); Eosinophils # (Auto) 0.6 Thou/mm3 (0.0-0.5); Eosinophils % (Auto) 7 % (0-10); Hematocrit 31.1 % (36.0-46.0); Hemoglobin 10.3 g/dL (12.0-16.0); Immature Granulocytes Auto 0.02 Thou/mm3 (0.00-0.00); Lymphocytes # (Auto) 3.1 Thou/mm3 (1.0-4.8); Lymphocytes % (Auto) 39 % (10-50); Mean Corpuscular HGB Conc 33.1 g/dl (31.0-37.0); Mean Corpuscular Hemoglobin 25.9 pg (25.0-35.0); Mean Corpuscular Volume 78 fL (80-100); Monocytes # (Auto) 0.6 Thou/mm3 (0.0-0.8); Monocytes % (Auto) 7 % (0-12); Neutrophils # (Auto) 3.7 Thou/mm3 (1.8-7.7); Neutrophils % (Auto) 46 % (37-80); Nucleated Red Blood Cell # 0.00 Thou/mm3 (0.00-0.00); Nucleated Red Blood Cell % 0 /100 WBC (0); Platelet Count 319 Thou/mm3 (140-440); RDW Standard Deviation 43.9 fL (36.4-46.3); Red Blood Count 3.98 Miln/mm3 (4.00-5.20); White Blood Count 8.0 Thou/mm3 (3.6-11.0)
[2025-07-23 06:27] LABS: Alanine Aminotransferase 16 U/L (10-49); Albumin, Serum 2.5 gm/dL (3.4-4.8); Albumin/Globulin Ratio 1.8 (1.2-2.2); Alkaline Phosphatase 92 U/L (46-116); Anion Gap 7 (7-16); Aspartate Amino Transferase 21 U/L (0-34); BUN/Creatinine Ratio 17 Ratio (12-20); Bilirubin,Total 0.2 mg/dL (0.3-1.2); Blood Urea Nitrogen 10 mg/dL (9-23); Calcium 8.1 mg/dL (8.3-10.6); Calcium (Corrected) 9.3 mg/dL (8.5-10.1); Carbon Dioxide 29.1 mMol/L (20.0-31.0); Chloride 108 mMol/L (98-107); Creatinine (Component) 0.6 mg/dL (0.6-1.3); Estimated Creatinine Clearance 75.2 mL/min (>60); Globulin 1.4 gm/dL (2.3-3.5); Magnesium 1.7 mg/dL (1.6-2.6); Osmolality,Calculated 282 (275-295); Phosphorous 2.7 mg/dL (2.4-5.1); Potassium 3.2 mMol/L (3.4-5.1); Sodium 144 mMol/L (136-145); Total Protein 3.9 gm/dL (5.7-8.2); eGFR > 60 See Note
[2025-07-23 06:30] LABS: Glucose 42 mg/dL (74-106)
--- NOTE | 2025-07-23 08:06 | ESDS_ITS ---
Planned Discharge Date 07/23/25 DS: Providers Provider Date of admission: 07/21/25 11:13 Primary care physician: Aaron Mclean MD Admitting Provider: Priyank Capellan MD Attending Provider on Admission: Priyank Capellan MD Consults: 07/21/25 11:16 Referral Registered Dietitian Routine Comment: 07/21/25 14:59 Referral Wound Care Routine Comment: 07/21/25 15:01 Referral [facility] Routine Comment: Attending Provider on DC: Dr. Martines Discharging Provider: Tamia Pierce MD DS: Diagnosis Problem List Completed Was Problem List Reviewed/Reconciled?: Yes Hospital Course Hospital Course Hospital course: Hospital Course Ms. Cristobal is a 60 y/o female with PMHx of insulin-dependent T2DM, hypertension, hyperlipidemia, COPD, CAD status post stents (on Plavix), bipolar disorder, anxiety, and right foot ulcer who was admitted to the ICU on 07/21/2025 due to DKA. Patient came in initially with concerns of nausea and vomiting that started around 2 or 3 days prior to admission. Patient stated that she was recently taken off her insulin by her primary care physician and was switched to Januvia and pioglitazone as well as metformin, but that she felt it was not controlling her blood sugars quite well. She has recurrent admissions for DKA at [facility]. On admit: glucose 626, BHB >6.4. ABG 7.07//, Bicarb 10.2, lactic acid 2.9. Anion gap 25. UA 4+ glucose, 4+ ketones. Central line Right IJ placed 07/21 due to poor peripheral vascular access. Started on IV insulin drip and continued monitoring serial labs to resolution of ketoacidosis. Patient's anion gap closed x2 prior to downgrading to floors 07/22. Patient has been tolerating PO intake without N/V. Patient hypertensive throughout hospitalization. Restarted home metoprolol tartrate 50 mg twice daily and lisinopril 40 mg daily with PRN labetalol 5 mg IV. Resumed home plavix and atorvastatin given hx of CAD s/p stents. Also resumed home mirtazepine, lamotrigine, and amitryptiline for bipolar disorder. Patient also has a chronic right plantar wound for which she gets outpatient wound care. Patient has not been requiring [place] 5 mg PO or morphine 2mg IV. Patient hemodynamically stable. Labs reviewed and stable. Central line removed. Patient stable and medically cleared for discharge. Diagnoses #DKA - resolved #Insulin dependent T2DM #Lactic acidosis - resolved #HAGMA - resolved #Hypertension #LA - resolved #CAD s/p stents #White circular patch on lower left posterior head #Right foot ulcer #Acid reflux #Bipolar disorder Discharge Instructions - Follow up with PCP within 1 week of discharge, if you do not have a primary care physician you can come see us at the [facility] [place] by calling [phone] - Stop taking metformin, pioglitazone, and Januvia. - Take Degludec 15U nightly - Take Lispro 4U with meals - Continue taking metoprolol tartrate 50 mg twice daily and lisinopril 40 mg daily - You have been prescribed a blood thinner, which can cause bleeding so please be careful with falls, if you have an injury or fall please immediately go to the ED - Continue rest of medications as previously prescribed - Return to the ED or call EMS if symptoms return and/or worsen Tamia Pierce MD PGY1 Time Spent with Patient Time attestation: Total time spent providing and/or coordinating discharge services: Time spent: Greater than 30 minutes Exam Vital Signs Temp Pulse Resp BP Pulse Ox O2 Del Method 96.9 F 68 16 179/86 H 99 Room Air 07/23/25 07:36 07/23/25 07:36 07/23/25 07:36 07/23/25 07:36 07/23/25 07:36 07/23/25 07:36 Narrative Exam General: No acute distress, thin Eye: PERRL, EOMI, normal conjunctiva, no scleral icterus HENT: Normocephalic, atraumatic, normal hearing, moist oral mucosa. Flaky white circular patch located on lower left posterior head with clear defined borders, about 2 cm x 3 cm, pruritic. Neck: Supple, non-tender, no JVD, no lymphadenopathy Lungs: Clear to auscultation bilaterally, non-labored respirations, symmetric chest rise, no use of accessory muscles Heart: Normal S1 and S2, no S3 or S4 appreciated. Normal rate and regular rhythm, no murmurs, rubs gallops, or edema. Peripheral pulses intact bilaterally, capillary refill brisk distally Abdomen: Soft, non-tender, non-distended, normal bowel sounds. No guarding or rebound tenderness. Musculoskeletal: Normal range of motion and strength, no tenderness or swelling Skin: Skin is warm, dry, no rashes or lesions. Tender right foot ulcer, ~ 3 cm x 5 cm x 1 cm, no drainage on bandage. No pus or drainage expressed from ulcer during compression of patient's right foot. Neurologic: Alert, awake and oriented x3. CN II-XII grossly intact. No focal neuro deficits. No signs of meningeal irritation noted. Psychiatric: Cooperative, appropriate mood and affect Discharge Plan Plan Patient Disposition: HOME (Self Care) Patient condition on transfer: Stable Care Plan Goals: - Follow up with PCP within 1 week of discharge, if you do not have a primary care physician you can come see us at the [facility] [place] by calling [phone] - Stop taking pioglitazone, and Januvia - Continue taking metformin 1000 mg twice daily - Take Degludec 15U nightly - Use Lispro sliding scale with each meal - Continue taking metoprolol tartrate 50 mg twice daily and lisinopril 40 mg daily - You have been prescribed a blood thinner, which can cause bleeding so please be careful with falls, if you have an injury or fall please immediately go to the ED - Continue rest of medications as previously prescribed -Continue to follow up with [facility] - Return to the ED or call EMS if symptoms return and/or worsen Insulin sliding scale: If blood sugar 180-200 mg/dL --> take 2 U Lispro If blood sugar 200-250 mg/dL --> take 3 U Lispro If blood sugar 251-300 md/dL --> take 4 U Lispro If blood sugar >300 mg/dL --> take 5 U Lispro Prescriptions/Referrals Prescriptions/Med Rec: New insulin degludec 100 unit/mL (3 mL) insulin pen 15 unit subcut QDAY Qty: 15 0RF insulin lispro [Humalog KwikPen Insulin] 100 unit/mL insulin pen 1 sliding scale dose subcut USEASDIRECTD Qty: 15 0RF esomeprazole magnesium 20 mg capsule,delayed release(DR/EC) 20 mg PO QDAY Qty: 30 0RF Continued atorvastatin 40 mg Tablet 40 mg PO HS amitriptyline 100 mg Tablet 100 mg PO HS gabapentin 100 mg capsule 100 mg PO HS cetirizine 10 mg tablet 10 mg PO QDAY lisinopril 40 mg tablet 40 mg PO QDAY 30 Days Qty: 30 0RF ondansetron HCl 4 mg tablet 4 mg PO Q6H MDD 4 PRN (Reason: nausea and vomiting) Qty: 16 1RF lamotrigine 25 mg tablet 25 mg PO HS clopidogrel 75 mg Tablet 75 mg PO QDAY 30 Days Qty: 30 4RF (DME) FreeStyle Osmani 3 Sensor Device See Rx Instructions .Route Qty: 1 6RF Rx Instructions: As directed (DME) insulin syr/ndl U100 half windy 0.3 mL 29 gauge x 1/2 syringe See Rx Instructions .Route Qty: 100 0RF Rx Instructions: As directed hydroxyzine HCl 25 mg tablet 25 mg PO HS Patient Comments: TAKE ONE TABLET BY MOUTH AT BEDTIME metformin 1,000 mg tablet 1,000 mg PO BID metoprolol tartrate 50 mg tablet 50 mg PO BID hydrocodone-acetaminophen 5-325 mg tablet 1 tab PO Q6H PRN (Reason: pain) Patient Comments: TAKE ONE TABLET BY MOUTH EVERY 6 HOURS NEEDED FOR PAIN (DME) pen needle, diabetic [Comfort EZ Pen [place]] 31 gauge x 3/16 needle Patient Comments: DIRECTED sennosides [Senna Lax] 8.6 mg Tablet 8.6 mg PO QDAY PRN (Reason: constipation) 30 Days Qty: 30 0RF mirtazapine 15 mg Tablet 15 mg PO HS 30 Days Qty: 30 0RF Discontinued pioglitazone 30 mg tablet 30 mg PO QDAY Januvia 50 mg tablet 50 mg PO QDAY insulin lispro [Admelog U-100 Insulin lispro] 100 unit/mL solution 1 sliding scale dose subcut USEASDIRECTD Qty: 10 2RF Rx Instructions: Take insulin according to the sliding scale with meals cyclobenzaprine 10 mg tablet 10 mg PO Q8H insulin degludec 200 unit/mL (3 mL) insulin pen 20 unit subcut QDAY Qty: 9 0RF Referrals: Aaron Mclean MD [Primary Care Provider, Family Practice] Patient/Caregiver Discharge Instructions Education Materials: Diabetic Ketoacidosis Print Language: Thai Stand Alone Forms: Lela Award Info., Patient Portal Info Letter Discharge Order Discharge Orders: Discharge (Routine); Ordered 07/23/25 Ordered By: Yaneli Richard Quality Discharge Quality Measures VTE prophylaxis Attestestation Attestation I reviewed labs, imaging, EKG, home medications and prior available records. Face to face evaluation was performed by me. I have personally examined the patient and discussed assessment and plan with the IM team. I reviewed the resident note and agree with the plan with exceptions as below. DKA, resolved Uncontrolled diabetes mellitus with hyperglycemia, insulin-dependent CAD Uncontrolled hypertension Dyspepsia A1c is 10.1 Continue 15 units of long-acting insulin plus sliding scale insulin Continue metformin Continue Plavix and atorvastatin Resumed antihypertensive treatment Time spent is 40 minutes. More than 50% of the time was spent on patient education and coordination of care.
[2025-07-23] MEDS: METOPROLOL TARTRATE 25 MG TABLET 50 MG PO (08:28)
[2025-07-23] MEDS: INSULIN DEGLUDEC 5 UNIT/0.05 ML (PER 5 UNITS) 15 UNIT SC (08:28)
[2025-07-23] MEDS: CLOPIDOGREL BISULFATE 75 MG TABLET PO (08:28)
[2025-07-23] MEDS: HEPARIN SOD INJ 5000 UNIT/ML VIAL SC (08:29)
[2025-07-23] MEDS: POTASSIUM CHLORIDE 10% 20 MEQ/15 ML UDC GT (09:49)
[2025-07-23] MEDS: INSULIN LISPRO (AdmeLOG) 1 UNIT/0.01 ML UNIT SC (11:49)
== END 2025-07-23 13:12 | disposition home or self-care (01) | DRG 420 ==
LOC: SERX 09:37 → SERHOLD 11:41 → S2SX 14:37 → S3SX 07-22 06:44
PROVIDERS: Nurse Practitioner Family; Student in an Organized Health Care Education/Training Program; Admitting Provider Internal Medicine Critical Care Medicine; Emergency Provider Emergency Medicine; PCP Family Medicine; Visit Provider Internal Medicine Critical Care Medicine
DX: E11.10 Type 2 diabetes mellitus with ketoacidosis without coma (principal); R19.7 Diarrhea, unspecified; I10 Essential (primary) hypertension; E78.5 Hyperlipidemia, unspecified; J44.9 Chronic obstructive pulmonary disease, unspecified; F17.200 Nicotine dependence, unspecified, uncomplicated; E11.621 Type 2 diabetes mellitus with foot ulcer; I25.10 Atherosclerotic heart disease of native coronary artery without angina pectoris; N17.9 Acute kidney failure, unspecified; F31.9 Bipolar disorder, unspecified; E11.65 Type 2 diabetes mellitus with hyperglycemia; K21.9 Gastro-esophageal reflux disease without esophagitis; L97.519 Non-pressure chronic ulcer of other part of right foot with unspecified severity; Z79.02 Long term (current) use of antithrombotics/antiplatelets; Z79.4 Long term (current) use of insulin; Z79.84 Long term (current) use of oral hypoglycemic drugs; Z79.899 Other long term (current) drug therapy; Z95.5 Presence of coronary angioplasty implant and graft; Z88.5 Allergy status to narcotic agent; Z88.0 Allergy status to penicillin; Z88.1 Allergy status to other antibiotic agents; Z88.8 Allergy status to other drugs, medicaments and biological substances; Z88.6 Allergy status to analgesic agent
CPT/HCPCS: 36415; 36600; 74177; 80053; 80069; 81001; 82010; 82803; 83605; 83690; 83735; 84100; 85025; 87040; 87081; 87086; 87101; 93225; 96361; 96374; 96375; 99283; A4649; J1171; J1644; J1815; J2270; J2405; J2470; J3475; J3480; J3490; J7030; J7060; J7120; J7121; J7999; Q0162; Q9967; A9270; J1920

== ENCOUNTER → 2025-07-31 | Outpatient (CLI) | payer MEDICAID, SELFPAY | END | disposition home or self-care (01) | LOC: SWHD 13:40 | PROVIDERS: PCP Internal Medicine; Referring Provider Internal Medicine; Visit Provider Student in an Organized Health Care Education/Training Program | DX: E11.621 Type 2 diabetes mellitus with foot ulcer (principal); L97.415 Non-pressure chronic ulcer of right heel and midfoot with muscle involvement without evidence of necrosis; J44.9 Chronic obstructive pulmonary disease, unspecified; Z72.0 Tobacco use; I10 Essential (primary) hypertension; I25.10 Atherosclerotic heart disease of native coronary artery without angina pectoris; F32.A Depression, unspecified; F40.240 Claustrophobia; K21.9 Gastro-esophageal reflux disease without esophagitis | CPT/HCPCS: 97597; A9270 ==

== ENCOUNTER → 2025-08-21 | Outpatient (CLI) | payer MEDICAID, SELFPAY | END | disposition home or self-care (01) | LOC: SWHD 14:04 | PROVIDERS: PCP Internal Medicine; Referring Provider Internal Medicine; Visit Provider Student in an Organized Health Care Education/Training Program | DX: E11.621 Type 2 diabetes mellitus with foot ulcer (principal); L97.415 Non-pressure chronic ulcer of right heel and midfoot with muscle involvement without evidence of necrosis; J44.9 Chronic obstructive pulmonary disease, unspecified; Z72.0 Tobacco use; I10 Essential (primary) hypertension; I25.10 Atherosclerotic heart disease of native coronary artery without angina pectoris; F32.A Depression, unspecified; F40.240 Claustrophobia; K21.9 Gastro-esophageal reflux disease without esophagitis | CPT/HCPCS: 11042; A9270 ==

== ENCOUNTER → 2025-08-28 | Outpatient (CLI) | payer MEDICAID, SELFPAY | END | disposition home or self-care (01) | LOC: SWHD 14:42 | PROVIDERS: PCP Internal Medicine; Referring Provider Internal Medicine; Visit Provider Surgery | DX: E11.621 Type 2 diabetes mellitus with foot ulcer (principal); L97.418 Non-pressure chronic ulcer of right heel and midfoot with other specified severity; I10 Essential (primary) hypertension; J44.9 Chronic obstructive pulmonary disease, unspecified; Z72.0 Tobacco use; I25.10 Atherosclerotic heart disease of native coronary artery without angina pectoris; F32.A Depression, unspecified; F40.240 Claustrophobia; K21.9 Gastro-esophageal reflux disease without esophagitis | CPT/HCPCS: 11042; A9270 ==